=== PATIENT | male | born 1965 | race African-American/Black ===

== ENCOUNTER 2017-01-29 11:51 | Emergency (ER) | payer OTHER ==
[2017-01-29] MEDS ORDERED: Ketorolac Tromethamine 60 MG/2 ML VIAL ONE (13:45)
--- NOTE | 2017-01-29 13:59 | ULT ---
ULTRASOUND WITH DOPPLER DUPLEX VENOUS LEFT LOWER EXTREMITY CPT: 00065 ICD-10-PCS: B54D INDICATIONS: Left leg pain. TECHNIQUE: Color-flow Doppler, spectral wave-form analysis of pulsed Doppler, and tran-scale imaging with compr ession and augmentation were used to evaluate the bilateral common femoral, femoral, popliteal, post erior tibial, and superficial femoral veins and the proximal portions of the profunda femoral and gr eater saphenous veins. FINDINGS: There is limited evaluation due to the patient's body habitus, which does decrease acoustic penetrat ion. Within the imaged aspects, there is no sonographic evidence of DVT within the left lower extre mity venous system. IMPRESSION: Limited exam without discernible deep venous thrombosis. POS: [facility]
[2017-01-29 14:25] LABS: #Basophils 0.1 thou/uL (0.0-0.2); #Eosinphils 0.2 thou/uL (0.0-0.7); #Lymphocytes 1.5 thou/uL (1.20-3.40); #Monocytes 0.5 thou/uL (0.11-0.59); #Neutrophils 3.4 thou/uL (1.40-6.50); %Eosinophils 3.9 % (0.0-10.0); %Lymphocytes 26.8 % (21.0-51.0); %Monocytes 8.1 % (0.0-10.0); Hematocrit 40.3 % (42.0-52.0); Mean Platelet Volume 9.2 fL (7.4-10.4); White Blood Cell (WBC) Count 5.7 thou/uL (4.8-10.8)
[2017-01-29 14:44] LABS: ALT (SGPT) 13 U/L (8-55); AST (SGOT) 18 U/L (5-34); Alkaline Phosphatase 99 U/L (40-150); Anion Gap 10 mmol/L (10-20); BUN (Urea Nitrogen) 18 mg/dL (8.9-20.6); Bilirubin, Total 0.4 mg/dL (0.2-1.2); Calc. Creatinine Clearance 0 mL/min (70-130); Calcium 9.5 mg/dL (7.8-10.44); Carbon Dioxide 31 mmol/L (22-29); Chloride 102 mmol/L (98-107); Estimated GFR-MDRD Greater than 90; Protein, Total 9.1 g/dL (6.0-8.3)
== END 2017-01-29 16:36 | disposition home or self-care (01) ==
LOC: ERS 11:51
DX: M79.662 Pain in left lower leg (principal); G47.30 Sleep apnea, unspecified; I11.0 Hypertensive heart disease with heart failure; I50.9 Heart failure, unspecified; E66.9 Obesity, unspecified; I25.2 Old myocardial infarction; Z86.73 Personal history of transient ischemic attack (TIA), and cerebral infarction without residual deficits; Z79.899 Other long term (current) drug therapy
CPT/HCPCS: 36415; 80053; 85025; 96372; J1885

== ENCOUNTER 2017-02-03 16:51 | Observation (INO) | payer OTHER ==
[2017-02-03 17:29] LABS: #Eosinphils 0.3 thou/uL (0.0-0.7); #Lymphocytes 1.5 thou/uL (1.20-3.40); #Monocytes 0.4 thou/uL (0.11-0.59); #Neutrophils 2.9 thou/uL (1.40-6.50); %Basophils 0.1 % (0.0-1.0); %Eosinophils 6.4 % (0.0-10.0); %Lymphocytes 29.6 % (21.0-51.0); %Monocytes 7.4 % (0.0-10.0); Hematocrit 40.3 % (42.0-52.0); Mean Platelet Volume 9.1 fL (7.4-10.4); Red Blood Cell (RBC) Count 3.97 mill/uL (4.70-6.10); White Blood Cell (WBC) Count 5.2 thou/uL (4.8-10.8)
[2017-02-03 17:33] LABS: Prothrombin Time 14.5 SEC (12.0-14.7)
[2017-02-03 17:55] LABS: ALT (SGPT) 14 U/L (8-55); AST (SGOT) 17 U/L (5-34); Alkaline Phosphatase 105 U/L (40-150); Anion Gap 10 mmol/L (10-20); BUN (Urea Nitrogen) 12 mg/dL (8.9-20.6); Bilirubin, Total 0.5 mg/dL (0.2-1.2); CK (CPK) 88 U/L (30-200); Calc. Creatinine Clearance 0 mL/min (70-130); Carbon Dioxide 33 mmol/L (22-29); Chloride 102 mmol/L (98-107); Estimated GFR-MDRD Greater than 90; Globulin 4.8 g/dL (2.4-3.5); Protein, Total 8.8 g/dL (6.0-8.3)
[2017-02-03 17:59] LABS: Troponin I Less than 0.010 ng/mL (< 0.028)
[2017-02-03 18:07] LABS: Oxyhemoglobin 96.1 % (94.0-97.0); Sodium 141 mmol/L (135-148)
[2017-02-03 18:08] LABS: Mode VENTIMASK; Modified Allen's Test NOT DONE; Vent NO
--- NOTE | 2017-02-03 18:57 | RAD ---
PORTABLE CHEST: Comparison: 12-02-16 History: Shortness of breath. FINDINGS: Tracheostomy tube is in place. Heart size is enlarged. Pulmonary vessels appear engorged with appear ance very similar to that previous exam. IMPRESSION: Cardiomegaly with pulmonary vascular engorgement. POS: [facility]
[2017-02-03] MEDS ORDERED: Furosemide 40 MG/4 ML VIAL SLOW IVP SCH (21:00)
[2017-02-03] MEDS ORDERED: Benzonatate 100 MG CAP PO PRN (21:59)
[2017-02-03] MEDS ORDERED: Ondansetron ODT 4 MG TAB PO PRN (21:59)
[2017-02-03] MEDS ORDERED: Ondansetron HCl/PF 4 MG/2 ML Vial IVP PRN ×2 (21:59→22:00)
[2017-02-03] MEDS ORDERED: Acetaminophen 325 MG TAB PO PRN ×2 (21:59→22:00)
[2017-02-03] MEDS ORDERED: Enoxaparin Sodium 40 MG/0.4 ML SYRINGE SC SCH (21:59)
[2017-02-03] MEDS ORDERED: Acetaminophen 650 MG Suppository PR PRN (21:59)
[2017-02-03] MEDS ORDERED: Ondansetron ODT 4 MG TAB SL PRN (22:00)
[2017-02-03] MEDS ORDERED: Simvastatin 40 MG TAB PO SCH (22:15)
[2017-02-03] MEDS ORDERED: Topiramate 25 MG TAB PO SCH (22:15)
[2017-02-03] MEDS ORDERED: Gabapentin 100 MG CAP PO SCH (22:15)
[2017-02-03 22:46] VITALS: BMI 69.5
[2017-02-03] MEDS ORDERED: Albuterol Sulfate 1.25 MG/3 ML NEB NEB SCH (23:00)
--- NOTE | 2017-02-03 23:27 | HP ---
DATE OF ADMISSION: 02/03/2017 ATTENDING: Sandie Hubbard D.O. RESIDENT: MD Dr. Diane Mercedes's H and P reviewed and case discussed. A portion of the history and physical reviewed by myself. I agree with the assessment and plan with the following addendum. HISTORY OF PRESENT ILLNESS: Mr. Samson is a 51-year-old -[place]ian male with the past medical history of severe morbid obesity with hypoventilation syndrome, CHF, severe lymphedema, who presents after dislodging his trach at home. He was performing trach care because of worsening cough and sputum production as well as worsening nasal congestion over the past few days when his trach was dislodged. He was brought to the ER by EMS and his trach was replaced. ABG that was done shows a pH 7.34 and CO2 of 61. While abnormal, this is actually an improvement from his baseline. He does not appear to be hypoxic or in respiratory distress at this time. We will discuss his case with Dr. Singh in the morning to determine if the patient needs larger trach cuff or if he would like to proceed with current trach size, respiratory therapy to give trach care overnight. His chest x-ray did not show pneumonia and he has no other concerning features for pneumonia including a white count or fever. His cough is likely caused by viral upper respiratory infection. We will treat symptomatically with Tessalon and repeat his chest x-ray in the morning. In addition, he appears to have some weight gain on his daily measurement on his home scale of 30 pounds over the past week and his chest x-ray does show a large heart and pulmonary vasculature enlargement consistent with his known CHF. We will increase his Lasix for improved diuresis to resolve the CHF exacerbation. FELIX
[2017-02-03] MEDS ORDERED: Dextrose 5% in Water 1,000 ML IV PRN (23:41)
[2017-02-03] MEDS ORDERED: HumaLOG 300 UNITS/3 ML VIAL SC PRN (23:41)
[2017-02-03] MEDS ORDERED: Dextrose 50% Abboject 50 ML SYRINGE SLOW IVP PRN (23:41)
[2017-02-04] MEDS: Furosemide 40 MG/4 ML VIAL SLOW IVP SCH ×2 (06:05→13:28)
[2017-02-04 06:11] LABS: #Eosinphils 0.3 thou/uL (0.0-0.7); #Lymphocytes 1.9 thou/uL (1.20-3.40); #Monocytes 0.4 thou/uL (0.11-0.59); #Neutrophils 2.5 thou/uL (1.40-6.50); %Basophils 0.2 % (0.0-1.0); %Eosinophils 6.7 % (0.0-10.0); %Lymphocytes 36.6 % (21.0-51.0); %Monocytes 8.6 % (0.0-10.0); Hematocrit 36.1 % (42.0-52.0); Mean Platelet Volume 8.7 fL (7.4-10.4); White Blood Cell (WBC) Count 5.1 thou/uL (4.8-10.8)
--- NOTE | 2017-02-04 06:16 | HP-2 ---
CODE STATUS: FULL. PRIMARY CARE PHYSICIAN: Elsi A\T\M ATTENDING: Dr. Sandie Hubbard RESIDENT: Matthew Contreras M.D., PGY-1 LOCATION: [facility]. CHIEF COMPLAINT: Trach dislodged/trouble breathing. HISTORY OF PRESENT ILLNESS: This is a 51-year-old male that presents with a trach dislodgement and respiratory distress. Reports having a cough for the last week and reports having increased sweating and chills. He denies any fevers, denies any congestion, but he does take medici nba for allergies and believes that has helped keep those symptoms at bay. He says he has been incr easing the use of his nebulizers at home. He said he had a little bit of chest pain on Saturday, w as having a coughing spell during then, likely due to increased coughing. At the time of admission said he was coughing, went to go grab his suction for his trach and said during his coughing spell w hen he was moving that his trach got dislodged and then started having trouble breathing. He at armani t time called EMS and came to the ER in which he presented with just some respiratory distress and t tara not being in the correct position. REVIEW OF SYSTEMS: The patient reports a 30-pound weight gain over the last week, reports having ar thritis and arthralgias. All other review of systems are otherwise noted in HPI and the review of s ystems are negative at this time. PAST MEDICAL HISTORY: Diabetes mellitus type 2, sleep apnea, diastolic heart failure, EF of 60%, hy pertension, Pickwickian syndrome, depression, chronic anemia, morbid obesity, depression, GERD, BPH, and osteoarthritis. PAST SURGICAL HISTORY: A liver lac repair, trach placement in 2014, right corneal transplant in 200 5, lymphedema removal in 2004 and cholecystectomy. ALLERGIES: No known drug allergies. MEDICATIONS: Tramadol 15 mg q.i.d. per day, Meloxicam 1 daily, Flomax 0.4 mg p.o., Amlodipine 1 ta b p.o. Celexa 20 mg daily, Zyrtec 10 mg daily, Lasix 60 mg daily, Nexium 40 mg, Plavix 75 mg, gabape ntin 100 mg t.i.d., KCl 10 mEq, Topamax 25 mg b.i.d. and simvastatin 40 mg p.o. SOCIAL HISTORY: He is a 20 year smoker, quit in 2004. No alcohol use, no illicit drug use. PHYSICAL EXAMINATION: VITAL SIGNS: Blood pressure is 136/72, pulse is 61, respirations 20, temperature max 97.8, pulse ox 100% on his trach. GENERAL: He is alert and oriented x3, well-developed, morbidly obese, appropriately interactive. EYES: Conjunctivae within normal limit. FIDENCIO. ENT: Nasal mucosa within normal limits. Oropharynx within normal limits. NECK: Supple, no lymphadenopathy, no thyromegaly, no bruits. CARDIOVASCULAR: Regular rate and rhythm, no murmurs, no gallops. Radial pulses, pedal pulses palpa nallely bilaterally. RESPIRATORY: Normal breathing effort. Lungs are clear to auscultation bilaterally. Hard to auscul crane due to his body habitus. SKIN: Warm and dry. There is breakdown on his back, some stage I pressure ulcers. ABDOMEN: Soft, nontender to palpation. Bowel sounds are normal in all quadrants. No masses or dis tention. MUSCULOSKELETAL: He does have lymphedema in his lower extremities, does not have full range of umesh on of the extremities. NEUROLOGIC: No focal neuro deficit. Cranial nerves grossly intact. PSYCHIATRIC: He is appropriate. LABORATORY DATA: White blood cell count 5.2, hemoglobin 12.0, hematocrit 40.3, MCV 102, platelets 1 53, % neutrophils 56.4. Sodium 141, potassium 4.0, chloride 102, bicarbonate 33, BUN 12, creatinine 0.91, glucose 101, CK-MB 0.7, troponin 0.01, calcium 9.0, total protein 8.8, globulin 4.0, alkaline phosphatase 105, AST 17, ALT 14, total bilirubin 0.5. PT 14.5, INR 1.1, PTT 34.0. BNP 73.4. ABG: pH 7.34, CO2 61.8, O2 112.3. ABG bicarb 32.5. Chest x-ray showed cardiomegaly with pulmonary vas cular engorgement. ASSESSMENT AND PLAN: 1. Respiratory distress due to mucus plug/trach dislodgement. We will consult Respiratory Therapy for trach care and possible trach placement in order to keep trach clear. We will repeat chest x-ra y in a.m. We will repeat CBC and ABG in the a.m. We will consult either Pulmonology or General Surge ry to look at trach as patient reports that the trachea he does not believe is in the right place. 2. Viral upper respiratory infection. We will continue home Zyrtec and will give Tessalon Perles f or cough. 3. Diabetes mellitus type 2. We will do a.c. Accu-Cheks and mild sliding scale insulin. 4. Sleep apnea. He is on the trach. 5. Diastolic heart failure. We will give IV Lasix and his home medications. 6. Hypertension. Continue home meds. 7. Depression. Continue home medications. 8. Gastroesophageal reflux disease. Continue home medications. 9. Benign prostatic hypertrophy. Continue home medications. 10. Osteoarthritis. Continue home medications.
--- NOTE | 2017-02-04 06:40 | PDOC.FM ---
- Subjective Subjective: Pt states that he still feels like his trach has been dislodged. He denies SOB or chest pain. He admits to cough that onset within the past few days. Pt denies all other symptoms in ROS. There were no new problems over night. - Objective Vital Signs & Weight: Vital Signs (12 hours) Temp Pulse Resp BP Pulse Ox 02/04/17 06:00 97.5 F L 66 20 127/60 100 02/03/17 23:20 98 F 63 20 02/03/17 23:05 59 L 16 99 02/03/17 22:37 98 02/03/17 21:59 98 F 63 20 128/59 L 100 Weight Weight 201.35 kg Result Diagrams: 02/04/17 05:45 02/03/17 17:18 <John Thomas - Last Filed: 02/04/17 06:38> - Objective Vital Signs & Weight: Vital Signs (12 hours) Temp Pulse Resp BP BP Pulse Ox 02/04/17 08:34 66 126/59 L 02/04/17 07:35 97.8 F 66 18 126/59 L 100 02/04/17 06:00 97.5 F L 66 20 127/60 100 02/03/17 23:20 98 F 63 20 02/03/17 23:05 59 L 16 99 Weight Weight 201.35 kg I&O: 02/03/17 02/04/17 02/05/17 06:59 06:59 06:59 Output Total 700 Balance -700 Result Diagrams: 02/04/17 05:45 02/03/17 17:18 <Fay Quick - Last Filed: 02/04/17 10:51> Phys Exam - Physical Examination Constitutional: NAD HEENT: moist MMs Trach appears to be in place Respiratory: clear to auscultation bilateral Cardiovascular: RRR, no significant murmur muffled heart sounds Gastrointestinal: soft, non-tender, no distention, positive bowel sounds Musculoskeletal: no edema Neurological: non-focal <John Thomas - Last Filed: 02/04/17 06:38> Dx/Plan (1) Tracheostomy malfunction Code(s): J95.03 - MALFUNCTION OF TRACHEOSTOMY STOMA Status: Acute (2) Chronic respiratory failure with hypoxia and hypercapnia Code(s): J96.11 - CHRONIC RESPIRATORY FAILURE WITH HYPOXIA; J96.12 - CHRONIC RESPIRATORY FAILURE WITH HYPERCAPNIA Status: Chronic (3) HTN (hypertension) Code(s): I10 - ESSENTIAL (PRIMARY) HYPERTENSION Status: Chronic (4) Morbid obesity Code(s): E66.01 - MORBID (SEVERE) OBESITY DUE TO EXCESS CALORIES Status: Chronic (5) Swallowing impairment Code(s): R13.10 - DYSPHAGIA, UNSPECIFIED Status: Chronic - Plan Plan: 1. Tracheostomy out of place -per pt, his trach feels like it is out of place. This is not currently impacting his respiration -RT unable to pass suction catheter -consult Dr Singh who typically cares for his trach 2. Cough -no elevation of WBC or temp and lungs are clear -CXR does not show PNA -monitor for signs of PNA -likely 2/2 displaced trach 3. Chronic hypercapneic respiratory failure 2/2 obesity hypoventilation -monitor o2 status -provide support PRN -currently at baseline 4. HTN -continue home meds 5. Obesity -[place] on weight loss and diet 6. Dysphagia -pt has known difficulty swallowing and has been previously determined unsafe for anything PO. Pt previously denied a PEG -will order ST eval and follow diet recs <John Thomas - Last Filed: 02/04/17 06:38> Attending Addendum - Attending Addendum I personally evaluated the patient and discussed the management with Dr. Thomas. I agree with the History, Examination, Assessment and Plan documented above with any addition or exceptions noted below. The patient is sitting up in bed in no distress. His trach has been replaced by Dr. Singh and the patient states he is ready to go home. Will discharge. <Fay Quick - Last Filed: 02/04/17 10:51>
[2017-02-04] MEDS ORDERED: Potassium Chloride 10 MEQ TAB PO SCH (08:00)
--- NOTE | 2017-02-04 08:11 | RAD ---
PORTABLE CHEST ONE VIEW: 02/04/2017 6:26 a.m. HISTORY: Dyspnea. FINDINGS: No significant interval change is seen. POS: [facility]
[2017-02-04] MEDS: traMADol HCl 50 MG TAB PO PRN ×2 (08:33→15:49)
[2017-02-04] MEDS: Gabapentin 100 MG CAP PO SCH ×2 (08:35→14:37)
[2017-02-04] MEDS ORDERED: Meloxicam 15 MG TAB PO SCH (09:00)
[2017-02-04] MEDS ORDERED: Tamsulosin HCl 0.4 MG CAP PO SCH (09:00)
[2017-02-04] MEDS ORDERED: Cetirizine HCl 10 MG TAB PO SCH (09:00)
[2017-02-04] MEDS ORDERED: Amlodipine 5 MG TAB PO SCH (09:00)
[2017-02-04] MEDS ORDERED: Topiramate 25 MG TAB PO SCH (09:00)
[2017-02-04] MEDS ORDERED: Citalopram 20 MG TAB PO SCH (09:00)
[2017-02-04] MEDS ORDERED: Clopidogrel Bisulfate 75 MG TAB PO SCH (09:00)
--- NOTE | 2017-02-04 09:25 | CON ---
DATE OF CONSULTATION: 02/04/2017 CONSULTING PHYSICIAN: [facility]. REASON FOR CONSULTATION: Possible tracheostomy dislodgement. HISTORY OF PRESENT ILLNESS: Mr. Samson is a 51-year-old male with obesity hypoventilation syndrome/ SHIRA who requires a permanent tracheostomy. He is complaining that his tracheostomy does not feel li ke it is in the right spot. He presented to the emergency room last night and absolutely nothing wa s done to reposition his trach. I was called by the house staff this morning to see the patient. PAST MEDICAL HISTORY: 1. Diabetes. 2. Sleep apnea. 3. Heart failure. 4. Pickwickian syndrome. PAST SURGICAL HISTORY: Tracheostomy placement, liver laceration repair, right corneal transplant, c holecystectomy. ALLERGIES: None. MEDICATIONS: Prior to admission reviewed. See chart. SOCIAL HISTORY: Quit smoking in 2004. Does not use illicit drugs, does not drink alcohol. REVIEW OF SYSTEMS: Otherwise, negative. PHYSICAL EXAMINATION: VITAL SIGNS: Temperature 97.8, pulse 60, respirations 20, blood pressure 140/70, O2 sat 100%. GENERAL: He is awake, alert, and does not appear to be in any distress. He can actually talk and h e appears to be moving air through his trach. HEENT: Unremarkable. NECK: Trach appears to be in good position. CARDIOVASCULAR: S1, S2 regular. ABDOMEN: Soft. LUNGS: Clear. EXTREMITIES: Edematous. LABORATORY DATA: Notable for a pH 7.34, pCO2 61, pO2 112. White blood cell count 5.1, hematocrit 3 6, platelet count 140. Sodium 141, potassium 4, chloride 102, CO2 33, BUN 12, creatinine 0.9, gluco se 101. I replaced his tracheostomy with a Shiley 6.0 cuffless tube without any difficulty. He had a few se cretions which I was able to suction easily. Suction catheter passed through his tracheostomy easil y. He was moving air through his tracheostomy as would be expected. ASSESSMENT: Obstructive sleep apnea/obesity hypoventilation syndrome with permanent tracheostomy. PLAN: Tracheostomy has been replaced. The patient is cleared to go home.
--- NOTE | 2017-02-04 12:31 | DIS-2 ---
DATE OF ADMISSION: 02/03/2017 DATE OF DISCHARGE: 02/04/2017 RESIDENT: John Thomas D.O. ADMITTING ATTENDING: Fay Quick M.D. DISCHARGE ATTENDING: Dr. Fay Quick CONSULTATIONS: Pulmonary, Dr. Singh. PROCEDURES: Tracheostomy tube replacement. PRIMARY DIAGNOSIS: Tracheostomy tube displacement. SECONDARY DIAGNOSES: Chronic hypercapnic respiratory failure secondary to obesity hypoventilation syndrome, congestive heart failure, hypertension, diabetes type 2, morbid obesity. DISCONTINUED MEDICATIONS: None. DISCHARGE MEDICATIONS: Tramadol 50 mg p.o. every day p.r.n., amlodipine 5 mg p.o. daily, topiramate 25 mg p.o. b.i.d., Meloxicam 15 mg p.o. daily, potassium chloride 10 mEq p.o. daily, gabapentin 100 mg p.o. t.i.d., furosemide 40 mg p.o. daily, Plavix 75 mg p.o. daily, cetirizine 10 mg p.o. daily, Azopt ophthalmic solution 1 drop each eye t.i.d., simvastatin 40 mg p.o. at bedtime, Flonase 2 sprays each naris daily, Nexium 40 mg p.o. daily, Celexa 20 mg p.o. daily, and Flomax 0.4 mg p.o. b.i.d. HOSPITAL COURSE: The patient was admitted with concerns of dislocating his tracheostomy tube after attempting to suction the tube at home. The patient felt that the tube had been displaced and was having difficulty breathing. While in the hospital there was an attempt by RT to place suction catheter and this resulted in the patient saying that he felt the catheter in the back of his mouth. At that point it was determined to consult Dr. Singh who typically does his trach care. He notified and the patient was seen in the hospital by Dr. Singh who replaced his tracheostomy tube. At no point did the patient desat, at no point was the patient short of breath or complaining of any chest pain. The patient was discharged home following replacement of his tracheostomy tube. DISPOSITION: Stable. DISCHARGE INSTRUCTIONS: 1. Location: Home with home health. 2. Diet. It has been recommended by speech therapy in the past that the patient have a PEG tube. The patient refuses and he continues to have a full diet at home. 3. Activity: P.r.n. 4. Follow up with Dr. Singh as ordered by Dr. Singh. [facility]ENTERChepe
[2017-02-04] MEDS ORDERED: FLU VACC QS2017-18 36 mo. & older 0.5 ML SYRINGE IM ONE (14:00)
[2017-02-04 16:16] VITALS: BP 116/66; TEMP 98.8
[2017-02-04] MEDS ORDERED: Simvastatin 40 MG TAB PO SCH (21:00)
[2017-02-05] MEDS ORDERED: FLU VACC QS2017-18 36 mo. & older 0.5 ML SYRINGE IM ONE (09:00)
== END 2017-02-04 19:49 | disposition home health service (06) ==
LOC: ERS 16:51 → 2NO 21:25
PROVIDERS: ADMIT Family Medicine; ATTEND Family Medicine
DX: Z43.0 Encounter for attention to tracheostomy (principal); J96.12 Chronic respiratory failure with hypercapnia; I11.0 Hypertensive heart disease with heart failure; I50.9 Heart failure, unspecified; E11.9 Type 2 diabetes mellitus without complications; K21.9 Gastro-esophageal reflux disease without esophagitis; E66.2 Morbid (severe) obesity with alveolar hypoventilation; Z68.44 Body mass index [BMI] 60.0-69.9, adult; Z79.899 Other long term (current) drug therapy; Z87.891 Personal history of nicotine dependence; Z90.49 Acquired absence of other specified parts of digestive tract
CPT/HCPCS: 36415; 36416; 71010; 80053; 82550; 82553; 82805; 83880; 84484; 85025; 85610; 85730; 87040; 87149; 90471; 90682; 93005; 94640; 94760; 96372; 96374; 96376; A4216; G0008; G0378; G8978-GP-CK; G8979-GP-CK; G8980-GP-CK; G8996-GN-CK; G8997-GN-CJ; J1650; J1940; Q2036

== ENCOUNTER 2017-03-20 01:09 | Inpatient (IN) | payer OTHER ==
[2017-03-20] MEDS ORDERED: Ondansetron ODT 4 MG TAB PO PRN (03:54)
[2017-03-20] MEDS ORDERED: Pepto Bismol Chew TAB PO PRN (03:54)
[2017-03-20] MEDS ORDERED: Acetaminophen 325 MG TAB PO PRN (03:54)
[2017-03-20] MEDS ORDERED: Benzonatate 100 MG CAP PO PRN (03:57)
[2017-03-20 06:44] LABS: #Eosinphils 0.2 thou/uL (0.0-0.7); Mean Platelet Volume 9.4 fL (7.4-10.4); White Blood Cell (WBC) Count 5.9 thou/uL (4.8-10.8)
[2017-03-20 06:50] LABS: #Basophils 0.1 thou/uL (0.0-0.2); #Lymphocytes 1.7 thou/uL (1.20-3.40); #Monocytes 0.5 thou/uL (0.11-0.59); #Neutrophils 3.4 thou/uL (1.40-6.50); %Eosinophils 3.6 % (0.0-10.0); %Lymphocytes 28.3 % (21.0-51.0); %Monocytes 9.1 % (0.0-10.0); Hematocrit 36.5 % (42.0-52.0)
[2017-03-20 06:54] LABS: Anion Gap 9 mmol/L (10-20); BUN (Urea Nitrogen) 17 mg/dL (8.9-20.6); Calc. Creatinine Clearance 432 mL/min (70-130); Calcium 8.9 mg/dL (7.8-10.44); Carbon Dioxide 32 mmol/L (22-29); Chloride 102 mmol/L (98-107); Estimated GFR-MDRD Greater than 90
--- NOTE | 2017-03-20 07:11 | ER ---
DATE OF SERVICE: 03/20/2017 Please refer to the patient's electronic medical record for further details of his visit. In summary, the patient presents with reported dislodgement of his tracheostomy tube. He is breathin g comfortably on arrival, and is in no distress. He states that he took the tracheostomy out to emily n it as he was having some difficulty with secretions and coughing. After having taken it out, he wa s unable to replace it. On initial assessment, the patient was in no distress, had clear breath sounds bilaterally, and repor ts being otherwise in his usual state of health. No fever or significantly productive cough out of t he ordinary. He states that he usually wears a #6 Shiley tracheostomy tube, though he did not bring it with him. A new 6-0 Shiley was obtained, but I was unable to pass it through his tracheostomy sit e. I was able to pass a #4 Shiley, though this resulted in what I believed to be in proper placemen t as the patient began gagging and choking and was unable to breathe immediately after placement. Hi s family reports that the exact same thing happened when he attempted to replace his Shiley at home. This concerns me for the development of a false lumen. The Shiley was removed and the patient again began breathing comfortably without it. He did not become hypoxic at any point. I discussed the case with Dr. Yip as I do not want to attempt further blind placement through his tr acheostomy site. He recommended an ENT consultation. I discussed with Dr. Parsons of ENT who recomme nded that I discuss the case with Dr. Thomas who urgently placed the tracheostomy. I discussed with Dr. Thomas who agrees with replacement intraoperatively in the morning. I discussed with Dr. Benson of the Family Medicine Residency Service for admission overnight for supplemental oxygenation as requ ired, as the patient has a tracheostomy tube because of severe Pickwickian obstructive sleep apnea. The patient remained hemodynamically stable throughout his ER stay. He did not become hypoxic at any point. I also attempted to contact Dr. Singh, the patient's personal belting cutter, but was unabl e to reach him. The patient is stable at the time of admission. We will admit him to the [facility] in ca se of airway decompensation, though I do not anticipate that occurring at this time.
--- NOTE | 2017-03-20 08:07 | RAD ---
PORTABLE CHEST: History: Respiratory distress. Comparison: 02-04-17 FINDINGS: The heart size is enlarged. No signs of overt pulmonary edema or focal infiltrates. IMPRESSION: Cardiomegaly with mild vascular prominence but no overt edema. POS: [facility]
[2017-03-20] MEDS: Enoxaparin Sodium 40 MG/0.4 ML SYRINGE SC SCH (08:17)
[2017-03-20] MEDS: Famotidine 20 MG TAB PO SCH ×2 (08:18→20:42)
--- NOTE | 2017-03-20 08:45 | CON ---
DATE OF CONSULTATION: 03/20/2017 REASON FOR CONSULTATION: Tracheostomy has become dislodged. HISTORY OF PRESENT ILLNESS: George is a 51-year-old male who is morbidly obese. He came in last night stating that his tracheostomy had become dislodged about 10:00 p.m. Multiple attempts were made in the emergency room to replace it and were unsuccessful. PAST MEDICAL HISTORY: 1. Diabetes. 2. Obstructive sleep apnea. 3. Morbid obesity. PAST SURGICAL HISTORY: 1. Tracheostomy placement by Dr. Thomas 2014. 2. Liver laceration repair. 3. Right corneal transplant. 4. Cholecystectomy. ALLERGIES: None. SOCIAL HISTORY: Quit smoking in 2004. Does not drink, does not use illicit drugs. He lives at home with his . MEDICATIONS: Prior to admission; Azopt eyedrops, Zocor 40 mg nightly, potassium chloride 10 mEq julia y, Meloxicam 1 tablet daily, Nexium 40 mg daily, Zyrtec 10 mg daily, amlodipine 10 mg daily, tamsulos in 0.4 mg daily, fluticasone nasal spray 2 squirts each nostril daily, Celexa, unknown dose daily, ga bapentin 100 mg t.i.d., furosemide 40 mg daily, topiramate 25 mg b.i.d., Plavix 75 mg daily, tramadol 50 mg daily q.i.d. as needed for pain. PHYSICAL EXAMINATION: VITAL SIGNS: Heart rate 74, blood pressure 182/143, O2 sat 97%, respiratory 20. GENERAL: George was speaking without any difficulty. HEENT: Pupils react. Sclerae are anicteric. Oropharynx class 4 Mallampati airway. NECK: He is a small ostomy site. He can move some air through that. CARDIAC: S1, S2 regular. LUNGS: Clear. ABDOMEN: Morbidly obese and soft. EXTREMITIES: Brawny edema throughout. LABORATORY DATA: White blood cell count 5.9, hematocrit 36.5, platelet count 155. Sodium 139, potas sium 3.8, chloride 102, CO2 32, BUN 17, creatinine 0.8, glucose 98. ASSESSMENT: Tracheostomy dislodgement. PLAN: I attempted to dilate the tracheostomy with a percutaneous tracheostomy kit, but was unable to pass a size #6 Shiley XLT trach over the wire after dilatation. I have consulted Dr. Thomas as this will probably need to be redone in the OR. I see no alternative since he is noncompliant with CPAP.
--- NOTE | 2017-03-20 09:36 | HP-2 ---
CODE STATUS: FULL. PRIMARY CARE PHYSICIAN: Dr. Davida Levi/Dr. Jas Espinosa. ATTENDING: Dr. Dylan Claros. RESIDENT: Sulma Benson D.O. HISTORIAN: Patient. CHIEF COMPLAINT: Displaced tracheostomy tube. HISTORY OF PRESENT ILLNESS: Patient is a 51-year-old male with past medical history of morbid obesity, SHIRA and obesity hypoventilation syndrome, status post tracheostomy in 2014, presented to the ED because of displaced trach. Reports that he had a coughing fit earlier this evening where the trach tube became dislodged quite a bit. He tried to reposition it and was unsuccessful ended up pulling the tube completely out and could not insert it again comfortably. He did insert it to some degree, but found that it was not inserted correctly, because it was so uncomfortable and causing him to cough even more. The patient does report while trying to clean the trach, he noticed odor and discharge from the tube, has been noticing this for about 2 weeks. Patient reports no sick symptoms or feelings, but does report recent viral URI 2 weeks ago and had chronic cough since then. Reports shortness of breath when he has a coughing spell, but otherwise doing fine. In the ER, Dr. Busch tried to replace the tube, but was unsuccessful reporting a false lumen. He also notified Dr. Yip as well as Dr. Thomas that the patient was here and began the attempt for possible surgical revision in the morning with Dr. Thomas. PAST MEDICAL HISTORY: 1. Congestive heart failure. 2. Hyperlipidemia. 3. Hypertension. 4. SHIRA. 5. Lipidemia. 6. Morbid obesity, status post trach. 7. Vitamin D deficiency. PAST SURGICAL HISTORY: 1. Cholecystectomy. 2. Right corneal transplant. 3. Left cataract repair. 4. Tracheostomy. ALLERGIES: No known drug allergies. MEDICATIONS: 1. Plavix 75 mg p.o. daily. 2. Amlodipine 5 mg p.o. daily. 3. Nexium 40 mg daily. 4. Furosemide 40 mg p.o. b.i.d. 5. Citalopram hydrobromide 40 mg p.o. once daily. 6. Tramadol 50 mg p.o. q.6 hours p.r.n. for pain. 7. Zocor 40 mg p.o. at bedtime. 8. Cetirizine HCL 10 mg p.o. daily. 9. Topamax 25 mg p.o. b.i.d. 10. Gabapentin 100 mg p.o. t.i.d. 11. Albuterol sulfate inhalation nebulization solution 1 dose inhaled every 4 hours as needed. 12. Potassium tab 10 mEq 1 tablet p.o. daily. 13. Acetylcysteine 20% inhalation solution 2 mL solution via tracheostomy every 1-4 hours p.r.n. 14. Antiseptic skin cleanser 4% external solution used for cleaning. 15. Meloxicam 15 mg p.o. daily. 16. Soothe and Cool Free Medseptic external ointment applied to skin area as needed for barrier protection. 17. Flomax 0.4 mg p.o. daily. 18. Fluticasone propionate 50 mcg 2 sprays each naris daily. FAMILY HISTORY: Noncontributory. SOCIAL HISTORY: Denies current tobacco use, but does have a 8-1/2 pack year history of smoking for 17 years, one half pack per day. Denies alcohol and drug use. He is . Denies ill contacts. REVIEW OF SYSTEMS: General: Negative for fever, chills, weight, appetite change. Eyes: Negative for vision changes or eye pain. ENT: Negative for nasal congestion. Respiratory: He does admit cough, congestion, shortness of breath with coughing. Cardiovascular: Does admit to chest pain, palpitations and edema. Chest pain is associated with cough. Gastrointestinal: Reports nausea, no vomiting, diarrhea, constipation or abdominal pain. Skin: No rashes or lesions. Neurologic: No weakness or numbness. Psychiatric: Negative for anxiety and depression. PHYSICAL EXAMINATION: VITAL SIGNS: Blood pressure 132/76, pulse 72, respiratory rate 24, T-max 98.9, pulse ox 99% on facemask over the trach, satting 97% on room air with head leaned forward, only using nose for breathing. Current weight 315.7 kilograms. GENERAL: The patient is alert and oriented x4, in no acute distress. He is morbidly obese, and appropriately interactive. EYES: PERRLA, EOMI. ENT: Oropharynx within normal limits. CARDIOVASCULAR: Regular rate and rhythm. No murmurs, gallops or rubs. RESPIRATORY: Normal effort, no retractions, clear to auscultation bilaterally. When he does have coughing fits, it increases the effort for breathing. ABDOMEN: Soft, nontender. EXTREMITIES: No clubbing, cyanosis or edema. MUSCULOSKELETAL: Structure within normal limits. Tone within normal limits. NEUROLOGIC: No focal deficits. SKIN: Warm and dry without lesions that are visible. PSYCHIATRIC: Appropriate. LABORATORY DATA: No labs were done or imaging. ASSESSMENT AND PLAN: 1. Tracheostomy dysfunction. Dr. Thomas to surgically replace in the morning. Until then, we will admit to IMCU with blow by O2. We will add DuoNeb q.4 hours as needed for wheezing. 2. Chronic cough, likely secondary to post-viral illness. No signs and symptoms of infection at this time. We will provide Tessalon Perles for cough and symptomatic treatment. If worsens, consider chest x-ray. 3. Hyperlipidemia. We will give home statin. 4. Hypertension. Home amlodipine. 5. Congestive heart failure. Home Lasix. 6. Obstructive sleep apnea, blow by O2. We will transition to BiPAP if necessary. 7. Prophylaxis. Lovenox and Pepcid. DISPOSITION AND ANTICIPATED LENGTH OF HOSPITAL STAY: 1-2 days. Symptomatic medications will be provided. History and physical exam as well as management discussed with Dr. Dylan Claros. [facility]ITALChepe
[2017-03-20] MEDS: Amlodipine 5 MG TAB PO SCH (10:00)
[2017-03-20] MEDS: Citalopram 20 MG TAB PO SCH (10:00)
[2017-03-20] MEDS: Furosemide 40 MG TAB PO SCH (10:01)
[2017-03-20] MEDS: Fluticasone Propionate Nasal Spray 16 gm Bottle NASAL SCH (10:01)
[2017-03-20] MEDS: Potassium Chloride 10 MEQ TAB PO SCH (10:01)
[2017-03-20] MEDS: Gabapentin 100 MG CAP PO SCH ×3 (10:01→20:42)
[2017-03-20] MEDS: Loratadine 10 MG TAB PO SCH (10:01)
[2017-03-20] MEDS: Tamsulosin HCl 0.4 MG CAP PO SCH (10:01)
[2017-03-20] MEDS: Topiramate 25 MG TAB PO SCH ×2 (10:01→20:42)
[2017-03-20] MEDS: Clopidogrel Bisulfate 75 MG TAB PO SCH (10:01)
--- NOTE | 2017-03-20 12:27 | HP ---
HISTORY OF PRESENT ILLNESS: Taiwo Samson is a 51-year-old black male who in 2014, I placed a tracheostomy #8 Bivona for respiratory failure, morbid obesity, hypoventilation syndrome. The patie nt has been noncompliant and has had his trachea replaced on several occasions. On this occasion, he presents to the emergency room stating he was coughing, it came out, and he could not get it back ag ain. The emergency room physician, Dr. Busch, was unable to replace his tracheostomy. Dr. Gold Singh saw him this morning and was unable to place it using dilators. Plan is to take him to the o perating room today, replace his tracheostomy, he still has an open tract. We will do this under loc al minimal sedation anesthesia. Risks of infection, bleeding, reoperation and intubation explained a nd he consents. He probably can be discharged home later today after the tracheostomy was replaced. ALLERGIES: None. PAST MEDICAL HISTORY: Congestive heart failure, hyperlipidemia, hypertension, SHIRA, morbid obesity, v itamin D deficiency, hyperlipidemia. PAST SURGICAL HISTORY: Cholecystectomy, corneal transplant, left cataract repair, tracheostomy. MEDICATIONS: Plavix, amlodipine, Nexium, furosemide, citalopram, tramadol, Zocor, cetirizine, [place] x, gabapentin, albuterol, potassium daily, acetylcysteine inhalational solution per tracheostomy, ant iseptic solution, Meloxicam, Flomax, and fluticasone. SOCIAL HISTORY: Tobacco, none. History of abuse in the past. Alcohol, none. PHYSICAL EXAMINATION: VITAL SIGNS: 5 feet 7, 633 pounds, BMI 99. LUNGS: Clear to auscultation. CARDIAC: Regular rate and rhythm without murmur or gallop. ABDOMEN: Soft, obese, nontender. Tracheostomy site granulating defect pleasant. ASSESSMENT AND PLAN: Dislodged tracheostomy. We will plan placement in the OR under minimal sedatio n local anesthesia. He may need a Bivona along for tracheostomy.
[2017-03-20] MEDS ORDERED: Bupivacaine/Epinephrine 0.25% 30 ML VIAL ONE (13:14)
[2017-03-20] MEDS ORDERED: Lidocaine 2% PF 5 ML VIAL ONE (13:14)
[2017-03-20] MEDS ORDERED: Midazolam HCl 2 mg/2 ml Vial ONE (13:46)
[2017-03-20] MEDS ORDERED: Fentanyl 100 MCG/2 ML VIAL ONE (13:46)
[2017-03-20] MEDS ORDERED: Sodium Chloride 0.9% 20 ML ONE (14:40)
[2017-03-20] MEDS ORDERED: Sterile Water 0 ML ONE (14:41)
[2017-03-20] MEDS ORDERED: traMADol HCl 50 MG TAB PO PRN (15:37)
[2017-03-20] MEDS: Brinzolamide 1% Ophth Soln 10 ml Bottle EA EYE SCH ×2 (16:27→20:42)
[2017-03-20] MEDS ORDERED: Atorvastatin Calcium 20 MG TAB PO SCH (21:00)
--- NOTE | 2017-03-20 21:44 | OP ---
DATE OF PROCEDURE: 03/20/2017 PREOPERATIVE DIAGNOSES: Morbid obesity; hypoventilation syndrome, more than 600 pounds; dislodged tr acheostomy tube, unknown duration; stenotic opening. POSTOPERATIVE DIAGNOSES: Morbid obesity; hypoventilation syndrome, more than 600 pounds; dislodged t racheostomy tube, unknown duration; stenotic opening. PROCEDURE: In the operating room conditions without sedation, dilatation of the tracheostomy tract, failure to be able to place an Extended 6 Shiley and placement of #6 Bivona via tracheostomy tube aft er dilatation. Completion bronchoscopy revealed the tube to be well above the rosey. SURGEON: Dr. Toi Thomas ANESTHESIA: Local 0.25% Marcaine with epinephrine 30 mL, mixed with 1% Xylocaine with epinephrine 30 mL DESCRIPTION OF PROCEDURE: The patient was taken to the operating room where in the supine position w ith the neck hyperextended, the peritracheal area was prepared with ChloraPrep. Local anesthetic mix ture infiltrated into skin and subcutaneous tissue about the area, the tracheostomy tract is epitheli zed. With neck hyperextended, I could visualize defect. I tried to place extended #6 tracheostomy t ube down, but it would not go. I then obtained the dilators from the percutaneous tracheostomy kit s erially and dilated the tract over J-wire. I then tried to place the extended #6 tracheostomy tube a nd it would not go. I then placed over a J-wire, a Bivona tracheostomy tube #6. We suctioned this. Bronchoscope was then placed and the tip was well above the rosey. The patient tolerated the proce dure fairly well without sedation although there was coughing, he was cooperative. Tracheostomy secu red with the straps. The patient suctioned. He complained that unable to breathe at times or discom fort, but bronchoscope revealed the tube to be in good position, it possibly could be advanced a few centimeters and not get rid of some irritation of his neck. The inflation tubing was cut as the ball oon was not inflated. The patient probably should be observed overnight. His tracheostomy tube shou ld not be changed and should left in place for a week and a half to 2 weeks. Consideration for evalu ation in an outpatient setting, operating room or endoscopy with Pulmonary Medicine and/or surgery av ailable for the first to change. Hopefully, revision of the tracheostomy will not be necessary.
[2017-03-21 06:17] VITALS: BMI 98.5
[2017-03-21] MEDS: Brinzolamide 1% Ophth Soln 10 ml Bottle EA EYE SCH (08:22)
[2017-03-21] MEDS: Fluticasone Propionate Nasal Spray 16 gm Bottle NASAL SCH (08:23)
[2017-03-21] MEDS: Enoxaparin Sodium 40 MG/0.4 ML SYRINGE SC SCH (08:24)
[2017-03-21] MEDS: Tamsulosin HCl 0.4 MG CAP PO SCH (08:25)
[2017-03-21] MEDS: Amlodipine 5 MG TAB PO SCH (08:25)
[2017-03-21] MEDS: Clopidogrel Bisulfate 75 MG TAB PO SCH (08:25)
[2017-03-21] MEDS: Citalopram 20 MG TAB PO SCH (08:25)
[2017-03-21] MEDS: Loratadine 10 MG TAB PO SCH (08:25)
[2017-03-21] MEDS: Potassium Chloride 10 MEQ TAB PO SCH (08:25)
[2017-03-21] MEDS: Gabapentin 100 MG CAP PO SCH (08:25)
[2017-03-21] MEDS: Furosemide 40 MG TAB PO SCH (08:25)
[2017-03-21] MEDS: Famotidine 20 MG TAB PO SCH (08:26)
[2017-03-21] MEDS: Topiramate 25 MG TAB PO SCH (08:30)
[2017-03-21] MEDS ORDERED: Loperamide HCl 2 MG CAP PO PRN (09:00)
[2017-03-21] MEDS ORDERED: Meloxicam 15 MG TAB PO SCH (09:00)
--- NOTE | 2017-03-21 09:02 | PDOC.FM ---
- Subjective Subjective: CC: sore throat HPI: states his neck and throat are sore after yesterday's procedure. Reports loose stools and requests medication. No other concerns. - Objective MAR Reviewed: Yes Vital Signs & Weight: Vital Signs (12 hours) Temp Pulse Resp Pulse Ox 03/21/17 08:25 74 03/21/17 07:40 98.6 F 74 12 03/21/17 07:00 98.6 F 03/21/17 04:00 98.8 F 95 03/21/17 00:00 98.2 F Weight Weight 285.3 kg Most Recent Monitor Data Heart Rate from ECG 70 NIBP 145/70 NIBP BP-Mean 100 Respiration from ECG 18 SpO2 90 I&O: 03/20/17 03/21/17 03/22/17 06:59 06:59 06:59 Intake Total 800 300 Output Total 500 2950 Balance -500 -2150 300 Result Diagrams: 03/20/17 02:50 03/20/17 03:56 <Fareed Millan - Last Filed: 03/21/17 10:11> - Objective Vital Signs & Weight: Vital Signs (12 hours) Temp Pulse Resp Pulse Ox 03/21/17 11:00 98.5 F 03/21/17 08:25 74 03/21/17 07:40 98.6 F 74 12 03/21/17 07:00 98.6 F 03/21/17 04:00 98.8 F 95 Weight Weight 285.3 kg Most Recent Monitor Data Heart Rate from ECG 68 NIBP 151/69 NIBP BP-Mean 108 Respiration from ECG 19 SpO2 87 I&O: 03/20/17 03/21/17 03/22/17 06:59 06:59 06:59 Intake Total 800 600 Output Total 500 2950 0 Balance -500 -2150 600 Result Diagrams: 03/20/17 02:50 03/20/17 03:56 <Kendrick Daigle - Last Filed: 03/21/17 13:02> Phys Exam - Physical Examination Constitutional: NAD morbidly obese HEENT: moist MMs, sclera anicteric Respiratory: no wheezing, clear to auscultation bilateral Cardiovascular: RRR, no significant murmur Gastrointestinal: soft, non-tender, no distention Neurological: moves all 4 limbs Psychiatric: normal affect, A&O x 3 <Fareed Millan - Last Filed: 03/21/17 10:11> Dx/Plan (1) Tracheostomy malfunction Code(s): J95.03 - MALFUNCTION OF TRACHEOSTOMY STOMA Status: Acute Plan: Replaced by Dr. Thomas yesterday. - plumonology states he is safe for d/c and needs to return to ER on 04/03 for trach replacement. (2) HTN (hypertension) Code(s): I10 - ESSENTIAL (PRIMARY) HYPERTENSION Status: Chronic QualifierTitle: Hypertension type: essential hypertension Qualified Code( s): I10 - Essential (primary) hypertension Plan: Stable. (3) Morbid obesity Code(s): E66.01 - MORBID (SEVERE) OBESITY DUE TO EXCESS CALORIES Status: Chronic Plan: stable (4) Obesity hypoventilation syndrome Code(s): E66.2 - MORBID (SEVERE) OBESITY WITH ALVEOLAR HYPOVENTILATION Status : Chronic Plan: trach replaced. <Fareed Millan - Last Filed: 03/21/17 10:11> Attending Addendum - Attending Addendum I personally evaluated the patient and discussed the management with Dr. Millan/ Bela. I agree with the History, Examination, Assessment and Plan documented above with any addition or exceptions noted below. Stable for discharge. <Kendrick Daigle - Last Filed: 03/21/17 13:02>
--- NOTE | 2017-03-21 09:25 | PRG ---
DATE OF SERVICE: 03/21/2017 SUBJECTIVE: He had a tracheostomy replaced yesterday in the OR by Dr. Thomas, it is a Bivona sliding tracheostomy. He is back to baseline today. OBJECTIVE: VITAL SIGNS: Temperature 98.6, pulse 70, and blood pressure 145/70. HEENT: Unremarkable. His tracheostomy site is clean. LUNGS: His lungs are clear. CARDIAC: S1 and S2, regular. ABDOMEN: Soft and obese. ASSESSMENT: Obstructive sleep apnea, requiring tracheostomy. PLAN: He can be discharged today. I have asked him to come to the ER on 04/03/2017, so that we can change his tracheostomy out with a Shiley XLT 6.0 cuffed post-trach, hopefully after 2 weeks dilatati on with current tracheostomy replacement will be possible. Keeping a Bivona trach for prolonged lorelei od of time is not feasible because it will eventually become displaced.
[2017-03-21 11:20] VITALS: TEMP 98.5
--- NOTE | 2017-03-21 14:09 | DIS-2 ---
DATE OF ADMISSION: 03/20/2017 DATE OF DISCHARGE: 03/21/2017 ADMITTING ATTENDING: Dylan Claros M.D. DISCHARGE ATTENDING: Kendrick Daigle M.D. RESIDENT: Fareed Millan M.D. CONSULTATIONS: 1. Dr. Gold Singh, Pulmonology. 2. Dr. Toi Thomas, General Surgery. PROCEDURES: Dilatation tracheostomy track with placement of #6 [place] tracheostomy tube and confirm ation with bronchoscopy. PERTINENT LABORATORY FINDINGS: None. PERTINENT IMAGING: None. PRIMARY DIAGNOSES: Tracheostomy failure. SECONDARY DIAGNOSES: 1. Severe morbid obesity. 2. Obesity hypoventilation syndrome. 3. Hypertension. DISCHARGE MEDICATIONS: 1. Citalopram 40 mg daily. 2. Plavix 75 mg daily. 3. Simvastatin 20 mg at bedtime. 4. Zyrtec 10 mg daily. 5. Gabapentin 100 mg t.i.d. 6. Potassium chloride 10 mEq daily. 7. Topamax 25 mg daily. 8. Nexium 40 mg daily. 9. Flomax 0.4 mg daily. 10. Amlodipine 5 mg daily. 11. Meloxicam 1 tab daily. 12. Tramadol 50 mg q.i.d. p.r.n. 13. Flonase 2 sprays intranasally daily. 14. Lasix 40 mg p.o. daily. HISTORY OF PRESENT ILLNESS AND HOSPITAL COURSE: Mr. Samson is a pleasant 51-year-old [place] male who presented to the ER with a displaced tracheostomy tube that occurred after a coughing spel l earlier on the day of admission. He attempted to reposition the tube at home without success and i n the process removed his tracheostomy tube. The tube was attempted to be replaced while in the ER, but the attempt was unsuccessful. Dr. Thomas and Dr. Singh were consulted. Dr. Singh attempted to replace the tracheostomy tube at bedside, but was unsuccessful. This required Dr. Thomas's take t he patient to the OR for tracheostomy tract dilatation and replacement of the tracheostomy tube. The patient tolerated the procedure well and was observed overnight. The tracheostomy tube was readjust ed throughout the evening due to patient discomfort. He is maintaining his oxygen saturations well. He was cleared for discharge by Pulmonology and General Surgery. Vital signs at the time of discharge were stable. DISPOSITION: Stable. DISCHARGE INSTRUCTIONS: 1. Location: Home. 2. Diet: Heart healthy, consistent carbohydrates. 3. Activity: As tolerated. 4. Followup: The patient was instructed by Dr. Singh to return to the emergency room on 7 for exchange of his tracheostomy tube. The patient to follow up with his primary care provider jeff kate 1 week of discharge. Less than 30 minutes spent on discharge.
== END 2017-03-21 14:30 | disposition home or self-care (01) | DRG 167 ==
LOC: ERS 01:09 → CCU 04:19
PROVIDERS: ADMIT Family Medicine; ATTEND Family Medicine
PROC: 0BW17FZ Revision of Tracheostomy Device in Trachea, Via Natural or Artificial Opening (ICD-10-PCS; principal; 2017-03-20)
PROC: 0BJ17ZZ Inspection of Trachea, Via Natural or Artificial Opening (ICD-10-PCS; 2017-03-20)
DX: J95.03 Malfunction of tracheostomy stoma (principal); E66.2 Morbid (severe) obesity with alveolar hypoventilation; I11.0 Hypertensive heart disease with heart failure; Z68.45 Body mass index [BMI] 70 or greater, adult; E55.9 Vitamin D deficiency, unspecified; E78.5 Hyperlipidemia, unspecified; Z87.891 Personal history of nicotine dependence; R05 Cough
CPT/HCPCS: 31502; 71010; 80048; 85025; A4216; J1650; J2001; J2250; J3010

== ENCOUNTER → 2017-04-02 | Day surgery (SDC) | payer OTHER | LOC: ER/OP 10:25 | PROVIDERS: ATTEND Internal Medicine Critical Care Medicine | PROC: 0W9930Z Drainage of Right Pleural Cavity with Drainage Device, Percutaneous Approach (ICD-10-PCS; principal; 2017-04-02) | DX: J90 Pleural effusion, not elsewhere classified (principal); J18.9 Pneumonia, unspecified organism; J96.10 Chronic respiratory failure, unspecified whether with hypoxia or hypercapnia; E66.2 Morbid (severe) obesity with alveolar hypoventilation; I11.0 Hypertensive heart disease with heart failure; I50.9 Heart failure, unspecified; E78.5 Hyperlipidemia, unspecified; E55.9 Vitamin D deficiency, unspecified; Z79.1 Long term (current) use of non-steroidal anti-inflammatories (NSAID); Z79.02 Long term (current) use of antithrombotics/antiplatelets; Z79.51 Long term (current) use of inhaled steroids; Z79.899 Other long term (current) drug therapy; Z94.7 Corneal transplant status; Z93.0 Tracheostomy status; Z90.49 Acquired absence of other specified parts of digestive tract; Z87.891 Personal history of nicotine dependence ==

== ENCOUNTER 2017-04-07 14:21 | Inpatient (IN) | payer OTHER ==
[2017-04-07] MEDS ORDERED: Morphine 4 MG/ML VIAL ONE ×2 (15:32→18:02)
[2017-04-07 15:40] LABS: #Eosinphils 0.2 thou/uL (0.0-0.7); #Monocytes 0.5 thou/uL (0.11-0.59); #Neutrophils 2.5 thou/uL (1.40-6.50); %Basophils 0.5 % (0.0-1.0); %Eosinophils 4.7 % (0.0-10.0); %Lymphocytes 23.6 % (21.0-51.0); %Monocytes 12.6 % (0.0-10.0); %Neutrophils 58.6 % (42.0-75.0); Hemoglobin 11.6 g/dL (14.0-18.0); Mean Corpuscular HGB CONC 30.8 g/dL (32.0-36.0); Platelet Count 129 thou/uL (130-400); RBC Distribution Width 12.4 % (11.5-14.5); Red Blood Cell (RBC) Count 3.75 mill/uL (4.70-6.10); White Blood Cell (WBC) Count 4.3 thou/uL (4.8-10.8)
[2017-04-07 15:56] LABS: ALT (SGPT) 12 U/L (8-55); AST (SGOT) 14 U/L (5-34); Albumin 3.8 g/dL (3.5-5.0); Alkaline Phosphatase 94 U/L (40-150); Anion Gap 8 mmol/L (10-20); BUN (Urea Nitrogen) 13 mg/dL (8.9-20.6); Bilirubin, Total 0.4 mg/dL (0.2-1.2); Calc. Creatinine Clearance 0 mL/min (70-130); Calcium 8.8 mg/dL (7.8-10.44); Carbon Dioxide 34 mmol/L (22-29); Chloride 101 mmol/L (98-107); Estimated GFR-MDRD Greater than 90; Globulin 4.4 g/dL (2.4-3.5); Glucose 103 mg/dL (70-105); Potassium 4.2 mmol/L (3.5-5.1); Protein, Total 8.2 g/dL (6.0-8.3); Sodium 139 mmol/L (136-145)
--- NOTE | 2017-04-07 15:57 | ULT ---
SOFT TISSUE NECK ULTRASOUND: Date: 04/07/17 HISTORY: Neck pain. FINDINGS: Soft tissue neck ultrasound is performed. Real-time color flow images demonstrate a hypoechoic area m easuring approximately 1.3 x 0.7 x 0.8 cm beneath the left ear. This may represent an enlarged lymph node or possible abscess. If there is concern for significant pathology, correlation with ENT consult ation is recommended. IMPRESSION: Possible left periauricular lymph node versus fluid collection. Difficult to assess on sonography. POS: [facility]
[2017-04-07] MEDS ORDERED: Piperacillin/Tazobactam 4.5 GM in Sodium Chloride 0.9% 100 ML IVPB SCH (17:30)
[2017-04-07] MEDS ORDERED: Ondansetron ODT 4 MG TAB PO PRN (21:26)
[2017-04-07] MEDS ORDERED: Acetaminophen 325 MG TAB PO PRN (21:26)
[2017-04-07 22:27] VITALS: BMI 96.0
[2017-04-07] MEDS ORDERED: traMADol HCl 50 MG TAB PO PRN (22:47)
--- NOTE | 2017-04-08 00:10 | PDOC.EVN ---
Event Note - Event Note Event Note: Patient seen and examined on 04/07/17 @2300. History, exam, assessmnet and plan reviewed and discussed with Dr. Contreras. Agree with resident's documentation. Briefly this is a 51 year old BM with obesity-hypoventilation syndrome s/p trach , HTN, HLD, morbid obesity presented c/o left ear/neck pain since Saturday. Patient states that he has a bedbug infestation and he was scratching the bites and believes that it became infected. Denies any fever/chills. No drainage. (+) swelling of ear. PE: Afebrile, VSS Left ear appendage swollen and tender to palpation; tenderness extends down lateral neck and upwards across scalp. No fluctuance; no warmth Lungs- CTA b/l CV-RRR no murmur Labs: WBC 4.3 A/P: 1) Cellulitis- admit to medical. Continue IV abx. ENT nad general surgery have evaluated patient and do not find discreet abscess that needs drainage. 2) Obesity/hypoventilation syndrome- continue with trach and supplemental O2 3) HTN- resume home meds.
--- NOTE | 2017-04-08 00:21 | HP-2 ---
CODE STATUS: FULL. PRIMARY CARE PHYSICIAN: [facility]. ATTENDING: Dr. Thea Kennedy. RESIDENT: Kuldeep Chaidez M.D. CHIEF COMPLAINT: Neck swelling. HISTORY OF PRESENT ILLNESS: This is a 51-year-old morbidly obese man with Pickwickian syndrome, pres ents with a 1-day history of left-sided neck swelling and pain. He states the pain began last night before he went to sleep. He does have a past history of bed bug infestation and he said that he felt like he had some bed bug bites that he itched and had progressively basically got infected. The kelly n had gotten so severe and that he has basically any contact to the left side of his face, neck, and trapezius area is very uncomfortable for him. He also had some left ear swelling. He denies any fev ers at this time. He denies any nausea, vomiting or diarrhea. He also denies any sickness. Other t joseph that, he has no other complaints at this time. In the ER, he was given vancomycin and Zosyn. PAST MEDICAL HISTORY: Significant for CHF, hyperlipidemia, hypertension, obstructive sleep apnea, an d Pickwickian syndrome. PAST SURGICAL HISTORY: Significant for tracheostomy placement, right corneal transplant, left catara ct surgery and a cholecystectomy. ALLERGIES: No known drug allergies. MEDICATIONS: 1. Citalopram 40 mg. 2. Plavix 75 mg. 3. Simvastatin 20 mg. 4. Zyrtec 10 mg. 5. Gabapentin 100 mg t.i.d. 6. Potassium chloride 10 mEq. 7. Topamax 25 mg. 8. Nexium 40 mg. 9. Flomax 0.4 mg. 10. Amlodipine 5 mg. 11. Meloxicam. 12. Tramadol 50 mg. 13. Flonase 2 sprays intranasally. 14. Lasix 40 mg. FAMILY HISTORY: Noncontributory. SOCIAL HISTORY: The patient does not currently use tobacco, but he does have about a year and a half year packs smoking history, but he quit previously. He denies any alcohol or drug use. REVIEW OF SYSTEMS: General: No fevers, no chills, no weight changes, no night sweats, no fatigue. Eyes: No vision changes or eye pain. ENT: No nasal congestion, rhinorrhea, or sore throat. Respir atory: He has a chronic cough, no congestion, shortness of breath. Cardiovascular: No chest pain o r palpitations. Gastrointestinal: No nausea, vomiting, diarrhea, or constipation. Genitourinary: No incontinence, dysuria, polyuria, or discharge. Skin: He does admit to a rash and lesion on his l eft side of his neck and head. Musculoskeletal: No pain, tenderness, stiffness, swelling, arthritis to any joints. Neurologic: No weakness, numbness, syncope or seizures. Psychiatric: Denies any a nxiety. He does admit to depression. PHYSICAL EXAMINATION: VITAL SIGNS: Blood pressure 143/75, pulse was 66, respirations are 20, temperature max 99.4, pulse o x 98% on 8 liters blow by, current weight is 287 kilos. GENERAL: He is alert and oriented. He is morbidly obese, and appropriately interactive. EYES: PERRLA. Conjunctivae within normal limits. ENT: Tympanic membranes pearly tran without bulging or erythema. Nasal mucosa and oropharynx within normal limits. He does have a swollen left pinna and erythema. He has got about a 30 x 3 cm area o f erythema and tenderness to the left side of his head and neck. NECK: Supple, with no lymphadenopathy, no thyromegaly. CARDIOVASCULAR: Regular rate and rhythm. No murmurs. It was very distant sounds. Radial pulses we re more palpated. Pedal pulses were very faint probably because of its size. RESPIRATORY: Normal effort, no retractions. Clear lungs to auscultation bilaterally, but very hard to hear his lungs from his body habitus. SKIN: Warm and dry. He has lesions as described above upon his neck and head. ABDOMEN: Soft, nontenderness to palpation. Bowel sounds present x4. No mass or distention, but he is very obese. EXTREMITIES: No clubbing, cyanosis or edema. MUSCULOSKELETAL: Structure, tone, muscle strength and range of motion within normal limits. NEUROLOGIC: No focal neurologic deficit sensation. Cranial nerves II-XII are grossly intact. GCS 1 5. PSYCHIATRIC: Appropriate. LABORATORY DATA: White blood cell count 4.3, platelet count 129, hemoglobin 11.6, hematocrit 37.7, p ercent neutrophils 58.6. Sodium 139, potassium 4.2, chloride 101, bicarb 34, BUN 13, creatinine 0.88 , glucose 103, calcium 8.8, total protein 8.2, albumin 3.8, total bilirubin 0.4, AST 14, ALT 12, mike line phosphatase 94. Lactate was 0.9. He had a soft tissue ultrasound that showed a possible left p eriauricular lymph node versus fluid collection. There is a difficult assessment to determine. ASSESSMENT AND PLAN: A 51-year-old male with Pickwickian syndrome, presents with: 1. Left neck cellulitis. We are going to give him vancomycin and Zosyn. General Surgery and ENT borrero ve both stated that they will not perform surgery for this condition on this patient and so we will s ee how he responds to the antibiotics. 2. Pickwickian syndrome. We will give him O2 supplementation and trach care. 3. Hyperlipidemia. Continue his home medications. 4. Hypertension. Continue his home medications. 5. Congestive heart failure. Continue his home medications. 6. Obstructive sleep apnea. We will give him BiPAP at night. 7. Depression. Continue his home medications. 8. Gastroesophageal reflux disease. Continue his home medications. Disposition length of hospital stay will be medical and 2 midnights. Symptomatic medications will be provided. History and physical exam as well as management has been discussed with Dr. Kennedy.
[2017-04-08] MEDS: HYDROcodone/Acetaminophen 5/325 mg Tablet PO PRN ×4 (00:31→15:29)
[2017-04-08] MEDS: Piperacillin/Tazobactam 4.5 GM in Sodium Chloride 0.9% 100 ML IVPB SCH ×3 (01:30→17:52)
[2017-04-08 05:46] LABS: Anion Gap 10 mmol/L (10-20); BUN (Urea Nitrogen) 10 mg/dL (8.9-20.6); Calc. Creatinine Clearance 442 mL/min (70-130); Calcium 8.7 mg/dL (7.8-10.44); Carbon Dioxide 31 mmol/L (22-29); Chloride 101 mmol/L (98-107); Estimated GFR-MDRD Greater than 90; Glucose 94 mg/dL (70-105); Potassium 3.7 mmol/L (3.5-5.1); Sodium 138 mmol/L (136-145)
[2017-04-08 06:11] LABS: #Eosinphils 0.2 thou/uL (0.0-0.7); #Monocytes 0.4 thou/uL (0.11-0.59); #Neutrophils 2.1 thou/uL (1.40-6.50); %Basophils 1.1 % (0.0-1.0); %Eosinophils 5.8 % (0.0-10.0); %Lymphocytes 25.6 % (21.0-51.0); %Monocytes 11.7 % (0.0-10.0); %Neutrophils 55.8 % (42.0-75.0); Hemoglobin 11.1 g/dL (14.0-18.0); Mean Corpuscular HGB CONC 30.5 g/dL (32.0-36.0); Mean Corpuscular Hemoglobin 30.7 pg (27.0-31.0); Mean Platelet Volume 8.8 fL (7.4-10.4); Platelet Count 118 thou/uL (130-400); RBC Distribution Width 12.3 % (11.5-14.5); Red Blood Cell (RBC) Count 3.61 mill/uL (4.70-6.10); White Blood Cell (WBC) Count 3.8 thou/uL (4.8-10.8)
--- NOTE | 2017-04-08 06:49 | PDOC.FM ---
- Subjective Subjective: Pt reports not feeling great this morning. Still reports having a lot of pain in his left neck and cheek. Denies any fever or chills. Says he has not been able to get comfortable and get any sleep overnight. Pt wants something to help him sleep. Denies any other acute events overnigght. Denies any SOB or chest pain. - Objective MAR Reviewed: Yes Vital Signs & Weight: Vital Signs (12 hours) Temp Pulse Resp BP Pulse Ox 04/08/17 01:17 98.4 F 65 22 H 121/71 100 04/07/17 23:49 98.2 F 92 22 H 98 04/07/17 21:40 98.2 F 92 22 H 130/67 98 Weight Weight 286.67 kg I&O: 04/06/17 04/07/17 04/08/17 06:59 06:59 06:59 Intake Total 850 Output Total 500 Balance 350 Result Diagrams: 04/08/17 04:26 04/08/17 04:26 Radiology: Soft tissue U/S: Possible left periauricular lymph node vs fluid collection. Difficult to assess on sonography <Matthew Contreras - Last Filed: 04/08/17 06:47> - Objective Vital Signs & Weight: Vital Signs (12 hours) Temp Pulse Resp BP Pulse Ox 04/08/17 08:14 98.4 F 73 16 129/87 95 04/08/17 08:00 98.4 F 65 22 H 04/08/17 01:17 98.4 F 65 22 H 121/71 100 04/07/17 23:49 98.2 F 92 22 H 98 Weight Weight 286.67 kg I&O: 04/07/17 04/08/17 04/09/17 06:59 06:59 06:59 Intake Total 850 Output Total 500 Balance 350 Result Diagrams: 04/08/17 04:26 04/08/17 04:26 <Abhishek Francis - Last Filed: 04/08/17 10:00> Phys Exam - Physical Examination Constitutional: NAD HEENT: moist MMs, oral pharynx no lesions Very tender to light touch on left side. hard to assess swelling due to body habitus Respiratory: clear to auscultation bilateral Hard to fully auscultate due to body habitus Cardiovascular: RRR, no significant murmur, no rub Gastrointestinal: soft, non-tender, no distention, positive bowel sounds Musculoskeletal: pulses present Neurological: non-focal, normal sensation Hard for him to move lower extremities Neck swollen. Possbily swollen lymph nodes Psychiatric: normal affect Skin: no rash, normal turgor Deviation from normal: Redness from wound photos improved from yesterday <Matthew Contreras - Last Filed: 04/08/17 06:47> Dx/Plan (1) Cellulitis Code(s): L03.90 - CELLULITIS, UNSPECIFIED Status: Acute QualifierTitle: Site of cellulitis: neck Qualified Code(s): L03.221 - Cellulitis of neck (2) Pickwickian syndrome Code(s): E66.2 - MORBID (SEVERE) OBESITY WITH ALVEOLAR HYPOVENTILATION Status : Acute (3) CHF (congestive heart failure) Code(s): I50.9 - HEART FAILURE, UNSPECIFIED Status: Chronic (4) GERD (gastroesophageal reflux disease) Code(s): K21.9 - GASTRO-ESOPHAGEAL REFLUX DISEASE WITHOUT ESOPHAGITIS Status: Chronic (5) HTN (hypertension) Code(s): I10 - ESSENTIAL (PRIMARY) HYPERTENSION Status: Chronic QualifierTitle: Hypertension type: essential hypertension Qualified Code( s): I10 - Essential (primary) hypertension (6) Morbid obesity Code(s): E66.01 - MORBID (SEVERE) OBESITY DUE TO EXCESS CALORIES Status: Chronic - Plan Plan: Left neck cellulitis w/ possible lymphadenitis -Continue IV vanc and zosyn. ENT and General surgery will not perform surgery. -Stil very tender to touch. Erythema has improved. -Will continue to monitor. -May need to adjust pain medication. Pickwickian Syndrome -O2 supplementation. Has trach in place. -Denies any increased SOB HLD -continue home meds HTN -continue home meds CHF -continue home meds Depressiion -continue home meds GERD -continue home meds <Matthew Contreras - Last Filed: 04/08/17 06:47> Attending Addendum - Attending Addendum I personally evaluated the patient and discussed the management with Dr. Contreras. I agree with the History, Examination, Assessment and Plan documented above with any addition or exceptions noted below. Patient stable. No indication for surgical intervention. Will attempt pain control of his neck cellulitis and continue antibiotics. No airway compromise and patient has trach in place if needed. <Abhishek Francis - Last Filed: 04/08/17 10:00>
[2017-04-08] MEDS ORDERED: Acetaminophen 325 MG TAB PO SCH (07:15)
[2017-04-08] MEDS ORDERED: Furosemide 40 MG TAB PO SCH (09:00)
[2017-04-08] MEDS ORDERED: Meloxicam 15 MG TAB PO SCH (09:00)
[2017-04-08] MEDS: Topiramate 25 MG TAB PO SCH ×2 (09:11→21:23)
[2017-04-08] MEDS: Tamsulosin HCl 0.4 MG CAP PO SCH (09:11)
[2017-04-08] MEDS: Gabapentin 100 MG CAP PO SCH ×3 (09:11→21:23)
[2017-04-08] MEDS: Furosemide 40 MG TAB PO SCH ×2 (09:11→15:21)
[2017-04-08] MEDS: Loratadine 10 MG TAB PO SCH (09:11)
[2017-04-08] MEDS: Clopidogrel Bisulfate 75 MG TAB PO SCH (09:11)
[2017-04-08] MEDS: Potassium Chloride 10 MEQ TAB PO SCH (09:12)
[2017-04-08] MEDS: Citalopram 20 MG TAB PO SCH (09:12)
--- NOTE | 2017-04-08 09:36 | CON ---
DATE OF CONSULT: 04/07/2017 HISTORY OF PRESENT ILLNESS: A 51-year-old black male, morbidly obese, who I just had an encounter on 03/20/2017 when he had dislodged tracheostomy tube. He had been out for several days and he was nessa en to the operating room for dilatation of his tracheal stoma and replacement of Bivona tracheostomy. In the interim on 04/02/2017, he presented and Dr. Singh changed this out to a standard tracheost oh. The patient has been doing well since that time. On 07/16/2014, I placed a tracheostomy tube. The patient required central line placement prior to that. Patient presents to the emergency room t marleny with the soft tissue infection, left infra-auricular extending postauricular to his scalp. He h as exquisite amount of pain from this. Ultrasound of the soft tissue reveals no active fluid collect ion, possible left periauricular node, difficult to assess due to patient's tenderness. Patient has been admitted by the [facility]. He weighs over 600 pounds. ALLERGIES: None. MEDICATIONS: Plavix, amlodipine, Nexium, furosemide, citalopram, tramadol, Zocor, Topamax, gabapenti n, albuterol, potassium, acetylcysteine inhalational solution, antiseptic solution, meloxicam, and Fl omax. PAST SURGICAL HISTORY: Cholecystectomy, corneal transplant, left cataract surgery, tracheostomy. PAST MEDICAL HISTORY: Morbid obesity, congestive heart failure, hyperlipidemia, hypertension, sleep apnea, vitamin D deficiency. SOCIAL HISTORY: Tobacco none. Alcohol abuse in the past, none currently. PHYSICAL EXAMINATION: GENERAL: The patient is morbidly obese. He has tracheostomy in place. LUNGS: Clear to auscultation. CARDIAC: Regular rate and rhythm without murmur or gallop. ABDOMEN: Obese, soft, nontender. HEAD AN NECK: Left infra-auricular area extending over to his left facial area, there is some redne ss and induration, but no detectable fluctuance. Patient is exquisitely tender and difficult to eval uate. Tenderness extends over to his scalp postauricular. Postauricular, there is no redness. ASSESSMENT AND PLAN: Soft tissue infection. Continue intravenous antibiotics. No indication of def initive drainage at this time. Please call us if this does not improve in 24-48 hours.
[2017-04-08] MEDS: Enoxaparin Sodium 40 MG/0.4 ML SYRINGE SC SCH (09:56)
[2017-04-08] MEDS: Fluticasone Propionate Nasal Spray 16 gm Bottle NASAL SCH (11:04)
[2017-04-08] MEDS: Amlodipine 5 MG TAB PO SCH (11:04)
[2017-04-08] MEDS: Ketorolac Tromethamine 30 MG/ML VIAL IVP SCH ×2 (14:16→17:53)
[2017-04-08] MEDS: Melatonin 3 MG TAB PO SCH (21:23)
[2017-04-08] MEDS: Atorvastatin Calcium 20 MG TAB PO SCH (21:23)
[2017-04-09] MEDS: Ketorolac Tromethamine 30 MG/ML VIAL IVP SCH ×3 (00:57→11:51)
[2017-04-09] MEDS: Piperacillin/Tazobactam 4.5 GM in Sodium Chloride 0.9% 100 ML IVPB SCH ×3 (00:57→16:57)
[2017-04-09 06:33] LABS: Anion Gap 11 mmol/L (10-20); Calcium 8.2 mg/dL (7.8-10.44); Carbon Dioxide 26 mmol/L (22-29); Chloride 104 mmol/L (98-107); Potassium 4.1 mmol/L (3.5-5.1); Sodium 137 mmol/L (136-145)
[2017-04-09 06:35] LABS: Glucose 104 mg/dL (70-105)
[2017-04-09 06:39] LABS: BUN (Urea Nitrogen) 11 mg/dL (8.9-20.6); Calc. Creatinine Clearance 355 mL/min (70-130); Estimated GFR-MDRD Greater than 90
[2017-04-09 08:08] LABS: Band 10 % (5-11); Eosinophils 6 % (0-10); Hemoglobin 10.9 g/dL (14.0-18.0); Hypochromia SLIGHT = 6-15 cells (100X) (0-5/hpf); Lymphocytes 21 % (21-51); MDiff Complete? YES; Mean Corpuscular HGB CONC 29.9 g/dL (32.0-36.0); Mean Corpuscular Hemoglobin 29.6 pg (27.0-31.0); Mean Corpuscular Volume 98.8 fl (80.0-94.0); Mean Platelet Volume 9.4 fL (7.4-10.4); Monocytes 3 % (0-10); Neutrophil 47 % (42-75); PLT Morphology Comment Appears Decreased; Platelet Count 92 thou/uL (130-400); Polychromasia SLIGHT = 2-3 cells (100X) (0-2/hpf); RBC Distribution Width 12.5 % (11.5-14.5); Reactive Lymphocytes 13 % (0-10); Red Blood Cell (RBC) Count 3.67 mill/uL (4.70-6.10); White Blood Cell (WBC) Count 3.8 thou/uL (4.8-10.8)
[2017-04-09] MEDS: Enoxaparin Sodium 40 MG/0.4 ML SYRINGE SC SCH (08:09)
[2017-04-09] MEDS: Loratadine 10 MG TAB PO SCH (08:10)
[2017-04-09] MEDS: Furosemide 40 MG TAB PO SCH ×2 (08:10→14:26)
[2017-04-09] MEDS: Tamsulosin HCl 0.4 MG CAP PO SCH (08:10)
[2017-04-09] MEDS: Gabapentin 100 MG CAP PO SCH ×3 (08:10→19:22)
[2017-04-09] MEDS: Citalopram 20 MG TAB PO SCH (08:10)
[2017-04-09] MEDS: Potassium Chloride 10 MEQ TAB PO SCH (08:10)
[2017-04-09] MEDS: Amlodipine 5 MG TAB PO SCH (08:10)
[2017-04-09] MEDS: Fluticasone Propionate Nasal Spray 16 gm Bottle NASAL SCH (08:11)
[2017-04-09] MEDS: Topiramate 25 MG TAB PO SCH ×2 (08:11→19:22)
[2017-04-09] MEDS: Clopidogrel Bisulfate 75 MG TAB PO SCH (08:11)
--- NOTE | 2017-04-09 08:17 | PDOC.FM ---
- Subjective Subjective: Pt reports doing okay this morning. Denies improvement in his sx's of infection. Denies fever or chills. Still reports pain. Says he slept overnight. Denies any chest pain SOB. Denies any other sx's at this time. Pt somewhat sleepy when talking with him. - Objective Vital Signs & Weight: Vital Signs (12 hours) Temp Pulse Resp BP BP Pulse Ox 04/09/17 08:10 69 04/09/17 08:00 98.3 F 69 14 129/78 99 04/09/17 00:44 98.4 F 80 20 115/75 99 Weight Weight 286.67 kg I&O: 04/08/17 04/09/17 04/10/17 06:59 06:59 06:59 Intake Total 850 1750 Output Total 500 Balance 350 1750 Result Diagrams: 04/09/17 05:13 04/09/17 05:13 Radiology Reviewed by me: Yes (No new images to review) <Matthew Contreras - Last Filed: 04/09/17 08:16> - Objective Vital Signs & Weight: Vital Signs (12 hours) Temp Pulse Resp BP BP Pulse Ox 04/09/17 08:10 69 04/09/17 08:00 98.1 F 69 18 129/78 98 04/09/17 00:44 98.4 F 80 20 115/75 99 Weight Weight 286.67 kg I&O: 04/08/17 04/09/17 04/10/17 06:59 06:59 06:59 Intake Total 850 1750 240 Output Total 500 Balance 350 1750 240 Result Diagrams: 04/09/17 05:13 04/09/17 05:13 <Abhishek Francis - Last Filed: 04/09/17 10:46> Phys Exam - Physical Examination HEENT: PERRLA, moist MMs, oral pharynx no lesions Neck: no nodes Swollen. No erythema noted. Still very tender to light touch on L. side Respiratory: no wheezing, no rales, no rhonchi, clear to auscultation bilateral Hard to fully auscultate due to body habitus Cardiovascular: RRR, no significant murmur Gastrointestinal: soft, non-tender, no distention Hard to auscultate due to body habitus Neurological: non-focal, moves all 4 limbs Possible swollend lymph node in L side of neck. Hard to assess due to pain Psychiatric: normal affect Deviation from normal: L. Ear still very swollen. no erythema or drainage noted. -: L. neck swollen. No sign of erythema. Very painful to touch. <Matthew Contreras - Last Filed: 04/09/17 08:16> Dx/Plan (1) Cellulitis Code(s): L03.90 - CELLULITIS, UNSPECIFIED Status: Acute QualifierTitle: Site of cellulitis: neck Qualified Code(s): L03.221 - Cellulitis of neck (2) Pickwickian syndrome Code(s): E66.2 - MORBID (SEVERE) OBESITY WITH ALVEOLAR HYPOVENTILATION Status : Acute (3) CHF (congestive heart failure) Code(s): I50.9 - HEART FAILURE, UNSPECIFIED Status: Chronic (4) GERD (gastroesophageal reflux disease) Code(s): K21.9 - GASTRO-ESOPHAGEAL REFLUX DISEASE WITHOUT ESOPHAGITIS Status: Chronic (5) HTN (hypertension) Code(s): I10 - ESSENTIAL (PRIMARY) HYPERTENSION Status: Chronic QualifierTitle: Hypertension type: essential hypertension Qualified Code( s): I10 - Essential (primary) hypertension (6) Morbid obesity Code(s): E66.01 - MORBID (SEVERE) OBESITY DUE TO EXCESS CALORIES Status: Chronic - Plan Plan: Left neck cellulitis w/ possible lymphadenitis -Continue IV vanc and zosyn. ENT and General surgery will not perform surgery. -Stil very tender to touch. Swelling about the same from yesterday. Says pain is about the same. May need to adjust abx. -Will continue to monitor. -May need to adjust pain medication. -Blood Cx 1/2- Gram Neg Rufus, awaiting sensitivities. will continue w/ zosyn for now Pickwickian Syndrome -O2 supplementation. Has trach in place. -Denies any increased SOB -O2 sats stable HLD -continue home meds HTN -continue home meds -BP stable at this time. CHF -continue home meds Depression -continue home meds GERD -continue home meds <Matthew Contreras - Last Filed: 04/09/17 08:16> Attending Addendum - Attending Addendum I personally evaluated the patient and discussed the management with Dr. Contreras. I agree with the History, Examination, Assessment and Plan documented above with any addition or exceptions noted below. Patient continues on Vanc and Zosyn therapy, awaiting trough to ensure levels not toxic. Patient has worsening of pain and reports some extension of pain and swelling into the side and back of his head that was not present yesterday. Will discuss case with Dr. Thomas again as patient does not seem to be improving after near 36 hours of antimicrobial therapy. <Abhishek Francis - Last Filed: 04/09/17 10:46>
[2017-04-09] MEDS: HYDROcodone/Acetaminophen 10/325 mg Tablet PO PRN ×2 (08:18→19:22)
[2017-04-09 09:49] LABS: Vancomycin, Trough 19.3 ug/mL
--- NOTE | 2017-04-09 13:51 | PRG ---
DATE OF SERVICE: 04/09/2017 SUBJECTIVE: Taiwo Samson has severe infection of the left scalp extending up to his left ear. He is eating as I walked in the room, I am asked to see him again because of worsening infection. He is on intravenous antibiotics and vancomycin. He is on Zosyn. PHYSICAL EXAMINATION: On exam, he has exquisite tenderness in left mandibular area. Left upper neck below the knee near ear and scalp behind the ear and ear there is edema and redness. No real fluctu ance, although difficult to evaluate as even barely touch him and causes exquisite pain. ASSESSMENT AND PLAN: Worsening infection of left scalp and periauricular area. We will plan incisio n and drainage in the operating room tomorrow. N.p.o. after midnight tonight.
[2017-04-09] MEDS ORDERED: traMADol HCl 50 MG TAB PO PRN (14:44)
[2017-04-09] MEDS: Ketorolac Tromethamine 30 MG/ML VIAL IVP PRN (19:19)
[2017-04-09] MEDS: Melatonin 3 MG TAB PO SCH (19:22)
[2017-04-09] MEDS: Atorvastatin Calcium 20 MG TAB PO SCH (19:23)
[2017-04-09] MEDS: Vancomycin HCl 1.5 GM in Sodium Chloride 0.9% 250 ML 300 ML IVPB SCH (22:54)
[2017-04-10] MEDS: Ketorolac Tromethamine 30 MG/ML VIAL IVP PRN (01:00)
[2017-04-10] MEDS: Piperacillin/Tazobactam 4.5 GM in Sodium Chloride 0.9% 100 ML IVPB SCH ×3 (01:01→17:18)
[2017-04-10 05:48] LABS: Anion Gap 8 mmol/L (10-20); BUN (Urea Nitrogen) 11 mg/dL (8.9-20.6); Calc. Creatinine Clearance 338 mL/min (70-130); Calcium 8.5 mg/dL (7.8-10.44); Carbon Dioxide 33 mmol/L (22-29); Chloride 102 mmol/L (98-107); Estimated GFR-MDRD 89; Glucose 103 mg/dL (70-105); Potassium 4.2 mmol/L (3.5-5.1); Sodium 139 mmol/L (136-145)
[2017-04-10 06:31] LABS: Hemoglobin 10.9 g/dL (14.0-18.0); Mean Corpuscular HGB CONC 30.5 g/dL (32.0-36.0); Mean Corpuscular Hemoglobin 30.4 pg (27.0-31.0); Mean Corpuscular Volume 99.7 fl (80.0-94.0); Platelet Count 124 thou/uL (130-400); RBC Distribution Width 12.4 % (11.5-14.5); Red Blood Cell (RBC) Count 3.59 mill/uL (4.70-6.10); White Blood Cell (WBC) Count 3.8 thou/uL (4.8-10.8)
[2017-04-10 07:42] LABS: Band 3 % (5-11); Eosinophils 11 % (0-10); Lymphocytes 41 % (21-51); MDiff Complete? YES; Monocytes 9 % (0-10); Neutrophil 33 % (42-75); RBC Morphology Normal; Reactive Lymphocytes 2 % (0-10)
--- NOTE | 2017-04-10 08:01 | PDOC.FM ---
- Subjective Subjective: Pt still reports having a lot of pain. Thinks the pain has progressed to the top of his head. Denies fever or chills. Says the tramadol breakthrough did not help much with the pain. Denies any nausea, vomiting. Says he needs a new trach piece before surgery. - Objective MAR Reviewed: Yes Vital Signs & Weight: Vital Signs (12 hours) Temp Pulse Resp BP Pulse Ox 04/09/17 20:00 98.4 F 74 22 H 109/67 98 Weight Weight 286.67 kg I&O: 04/09/17 04/10/17 04/11/17 06:59 06:59 06:59 Intake Total 1750 720 Balance 1750 720 Result Diagrams: 04/10/17 04:06 04/10/17 04:06 Radiology Reviewed by me: Yes (no new imaging to review at this time) <Matthew Contreras - Last Filed: 04/10/17 08:08> - Objective Vital Signs & Weight: Vital Signs (12 hours) Temp Pulse Resp BP Pulse Ox 04/10/17 09:43 82 04/10/17 08:00 98.9 F 82 24 H 112/67 98 Weight Weight 286.67 kg I&O: 04/09/17 04/10/17 04/11/17 06:59 06:59 06:59 Intake Total 1750 720 Balance 1750 720 Result Diagrams: 04/10/17 04:06 04/10/17 04:06 <Abhishek Francis - Last Filed: 04/10/17 10:06> Phys Exam - Physical Examination HEENT: moist MMs L. ear swollen, no erythema noted. Swelling has progressed to forehead fluid filled swelling noted on forehead. Progressed from previous Neck swollen. Hot to the touch. Respiratory: clear to auscultation bilateral hard to auscultate due to body habitus Cardiovascular: RRR, no significant murmur, no rub Gastrointestinal: soft, non-tender, no distention, positive bowel sounds Musculoskeletal: pulses present Morbidly obese, unable to assess for true edema Neurological: non-focal, normal sensation, moves all 4 limbs Psychiatric: normal affect, A&O x 3 Skin: no rash, normal turgor, cap refill <2 seconds Deviation from normal: Some excoriations noted on neck. Swelling stable. No erythema -: Able to palpate mass today, less tender than previous <Matthew Contreras - Last Filed: 04/10/17 08:08> Dx/Plan (1) Cellulitis Code(s): L03.90 - CELLULITIS, UNSPECIFIED Status: Acute QualifierTitle: Site of cellulitis: neck Qualified Code(s): L03.221 - Cellulitis of neck (2) Pickwickian syndrome Code(s): E66.2 - MORBID (SEVERE) OBESITY WITH ALVEOLAR HYPOVENTILATION Status : Acute (3) CHF (congestive heart failure) Code(s): I50.9 - HEART FAILURE, UNSPECIFIED Status: Chronic (4) GERD (gastroesophageal reflux disease) Code(s): K21.9 - GASTRO-ESOPHAGEAL REFLUX DISEASE WITHOUT ESOPHAGITIS Status: Chronic (5) HTN (hypertension) Code(s): I10 - ESSENTIAL (PRIMARY) HYPERTENSION Status: Chronic QualifierTitle: Hypertension type: essential hypertension Qualified Code( s): I10 - Essential (primary) hypertension (6) Morbid obesity Code(s): E66.01 - MORBID (SEVERE) OBESITY DUE TO EXCESS CALORIES Status: Chronic - Plan Plan: Left neck cellulitis w/ possible lymphadenitis -Continue IV vanc and zosyn. Vanc trough yesterday 19.6. Adquate dosing. ENT said they will not do surgery -Less tender to touch. Swelling has progressed. Pain still not well controlled. Added tramadol for breakthrough pain -General Surgery-William. Plan is for I&D today. Will await further recs post op. -Will continue to monitor. -Blood Cx 1/2- Gram + Cocci in clusters- identified as MRSE, Gram Neg Rufus, awaiting sensitivities. will continue w/ zosyn for now. Abx appropriate for coverage. Pickwickian Syndrome -O2 supplementation. Has trach in place. Needs new trach piece. Respiratory will aid in this. -Denies any increased SOB -O2 sats stable -Has increased Bicarb, chronic. Likely due to retained CO2 from body habitus HLD -continue home meds HTN -continue home meds -BP stable at this time. CHF -continue home meds Depression -continue home meds GERD -continue home meds <Matthew Contreras - Last Filed: 04/10/17 08:08> Attending Addendum - Attending Addendum I personally evaluated the patient and discussed the management with Dr. Contreras. I agree with the History, Examination, Assessment and Plan documented above with any addition or exceptions noted below. Patient to go to OR today due to spread of pain and induration despite appropriate antibiotic therapy. Vanc trough appropriate. Await further recs from surgery after I&D this afternoon. Other issues stable. <Abhishek Francis R - Last Filed: 04/10/17 10:06>
[2017-04-10] MEDS: Clopidogrel Bisulfate 75 MG TAB PO SCH (09:43)
[2017-04-10] MEDS: Enoxaparin Sodium 40 MG/0.4 ML SYRINGE SC SCH (09:43)
[2017-04-10] MEDS: Amlodipine 5 MG TAB PO SCH (09:43)
[2017-04-10] MEDS: Potassium Chloride 10 MEQ TAB PO SCH (09:43)
[2017-04-10] MEDS: Citalopram 20 MG TAB PO SCH (09:43)
[2017-04-10] MEDS: Tamsulosin HCl 0.4 MG CAP PO SCH (09:44)
[2017-04-10] MEDS: Fluticasone Propionate Nasal Spray 16 gm Bottle NASAL SCH (09:44)
[2017-04-10] MEDS: Gabapentin 100 MG CAP PO SCH ×3 (09:44→21:48)
[2017-04-10] MEDS: Loratadine 10 MG TAB PO SCH (09:44)
[2017-04-10] MEDS: Furosemide 40 MG TAB PO SCH ×2 (09:44→13:59)
[2017-04-10] MEDS: Topiramate 25 MG TAB PO SCH ×2 (09:44→21:48)
[2017-04-10] MEDS: Lactated Ringer's 1,000 ML IV SCH ×2 (09:48→21:46)
[2017-04-10] MEDS: Vancomycin HCl 1.5 GM in Sodium Chloride 0.9% 250 ML 300 ML IVPB SCH ×2 (09:51→21:49)
--- NOTE | 2017-04-10 13:04 | PQF ---
CLINICAL DOCUMENTATION IMPROVEMENT CLARIFICATION FORM: ICD-10 Updated PLEASE DO AN ADDENDUM TO THE PROGRESS NOTE WITH ANY DOCUMENTATION UPDATES OR ADDITIONS AND CARRY THROUGH TO DC SUMMARY. THANK YOU. DATE: 04/10/17 ATTN: Dr. Contreras/ Attending Dr. Clements 04/11/17 Dr. Thomas Please exercise your independent, professional judgment in responding to the clarification form. Clinical indicators are provided on the bottom of this form for your review Please check appropriate box(s): HEART FAILURE: A.TYPE: [ ] Systolic / HFrEF [x ] Diastolic / HFpEF [ ] Combined Systolic / Diastolic C.WITH (if appropriate) [x ] Hypertensive Heart Disease [ ] Hypertensive Heart and Kidney Disease [ ] Other diagnosis [ ] Unable to determine In addition, please specify: Present on Admission (POA): [ x ] Yes [ ] No [ ] Unable to determine For continuity of documentation, please document condition throughout progress notes and discharge summary. Thank You. CLINICAL INDICATORS - SIGNS / SYMPTOMS / LABS ECHO 12/04/16: EF CALCULATED 60.2% PN 04/08-04/10: CHRONIC CHF. RISKS: H&P: HX SIGNIFICANT FOR CHF, HYPERTENSION, SHIRA & PICKWICKIAN SYNDROME. TREATMENT: CPOE 04/08: LASIX 40 MG PO 0900 & 1400 Thank you, Dulce (This form is maintained as a part of the permanent medical record) 2015 [employer], [employer]. All Rights Reserved Dulce Crespo RN, [email or web address] Office: [phone] [facility]
[2017-04-10] MEDS: HYDROcodone/Acetaminophen 10/325 mg Tablet PO PRN ×2 (13:59→22:04)
--- NOTE | 2017-04-10 18:08 | PRG ---
DATE OF SERVICE: 04/10/2017 Mr. Samson was scheduled for surgery today, but he feels much better. His pain is resolved. He is a febrile. The left ear facial area and periauricular scalp redness has resolved. It is no longer ten griselda. There is a scab developing in one area of the scalp, but otherwise, there is no fluctuant area and no abscess to drain. At this point, I do not think he needs surgery and I will see him as needed . I think he is ready for discharge on oral antibiotics. I will see him as needed. Please call if necessary.
[2017-04-10] MEDS: Melatonin 3 MG TAB PO SCH (21:48)
[2017-04-10] MEDS: Atorvastatin Calcium 20 MG TAB PO SCH (21:48)
[2017-04-11] MEDS: Piperacillin/Tazobactam 4.5 GM in Sodium Chloride 0.9% 100 ML IVPB SCH ×2 (00:59→08:30)
[2017-04-11] MEDS: HYDROcodone/Acetaminophen 10/325 mg Tablet PO PRN ×3 (03:38→22:29)
[2017-04-11 04:50] LABS: Anion Gap 11 mmol/L (10-20); BUN (Urea Nitrogen) 11 mg/dL (8.9-20.6); Calc. Creatinine Clearance 341 mL/min (70-130); Calcium 8.5 mg/dL (7.8-10.44); Carbon Dioxide 28 mmol/L (22-29); Chloride 101 mmol/L (98-107); Estimated GFR-MDRD 90; Glucose 98 mg/dL (70-105); Potassium 4.1 mmol/L (3.5-5.1); Sodium 136 mmol/L (136-145)
[2017-04-11 05:39] LABS: Eosinophils 8 % (0-10); Hemoglobin 10.6 g/dL (14.0-18.0); Lymphocytes 39 % (21-51); MDiff Complete? YES; Mean Corpuscular HGB CONC 34.8 g/dL (32.0-36.0); Mean Corpuscular Hemoglobin 34.2 pg (27.0-31.0); Mean Corpuscular Volume 98.4 fl (80.0-94.0); Mean Platelet Volume 8.9 fL (7.4-10.4); Monocytes 7 % (0-10); Neutrophil 44 % (42-75); PLT Morphology Comment Appears Adequate; Platelet Count 141 thou/uL (130-400); RBC Distribution Width 12.2 % (11.5-14.5); RBC Morphology Normal; Reactive Lymphocytes 2 % (0-10); White Blood Cell (WBC) Count 4.8 thou/uL (4.8-10.8)
[2017-04-11] MEDS: Topiramate 25 MG TAB PO SCH ×2 (08:28→22:29)
[2017-04-11] MEDS: Gabapentin 100 MG CAP PO SCH ×3 (08:28→22:29)
[2017-04-11] MEDS: Fluticasone Propionate Nasal Spray 16 gm Bottle NASAL SCH (08:28)
[2017-04-11] MEDS: Enoxaparin Sodium 40 MG/0.4 ML SYRINGE SC SCH (08:28)
[2017-04-11] MEDS: Citalopram 20 MG TAB PO SCH (08:29)
[2017-04-11] MEDS: Loratadine 10 MG TAB PO SCH (08:29)
[2017-04-11] MEDS: Amlodipine 5 MG TAB PO SCH (08:29)
[2017-04-11] MEDS: Clopidogrel Bisulfate 75 MG TAB PO SCH (08:29)
[2017-04-11] MEDS: Potassium Chloride 10 MEQ TAB PO SCH (08:29)
[2017-04-11] MEDS: Furosemide 40 MG TAB PO SCH ×2 (08:29→13:52)
[2017-04-11] MEDS: Tamsulosin HCl 0.4 MG CAP PO SCH (08:30)
--- NOTE | 2017-04-11 09:05 | PDOC.FM ---
- Subjective Subjective: Pt is concerned today that he now has left jaw/tooth pain and continued shoulder /head pain. He denies fever, chills, n/v. There were no acute events over night. - Objective MAR Reviewed: Yes Vital Signs & Weight: Vital Signs (12 hours) Temp Pulse Resp BP BP Pulse Ox 04/11/17 08:29 64 123/71 04/11/17 07:48 98.1 F 64 18 123/71 98 Weight Weight 286.67 kg I&O: 04/10/17 04/11/17 04/12/17 06:59 06:59 06:59 Intake Total 720 360 Balance 720 360 Result Diagrams: 04/11/17 03:25 04/11/17 03:25 Phys Exam - Physical Examination Constitutional: NAD HEENT: PERRLA, moist MMs Neck: full ROM Unable to palpate dt tenderness of skin Respiratory: clear to auscultation bilateral Difficult to auscultate dt habitus Cardiovascular: RRR Gastrointestinal: soft, non-tender Musculoskeletal: no edema Neurological: non-focal, normal sensation Psychiatric: normal affect, A&O x 3 Deviation from normal: Red/tender over left neck, ear, jaw, posterior head, shoulder. Healing -: wounds possible from insect bites over effected area. No fluctuance Dx/Plan (1) Cellulitis Code(s): L03.90 - CELLULITIS, UNSPECIFIED Status: Acute Qualifiers: Site of cellulitis: neck Qualified Code(s): L03.221 - Cellulitis of neck (2) Pickwickian syndrome Code(s): E66.2 - MORBID (SEVERE) OBESITY WITH ALVEOLAR HYPOVENTILATION Status : Acute (3) CHF (congestive heart failure) Code(s): I50.9 - HEART FAILURE, UNSPECIFIED Status: Chronic (4) GERD (gastroesophageal reflux disease) Code(s): K21.9 - GASTRO-ESOPHAGEAL REFLUX DISEASE WITHOUT ESOPHAGITIS Status: Chronic (5) HTN (hypertension) Code(s): I10 - ESSENTIAL (PRIMARY) HYPERTENSION Status: Chronic Qualifiers: Hypertension type: essential hypertension Qualified Code(s): I10 - Essential (primary) hypertension (6) Morbid obesity Code(s): E66.01 - MORBID (SEVERE) OBESITY DUE TO EXCESS CALORIES Status: Chronic - Plan Plan: Left neck cellulitis w/ possible lymphadenitis -Continue IV vanc and zosyn. Vanc trough yesterday 19.6. Adquate dosing. ENT/ Gen surg said they will not do surgery -Less tender to touch. Swelling continues to progressed. Pain still not well controlled. Added tramadol for breakthrough pain -Will continue to monitor. -Blood Cx 1/2- Gram + Cocci in clusters- identified as MRSE, Gram Neg Rufus, awaiting sensitivities. will continue w/ zosyn for now. Abx appropriate for coverage. -Gen surg recommended oral abx, consider starting that today. Current vitals are WNL, new jaw pain may be referred from ear swelling. Pickwickian Syndrome -O2 supplementation. Has trach in place. Needs new trach piece. Respiratory will aid in this. -Denies any increased SOB -O2 sats stable -Has increased Bicarb, chronic. Likely due to retained CO2 from body habitus HLD -continue home meds HTN -continue home meds -BP stable at this time. CHF -continue home meds Depression -continue home meds GERD -continue home meds
[2017-04-11 09:47] LABS: Vancomycin, Trough 23.8 ug/mL
[2017-04-11] MEDS: Lactated Ringer's 1,000 ML IV SCH (10:43)
[2017-04-11] MEDS: Vancomycin HCl 1.5 GM in Sodium Chloride 0.9% 250 ML 300 ML IVPB SCH (11:02)
[2017-04-11] MEDS ORDERED: Clindamycin 150 MG CAP PO SCH (12:30)
--- NOTE | 2017-04-11 15:02 | ADD-PRG ---
DATE OF SERVICE: 04/11/2017 ADDENDUM: This is an addendum to the note of Dr. John Thomas. Mr. Samson is a 52-year-old obese black man with Pickwickian syndrome. He was admitted with a cellul itis of his left side of his neck. There is no sign of any abscess formation and clinically he seems to be improving. He has already been seen by the surgeon who feels there is no indication at this p oint for surgery. He recommends switching to oral antibiotics in anticipation of discharge in 1-2 da ys.
[2017-04-11] MEDS: Clindamycin 150 MG CAP PO SCH (17:40)
[2017-04-11] MEDS: Atorvastatin Calcium 20 MG TAB PO SCH (22:28)
[2017-04-11] MEDS: Melatonin 3 MG TAB PO SCH (22:28)
[2017-04-11] MEDS: Sulfameth/Trimethoprim DS 800-160mg TAB PO SCH (22:30)
[2017-04-11] MEDS ORDERED: Vancomycin HCl 1 GM in Premix Bag 1 BAG IVPB SCH (23:00)
[2017-04-12] MEDS: Clindamycin 150 MG CAP PO SCH ×3 (00:20→11:52)
[2017-04-12] MEDS ORDERED: traZODone HCl 50 MG TAB PO PRN (00:29)
[2017-04-12] MEDS: Lactated Ringer's 1,000 ML IV SCH ×2 (01:30→13:51)
[2017-04-12 04:37] LABS: #Eosinphils 0.3 thou/uL (0.0-0.7); #Lymphocytes 1.5 thou/uL (1.20-3.40); #Monocytes 0.5 thou/uL (0.11-0.59); #Neutrophils 1.3 thou/uL (1.40-6.50); %Basophils 1.2 % (0.0-1.0); %Eosinophils 9.3 % (0.0-10.0); %Lymphocytes 40.8 % (21.0-51.0); %Monocytes 13.7 % (0.0-10.0); Hemoglobin 10.4 g/dL (14.0-18.0); Mean Corpuscular Hemoglobin 30.7 pg (27.0-31.0); Mean Platelet Volume 8.7 fL (7.4-10.4); Platelet Count 129 thou/uL (130-400); RBC Distribution Width 12.3 % (11.5-14.5); Red Blood Cell (RBC) Count 3.38 mill/uL (4.70-6.10); White Blood Cell (WBC) Count 3.7 thou/uL (4.8-10.8)
[2017-04-12 05:03] LABS: Anion Gap 11 mmol/L (10-20); BUN (Urea Nitrogen) 10 mg/dL (8.9-20.6); Calc. Creatinine Clearance 366 mL/min (70-130); Calcium 8.5 mg/dL (7.8-10.44); Carbon Dioxide 31 mmol/L (22-29); Chloride 101 mmol/L (98-107); Estimated GFR-MDRD Greater than 90; Glucose 106 mg/dL (70-105); Sodium 139 mmol/L (136-145)
--- NOTE | 2017-04-12 06:44 | PDOC.FM ---
- Subjective Subjective: Pt complains of continued headache and and shoulder pain. He denies fever, chills, n/v and all other symptoms in ROS. There were no acute events over night. - Objective MAR Reviewed: Yes Vital Signs & Weight: Vital Signs (12 hours) Temp Pulse Resp BP Pulse Ox 04/11/17 20:00 98.3 F 68 20 121/73 96 Weight Weight 286.67 kg I&O: 04/10/17 04/11/17 04/12/17 06:59 06:59 06:59 Intake Total 720 360 660 Balance 720 360 660 Result Diagrams: 04/12/17 03:49 04/12/17 03:49 Phys Exam - Physical Examination Constitutional: NAD HEENT: PERRLA, moist MMs Neck: no nodes, no JVD, supple, full ROM Respiratory: clear to auscultation bilateral Difficult exam dt habitus Cardiovascular: RRR, no significant murmur Gastrointestinal: soft, non-tender, no distention Musculoskeletal: no edema Neurological: non-focal, normal sensation Lymphatic: no nodes Psychiatric: normal affect, A&O x 3 Deviation from normal: Area of induration on L posterior scalp/periauricular area is stable. -: Continued tenderness. Slight improvement from yesterday Dx/Plan (1) Cellulitis Code(s): L03.90 - CELLULITIS, UNSPECIFIED Status: Acute Qualifiers: Site of cellulitis: neck Qualified Code(s): L03.221 - Cellulitis of neck (2) Pickwickian syndrome Code(s): E66.2 - MORBID (SEVERE) OBESITY WITH ALVEOLAR HYPOVENTILATION Status : Acute (3) CHF (congestive heart failure) Code(s): I50.9 - HEART FAILURE, UNSPECIFIED Status: Chronic (4) GERD (gastroesophageal reflux disease) Code(s): K21.9 - GASTRO-ESOPHAGEAL REFLUX DISEASE WITHOUT ESOPHAGITIS Status: Chronic (5) HTN (hypertension) Code(s): I10 - ESSENTIAL (PRIMARY) HYPERTENSION Status: Chronic Qualifiers: Hypertension type: essential hypertension Qualified Code(s): I10 - Essential (primary) hypertension (6) Morbid obesity Code(s): E66.01 - MORBID (SEVERE) OBESITY DUE TO EXCESS CALORIES Status: Chronic (7) Neutropenia Code(s): D70.9 - NEUTROPENIA, UNSPECIFIED Status: Acute - Plan Plan: Left neck cellulitis w/ possible lymphadenitis -Moved to PO meds yesterday per gen surg rec -ENT/Gen surg said they will not do surgery -Less tender to touch. Swelling continues is stable. -Pain is controlled -Blood Cx 1/2- Gram + Cocci in clusters- identified as MRSE, Gram Neg Rufus, awaiting sensitivities. will continue w/ zosyn for now. Abx appropriate for coverage. Neutropenia -ANC is 1295, moderate neutropenia -Vitals are normal -abx are appropriate -monitor CBC and vitals Pickwickian Syndrome -O2 supplementation. Has trach in place. Needs new trach piece. Respiratory will aid in this. -Denies any increased SOB -O2 sats stable -Has increased Bicarb, chronic. Likely due to retained CO2 from body habitus HLD -continue home meds HTN -continue home meds -BP stable at this time. CHF -continue home meds Depression -continue home meds GERD -continue home meds
[2017-04-12 08:22] VITALS: BP 119/74; TEMP 98.1
[2017-04-12] MEDS: Gabapentin 100 MG CAP PO SCH (09:42)
[2017-04-12] MEDS: Furosemide 40 MG TAB PO SCH ×2 (09:42→15:14)
[2017-04-12] MEDS: Clopidogrel Bisulfate 75 MG TAB PO SCH (09:42)
[2017-04-12] MEDS: Enoxaparin Sodium 40 MG/0.4 ML SYRINGE SC SCH (09:42)
[2017-04-12] MEDS: Potassium Chloride 10 MEQ TAB PO SCH (09:42)
[2017-04-12] MEDS: Citalopram 20 MG TAB PO SCH (09:42)
[2017-04-12] MEDS: Topiramate 25 MG TAB PO SCH (09:43)
[2017-04-12] MEDS: Amlodipine 5 MG TAB PO SCH (09:43)
[2017-04-12] MEDS: Loratadine 10 MG TAB PO SCH (09:43)
[2017-04-12] MEDS: Tamsulosin HCl 0.4 MG CAP PO SCH (09:43)
[2017-04-12] MEDS: Sulfameth/Trimethoprim DS 800-160mg TAB PO SCH (09:44)
[2017-04-12] MEDS: Fluticasone Propionate Nasal Spray 16 gm Bottle NASAL SCH (09:44)
[2017-04-12] MEDS ORDERED: Citalopram 20 MG TAB PO SCH (10:00)
--- NOTE | 2017-04-12 13:28 | ADD-PRG ---
DATE OF SERVICE: 04/12/2017 ADDENDUM This is an addendum to the note of Dr. John Thomas. The swelling in the head and neck area of Mr. Samson seems to have greatly abated. He is still not f eeling well, but he is afebrile and tolerating p.o. antibiotics. He will be discharged on oral antib iotics for close followup. We also repeat a CBC as an outpatient as he has developed a mild neutrope aldo.
--- NOTE | 2017-04-13 01:12 | DIS-2 ---
DATE OF ADMISSION: 04/07/2017 DATE OF DISCHARGE: 04/12/2017 RESIDENT: John Thomas DO ADMITTING ATTENDING: Abhishek Francis MD DISCHARGE ATTENDING: Nato ePña MD CONSULTATIONS: Toi Thomas M.D., General Surgery. PROCEDURES: None. PRIMARY DIAGNOSIS: Cellulitis. SECONDARY DIAGNOSES: Pickwickian syndrome, hypertension, hyperlipidemia, diastolic congestive heart failure, morbid obesity. DISCHARGE MEDICATIONS: Plavix 75 mg p.o. daily, Zocor 40 mg p.o. at bedtime, Zyrtec 10 mg p.o. daily, gabapentin 100 mg p.o. t.i.d., potassium chloride 10 mEq p.o. daily, topiramate 25 mg p.o. b.i.d., Nexium 40 mg p.o. q.a.m., Flomax 0.4 mg p.o. daily, amlodipine 5 mg p.o. daily, Meloxicam 15 mg p.o. daily, tramadol 50 mg p.o. q.i.d. p.r.n. pain, Flonase 2 sprays each naris daily, Celexa 40 mg p.o. daily, Lasix 40 mg p.o. b.i.d., clindamycin 300 mg p.o. q.6 h. for 9 days, Bactrim DS 1 tab p.o. b.i.d. for 9 days. DISCONTINUED MEDICATIONS: None. HOSPITAL COURSE: The patient was admitted with a cellulitis that affected the left posterior scalp, ear, left jaw, left neck, and left shoulder. The patient was treated with IV vancomycin and Zosyn. Additionally, Surgery was consulted for evaluation of possible incision and drainage. It was determined that I&D was not necessary as there was no obvious abscess and the patient was improving on IV antibiotics. The patient was successfully moved from IV to p.o. antibiotics and remained afebrile, nontachycardic, generally asymptomatic with the exception of tenderness in the general affected area. While on IV and p.o. antibiotics, the affected area gradually regressed. At the time of discharge, affected area included the scalp, ear, jaw, and neck. The area of erythema and tenderness that was initially present had greatly improved. It was noted while admitted that the patient was neutropenic; however, it he was appropriately covered with oral antibiotics. Additionally, he was showing no signs of systematic infection. The patient was discharged with orders for home health and to have a CBC redrawn one week from discharge to verify resolution of the neutropenia. Other cell lines within the CBC were all normal. DISPOSITION: Stable. DISCHARGE INSTRUCTIONS: 1. Location: Home. 2. Diet: Heart healthy. 3. Activity: Ad myrtle. 4. Followup: 1 week with PCP. FELIX
== END 2017-04-12 15:14 | disposition home or self-care (01) | DRG 603 ==
LOC: ERS 14:21 → T4-A 16:01
PROVIDERS: ADMIT Student in an Organized Health Care Education/Training Program; ATTEND Student in an Organized Health Care Education/Training Program
DX: L03.221 Cellulitis of neck (principal); D70.9 Neutropenia, unspecified; Z93.0 Tracheostomy status; I11.0 Hypertensive heart disease with heart failure; Z99.81 Dependence on supplemental oxygen; I50.32 Chronic diastolic (congestive) heart failure; E66.2 Morbid (severe) obesity with alveolar hypoventilation; Z68.45 Body mass index [BMI] 70 or greater, adult; L03.811 Cellulitis of head [any part, except face]; L03.114 Cellulitis of left upper limb; E78.5 Hyperlipidemia, unspecified; G47.33 Obstructive sleep apnea (adult) (pediatric); D64.9 Anemia, unspecified; K21.9 Gastro-esophageal reflux disease without esophagitis; F32.9 Major depressive disorder, single episode, unspecified
CPT/HCPCS: 36415; 76536; 80048; 80053; 80202; 83605; 85025; 87040; 87077; 87149; 96361; 96365; 96367; 96375; 96376; J1650; J1885; J2270; J2543; J3370; J7050

== ENCOUNTER 2017-04-28 23:18 | Emergency (ER) | payer OTHER | END 2017-04-29 00:10 | disposition home or self-care (01) | LOC: ERS 23:18 | DX: B35.3 Tinea pedis (principal); B35.1 Tinea unguium; E66.01 Morbid (severe) obesity due to excess calories; I25.2 Old myocardial infarction; G47.30 Sleep apnea, unspecified; I11.0 Hypertensive heart disease with heart failure; I50.9 Heart failure, unspecified; F32.9 Major depressive disorder, single episode, unspecified; Z87.891 Personal history of nicotine dependence; Z86.73 Personal history of transient ischemic attack (TIA), and cerebral infarction without residual deficits | CPT/HCPCS: 99283 ==

== ENCOUNTER 2017-06-19 16:58 | Emergency (ER) | payer OTHER ==
--- NOTE | 2017-06-19 19:39 | RAD ---
CHEST ONE VIEW 06/19/17 HISTORY: Cough. COMPARISON: Chest one view 03/20/17. FINDINGS: Heart size is enlarged. There is mild pulmonary edema. Likely small effusions. IMPRESSION: There appears to be an endotracheal tube or tracheostomy tube with tip at the level of the clavicles. IMPRESSION: Cardiomegaly with moderate pulmonary edema. POS: [facility]
== END 2017-06-19 20:38 | disposition home or self-care (01) ==
LOC: ERS 16:58
DX: J40 Bronchitis, not specified as acute or chronic (principal); G47.30 Sleep apnea, unspecified; I11.0 Hypertensive heart disease with heart failure; I50.9 Heart failure, unspecified; I25.2 Old myocardial infarction; F32.9 Major depressive disorder, single episode, unspecified; Z87.891 Personal history of nicotine dependence; Z86.73 Personal history of transient ischemic attack (TIA), and cerebral infarction without residual deficits
CPT/HCPCS: 71045

== ENCOUNTER 2017-08-19 16:16 | Emergency (ER) | payer OTHER | END 2017-08-19 19:57 | disposition home or self-care (01) | LOC: ERS 16:16 | DX: L73.9 Follicular disorder, unspecified (principal); G47.30 Sleep apnea, unspecified; Z86.73 Personal history of transient ischemic attack (TIA), and cerebral infarction without residual deficits; I11.0 Hypertensive heart disease with heart failure; I50.9 Heart failure, unspecified; I25.2 Old myocardial infarction; F32.9 Major depressive disorder, single episode, unspecified; Z87.891 Personal history of nicotine dependence | CPT/HCPCS: 99283 ==

== ENCOUNTER 2017-10-07 14:28 | Emergency (ER) | payer OTHER | END 2017-10-07 14:50 | disposition home or self-care (01) | LOC: ERS 14:28 | DX: L29.9 Pruritus, unspecified (principal); I25.2 Old myocardial infarction; I11.0 Hypertensive heart disease with heart failure; I50.9 Heart failure, unspecified; E66.9 Obesity, unspecified; F32.9 Major depressive disorder, single episode, unspecified; Z87.891 Personal history of nicotine dependence; Z86.73 Personal history of transient ischemic attack (TIA), and cerebral infarction without residual deficits | CPT/HCPCS: 99283 ==

== ENCOUNTER 2018-04-05 18:22 | Observation (INO) | payer OTHER ==
[2018-04-05 19:14] LABS: #Eosinphils 0.4 thou/uL (0.0-0.7); #Lymphocytes 1.2 thou/uL (1.20-3.40); #Monocytes 0.4 thou/uL (0.11-0.59); #Neutrophils 2.9 thou/uL (1.40-6.50); %Basophils 0.7 % (0.0-1.0); %Eosinophils 7.2 % (0.0-10.0); %Lymphocytes 24.2 % (21.0-51.0); %Monocytes 8.8 % (0.0-10.0); %Neutrophils 59.1 % (42.0-75.0); Hemoglobin 10.4 g/dL (14.0-18.0); Mean Corpuscular HGB CONC 29.9 g/dL (32.0-36.0); Mean Corpuscular Hemoglobin 29.9 pg (27.0-31.0); Mean Corpuscular Volume 99.9 fL (78.0-98.0); Mean Platelet Volume 8.6 fL (7.4-10.4); Platelet Count 138 thou/uL (130-400); RBC Distribution Width 11.8 % (11.5-14.5); Red Blood Cell (RBC) Count 3.47 mill/uL (4.70-6.10); White Blood Cell (WBC) Count 4.9 thou/uL (4.8-10.8)
--- NOTE | 2018-04-05 19:23 | RAD ---
PORTABLE CHEST: 04/05/18 HISTORY: Shortness of breath. COMPARISON: 06/19/17 exam. Heart size is enlarged. Pulmonary vessels are mildly prominent. Tracheostomy tube is in place. Slight ly asymmetric parenchymal change in the right upper lobe is seen. I think this is probably just techn ique related. A PA and lateral chest film would be recommended for assessment. IMPRESSION: Cardiomegaly with mild vascular engorgement. No definitive infiltrative process. Slightly asymmetric right sided upper lobe parenchymal changes felt to just technique related. POS: [facility]
[2018-04-05] MEDS ORDERED: Furosemide 40 MG TAB ONE (19:30)
[2018-04-05] MEDS ORDERED: Amlodipine 5 MG TAB ONE (19:30)
[2018-04-05] MEDS ORDERED: hydrOXYzine 25 MG TAB ONE (19:30)
[2018-04-05 19:35] LABS: Actual Bicarbonate (HCO3a) 37.8 mEq/L (22-28); Analyzer IN Cardio ER; Base Excess (BEa) 10.3 mEq/L (-2.0 to +3.0); Calcium, Ionized 1.15 mmol/L (1.12-1.30); Carboxyhemoglobin (COHb) 0.9 gm% (0.0-3.0); Hemoglobin (Hb) 11.6 g/dL (14.0-18.0); Potassium - ABG Lab 4.36 mmol/L (3.70-5.30); pH, Arterial 7.37 (7.35-7.45)
[2018-04-05 19:37] LABS: ALT (SGPT) 10 U/L (8-55); AST (SGOT) 12 U/L (5-34); Albumin 3.9 g/dL (3.5-5.0); Alkaline Phosphatase 79 U/L (40-150); Anion Gap 10 mmol/L (10-20); BUN (Urea Nitrogen) 12 mg/dL (8.9-20.6); Bilirubin, Total 0.6 mg/dL (0.2-1.2); Calc. Creatinine Clearance 0 mL/min (70-130); Calcium 9.1 mg/dL (7.8-10.44); Carbon Dioxide 36 mmol/L (22-29); Chloride 97 mmol/L (98-107); Estimated GFR-MDRD Greater than 90; Globulin 4.1 g/dL (2.4-3.5); Glucose 94 mg/dL (70-105); Potassium 4.3 mmol/L (3.5-5.1); Sodium 139 mmol/L (136-145)
[2018-04-05 19:37] LABS: CO2 Tension 66.7 mmHg (35.0-45.0)
[2018-04-05 19:38] LABS: ALV-art Gradient 78.925 (0-20); O2 Tension (PaO2) 51.6 mmHg (80.0-100.0); Puncture Site RBA
--- NOTE | 2018-04-05 22:55 | PDOC.FPRHP ---
- History of Present Illness Chief Complaint: SOB History of Present Illness: This is a 52 yo male with a pmh of morbid obesity, HTN, CHF, GERD, Pickwickian syndrome who presents to the ED with a cc of worsening SOB. He states that his symptoms started approximately 1 week ago. He states that his house is infected with dust mites that get in his throat and make it difficult to breath. He reports that he normally uses 2 L of home O2 but lately has used as much as 8L. He reports a productive cough that is stable. His daughter states that she believes this dyspnea stems from anxiety and that there is not a huge concern for dust mites. ED Course: lasix 40mg amlodipine 5 mg duoneb atarax - Allergies/Adverse Reactions Allergies Allergy/AdvReac Type Severity Reaction Status Date / Time No Known Drug Allergies Allergy Verified 04/06/18 01:34 - Home Medications Medication Instructions Recorded Confirmed Type Cetirizine HCl [Zyrtec] 10 mg PO DAILY 10/11/14 04/05/18 History Clopidogrel Bisulfate [Plavix] 75 mg PO DAILY 10/11/14 04/05/18 History Esomeprazole Magnesium [NexIUM] 40 mg PO QAM-WM #0 cap 10/11/14 04/05/18 Rx Gabapentin 100 mg PO TID #0 capsule 10/11/14 04/05/18 Rx Potassium Chloride [Klor-Con 10] 10 meq PO DAILY #0 tab 10/11/14 04/05/18 Rx Simvastatin [Zocor] 40 mg PO HS 10/11/14 04/05/18 History Topiramate [Topamax] 25 mg PO BID #0 tab 10/11/14 04/05/18 Rx Meloxicam 1 tab PO DAILY 12/02/16 04/05/18 History Tamsulosin HCl [Flomax] 0.4 mg PO DAILY 12/02/16 04/05/18 History amLODIPine Besylate [Amlodipine 1 tab PO DAILY 12/02/16 04/05/18 History Besylate] Citalopram [CeleXA] 40 mg PO DAILY tab 03/20/17 04/05/18 Rx Furosemide [Lasix] 40 mg PO BID 03/20/17 04/05/18 History Acetylcysteine 20% (200mg/mL) 2 ml PER TUBE Q1HR PRN 04/05/18 04/05/18 History [Acetadote 20% (200mg/mL)] Albuterol Sulfate [Albuterol 2.5 mg NEB Q6H PRN 04/05/18 04/05/18 History Sulfate Neb] risperiDONE 4 mg PO HS 04/05/18 04/05/18 History - History PMHx: HTN, GERD, delusion of parasites, CHF, lymphadenopathy PSHx: Cholecystectomy FHx: noncontributory Social: Denies ROBERT - Review of Systems General: reports: fatigue. denies: fever/chills, weight/appetite/sleep changes , night sweats ENT: denies: nasal congestion, rhinorrhea Respiratory: reports: cough, shortness of breath. denies: congestion Cardiovascular: reports: chest pain (muscular). denies: palpitation Gastrointestinal: denies: nausea, vomiting, diarrhea, constipation Skin: reports: rashes (rash under his pannus, itching and burning) Musculoskeletal: reports: tenderness (on his lower legs) Neurological: denies: numbness, syncope Psychological: reports: anxiety. denies: depression - Vital signs BP: 158/106 HR: 80 RR: 20 Tmax: 99.1 Pox: 100% on 8L Wt: 314 kg - Physical Exam Constitutional: NAD, awake, alert and oriented, other (morbidly obese) HEENT: normocephalic and atraumatic, PERRLA, EOMI, MMM Neck: FROM Chest: other (chest tender to palpation) Heart: other (Unable to auscultate due to body habitus) Lungs: other (Unable to auscultate due to body habitus) Abdomen: other (large pannus with significant skin folds with signs of maceration) Musculoskeletal: other (swolen lower extremities, excessive adipose tissue on all extremities) Neurological: no focal deficit Skin: good turgor Heme/Lymphatic: no unusual bruising or bleeding Psychiatric: normal mood and affect, good judgment and insight FMR H&P: Results - Labs Result Diagrams: 04/05/18 19:05 04/05/18 19:05 Lab results: WBC 4.9 thou/uL (4.8-10.8) 04/05/18 19:05 Hgb 10.4 g/dL (14.0-18.0) L 04/05/18 19:05 Hct 34.7 % (42.0-52.0) L 04/05/18 19:05 MCV 99.9 fL (78.0-98.0) H 04/05/18 19:05 Plt Count 138 thou/uL (130-400) 04/05/18 19:05 Neutrophils % 59.1 % (42.0-75.0) 04/05/18 19:05 ABG pH 7.37 (7.35-7.45) 04/05/18 19:30 ABG pCO2 66.7 mmHg (35.0-45.0) H* 04/05/18 19:30 ABG pO2 51.6 mmHg (80.0-100.0) L* 04/05/18 19:30 Sodium 139 mmol/L (136-145) 04/05/18 19:05 Potassium 4.3 mmol/L (3.5-5.1) 04/05/18 19:05 Chloride 97 mmol/L (98-107) L 04/05/18 19:05 Carbon Dioxide 36 mmol/L (22-29) H 04/05/18 19:05 BUN 12 mg/dL (8.9-20.6) 04/05/18 19:05 Creatinine 0.83 mg/dL (0.7-1.3) 04/05/18 19:05 Glucose 94 mg/dL (70-105) 04/05/18 19:05 Calcium 9.1 mg/dL (7.8-10.44) 04/05/18 19:05 Total Bilirubin 0.6 mg/dL (0.2-1.2) 04/05/18 19:05 AST 12 U/L (5-34) 04/05/18 19:05 ALT 10 U/L (8-55) 04/05/18 19:05 Alkaline Phosphatase 79 U/L (40-150) 04/05/18 19:05 Serum Total Protein 8.0 g/dL (6.0-8.3) 04/05/18 19:05 Albumin 3.9 g/dL (3.5-5.0) 04/05/18 19:05 - Radiology Interpretation Chest x-ray Status: image reviewed by me, report reviewed by me (cardiomegaly with mild vascular engorgement. no infiltrative process) FMR H&P: A/P - Problem List (1) Reactive airway disease with acute exacerbation Current Visit: Yes Status: Acute Code(s): J45.901 - UNSPECIFIED ASTHMA WITH (ACUTE) EXACERBATION (2) Pickwickian syndrome Current Visit: No Status: Acute Code(s): E66.2 - MORBID (SEVERE) OBESITY WITH ALVEOLAR HYPOVENTILATION (3) CHF (congestive heart failure) Current Visit: No Status: Chronic Code(s): I50.9 - HEART FAILURE, UNSPECIFIED (4) GERD (gastroesophageal reflux disease) Current Visit: No Status: Chronic Code(s): K21.9 - GASTRO-ESOPHAGEAL REFLUX DISEASE WITHOUT ESOPHAGITIS (5) HTN (hypertension) Current Visit: No Status: Chronic Code(s): I10 - ESSENTIAL (PRIMARY) HYPERTENSION Qualifiers: Hypertension type: essential hypertension Qualified Code(s): I10 - Essential (primary) hypertension (6) Morbid obesity Current Visit: No Status: Chronic Code(s): E66.01 - MORBID (SEVERE) OBESITY DUE TO EXCESS CALORIES - Plan This is a 52 yo male with a pmh of HTN, CHF, GERD, pickwickian syndrome Acute hypoxic respiratory failure likely 2/2 to pickickian syndrome vs. reactive airway disease vs. CHF exacerbation -Admit to medical obs -Provide oxygen support with plans to wean down to baseline. Repeat ABG in the AM -Duonebs -TTE in the morning to assess current CHF status, BNP was 221 -Continue home lasix -Pt used bipap at night in the past but has not used it since his trach. 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 In regard to mites, he feels that they are clogging his trach and that he can feel them crawling around it. His daughter privately stated that she doesn't think that is true and that he has been obsessing on this feeling of being covered in mites. She says that the household has already been tested for that. Review of clinic record shows that his PCP feels this is a delusion. As for his SOB, he describes it as subjective, constant, worsening over 1 month , due to mites infestation. He endorses increased LE swelling bilaterally. He is bedbound and unable to correlate his SOB with exertion. He is currently on home of 8 L by trach. In ER, he was 100% on 4 L. His ABG incidentally found him to be hypoxic in comparison to previous ABGs. - Pertinent findings Gen: Alert, grossly oriented, morbidly obese HEENT: Normocephalic, moist mucosal membrane, white sclera, trach CV: Difficult auscultation due to body habitus. Appear to be rrr with no obvious m/g/r Resp: Difficult auscultation. Appear to have distance breath sound bilaterally. GI: Soft, non tender. No palpable mass appreciated Ext: Inguinal pannus present down to knees. No obvious pitting edema, but patient may have some woody edema. Psych: Preoccupation with mites parasites on body. Otherwise logical. - Plan Date/Time: 04/05/18 [id number] I, [Silver Oliva], have evaluated this patient and agree with findings/plan as outlined by safety intern resident. Pertinent changes/additions are listed here. 1. Acute, hypercapnic, hypoxic resp failure, possibly due to pickwickian - Long onset without systemic symptom, and good O2 on less then baseline supplement does not favor an acute illness, ACS, PE, pneumonia - Doubt DVT/PE specifically due to normal vital, no unilateral swelling, and long duration - Will do a cardiac work up with echo, trop, BNP due to complain of LE swelling bilaterally. - Will place on supplemental O2 titrated to 92% 2. HTN Urgency - Noted to have elevated systolic, but otherwise asymptomatic - Plan, PRN hydralazine, continue home med. Advise follow up with PCP for titration. 3. Delusion of parasite - No noted abnormalities of trach. Previous history would suggest delusion. Continue home med 4. BPH - Continue home flomax 5. HLD - Continue home simvastatin 6. Osteoarthritis - Continue home meloxicam 7. Hx CVA - Continue plavix Addendum - Attending - Attending Attestation Date/Time: 04/06/18 [id number] I personally evaluated the patient and discussed the management with Dr. Gomez I agree with the History, Examination, Assessment and Plan documented above with any addition or exceptions noted below- 52 yo male with h/o .morbid obesity , HTN, CHF, GERD, Pickwickian syndrome who presented with increasing SOB. States that he has been needed more oxygen primarily at night. States that he has been having more sputum production also. Denies any chest pain, abd pain, fever/chills. PMH/PSH/All/Meds reviewed and agree with resident's documentation. Afebrile VSS Exam repeated by me and agree with resident's findings. Labs reviewed. A/P: 1) Dyspnea- ABG values at his baseline except pO2. No evidence of infection; possibly mild volume overload from CHF. Will give dose of IV lasix and monitor response. 2) HTN- resume home meds.
[2018-04-06] MEDS ORDERED: Ondansetron ODT 4 MG TAB PO PRN (00:38)
[2018-04-06] MEDS ORDERED: Albuterol Sulfate 2.5 mg/3 ml Neb NEB PRN (00:38)
[2018-04-06] MEDS ORDERED: Acetaminophen 325 MG TAB PO PRN (00:38)
--- NOTE | 2018-04-06 06:39 | PDOC.FM ---
- Subjective Subjective: Pt reports no changes overnight in respiratory status. Pt feels anxious in general. Pt also reports no BM for 2-3 days and some associated abdominal pain. No fever/chills, no nausea/vomiting - Objective MAR Reviewed: Yes Vital Signs & Weight: Vital Signs (12 hours) Temp Pulse Resp BP BP Pulse Ox 04/06/18 04:38 98.1 F 86 22 H 150/84 H 97 04/06/18 03:34 80 20 100 04/06/18 00:15 97.8 F 73 24 H 159/101 H 100 04/06/18 00:10 97.8 F 73 24 H 159/101 H 100 Weight Weight 314.793 kg Result Diagrams: 04/05/18 19:05 04/05/18 19:05 Phys Exam - Physical Examination Constitutional: NAD HEENT: moist MMs, sclera anicteric Neck: supple trach collar in place Respiratory: no wheezing, clear to auscultation bilateral Cardiovascular: RRR, no significant murmur Gastrointestinal: soft, positive bowel sounds mild ttp in RLQ Musculoskeletal: pulses present Neurological: normal sensation, moves all 4 limbs Psychiatric: A&O x 3 Deviation from normal: anxious affect Skin: no rash, normal turgor Dx/Plan (1) Reactive airway disease with acute exacerbation Code(s): J45.901 - UNSPECIFIED ASTHMA WITH (ACUTE) EXACERBATION Status: Acute (2) Lymphedema Code(s): I89.0 - LYMPHEDEMA, NOT ELSEWHERE CLASSIFIED Status: Acute (3) Pickwickian syndrome Code(s): E66.2 - MORBID (SEVERE) OBESITY WITH ALVEOLAR HYPOVENTILATION Status : Acute (4) Chronic respiratory failure with hypoxia and hypercapnia Code(s): J96.11 - CHRONIC RESPIRATORY FAILURE WITH HYPOXIA; J96.12 - CHRONIC RESPIRATORY FAILURE WITH HYPERCAPNIA Status: Chronic (5) HTN (hypertension) Code(s): I10 - ESSENTIAL (PRIMARY) HYPERTENSION Status: Chronic Qualifiers: Hypertension type: essential hypertension Qualified Code(s): I10 - Essential (primary) hypertension (6) Morbid obesity Code(s): E66.01 - MORBID (SEVERE) OBESITY DUE TO EXCESS CALORIES Status: Chronic (7) Obesity hypoventilation syndrome Code(s): E66.2 - MORBID (SEVERE) OBESITY WITH ALVEOLAR HYPOVENTILATION Status : Chronic - Plan Plan: Acute, hypercapnic, hypoxic resp failure 2/2 to obesity hypoventilation syndrome and reactive airway disease A- Long onset without systemic symptom, and good O2 on less then baseline supplement does not favor an acute illness. BNP slightly elevated P- f/u on TTE - duonebs - Will place on supplemental O2 titrated to 92% HTN Urgency A- BPs in more normal ranges today. P- PRN hydralazine, continue home med -continue to monitor -Advise follow up with PCP for titration. Delusion of parasite A- No noted abnormalities of trach. Previous history would suggest delusion. P- Continue home med Constipation A- Pt has had no bm in 2-3 days. He has some abdominal pain in RLQ. Pt is not tachy,febrile, and has normal WBC so unlikely appendicitis. P- will add miralax and senna and monitor symptoms BPH - Continue home flomax HLD - Continue home simvastatin Osteoarthritis - Continue home meloxicam Hx CVA - Continue plavix Addendum - Attending - Attending Attestation Date/Time: 04/06/18 1115 I personally evaluated the patient and discussed the management with Dr. Velasco I agree with the History, Examination, Assessment and Plan documented above with any addition or exceptions noted below- Patient still feeling SOB but also anxious. Reports constipation. Afebrile VSS. A/P: 1) Dyspnea- O2 sats WNL; possible anxiety component but BNP also above baseline. Will give additional dose of lasix today and monitor status. 2) Constipation- start bowel regimen 3) HTN- stable; continue home meds.
[2018-04-06] MEDS ORDERED: Nystatin Powder 15 GM BOT TOP PRN (08:14)
[2018-04-06] MEDS: Tamsulosin HCl 0.4 MG CAP PO SCH (09:34)
[2018-04-06] MEDS: Citalopram 20 MG TAB PO SCH (09:34)
[2018-04-06] MEDS: Gabapentin 100 MG CAP PO SCH ×3 (09:34→21:21)
[2018-04-06] MEDS: Loratadine 10 MG TAB PO SCH (09:35)
[2018-04-06] MEDS: Topiramate 25 MG TAB PO SCH ×2 (09:35→21:21)
[2018-04-06] MEDS: Furosemide 40 MG TAB PO SCH ×2 (09:35→21:20)
[2018-04-06] MEDS: Enoxaparin Sodium 40 MG/0.4 ML SYRINGE SC SCH (09:35)
[2018-04-06] MEDS: Clopidogrel Bisulfate 75 MG TAB PO SCH (09:36)
[2018-04-06] MEDS: Amlodipine 5 MG TAB PO SCH (09:36)
[2018-04-06] MEDS: Potassium Chloride 10 MEQ TAB PO SCH (09:36)
[2018-04-06] MEDS ORDERED: Furosemide 20 MG/2 ML VIAL SLOW IVP SCH (10:15)
[2018-04-06] MEDS: Meloxicam 15 MG TAB PO SCH (10:15)
[2018-04-06] MEDS ORDERED: risperiDONE 1 MG TAB PO SCH (21:00)
[2018-04-06] MEDS ORDERED: Simvastatin 40 MG TAB PO SCH (21:00)
[2018-04-06] MEDS: Senokot 8.6 MG TAB PO SCH (21:21)
--- NOTE | 2018-04-07 07:53 | PDOC.FM ---
- Subjective Subjective: Pt feels well this AM. Reports he has still not had a BM but otherwise has no complaints. This morning pt states that normally at home he is on 8L O2. Denies CP denies fever/chills, denies sob - Objective MAR Reviewed: Yes Vital Signs & Weight: Vital Signs (12 hours) Temp Pulse Resp BP Pulse Ox 04/07/18 07:25 98.1 F 83 22 H 155/81 H 100 04/07/18 06:21 78 18 97 04/07/18 01:59 86 20 95 04/07/18 00:00 98.1 F 88 20 134/78 99 04/06/18 21:59 91 20 96 04/06/18 20:00 100 04/06/18 19:56 98.3 F 85 20 139/80 100 Weight Weight 314.793 kg I&O: 04/06/18 04/07/18 04/08/18 06:59 06:59 06:59 Intake Total 760 Balance 760 Result Diagrams: 04/05/18 19:05 04/05/18 19:05 Phys Exam - Physical Examination Constitutional: NAD morbidly obese HEENT: moist MMs, sclera anicteric Neck: supple, full ROM Respiratory: no wheezing diminished sounds due to body habitus Cardiovascular: RRR, no significant murmur diminished sounds due to body habitus Gastrointestinal: soft diffuse mild ttp, no guarding Musculoskeletal: pulses present Neurological: non-focal, normal sensation Psychiatric: normal affect, A&O x 3 Skin: no rash, normal turgor Dx/Plan (1) Reactive airway disease with acute exacerbation Code(s): J45.901 - UNSPECIFIED ASTHMA WITH (ACUTE) EXACERBATION Status: Acute (2) Lymphedema Code(s): I89.0 - LYMPHEDEMA, NOT ELSEWHERE CLASSIFIED Status: Acute (3) Pickwickian syndrome Code(s): E66.2 - MORBID (SEVERE) OBESITY WITH ALVEOLAR HYPOVENTILATION Status : Acute (4) Chronic respiratory failure with hypoxia and hypercapnia Code(s): J96.11 - CHRONIC RESPIRATORY FAILURE WITH HYPOXIA; J96.12 - CHRONIC RESPIRATORY FAILURE WITH HYPERCAPNIA Status: Chronic (5) HTN (hypertension) Code(s): I10 - ESSENTIAL (PRIMARY) HYPERTENSION Status: Chronic Qualifiers: Hypertension type: essential hypertension Qualified Code(s): I10 - Essential (primary) hypertension (6) Morbid obesity Code(s): E66.01 - MORBID (SEVERE) OBESITY DUE TO EXCESS CALORIES Status: Chronic (7) Obesity hypoventilation syndrome Code(s): E66.2 - MORBID (SEVERE) OBESITY WITH ALVEOLAR HYPOVENTILATION Status : Chronic - Plan Plan: Acute, hypercapnic, hypoxic resp failure 2/2 to obesity hypoventilation syndrome and reactive airway disease A- Long onset without systemic symptom, and good O2 on less then baseline supplement does not favor an acute illness. BNP slightly elevated but echo shows EF 50-55%. Pt is at home baseline of 8L O2 P- possible DC home today - duonebs prn - Will place on supplemental O2 titrated to 92% HTN Urgency A- BPs in more normal ranges today. P- PRN hydralazine, continue home med -continue to monitor Delusion of parasite A- No noted abnormalities of trach. Previous history would suggest delusion. P- Continue home med Constipation A- Pt has had no bm in 2-3 days. He has some abdominal pain in RLQ. Pt is not tachy,febrile, and has normal WBC so unlikely appendicitis. P- continue miralax and senna -add movantic BPH - Continue home flomax HLD - Continue home simvastatin Osteoarthritis - Continue home meloxicam Hx CVA - Continue plavix Addendum - Attending - Attending Attestation Date/Time: 04/07/18 105 I personally evaluated the patient and discussed the management with Dr. Velasco I agree with the History, Examination, Assessment and Plan documented above with any addition or exceptions noted below- Patient resting comfortable. Denies any complaints except constipation. States that his SOB has improved. Afebrile VSS. A/P: 1) CHFpEF- echo with EF=50-55%; SOB improved with additional dose of lasix. Plan to d/c home today.
[2018-04-07] MEDS: Enoxaparin Sodium 40 MG/0.4 ML SYRINGE SC SCH (08:15)
[2018-04-07] MEDS: Citalopram 20 MG TAB PO SCH (08:15)
[2018-04-07] MEDS: Tamsulosin HCl 0.4 MG CAP PO SCH (08:16)
[2018-04-07] MEDS: Clopidogrel Bisulfate 75 MG TAB PO SCH (08:16)
[2018-04-07] MEDS: Topiramate 25 MG TAB PO SCH (08:16)
[2018-04-07] MEDS: Amlodipine 5 MG TAB PO SCH (08:16)
[2018-04-07] MEDS: Gabapentin 100 MG CAP PO SCH (08:17)
[2018-04-07] MEDS: Senokot 8.6 MG TAB PO SCH (08:17)
[2018-04-07] MEDS: Potassium Chloride 10 MEQ TAB PO SCH (08:17)
[2018-04-07] MEDS: Meloxicam 15 MG TAB PO SCH (08:18)
[2018-04-07] MEDS: Furosemide 40 MG TAB PO SCH (08:18)
[2018-04-07] MEDS: Loratadine 10 MG TAB PO SCH (08:18)
[2018-04-07] MEDS ORDERED: Polyethylene Glycol 3350 17 GM Packet PO SCH (09:00)
[2018-04-07 11:52] VITALS: TEMP 98.6
[2018-04-07 12:48] VITALS: BP 123/75
--- NOTE | 2018-04-08 18:03 | DIS ---
DATE OF ADMISSION: 04/05/2018 DATE OF DISCHARGE: 04/07/2018 RESIDENT: Harsha Velasco MD ADMITTING ATTENDING: Thea Kennedy MD DISCHARGE ATTENDING: Thea Kennedy MD CONSULTS: None. PROCEDURES: On 04/05/2018, chest x-ray, impression; cardiomegaly with mild vascular engorgement, no definitive infiltrative process, slightly asymmetric right-sided upper lobe parenchymal changes felt to technique related. PRIMARY DIAGNOSIS: Hypoxic and hypercapnic respiratory distress secondary to obesity hypoventilation syndrome. SECONDARY DIAGNOSES: Morbid obesity, hypertension, gastroesophageal reflux disease, lymphedema, penitis, congestive heart failure, and constipation. DISCHARGE MEDICATIONS: 1. Clopidogrel 75 mg p.o. daily. 2. Simvastatin 40 mg p.o. at bedtime. 3. Zyrtec 10 mg p.o. daily. 4. Gabapentin 100 mg p.o. t.i.d. 5. Potassium chloride 10 mEq p.o. daily. 6. Topamax 25 mg p.o. b.i.d. 7. Esomeprazole 40 mg p.o. q.a.m. 8. Tamsulosin 0.4 mg p.o. daily. 9. Amlodipine 5 mg p.o. daily. 10. Meloxicam 15 mg p.o. daily. 11. Celexa 40 mg p.o. daily. 12. Lasix 40 mg p.o. b.i.d. 13. Risperidone 4 mg p.o. at bedtime. 14. Acetylcysteine 20% 2 mg per tube q.1 hour p.r.n. 15. Albuterol sulfate 2.5 mg nebulized q.6 hours p.r.n. 16. Movantik 25 mg p.o. daily p.r.n. 17. Nystatin 1 g topical b.i.d. p.r.n. 18. Polyethylene glycol 17 g packet p.o. daily. 19. Senokot 1 tablet p.o. b.i.d. p.r.n. DISCONTINUED MEDICATIONS: None. HISTORY OF PRESENT ILLNESS/HOSPITAL COURSE: This is a 52-year-old male with past medical history of morbid obesity, weighing nearly 700 pounds with trach collar in place for history of obesity hypoventilation syndrome, who presented to the ER with complaint of shortness of breath and increased anxiety due to parasitic bugs at home. On admission, the patient was found with ABG to have pH of 3.7, pCO2 of 66.7, pO2 of 51 and had reported to have needed increased oxygen at home. The patient initially reported to be on 2 L oxygen on trach collar at home, but however had been requiring 8 L recently and complained of bugs attacking him at home. This is a patient with a known dilution of parasites at his house, by which his continually assures him that is not true. On exam, the patient showed no signs of parasitic infiltration. Regarding the patient's hypoxic hypercapnic respiratory failure secondary to obesity hypoventilation syndrome, the patient was admitted and given a dose of Lasix to which the patient responded and reported to be feeling better and less short of breath. Pulmonary examination was in general, difficult secondary to body habitus. However, the patient clinically reported to be feeling better after one dose of Lasix. Later on during hospitalization of note, the patient reported that he actually was on 8 L at his baseline at home. This was confirmed by his . The patient was deemed stable for discharge and discharged. DISPOSITION: Stable. DISCHARGE INSTRUCTIONS: 1. Location: Home. 2. Diet: Healthy heart diet. 3. Activity: As tolerated. 4. Followup: Follow up with primary care physician Jas Espinosa MD in 10 days. Job ID: [id number]
--- NOTE | 2018-04-11 15:35 | EKG ---
Test Reason : Blood Pressure : / mmHG Vent. Rate : 075 BPM Atrial Rate : 075 BPM P-R Int : 166 ms QRS Dur : 086 ms QT Int : 374 ms P-R-T Axes : 042 037 069 degrees QTc Int : 417 ms Normal sinus rhythm Low voltage QRS Nonspecific T wave abnormality Abnormal ECG Confirmed by JESUS LAGUNAS ([id number]), copy editor CHLOE JEFFERSON ([id number]) on 04/11/2018 3:34:49 PM Referred By: Confirmed By:JESUS LAGUNAS
== END 2018-04-07 12:12 | disposition home or self-care (01) ==
LOC: ERS 18:22 → T4-A 21:39
PROVIDERS: ADMIT Family Medicine; ATTEND Family Medicine
DX: E66.2 Morbid (severe) obesity with alveolar hypoventilation (principal); J96.01 Acute respiratory failure with hypoxia; J96.02 Acute respiratory failure with hypercapnia; I11.0 Hypertensive heart disease with heart failure; I50.9 Heart failure, unspecified; K21.9 Gastro-esophageal reflux disease without esophagitis; J45.901 Unspecified asthma with (acute) exacerbation; I16.0 Hypertensive urgency; F22 Delusional disorders; M19.90 Unspecified osteoarthritis, unspecified site; K59.00 Constipation, unspecified; N48.29 Other inflammatory disorders of penis; Z87.891 Personal history of nicotine dependence; Z86.73 Personal history of transient ischemic attack (TIA), and cerebral infarction without residual deficits; Z79.899 Other long term (current) drug therapy; Z79.02 Long term (current) use of antithrombotics/antiplatelets; Z79.1 Long term (current) use of non-steroidal anti-inflammatories (NSAID); Z93.0 Tracheostomy status
CPT/HCPCS: 36415; 71045; 80053; 82805; 83880; 84484; 85025; 87804; 90471; 90686; 93005; 93306; 94640; 96372; G0008; G0378; J1650; J7620

== ENCOUNTER 2018-04-20 10:00 | Observation (INO) | payer OTHER ==
[2018-04-20 10:33] LABS: #Basophils 0.1 thou/uL (0.0-0.2); #Eosinphils 0.6 thou/uL (0.0-0.7); #Lymphocytes 1.6 thou/uL (1.20-3.40); #Monocytes 0.6 thou/uL (0.11-0.59); #Neutrophils 3.1 thou/uL (1.40-6.50); %Basophils 1.1 % (0.0-1.0); %Eosinophils 10.7 % (0.0-10.0); %Lymphocytes 25.7 % (21.0-51.0); %Monocytes 10.3 % (0.0-10.0); %Neutrophils 52.1 % (42.0-75.0); Hemoglobin 10.9 g/dL (14.0-18.0); Mean Corpuscular HGB CONC 30.9 g/dL (32.0-36.0); Mean Corpuscular Hemoglobin 30.5 pg (27.0-31.0); Mean Corpuscular Volume 98.7 fL (78.0-98.0); Mean Platelet Volume 8.6 fL (7.4-10.4); Platelet Count 142 thou/uL (130-400); RBC Distribution Width 11.8 % (11.5-14.5); Red Blood Cell (RBC) Count 3.59 mill/uL (4.70-6.10)
--- NOTE | 2018-04-20 10:40 | RAD ---
CHEST 1 VIEW: Date: 04/20/18 HISTORY: Dyspnea. COMPARISON: Radiograph dated 04/05/18. FINDINGS: A tracheostomy tube is in place, in good position. Heart size enlarged. Mild pulmonary edema. IMPRESSION: Cardiomegaly and mild pulmonary edema. POS: [facility]
[2018-04-20 10:53] LABS: ALT (SGPT) 10 U/L (8-55); AST (SGOT) 13 U/L (5-34); Albumin 3.8 g/dL (3.5-5.0); Alkaline Phosphatase 82 U/L (40-150); Anion Gap 11 mmol/L (10-20); BUN (Urea Nitrogen) 14 mg/dL (8.4-25.7); Bilirubin, Total 0.6 mg/dL (0.2-1.2); Calc. Creatinine Clearance 0 mL/min (70-130); Calcium 9.2 mg/dL (7.8-10.44); Carbon Dioxide 30 mmol/L (22-29); Chloride 99 mmol/L (98-107); Estimated GFR-MDRD Greater than 90; Globulin 4.4 g/dL (2.4-3.5); Glucose 96 mg/dL (70-105); Potassium 4.2 mmol/L (3.5-5.1); Protein, Total 8.2 g/dL (6.0-8.3); Sodium 136 mmol/L (136-145)
[2018-04-20 15:41] LABS: Troponin I 0.013 ng/mL (< 0.028)
[2018-04-20 20:23] LABS: Troponin I Less than 0.010 ng/mL (< 0.028)
--- NOTE | 2018-04-20 21:02 | PDOC.FPRHP ---
- History of Present Illness Chief Complaint: SOB, trach issues History of Present Illness: This is a 53 yo AA male who presented to the ED w/ SOB and trach issues. Patient has a PMH SHIRA, morbid obesity, CHF, and HTN. Patient states that he has had a burning sensation in his trach since this morning. Patient also reports vomiting for the past 2 days, about 3 X per day. Trach wasa placed in 2014 and it was last changed out 6-7mo ago. Patient typically uses extra O2 through the trach. Patient endorses constipation. Endorses chest pain, located on the left. Patient was recently discharged on 04/07 for acute hypoxic resp failure 2/2 obesity hypoventilation syndrome and reactive airway disease. ED Course: 40mg IV lasix, senna tab Patient trach suctioned in the ED - Allergies/Adverse Reactions Allergies Allergy/AdvReac Type Severity Reaction Status Date / Time No Known Drug Allergies Allergy Verified 04/06/18 01:34 - Home Medications Medication Instructions Recorded Confirmed Type Cetirizine HCl [Zyrtec] 10 mg PO DAILY 10/11/14 04/05/18 History Clopidogrel Bisulfate [Plavix] 75 mg PO DAILY 10/11/14 04/05/18 History Esomeprazole Magnesium [NexIUM] 40 mg PO QAM-WM #0 cap 10/11/14 04/05/18 Rx Gabapentin 100 mg PO TID #0 capsule 10/11/14 04/05/18 Rx Potassium Chloride [Klor-Con 10] 10 meq PO DAILY #0 tab 10/11/14 04/05/18 Rx Simvastatin [Zocor] 40 mg PO HS 10/11/14 04/05/18 History Topiramate [Topamax] 25 mg PO BID #0 tab 10/11/14 04/05/18 Rx Meloxicam 1 tab PO DAILY 12/02/16 04/05/18 History Tamsulosin HCl [Flomax] 0.4 mg PO DAILY 12/02/16 04/05/18 History amLODIPine Besylate [Amlodipine 1 tab PO DAILY 12/02/16 04/05/18 History Besylate] Citalopram [CeleXA] 40 mg PO DAILY tab 03/20/17 04/05/18 Rx Furosemide [Lasix] 40 mg PO BID 03/20/17 04/05/18 History Acetylcysteine 20% (200mg/mL) 2 ml PER TUBE Q1HR PRN 04/05/18 04/05/18 History [Acetadote 20% (200mg/mL)] Albuterol Sulfate [Albuterol 2.5 mg NEB Q6H PRN 04/05/18 04/05/18 History Sulfate Neb] risperiDONE 4 mg PO HS 04/05/18 04/05/18 History Naloxegol Oxalate [Movantik] 25 mg PO DAILY-AC #14 tab 04/07/18 Rx Nystatin [Mycostatin Powder] 1 gm TOP BID PRN bot 04/07/18 Rx Polyethylene Glycol 3350 [Miralax] 17 gm PO DAILY #7 pk 04/07/18 Rx Sennosides [Senokot] 1 tab PO BID #14 tab 04/07/18 Rx - History PMHx: HTN, GERD, delusion of parasites, CHF, lymphadenopathy PSHx: Cholecystectomy FHx: noncontributory Social: Denies ROBERT - Review of Systems General: denies: fever/chills, weight/appetite/sleep changes, night sweats, fatigue ENT: denies: nasal congestion, rhinorrhea Respiratory: reports: shortness of breath. denies: cough, congestion, exercise intolerance Cardiovascular: reports: chest pain. denies: palpitation, edema Gastrointestinal: reports: nausea, vomiting, constipation. denies: diarrhea, abdominal pain Skin: denies: itching Musculoskeletal: denies: pain, swelling Neurological: denies: weakness - Vital signs BP: 176/89 HR: 83 RR: 17 Tmax: 98.8 Pox: 98% on 2L Wt: 308kg - Physical Exam Constitutional: NAD, awake, alert and oriented -Constitutional: morbidly obese male, very limited exam due to body habitus HEENT: normocephalic and atraumatic, PERRLA, MMM -Neck: trach in place -Heart: TTP, more on the left anterior chest Lungs: CTAB -Lungs: limited exam due to body habitus -Abdomen: difficult to assess due to body habitus -Musculoskeletal: LE swelling Skin: no rash/lesions Psychiatric: normal mood and affect FMR H&P: Results - Labs Result Diagrams: 04/20/18 10:23 04/20/18 10:23 Lab results: WBC 6.0 thou/uL (4.8-10.8) 04/20/18 10:23 Hgb 10.9 g/dL (14.0-18.0) L 04/20/18 10:23 Hct 35.4 % (42.0-52.0) L 04/20/18 10:23 MCV 98.7 fL (78.0-98.0) H 04/20/18 10:23 Plt Count 142 thou/uL (130-400) 04/20/18 10:23 Neutrophils % 52.1 % (42.0-75.0) 04/20/18 10:23 Sodium 136 mmol/L (136-145) 04/20/18 10:23 Potassium 4.2 mmol/L (3.5-5.1) 04/20/18 10:23 Chloride 99 mmol/L (98-107) 04/20/18 10:23 Carbon Dioxide 30 mmol/L (22-29) H 04/20/18 10:23 BUN 14 mg/dL (8.4-25.7) 04/20/18 10:23 Creatinine 0.85 mg/dL (0.7-1.3) 04/20/18 10:23 Glucose 96 mg/dL (70-105) 04/20/18 10:23 Calcium 9.2 mg/dL (7.8-10.44) 04/20/18 10:23 Total Bilirubin 0.6 mg/dL (0.2-1.2) 04/20/18 10:23 AST 13 U/L (5-34) 04/20/18 10:23 ALT 10 U/L (8-55) 04/20/18 10:23 Alkaline Phosphatase 82 U/L (40-150) 04/20/18 10:23 B-Natriuretic Peptide 150.1 pg/mL (0-100) H 04/20/18 10:23 Serum Total Protein 8.2 g/dL (6.0-8.3) 04/20/18 10:23 Albumin 3.8 g/dL (3.5-5.0) 04/20/18 10:23 FMR H&P: A/P - Problem List (1) Lymphedema Current Visit: No Status: Acute Code(s): I89.0 - LYMPHEDEMA, NOT ELSEWHERE CLASSIFIED (2) Pickwickian syndrome Current Visit: No Status: Acute Code(s): E66.2 - MORBID (SEVERE) OBESITY WITH ALVEOLAR HYPOVENTILATION (3) Tracheostomy malfunction Current Visit: No Status: Acute Code(s): J95.03 - MALFUNCTION OF TRACHEOSTOMY STOMA (4) CHF (congestive heart failure) Current Visit: No Status: Chronic Code(s): I50.9 - HEART FAILURE, UNSPECIFIED (5) GERD (gastroesophageal reflux disease) Current Visit: No Status: Chronic Code(s): K21.9 - GASTRO-ESOPHAGEAL REFLUX DISEASE WITHOUT ESOPHAGITIS (6) HTN (hypertension) Current Visit: No Status: Chronic Code(s): I10 - ESSENTIAL (PRIMARY) HYPERTENSION Qualifiers: Hypertension type: essential hypertension Qualified Code(s): I10 - Essential (primary) hypertension (7) Morbid obesity Current Visit: No Status: Chronic Code(s): E66.01 - MORBID (SEVERE) OBESITY DUE TO EXCESS CALORIES (8) Obesity hypoventilation syndrome Current Visit: No Status: Chronic Code(s): E66.2 - MORBID (SEVERE) OBESITY WITH ALVEOLAR HYPOVENTILATION - Plan CHF exacerbation - [id number], at baseline - Will monitor on tele - Lasix 40 mg IVP x 1 dose, monitor urine output and symptoms, fluid restrict Chest pain, atypical - pain is reproducible, no EKG changes, Trop neg X 3 - Will continue to monitor on tele - due to patient's body habitus cannot perform stress testing Trach malfunction - patient states he last had the trach replaced 6-7 mo ago, will consult Dr. Singh to have replaced tomorrow - continue suctioning trach as needed - continue O2 as needed HFpEF, present on admission - see plan above - Echo on 04/06: EF 50-55%, mod dilated left atrium, no MR, mild TR and [place] Morbid obesity - aware Delusions - continue home risperdal GERD - continue home nexium Pickwickian,hx of chronic resp failure - provide O2 as needed - Duonebs as needed DISPO: admit to tele obs Code: FULL Case discussed with Dr. Kennedy FMR H&P: Upper Level - Pertinent history 53 yo AAM PMH severe morbid obesity, HFpEF (50-55% in 04/01), GERD, HTN, and Pickwickian syndrome s/p tracheostomy placement. Presents with a CC of tracheostomy tube burning that started today. States it has been several months since he had is trach exchanged. Trach was suctioned in ER and patient was in the process of being discharged when he developed chest pain. States it was similar to the pain he had during his last hospitalization. ER: Labs including trop x3, EKG, CXR - Pertinent findings Vitals: BP 176/89, otherwise WNL. GEN: severely morbidly obese, A&Ox4 CV: RRR, no murmur, difficult exam 2/2 obesity, left sided chest wall tenderness. Pulm: CTA-B, normal effort Ext: brawny edema bilaterally Labs: BNP 150, Trop negative x3 EKG: unremarkable CXR: mild pulmonary edema, exam limited by body habitus. - Plan Date/Time: 04/20/182100 I, Fareed Millan MD, have evaluated this patient and agree with findings/plan as outlined by hospitality internship resident. Pertinent changes/additions are listed here. 1. Mild HFpEF exacerbation: Lasix 40 mg IVP x 1 dose, monitor urine output and symptoms, fluid restrict. 2. Tracheostomy malfunction: will consult Dr. Singh to exchange tomorrow. 3. Pickwickian Syndrome: T-collar 4. HTN: home meds, PRNs available 5. GERD: home meds. Diet: HH, Fluid restrict PPx: Lovenox CODE: FULL Dispo: Obs, tele, <[address] Kennedy Addendum - Attending - Attending Attestation Date/Time: 04/20/18 [id number] I personally evaluated the patient and discussed the management with Dr. Lizarraga I agree with the History, Examination, Assessment and Plan documented above with any addition or exceptions noted below- 53 yo male with PMH SHIRA, morbid obesity, GERD, CHFpEF (EF= 50-55% Mar 2018), and HTN who presented to the ED w/ SOB and trach issues. Patient c/o itching/irritation around his trach. Was suctioned by ER and was about to be sent home when he complained of chest pain, left sided. Non-radiating. No associated N/V or diaphoresis. Patient recently hospitalized for similar symptoms. PMH/PSH/Meds/All reviewed and agree with resident's documentation. Afebrile VSS Exam repeated by me and agree with resident's documentation. Labs: WBC= 6.0, H/H= 10.9/35.4, Plt= 142, HPZ=622, Na = 136, K=4.2, Ck= 99, CO2=30, BUN/Cr=14/0.85, Trop I = <0.010/0.013/<0.010. A/P : 1) Atypical chest pain- troponins negative; pain reproducible on exam. 2) Elevated BNP- will give small dose of lasix and continue to monitor. 3)
[2018-04-20] MEDS ORDERED: Senokot 8.6 MG TAB PO SCH (21:15)
[2018-04-20] MEDS ORDERED: Ondansetron PF 4 MG/2 ML Vial IVP PRN (21:16)
[2018-04-20] MEDS ORDERED: Acetaminophen 325 MG TAB PO PRN (21:16)
[2018-04-20] MEDS ORDERED: Acetaminophen 650 MG Suppository PR PRN (21:16)
[2018-04-20] MEDS ORDERED: Senokot S 8.6-50 MG TAB PO PRN (21:16)
[2018-04-20] MEDS ORDERED: Furosemide 40 MG/4 ML VIAL ONE (21:19)
[2018-04-20] MEDS ORDERED: Albuterol Sulfate 2.5 mg/3 ml Neb NEB PRN (22:19)
[2018-04-20] MEDS ORDERED: Nystatin Powder 15 GM BOT TOP PRN (22:19)
[2018-04-21] MEDS: Ondansetron ODT 4 MG TAB PO PRN ×2 (05:31→14:55)
[2018-04-21 05:42] LABS: #Eosinphils 0.4 thou/uL (0.0-0.7); #Lymphocytes 1.3 thou/uL (1.20-3.40); #Monocytes 0.5 thou/uL (0.11-0.59); #Neutrophils 2.7 thou/uL (1.40-6.50); %Basophils 0.7 % (0.0-1.0); %Eosinophils 8.5 % (0.0-10.0); %Lymphocytes 25.5 % (21.0-51.0); %Monocytes 10.2 % (0.0-10.0); Hemoglobin 10.3 g/dL (14.0-18.0); Mean Corpuscular HGB CONC 30.6 g/dL (32.0-36.0); Mean Corpuscular Hemoglobin 30.4 pg (27.0-31.0); Mean Corpuscular Volume 99.3 fL (78.0-98.0); Mean Platelet Volume 8.5 fL (7.4-10.4); Platelet Count 138 thou/uL (130-400); RBC Distribution Width 11.9 % (11.5-14.5); White Blood Cell (WBC) Count 4.9 thou/uL (4.8-10.8)
[2018-04-21 05:55] LABS: Anion Gap 10 mmol/L (10-20); BUN (Urea Nitrogen) 11 mg/dL (8.4-25.7); Calc. Creatinine Clearance 0 mL/min (70-130); Carbon Dioxide 34 mmol/L (22-29); Chloride 97 mmol/L (98-107); Estimated GFR-MDRD Greater than 90; Glucose 102 mg/dL (70-105); Sodium 137 mmol/L (136-145)
[2018-04-21] MEDS ORDERED: Potassium Chloride 10 MEQ TAB PO SCH (08:00)
[2018-04-21 08:12] VITALS: BMI 118.2
--- NOTE | 2018-04-21 08:26 | PDOC.FM ---
- Subjective Subjective: This morning Mr. Samson denies pain or SOB. He is still having irritation around his trach collar. He states he had one episode of vomiting last night, non-bloody. Denies chest pain this morning. Denies fevers, chills, or sweats overnight.Patient states he is feeling overall somewhat better. - Objective Vital Signs & Weight: Vital Signs (12 hours) Temp Pulse Resp BP Pulse Ox 04/21/18 07:37 92 L 04/21/18 04:00 98.5 F 88 20 135/63 98 04/21/18 01:50 98.4 F 79 22 H 146/66 H 98 Weight Weight 342.3 kg I&O: 04/20/18 04/21/18 04/22/18 06:59 06:59 06:59 Intake Total 200 Output Total 400 Balance -200 Result Diagrams: 04/21/18 04:54 04/21/18 04:54 Phys Exam - Physical Examination Constitutional: NAD morbidly obese HEENT: PERRLA, moist MMs Respiratory: clear to auscultation bilateral difficult to ausculate 2/2 body habitus, no apparent wheezes/rhonci speaking in brief phrases Cardiovascular: RRR, no significant murmur Gastrointestinal: soft, non-tender, no distention, positive bowel sounds morbidly obese, no pitting edema Neurological: non-focal, moves all 4 limbs Psychiatric: normal affect, A&O x 3 Skin: cap refill <2 seconds Dx/Plan (1) Tracheostomy malfunction Code(s): J95.03 - MALFUNCTION OF TRACHEOSTOMY STOMA Status: Acute (2) Lymphedema Code(s): I89.0 - LYMPHEDEMA, NOT ELSEWHERE CLASSIFIED Status: Acute (3) CHF (congestive heart failure) Code(s): I50.9 - HEART FAILURE, UNSPECIFIED Status: Chronic (4) Pickwickian syndrome Code(s): E66.2 - MORBID (SEVERE) OBESITY WITH ALVEOLAR HYPOVENTILATION Status : Acute (5) HTN (hypertension) Code(s): I10 - ESSENTIAL (PRIMARY) HYPERTENSION Status: Chronic Qualifiers: Hypertension type: essential hypertension Qualified Code(s): I10 - Essential (primary) hypertension (6) Swallowing impairment Code(s): R13.10 - DYSPHAGIA, UNSPECIFIED Status: Chronic - Plan Plan: # Trach malfunction - last replaced 6-7 mo ago, still having irritation - pulm consulted, appreciate recs - follows w/ Dr. Singh outpt. - continue suctioning trach as needed - continue O2 as needed # HFpEF, present on admission - Echo on 04/06: EF 50-55%, mod dilated left atrium, no MR, mild TR and [place] - [id number], at baseline - Will monitor on tele - s/p Lasix 40 mg IVP x 1 dose # Chest pain, atypical - pain is reproducible, no EKG changes, Trop neg X 3 - asymptomatic this AM - due to patient's body habitus cannot perform stress testing # Morbid obesity # Delusions - risperdal # GERD - continue home nexium # Pickwickian,hx of chronic resp failure - provide O2 as needed - Duonebs as needed DISPO: 1 day, pending pulm recs Code: FULL Addendum - Attending - Attending Attestation Date/Time: 04/21/18 [id number] I personally evaluated the patient and discussed the management with Dr. Wilson. I agree with the History, Examination, Assessment and Plan documented above with any addition or exceptions noted below. Patient doing well and at baseline. Improved with suctioning in ED but was admitted due to complaint of chest pain. His enzymes were negative and no recurrent pain. He is to apparently have trach exchanged later this morning with Pulm and will likely be stable for discharge after that time.
[2018-04-21] MEDS ORDERED: Bisacodyl 5 MG TAB PO SCH (09:00)
[2018-04-21] MEDS ORDERED: Amlodipine 5 MG TAB PO SCH (09:00)
[2018-04-21] MEDS ORDERED: Topiramate 25 MG TAB PO SCH (09:00)
[2018-04-21] MEDS ORDERED: Polyethylene Glycol 3350 17 GM Packet PO SCH (09:00)
[2018-04-21] MEDS ORDERED: Tamsulosin HCl 0.4 MG CAP PO SCH (09:00)
[2018-04-21] MEDS ORDERED: Clopidogrel Bisulfate 75 MG TAB PO SCH (09:00)
[2018-04-21] MEDS ORDERED: Gabapentin 100 MG CAP PO SCH (09:00)
[2018-04-21] MEDS ORDERED: Enoxaparin Sodium 40 MG/0.4 ML SYRINGE SC SCH (09:00)
[2018-04-21] MEDS ORDERED: Furosemide 40 MG TAB PO SCH (09:00)
[2018-04-21] MEDS ORDERED: Senokot 8.6 MG TAB PO SCH (09:00)
[2018-04-21] MEDS ORDERED: Meloxicam 15 MG TAB PO SCH (09:00)
[2018-04-21] MEDS ORDERED: Cetirizine HCl 10 MG TAB PO SCH (09:00)
[2018-04-21] MEDS ORDERED: Citalopram 20 MG TAB PO SCH (09:00)
--- NOTE | 2018-04-21 12:30 | CON ---
DATE OF CONSULTATION: HISTORY OF PRESENT ILLNESS: Taiwo Samson is a 53-year-old morbidly obese gentleman, who was brought to the ER with apparently a clogged trach. He is now on the telemetry Unit, appears to be in no distress. His sats are 95% on room air, blood pressure 169/76, respiratory rate 18, temperature 98. He will additionally also be complaining of coughing with chest pain. He is unclear what transpired, but clearly he is in no distress right now. PAST MEDICAL HISTORY: Extensively outlined, remarkable for morbid obesity, status post trach that was revised about a year ago in the OR, #[address], hypertension, coronary artery disease, morbid obesity, severe deconditioning, cellulitis, lymphedema. PAST SURGICAL HISTORY: Liver laceration repair, corneal transplant, cholecystectomy. SOCIAL HISTORY: Alcohol; none. Tobacco; former smoker. MEDICATIONS: List of medicines from home includes; 1. Lasix 40 twice a day. 2. Gabapentin 100 three times a day. 3. Topamax 25 twice a day. 4. Risperidone 2 mg at bedtime. 5. Amlodipine. 6. Albuterol. ALLERGIES: NONE. REVIEW OF SYSTEMS: Otherwise 10 point negative. PHYSICAL EXAMINATION: GENERAL: Once again, he is in no acute distress. VITAL SIGNS: His sats are 97% on a trach collar, respiratory rate 18, temperature 98, blood pressure 127/57. CHEST: Decreased breath sounds without any wheezing. CARDIAC: Normal S1, S2. No gallops. ABDOMEN: Massive. LABORATORY DATA: Unremarkable including white count that is normal. His chest x-ray; I see the trach in an adequate position except for his fat, I do not see any obvious infiltrate except for the cardiomegaly. IMPRESSION: Morbid obesity, trach Bivona #[address], I do not see any issues, has been cleaned yesterday. PLAN: I would replace trach at this stage pulmonary galicia. DISPOSITION: He could go home any time. FOLLOWUP: Follow up with Dr. Singh. Consultation note, 70 minutes, 50% direct patient care. Job ID: [id number]
[2018-04-21] MEDS ORDERED: Amoxicillin/Potassium Clav 875 MG TAB PO SCH ×3 (13:15→21:00)
[2018-04-21 16:08] VITALS: BP 127/64; TEMP 98.7
[2018-04-21] MEDS ORDERED: Atorvastatin Calcium 20 MG TAB PO SCH (21:00)
[2018-04-21] MEDS ORDERED: risperiDONE 1 MG TAB PO SCH (21:00)
--- NOTE | 2018-04-22 11:55 | DIS ---
DATE OF ADMISSION: 04/20/2018 DATE OF DISCHARGE: 04/21/2018 RESIDENT: Lam Wilson MD ADMITTING ATTENDING: Thea Kennedy MD DISCHARGE ATTENDING: Abhishek Francis MD CONSULTS: Pulmonology, Porter Yip MD PROCEDURES: None. PRIMARY DIAGNOSIS: Tracheostomy malfunction. SECONDARY DIAGNOSES: Heart failure with preserved ejection fraction present on admission; chest pain, atypical; morbid obesity; delusions; gastroesophageal reflux disease; Pickwickian syndrome; history of chronic respiratory failure. DISCHARGE MEDICATIONS: 1. Augmentin 875 mg b.i.d. for 10 days. 2. Plavix 75 mg daily. 3. Simvastatin 40 mg. 4. Gabapentin 100 mg t.i.d. 5. Potassium 10 mEq daily. 6. Topamax 25 mg b.i.d. 7. Nexium 40 mg daily. 8. Flomax 0.4 mg daily. 9. Amlodipine 5 mg daily. 10. Meloxicam 15 mg daily. 11. Citalopram 40 mg daily. 12. Lasix 40 mg twice daily. 13. Risperidone 2 mg at bedtime. 14. Albuterol p.r.n. 15. Nystatin cream p.r.n. 16. MiraLAX p.r.n. DISCONTINUED MEDICATIONS: None. HISTORY OF PRESENT ILLNESS/HOSPITAL COURSE: This is a 53-year-old gentleman, who presented to the ER originally complaining of burning in his tracheostomy tube. He was complaining of shortness of breath at that time and then complained of chest pain. He had troponins x3, which were negative. The chest pain did not resolve. He did complain of persistent burning sensation with breathing that had been going on for the past 2 days. He said he had vomited x2 in the previous 3 days. Trach care was placed in 2014 and was last changed about 6 or 7 months ago per the patient. He states he had been using some extra O2 for the last week or so. He also stated he had had some constipation. The patient was recently discharged on 04/07 for acute hypoxic respiratory failure secondary to obesity hypoventilation syndrome and reactive airway disease. Pulmonology was consulted and stated that trach Bivona #[address] and they did not see any issues. Pulmonology stated that the trach had been clean, and so therefore, no change was necessary at that time. In speaking with Dr. Yip, they recommended no further changes and the patient was stable for discharge. The patient was sent home with Augmentin b.i.d. for treatment of presumptive tracheitis. Advised the patient to follow up with Dr. Singh as an outpatient as soon as possible. Primary care provider will follow up in the next 7 to 10 days. DISPOSITION: Stable. DISCHARGE INSTRUCTIONS: 1. Location: Home. 2. Diet: Bariatric. 3. Activity: As tolerated. 4. Followup: With Dr. Singh, Pulmonology as soon as possible, Dr. Jas Espinosa, PCP in 7 to 10 days. Please follow up on burning sensation and trachea tube. Consider lidocaine jelly if there is irritation around the trach site. Job ID: [id number]
--- NOTE | 2018-04-26 21:59 | EKG ---
Test Reason : SOB Blood Pressure : / mmHG Vent. Rate : 087 BPM Atrial Rate : 087 BPM P-R Int : 168 ms QRS Dur : 088 ms QT Int : 354 ms P-R-T Axes : 057 109 058 degrees QTc Int : 425 ms Normal sinus rhythm Rightward axis Low voltage QRS Nonspecific T wave abnormality Abnormal ECG Confirmed by JAMIE WOOD DO ([id number]), online editor CHLOE JEFFERSON ([id number]) on 04/26/2018 9:58:41 PM Referred By: YULIANA Confirmed By:JAMIE WOOD DO
--- NOTE | 2018-04-26 21:59 | EKG ---
Test Reason : ER INDICATION Blood Pressure : / mmHG Vent. Rate : 078 BPM Atrial Rate : 078 BPM P-R Int : 164 ms QRS Dur : 086 ms QT Int : 374 ms P-R-T Axes : 063 015 070 degrees QTc Int : 426 ms Normal sinus rhythm Low voltage QRS Nonspecific T wave abnormality Abnormal ECG Confirmed by JAMIE WOOD DO ([id number]), editor managing newspaper CHLOE JEFFERSON ([id number]) on 04/26/2018 9:58:48 PM Referred By: YULIANA Confirmed By:JAMIE WOOD DO
== END 2018-04-21 18:43 | disposition home or self-care (01) ==
LOC: ERS 10:00 → ERHOLD 19:54 → 2NO 04-21 01:33
PROVIDERS: ADMIT Family Medicine; ATTEND Family Medicine
DX: J95.03 Malfunction of tracheostomy stoma (principal); R07.89 Other chest pain; E66.2 Morbid (severe) obesity with alveolar hypoventilation; Z68.45 Body mass index [BMI] 70 or greater, adult; I11.0 Hypertensive heart disease with heart failure; I50.30 Unspecified diastolic (congestive) heart failure; K21.9 Gastro-esophageal reflux disease without esophagitis; I89.0 Lymphedema, not elsewhere classified; Z90.49 Acquired absence of other specified parts of digestive tract; Z94.7 Corneal transplant status; Z87.891 Personal history of nicotine dependence; Z79.2 Long term (current) use of antibiotics; Z79.02 Long term (current) use of antithrombotics/antiplatelets; Z79.1 Long term (current) use of non-steroidal anti-inflammatories (NSAID); Z79.899 Other long term (current) drug therapy; Z98.890 Other specified postprocedural states
CPT/HCPCS: 36415; 36416; 71045; 80048; 80053; 83880; 84484; 85025; 93005; 94640; 96372; 96374; G0378; J1650; J1940; Q0162

== ENCOUNTER 2018-05-28 00:43 | Emergency (ER) | payer OTHER ==
[2018-05-28] MEDS ORDERED: Lorazepam 2 MG/ML VIAL ONE (01:34)
[2018-05-28 01:41] LABS: #Basophils 0.1 thou/uL (0.0-0.2); #Eosinphils 0.4 thou/uL (0.0-0.7); #Lymphocytes 1.3 thou/uL (1.20-3.40); #Monocytes 0.5 thou/uL (0.11-0.59); #Neutrophils 2.6 thou/uL (1.40-6.50); %Basophils 1.4 % (0.0-1.0); %Lymphocytes 26.6 % (21.0-51.0); %Monocytes 10.8 % (0.0-10.0); %Neutrophils 53.2 % (42.0-75.0); Hemoglobin 10.6 g/dL (14.0-18.0); Mean Corpuscular HGB CONC 29.4 g/dL (32.0-36.0); Mean Corpuscular Hemoglobin 30.2 pg (27.0-31.0); Mean Platelet Volume 8.4 fL (7.4-10.4); Platelet Count 143 thou/uL (130-400); Red Blood Cell (RBC) Count 3.52 mill/uL (4.70-6.10); White Blood Cell (WBC) Count 4.9 thou/uL (4.8-10.8)
[2018-05-28 01:59] LABS: Acetaminophen Less than 6.0 mcg/mL (10.0-30.0); Alcohol Less than 10 mg/dL (Less than 10); Salicylate Less than 8.0 mg/dL (15.0-30.0)
[2018-05-28 02:00] LABS: ALT (SGPT) 8 U/L (8-55); AST (SGOT) 15 U/L (5-34); Albumin 4.1 g/dL (3.5-5.0); Alkaline Phosphatase 70 U/L (40-150); BUN (Urea Nitrogen) 11 mg/dL (8.4-25.7); Bilirubin, Total 0.8 mg/dL (0.2-1.2); Calc. Creatinine Clearance 0 mL/min (70-130); Calcium 9.9 mg/dL (7.8-10.44); Estimated GFR-MDRD Greater than 90; Globulin 4.3 g/dL (2.4-3.5); Glucose 91 mg/dL (70-105); Protein, Total 8.4 g/dL (6.0-8.3)
[2018-05-28 02:11] LABS: Anion Gap 17 mmol/L (10-20); Carbon Dioxide 32 mmol/L (22-29); Chloride 93 mmol/L (98-107); Potassium 4.3 mmol/L (3.5-5.1); Sodium 138 mmol/L (136-145)
--- NOTE | 2018-05-28 07:56 | RAD ---
SINGLE VIEW OF THE CHEST: COMPARISON: 04/20/2018. HISTORY: Dyspnea. FINDINGS: A single view of the chest shows an enlarged but stable cardiomediastinal silhouette. The tracheosto my is unchanged in position. This exam is limited secondary to patient's large body habitus. There is no evidence of consolidation, mass, or pleural effusion. IMPRESSION: Cardiomegaly. POS: [facility]
== END 2018-05-28 03:10 | disposition home or self-care (01) ==
LOC: ERS 00:43
DX: R20.2 Paresthesia of skin (principal); I25.2 Old myocardial infarction; Z86.73 Personal history of transient ischemic attack (TIA), and cerebral infarction without residual deficits; G47.30 Sleep apnea, unspecified; I11.0 Hypertensive heart disease with heart failure; I50.9 Heart failure, unspecified; E66.9 Obesity, unspecified; F32.9 Major depressive disorder, single episode, unspecified; F41.9 Anxiety disorder, unspecified; Z87.891 Personal history of nicotine dependence; Z79.899 Other long term (current) drug therapy
CPT/HCPCS: 36415; 71045; 80053; 80307; 84484; 85025; 93005; 96374; J2060

== ENCOUNTER 2018-06-03 12:35 | Emergency (ER) | payer OTHER ==
[2018-06-03] MEDS ORDERED: Ketorolac Tromethamine 60 MG/2 ML VIAL ONE (13:59)
--- NOTE | 2018-06-03 14:48 | RAD ---
RIGHT HIP TWO VIEWS: History: Pain. Comparison: None. FINDINGS: There is severe degenerative disease of the right hip. The AP view and the frogleg views are similar. There is no displaced fracture or malalignment appreciated. Large acetabular osteophytes. The exam i s limited due to decreased penetration. Obturator ring is intact. IMPRESSION: Limited exam with severe degenerative disease. POS: [facility]
--- NOTE | 2018-06-03 14:58 | RAD ---
RIGHT KNEE FOUR VIEWS: History: Trauma. Comparison: None. FINDINGS: Exam is limited due to lack of penetration. Severe medial compartment degenerative disease with joint space narrowing, large tricompartmental osteophytes. Lateral radiograph evaluation is nondiagnostic. Evaluation for fracture is severely limited. IMPRESSION: Severe degenerative change. Evaluation for fracture is severely limited due to lack of penetration. POS: [facility]
[2018-06-03] MEDS ORDERED: HYDROcodone/Acetaminophen 10/325 mg Tablet ONE (15:54)
== END 2018-06-03 18:45 | disposition home or self-care (01) ==
LOC: ERS 12:35
DX: M25.551 Pain in right hip (principal); F41.9 Anxiety disorder, unspecified; G47.30 Sleep apnea, unspecified; I25.2 Old myocardial infarction; E66.01 Morbid (severe) obesity due to excess calories; I11.0 Hypertensive heart disease with heart failure; I50.9 Heart failure, unspecified; F32.9 Major depressive disorder, single episode, unspecified; Z87.891 Personal history of nicotine dependence; Z86.73 Personal history of transient ischemic attack (TIA), and cerebral infarction without residual deficits; Z79.899 Other long term (current) drug therapy
CPT/HCPCS: J1885

== ENCOUNTER 2018-06-09 12:39 | Emergency (ER) | payer OTHER ==
--- NOTE | 2018-06-09 14:20 | RAD ---
CHEST 1 VIEW: Date: 06/09/18 HISTORY: shortness of breath COMPARISON: Radiograph dated 05/28/17. FINDINGS: Tracheostomy is in place, tip in good position. Lungs are hypoinflated. Mild edema. Mild cardiomegaly. IMPRESSION: Cardiomegaly and mild pulmonary edema. Exam is limited due to decreased penetration. POS: [facility]
== END 2018-06-09 15:37 | disposition home or self-care (01) ==
LOC: ERS 12:39
DX: T17.990A Other foreign object in respiratory tract, part unspecified in causing asphyxiation, initial encounter (principal); I11.0 Hypertensive heart disease with heart failure; I50.9 Heart failure, unspecified; E66.9 Obesity, unspecified; F41.9 Anxiety disorder, unspecified; F32.9 Major depressive disorder, single episode, unspecified; Z79.899 Other long term (current) drug therapy; Z79.1 Long term (current) use of non-steroidal anti-inflammatories (NSAID); Z86.73 Personal history of transient ischemic attack (TIA), and cerebral infarction without residual deficits; Z79.891 Long term (current) use of opiate analgesic
CPT/HCPCS: 71045

== ENCOUNTER 2018-06-30 20:47 | Inpatient (IN) | payer OTHER ==
[2018-06-30 21:43] LABS: ALT (SGPT) 13 U/L (8-55); AST (SGOT) 16 U/L (5-34); Albumin 3.9 g/dL (3.5-5.0); Alkaline Phosphatase 76 U/L (40-150); BUN (Urea Nitrogen) 16 mg/dL (8.4-25.7); Bilirubin, Total 0.8 mg/dL (0.2-1.2); Calc. Creatinine Clearance 0 mL/min (70-130); Calcium 9.4 mg/dL (7.8-10.44); Estimated GFR-MDRD Greater than 90; Globulin 4.2 g/dL (2.4-3.5); Glucose 106 mg/dL (70-105); Lipase 9 U/L (8-78); Protein, Total 8.1 g/dL (6.0-8.3)
[2018-06-30 21:52] LABS: Chloride 95 mmol/L (98-107); Potassium 4.2 mmol/L (3.5-5.1); Sodium 140 mmol/L (136-145)
[2018-06-30 21:55] LABS: Anion Gap 11 mmol/L (10-20); Carbon Dioxide 38 mmol/L (22-29)
[2018-06-30] MEDS ORDERED: Morphine 4 MG/ML VIAL ONE (22:01)
[2018-06-30] MEDS ORDERED: Ondansetron PF 4 MG/2 ML Vial ONE (22:01)
[2018-06-30 22:18] LABS: #Eosinphils 0.4 thou/uL (0.0-0.7); #Lymphocytes 1.2 thou/uL (1.20-3.40); #Monocytes 0.6 thou/uL (0.11-0.59); #Neutrophils 3.3 thou/uL (1.40-6.50); %Basophils 0.6 % (0.0-1.0); %Eosinophils 7.9 % (0.0-10.0); %Lymphocytes 22.2 % (21.0-51.0); %Monocytes 10.2 % (0.0-10.0); Hemoglobin 10.2 g/dL (14.0-18.0); Mean Corpuscular HGB CONC 29.2 g/dL (32.0-36.0); Mean Platelet Volume 8.7 fL (7.4-10.4); Platelet Count 121 thou/uL (130-400); RBC Distribution Width 12.2 % (11.5-14.5); Red Blood Cell (RBC) Count 3.41 mill/uL (4.70-6.10); White Blood Cell (WBC) Count 5.6 thou/uL (4.8-10.8)
[2018-06-30 22:48] LABS: Bilirubin Small (Negative); Blood, Urine Negative (Negative); Clarity CLEAR (Clear); Glucose, Urine (Dipstick) Negative (Negative); Leukocyte Negative (Negative); Nitrite Negative (Negative); Protein, Urine (Dipstick) 30 mg/dL (Neg-Trace); Specific Gravity, Urine 1.024 (1.002-1.036); Urobilinogen > or = 8.0 mg/dL (0.2-1.0)
[2018-06-30 23:04] LABS: Bacteria/HPF None Seen HPF (None Seen); Hyaline Casts/LPF 0-3 HYALINE CAST LPF (0-3 Hyaline); Pathc Cast-AUWi Flag 0.54 (0-2.49); RBC/HPF 0-3 HPF (0-3); Squamous Epithelial 0-3 HPF (0-3); WBC/HPF 0-3 HPF (0-3)
--- NOTE | 2018-06-30 23:15 | RAD ---
CHEST ONE VIEW: History: Difficulty breathing. Comparison: 06-09-18 FINDINGS: Tracheostomy tube is similar in good position. Heart size is enlarged. Right middle lobe airspace [place] is present. Diffuse haziness is seen throughout the lungs suggesting pulmonary edema. Likely small effusions. IMPRESSION: Findings suggestive for right middle lobe pneumonia superimposed on edema and cardiomegaly. POS: [facility]
[2018-07-01] MEDS ORDERED: cefTRIAXone\\ROCEPHIN 2 GM VIAL ONE (00:02)
--- NOTE | 2018-07-01 00:22 | PDOC.FPRHP ---
- History of Present Illness Chief Complaint: SOB History of Present Illness: Mr Samson is a 53yo male with pmh of Anupam, hx of chronic resp failure and HFrEF presenting with SOB and leg edema that started 2 weeks ago. Today SOB acutely worsened to the point he presented to ED. Denies fevers, chills, cough, congestion, sore throat, rhinorrhea. Endorses dysphagia. It appears he has had dysphagia during another admission as it is listed on his problem list. Nausea started today. He has not taken his lasix over the past 2 weeks, reports he has slept in and forgotten to take it. ED Course: Ceftriaxone 2g, Morphine 4mg, Zofran 4mg. CXR- Right middle lobe pneumonia - Allergies/Adverse Reactions Allergies Allergy/AdvReac Type Severity Reaction Status Date / Time No Known Drug Allergies Allergy Verified 07/01/18 02:27 - Home Medications Medication Instructions Recorded Confirmed Type Cetirizine HCl [Zyrtec] 10 mg PO DAILY 10/11/14 07/01/18 History Clopidogrel Bisulfate [Plavix] 75 mg PO DAILY 10/11/14 07/01/18 History Esomeprazole Magnesium [NexIUM] 40 mg PO QAM-WM #0 cap 10/11/14 07/01/18 Rx Gabapentin 100 mg PO TID #0 capsule 10/11/14 07/01/18 Rx Potassium Chloride [Klor-Con 10] 10 meq PO DAILY #0 tab 10/11/14 07/01/18 Rx Simvastatin [Zocor] 20 mg PO HS 10/11/14 07/01/18 History Topiramate [Topamax] 25 mg PO BID #0 tab 10/11/14 07/01/18 Rx Meloxicam 15 mg PO DAILY 12/02/16 07/01/18 History Tamsulosin HCl [Flomax] 0.4 mg PO DAILY 12/02/16 07/01/18 History amLODIPine Besylate [Amlodipine 5 mg PO DAILY 12/02/16 07/01/18 History Besylate] Citalopram [CeleXA] 40 mg PO DAILY tab 03/20/17 07/01/18 Rx Furosemide [Lasix] 40 mg PO BID 03/20/17 07/01/18 History Albuterol Sulfate [Albuterol 2.5 mg NEB Q6H PRN 04/05/18 07/01/18 History Sulfate Neb] Nystatin [Mycostatin Powder] 1 gm TOP BID PRN bot 04/07/18 07/01/18 Rx Polyethylene Glycol 3350 [Miralax] 17 gm PO DAILY #7 pk 04/07/18 07/01/18 Rx ARIPiprazole [Abilify] 2 mg PO HS 07/01/18 07/01/18 History Sennosides [Senokot] 1 tab PO BID PRN 07/01/18 07/01/18 History - History PMHx: HTN, GERD, HFpEF, lymphadenopathy, morbid obesity, Pickwickian, hx of chronic resp failure PSHx: Cholecystectomy, liver laceration repair, corneal replacement FHx: noncontributory Social: Denies tobacco, alcohol, drug use. - Review of Systems General: reports: fatigue. denies: fever/chills, weight/appetite/sleep changes Eyes: reports: vision changes (increased blurred vision). denies: eye pain ENT: denies: nasal congestion, rhinorrhea Respiratory: reports: shortness of breath. denies: cough, congestion Cardiovascular: denies: chest pain, palpitation Gastrointestinal: reports: nausea. denies: vomiting, diarrhea, constipation, abdominal pain Genitourinary: denies: dysuria, other (hematuria. Positive for hesitancy) Skin: reports: lesions (reports sore on back). denies: rashes Musculoskeletal: reports: swelling. denies: pain Neurological: denies: numbness, weakness - Vital signs BP: 162/82 HR: 87 RR: 20 Tmax: 98.6 Pox: 97% on RA Wt: 343.37kg - Physical Exam Constitutional: NAD, awake, alert and oriented -Constitutional: Morbidly obese HEENT: normocephalic and atraumatic, conjunctiva clear, grossly normal hearing, MMM, oropharynx clear Neck: supple, trachea midline Heart: RRR, no murmurs/rubs/gallops, other (b/l LE edema most notable in feet. Exam limited due to obesity) Lungs: CTAB, no wheezing -Abdomen: Obese. Mildly tender diffusely. No rebound or rigidity. Musculoskeletal: normal structure Neurological: no focal deficit Skin: good turgor Psychiatric: normal mood and affect (slowed speech), good judgment and insight, intact recent and remote memory FMR H&P: Results - Labs Result Diagrams: 07/01/18 02:50 07/01/18 02:50 Lab results: WBC 5.6 thou/uL (4.8-10.8) 06/30/18 21:13 Hgb 10.2 g/dL (14.0-18.0) L 06/30/18 21:13 Hct 35.0 % (42.0-52.0) L 06/30/18 21:13 MCV 103.0 fL (78.0-98.0) H 06/30/18 21:13 Plt Count 121 thou/uL (130-400) L 06/30/18 21:13 Neutrophils % 59.0 % (42.0-75.0) 06/30/18 21:13 Sodium 140 mmol/L (136-145) 06/30/18 21:13 Potassium 4.2 mmol/L (3.5-5.1) 06/30/18 21:13 Chloride 95 mmol/L (98-107) L 06/30/18 21:13 Carbon Dioxide 38 mmol/L (22-29) H 06/30/18 21:13 BUN 16 mg/dL (8.4-25.7) 06/30/18 21:13 Creatinine 0.92 mg/dL (0.7-1.3) 06/30/18 21:13 Glucose 106 mg/dL (70-105) H 06/30/18 21:13 Calcium 9.4 mg/dL (7.8-10.44) 06/30/18 21:13 Total Bilirubin 0.8 mg/dL (0.2-1.2) 06/30/18 21:13 AST 16 U/L (5-34) 06/30/18 21:13 ALT 13 U/L (8-55) 06/30/18 21:13 Alkaline Phosphatase 76 U/L (40-150) 06/30/18 21:13 B-Natriuretic Peptide 190.8 pg/mL (0-100) H 06/30/18 21:13 Serum Total Protein 8.1 g/dL (6.0-8.3) 06/30/18 21:13 Albumin 3.9 g/dL (3.5-5.0) 06/30/18 21:13 Lipase 9 U/L (8-78) 06/30/18 21:13 Urine Ketones Negative mg/dL (Negative) 06/30/18 22:32 Urine Blood Negative (Negative) 06/30/18 22:32 Urine Nitrite Negative (Negative) 06/30/18 22:32 Ur Leukocyte Esterase Negative (Negative) 06/30/18 22:32 Urine RBC 0-3 HPF (0-3) 06/30/18 22:32 Urine WBC 0-3 HPF (0-3) 06/30/18 22:32 Ur Squamous Epith Cells 0-3 HPF (0-3) 06/30/18 22:32 Urine Bacteria None Seen HPF (None Seen) 06/30/18 22:32 - EKG Interpretation EKG: normal sinus rhythm, Rate (beats per minute): 90, with fusion complexes, Interpretation:, Possible anterolateral infarct, age undetermined, Conduction normal, [place], indeterminate, Other findings include:, Low voltage QRS. - Radiology Interpretation Chest x-ray Status: report reviewed by me Additional comment: Findings suggestive for right middle lobe pneumonia superimposed on edema and cardiomegaly FMR H&P: A/P - Problem List (1) Pneumonia Current Visit: No Status: Acute Code(s): J18.9 - PNEUMONIA, UNSPECIFIED ORGANISM Qualifiers: Pneumonia type: aspiration pneumonia Lung location: unspecified part of lung (2) Normocytic anemia Current Visit: No Status: Acute Code(s): D64.9 - ANEMIA, UNSPECIFIED (3) Pickwickian syndrome Current Visit: No Status: Acute Code(s): E66.2 - MORBID (SEVERE) OBESITY WITH ALVEOLAR HYPOVENTILATION (4) Chronic respiratory failure with hypoxia and hypercapnia Current Visit: No Status: Chronic Code(s): J96.11 - CHRONIC RESPIRATORY FAILURE WITH HYPOXIA; J96.12 - CHRONIC RESPIRATORY FAILURE WITH HYPERCAPNIA (5) GERD (gastroesophageal reflux disease) Current Visit: No Status: Chronic Code(s): K21.9 - GASTRO-ESOPHAGEAL REFLUX DISEASE WITHOUT ESOPHAGITIS (6) HTN (hypertension) Current Visit: No Status: Chronic Code(s): I10 - ESSENTIAL (PRIMARY) HYPERTENSION Qualifiers: Hypertension type: essential hypertension Qualified Code(s): I10 - Essential (primary) hypertension (7) Obesity hypoventilation syndrome Current Visit: No Status: Chronic Code(s): E66.2 - MORBID (SEVERE) OBESITY WITH ALVEOLAR HYPOVENTILATION (8) Swallowing impairment Current Visit: No Status: Chronic Code(s): R13.10 - DYSPHAGIA, UNSPECIFIED - Plan Acute on chronic hypoxic Respiratory failure 2/2 Right Middle Lobe Pneumonia - O2 as need, continuos pulse ox - Ordered Procal - Due to trach will cover for pseudomonas with Cefepime and Levaquin - Blood cxs pending Nausea/Vomiting - Zofran PRN Trach - Follows with Dr Singh outpt - Continue suctioning trach as needed - Continue O2 as needed, Keep sats >90% HFpEF - Echo on 04/06/18: EF 50-55%, mod dilated left atrium, no MR, mild TR and [place] - HH diet, fluid restriction, daily wts Morbid obesity Delusions - Continue home meds GERD - Continue home meds Pickwickian, hx of chronic resp failure - O2 as needed - Home Albuterol PRN Code Status: FULL DVT ppx: Lovenox Case discussed with Dr. Francis FMR H&P: Upper Level - Pertinent history 53 yo male here for SOB and leg swelling. Leg swelling started about 2-3 weeks ago, SOB 2-3 days ago. Patient also reports worsening difficulty swallowing over the past 2-3 weeks. He does have difficulty swallowing in November 2016 hospitalization. Assoc chills. Denies N/V/D/fevers. Reports that he has not been consistent taking his lasix because he sometimes oversleeps in the morning and forgets to take. - Pertinent findings ECHO 04/06/19: 50-55%; left atrium moderately dilated Hx of HTN, CHF, GERD, Pickwickian. WBC: 5.6 H/H: 10.2/35.0 173/106 HR: 94 97% on 5L RR: 24 Procal: 0.03 BNP: 191 - Plan Date/Time: 07/01/18 0021 ILam DO, have evaluated this patient and agree with findings/plan as outlined by international tax manager resident. Pertinent changes/additions are listed here. #Right Middle Lobe Pneumonia with trach -Procal negative -Cefepime and Levaquin for pseudomonal coverage -Blood cxs pending #Tracheostomy -keep O2 sats above 92% #HFpEF #Morbid obesity #GERD
[2018-07-01] MEDS ORDERED: Nitroglycerin 2% Ointment 1 INCH/1 GM Packet ONE (00:32)
[2018-07-01] MEDS ORDERED: Acetaminophen 500 MG TAB ONE (00:51)
[2018-07-01] MEDS ORDERED: Lidocaine Viscous Sol 2% 15 ml UD Cup ONE (00:52)
[2018-07-01] MEDS ORDERED: Mag-Al 1200 mg/1200 mg/30 ML UDCUP ONE (00:52)
[2018-07-01] MEDS ORDERED: Albuterol Sulfate 2.5 mg/3 ml Neb NEB PRN (01:54)
[2018-07-01] MEDS ORDERED: Ondansetron ODT 4 MG TAB PO PRN (02:16)
[2018-07-01] MEDS ORDERED: Senokot 8.6 MG TAB PO PRN (02:19)
[2018-07-01] MEDS ORDERED: Nystatin Powder 15 GM BOT TOP PRN (02:19)
[2018-07-01 03:05] LABS: #Basophils 0.1 thou/uL (0.0-0.2); #Eosinphils 0.4 thou/uL (0.0-0.7); #Lymphocytes 1.4 thou/uL (1.20-3.40); #Monocytes 0.6 thou/uL (0.11-0.59); %Eosinophils 7.2 % (0.0-10.0); %Lymphocytes 25.1 % (21.0-51.0); %Monocytes 11.1 % (0.0-10.0); %Neutrophils 55.6 % (42.0-75.0); Hemoglobin 10.8 g/dL (14.0-18.0); Mean Corpuscular HGB CONC 28.7 g/dL (32.0-36.0); Mean Corpuscular Hemoglobin 29.7 pg (27.0-31.0); Mean Platelet Volume 8.5 fL (7.4-10.4); Platelet Count 129 thou/uL (130-400); RBC Distribution Width 12.4 % (11.5-14.5); Red Blood Cell (RBC) Count 3.65 mill/uL (4.70-6.10); White Blood Cell (WBC) Count 5.4 thou/uL (4.8-10.8)
[2018-07-01 03:16] LABS: Anion Gap 12 mmol/L (10-20); BUN (Urea Nitrogen) 16 mg/dL (8.4-25.7); Calc. Creatinine Clearance 374 mL/min (70-130); Calcium 9.7 mg/dL (7.8-10.44); Carbon Dioxide 36 mmol/L (22-29); Chloride 96 mmol/L (98-107); Estimated GFR-MDRD Greater than 90; Glucose 97 mg/dL (70-105); Potassium 4.7 mmol/L (3.5-5.1); Sodium 139 mmol/L (136-145)
[2018-07-01] MEDS: Cefepime 2 GM in Sodium Chloride 0.9% 100 ML IVPB SCH ×3 (04:31→20:53)
[2018-07-01] MEDS: Enoxaparin Sodium 40 MG/0.4 ML SYRINGE SC SCH (08:54)
[2018-07-01] MEDS: Meloxicam 15 MG TAB PO SCH (08:55)
[2018-07-01] MEDS: Topiramate 25 MG TAB PO SCH ×2 (08:55→20:53)
[2018-07-01] MEDS: Furosemide 40 MG TAB PO SCH ×2 (08:56→13:37)
[2018-07-01] MEDS: Amlodipine 5 MG TAB PO SCH (08:56)
[2018-07-01] MEDS: Tamsulosin HCl 0.4 MG CAP PO SCH (08:56)
[2018-07-01] MEDS: Citalopram 20 MG TAB PO SCH (08:56)
[2018-07-01] MEDS: Gabapentin 100 MG CAP PO SCH ×3 (08:56→20:53)
[2018-07-01] MEDS: Loratadine 10 MG TAB PO SCH (08:56)
[2018-07-01] MEDS: Polyethylene Glycol 3350 17 GM Packet PO SCH (08:57)
[2018-07-01] MEDS: Potassium Chloride 10 MEQ TAB PO SCH (08:57)
[2018-07-01] MEDS: Clopidogrel Bisulfate 75 MG TAB PO SCH (08:57)
--- NOTE | 2018-07-01 11:01 | ULT ---
RIGHT LOWER EXTREMITY VENOUS DOPPLER: DATE: 07/01/2018. PROVIDED CLINICAL HISTORY: Evidence for DVT. FINDINGS: Evaluation is markedly limited due to patient body habitus. Hemphill scale and color Doppler sonography with spectral analysis was performed of the right common femoral, proximal femoral, popliteal, wiping cloth cutter ior tibial, greater saphenous, and profunda femoral veins. The mid to distal femoral vein is not vis ualized. There is suboptimal visualization of interrogated vessels. Given these limitations, there is no definite sonographic evidence for right lower extremity deep venous thrombosis. IMPRESSION: Limited examination without definite evidence for deep vein thrombosis involving the right lower extr emity. POS: OFF
--- NOTE | 2018-07-01 11:53 | PDOC.EVN ---
Event Note - Event Note Event Note: Patient seen and examined ~1000 am in B1. Case discussed with Dr. Sutherland and her H&P reviewed and repeated by me. Agree with A/P as documented. Mr. Samson is a 53 y/o morbidly obese male with OHS/SHIRA and chronic respiratory failure with tracheostomy placement who presents with worsening shortness of breath. He hasn't been taking his lasix for the past few weeks because he "slept in". Also associated lower extremity swelling bilaterally and mild increase in frothy sputum and subjective fever. He denies chest pain. Also with some mild R leg redness and pain this am. Obese male with trach in no acute distress; heart- normal s1/s2 no m, g,r; lungs - distant heart sounds due to body habitus, no wheezing; ext: bilateral lower extremity edema (2+), right lower ext with mild erthyema. Labs and imaging reviewed. CXR with RLL infiltrate. No DVT on u/s RLL pneumonia- covering pseudomonas with cefempine and levaquin. Neg procal and normal wbc. Probable wean to levaquin tomorrow. Dyspnea- multifactoral- BNP slightly elevated but <200 so doubt CHF exac. Restart home lasix dose. RLE swelling/erythema- no sign of DVT. Will follow clinically. OHS/SHIRA- on trach.
[2018-07-01] MEDS: Aripiprazole 2 MG TAB PO SCH (20:53)
[2018-07-01] MEDS: Atorvastatin Calcium 10 MG TAB PO SCH (20:53)
[2018-07-02] MEDS: Cefepime 2 GM in Sodium Chloride 0.9% 100 ML IVPB SCH (04:10)
--- NOTE | 2018-07-02 05:55 | PDOC.FM ---
- Subjective Subjective: 53 yo male seen at bedside this AM. Patient reports he felt SOB all night, but did not tell anyone. However, he is below his baseline O2 requirement and his O2 saturations have remained above 90%. Patient is counseled that we are attempting to find him services in [facility] and he is very excited about that. Pain in his legs is improved overnight. He states that he needs the help and his needs the help as well. Patient is agreeable to plan. No other complaints. - Objective Vital Signs & Weight: Vital Signs (12 hours) Temp Pulse Ox 07/02/18 04:00 98.8 F 07/02/18 01:03 93 L 07/02/18 00:00 98 F 07/01/18 19:22 98.9 F Weight Weight 260.362 kg Most Recent Monitor Data Heart Rate from ECG 86 NIBP 162/90 NIBP BP-Mean 114 Respiration from ECG 23 SpO2 90 I&O: 06/30/18 07/01/18 07/02/18 06:59 06:59 06:59 Intake Total 250 450 Output Total 1300 Balance 250 -850 Result Diagrams: 07/01/18 02:50 07/01/18 02:50 Phys Exam - Physical Examination Constitutional: NAD Morbidly obese HEENT: moist MMs Tracheostomy in place Respiratory: no wheezing, clear to auscultation bilateral limited by body habitus Cardiovascular: RRR, no significant murmur Limited by body habitus Gastrointestinal: soft, non-tender, no distention, positive bowel sounds Musculoskeletal: edema present Neurological: moves all 4 limbs Psychiatric: A&O x 3 Skin: no rash Dx/Plan (1) Chronic respiratory failure with hypoxia and hypercapnia Code(s): J96.11 - CHRONIC RESPIRATORY FAILURE WITH HYPOXIA; J96.12 - CHRONIC RESPIRATORY FAILURE WITH HYPERCAPNIA Status: Chronic (2) Pneumonia Code(s): J18.9 - PNEUMONIA, UNSPECIFIED ORGANISM Status: Acute Qualifiers: Pneumonia type: aspiration pneumonia Lung location: unspecified part of lung (3) Pickwickian syndrome Code(s): E66.2 - MORBID (SEVERE) OBESITY WITH ALVEOLAR HYPOVENTILATION Status : Acute (4) CHF (congestive heart failure) Code(s): I50.9 - HEART FAILURE, UNSPECIFIED Status: Chronic (5) GERD (gastroesophageal reflux disease) Code(s): K21.9 - GASTRO-ESOPHAGEAL REFLUX DISEASE WITHOUT ESOPHAGITIS Status: Chronic (6) HTN (hypertension) Code(s): I10 - ESSENTIAL (PRIMARY) HYPERTENSION Status: Chronic Qualifiers: Hypertension type: essential hypertension Qualified Code(s): I10 - Essential (primary) hypertension (7) Morbid obesity Code(s): E66.01 - MORBID (SEVERE) OBESITY DUE TO EXCESS CALORIES Status: Chronic - Plan Plan: Acute on chronic hypoxic Respiratory failure 2/2 Right Middle Lobe Pneumonia vs. Chronic Pickwickian - O2 as need, continuos pulse ox - Due to trach initially covered for pseudomonas with Cefepime and Levaquin - Procal negative - Will de-escalate to Levaquin as single agent. - Blood culturess pending Nausea/Vomiting - Zofran PRN Trach - Follows with Dr Singh outpt - Continue suctioning trach as needed - Continue O2 as needed, Keep sats >90% - As above HFpEF - Echo on 04/06/18: EF 50-55%, mod dilated left atrium, no MR, mild TR and [place] - HH diet, fluid restriction, daily wts - Resume home Lasix dosing Morbid obesity Delusions - Continue home meds GERD - Continue home meds Disposition: Stable, will continue current plan of care. With help of CM, hopefully placement into [facility]. Addendum - Attending - Attending Attestation Date/Time: 07/02/18 7338 I personally evaluated the patient and discussed the management with Dr. Chaidez. I agree with the History, Examination, Assessment and Plan documented above with any addition or exceptions noted below. RLL pneumonia Chronic resp failure secondary to SHIRA/OHS- trach dependent Patient is near baseline respiratory status. Awaiting placement in [place]
[2018-07-02] MEDS: Potassium Chloride 10 MEQ TAB PO SCH (09:11)
[2018-07-02] MEDS: Enoxaparin Sodium 40 MG/0.4 ML SYRINGE SC SCH (09:12)
[2018-07-02] MEDS: Amlodipine 5 MG TAB PO SCH (09:12)
[2018-07-02] MEDS: Clopidogrel Bisulfate 75 MG TAB PO SCH (09:12)
[2018-07-02] MEDS: Citalopram 20 MG TAB PO SCH (09:12)
[2018-07-02] MEDS: Gabapentin 100 MG CAP PO SCH ×3 (09:13→20:59)
[2018-07-02] MEDS: Furosemide 40 MG TAB PO SCH ×2 (09:13→15:25)
[2018-07-02] MEDS: Loratadine 10 MG TAB PO SCH (09:13)
[2018-07-02] MEDS: Tamsulosin HCl 0.4 MG CAP PO SCH (09:14)
[2018-07-02] MEDS: Polyethylene Glycol 3350 17 GM Packet PO SCH (09:14)
[2018-07-02] MEDS: Meloxicam 15 MG TAB PO SCH (09:14)
[2018-07-02] MEDS: Topiramate 25 MG TAB PO SCH ×2 (09:14→23:19)
[2018-07-02] MEDS: Bismuth Subs 17.5mg/mL Susp 120 ML BOT PO PRN (16:26)
[2018-07-02] MEDS: Aripiprazole 2 MG TAB PO SCH (20:59)
[2018-07-02] MEDS: Atorvastatin Calcium 10 MG TAB PO SCH (20:59)
--- NOTE | 2018-07-03 05:52 | PDOC.FM ---
- Subjective Subjective: Pleasant 53 yo male seen at bedside this AM. Patient is hoping he can be placed in [facility]. Patient reports he feels well with no complaints this morning. - Objective Vital Signs & Weight: Vital Signs (12 hours) Temp Pulse Ox 07/03/18 03:41 98.2 F 07/02/18 23:34 98.2 F 07/02/18 20:00 96 07/02/18 19:20 98.6 F Weight Weight 260.362 kg Most Recent Monitor Data Heart Rate from ECG 85 NIBP 147/72 NIBP BP-Mean 97 Respiration from ECG 15 SpO2 92 I&O: 07/01/18 07/02/18 07/03/18 06:59 06:59 06:59 Intake Total 790 661 1034 Output Total 2200 2175 Balance 250 -9680 977 Result Diagrams: 07/01/18 02:50 07/01/18 02:50 Phys Exam - Physical Examination Constitutional: NAD Morbidly obese HEENT: moist MMs Tracheostomy in place Respiratory: no wheezing, clear to auscultation bilateral limited by body habitus Cardiovascular: RRR, no significant murmur limited by body habitus Gastrointestinal: soft, non-tender, no distention, positive bowel sounds Musculoskeletal: pulses present RLE edema and redness improved. Nontender Neurological: non-focal, moves all 4 limbs Psychiatric: A&O x 3 Skin: no rash Dx/Plan (1) Chronic respiratory failure with hypoxia and hypercapnia Code(s): J96.11 - CHRONIC RESPIRATORY FAILURE WITH HYPOXIA; J96.12 - CHRONIC RESPIRATORY FAILURE WITH HYPERCAPNIA Status: Chronic (2) Pneumonia Code(s): J18.9 - PNEUMONIA, UNSPECIFIED ORGANISM Status: Acute Qualifiers: Pneumonia type: aspiration pneumonia Lung location: unspecified part of lung (3) Pickwickian syndrome Code(s): E66.2 - MORBID (SEVERE) OBESITY WITH ALVEOLAR HYPOVENTILATION Status : Acute (4) CHF (congestive heart failure) Code(s): I50.9 - HEART FAILURE, UNSPECIFIED Status: Chronic (5) GERD (gastroesophageal reflux disease) Code(s): K21.9 - GASTRO-ESOPHAGEAL REFLUX DISEASE WITHOUT ESOPHAGITIS Status: Chronic (6) HTN (hypertension) Code(s): I10 - ESSENTIAL (PRIMARY) HYPERTENSION Status: Chronic Qualifiers: Hypertension type: essential hypertension Qualified Code(s): I10 - Essential (primary) hypertension (7) Morbid obesity Code(s): E66.01 - MORBID (SEVERE) OBESITY DUE TO EXCESS CALORIES Status: Chronic - Plan Plan: Acute on chronic hypoxic Respiratory failure 2/2 Right Middle Lobe Pneumonia vs. Chronic Pickwickian - O2 as need, continuos pulse ox - Due to trach initially covered for pseudomonas with Cefepime and Levaquin - Procal negative - Will de-escalate to Levaquin as single agent. - Blood culturess no growth to date Nausea/Vomiting - Zofran PRN Trach - Follows with Dr Singh outpt - Continue suctioning trach as needed - Continue O2 as needed, Keep sats >90% - As above HFpEF - Echo on 04/06/18: EF 50-55%, mod dilated left atrium, no MR, mild TR and AR - HH diet, fluid restriction, daily wts - Resume home Lasix dosing Morbid obesity - Would benefit from intermodal dispatcher placement into complex care facility Delusions - Continue home meds GERD - Continue home meds Disposition: Stable, will continue current plan of care. With help of CM, hopefully placement into [facility] facility. Patient initially denied 07/02 due to insurance, but possibly can qualify with SS benefits Addendum - Attending - Attending Attestation Date/Time: 07/03/18 1774 I personally evaluated the patient and discussed the management with Dr. Chaidez I agree with the History, Examination, Assessment and Plan documented above with any addition or exceptions noted below. blood cx 1/2 positive for staph epi- skin contaminant. Back at baseline and ready for d/c. Attempt placement in SNF in [place] vs d/c home.
[2018-07-03] MEDS: Topiramate 25 MG TAB PO SCH ×2 (08:34→20:32)
[2018-07-03] MEDS: Meloxicam 15 MG TAB PO SCH (08:34)
[2018-07-03] MEDS: Polyethylene Glycol 3350 17 GM Packet PO SCH (08:35)
[2018-07-03] MEDS: Citalopram 20 MG TAB PO SCH (08:35)
[2018-07-03] MEDS: Clopidogrel Bisulfate 75 MG TAB PO SCH (08:35)
[2018-07-03] MEDS: Potassium Chloride 10 MEQ TAB PO SCH (08:36)
[2018-07-03] MEDS: Amlodipine 5 MG TAB PO SCH (08:36)
[2018-07-03] MEDS: Loratadine 10 MG TAB PO SCH (08:37)
[2018-07-03] MEDS: Tamsulosin HCl 0.4 MG CAP PO SCH (08:37)
[2018-07-03] MEDS: Gabapentin 100 MG CAP PO SCH ×3 (08:37→20:32)
[2018-07-03] MEDS: Furosemide 40 MG TAB PO SCH ×2 (08:37→15:24)
[2018-07-03] MEDS: Enoxaparin Sodium 40 MG/0.4 ML SYRINGE SC SCH (08:50)
--- NOTE | 2018-07-03 15:30 | PDOC.EVN ---
Event Note - Event Note Event Note: 53 yo morbidly obese male who the primary team has attempted rn long term care care placement was denied for services today. Patient has medicaid insurance without retirement or LTAC coverage. Patient is primarily cared for by his at home. However, today a [facility] was called for his due to a seizure. She states the seizures occur more frequently during times of stress. She was taken to the ED and had an evaluation that cleared her for discharge. She was taken to her daughter's home for some relaxation and stress relief. She will not be available to care for the patient tonight at home. Therefore, the patient will have no support at home and no caregiver to assist him with his ADLs. It has been deemed unsafe to discharge the patient home without any support and he will then have to stay in the hospital until some home assistance is established. It was counseled to his family that this needs to be accomplished in the next 24 hours. The patient has been stable for discharge for the past 2 days and has no other reason to be admitted at this time. His family expressed understanding and appreciation for the temporary accommodation.
[2018-07-03] MEDS: Calcium Carbonate 500 MG ChewTAB PO PRN (20:32)
[2018-07-03] MEDS: Aripiprazole 2 MG TAB PO SCH (20:32)
[2018-07-03] MEDS: Atorvastatin Calcium 10 MG TAB PO SCH (20:32)
--- NOTE | 2018-07-04 05:55 | PDOC.FM ---
- Subjective Subjective: Pleasant 53 yo morbidly obese male seen at bedside this AM. Patient is agreeable to discharge home. He just wants to make sure that he has help since he is incapable of caring for himself. Patient had no other complaints this AM. - Objective Vital Signs & Weight: Vital Signs (12 hours) Temp Pulse Ox 07/04/18 04:00 98.4 F 07/04/18 00:00 98.7 F 07/03/18 20:00 94 L 07/03/18 19:27 98.6 F Weight Weight 260.362 kg Most Recent Monitor Data Heart Rate from ECG 84 NIBP 164/90 NIBP BP-Mean 114 Respiration from ECG 31 SpO2 92 I&O: 07/02/18 07/03/18 07/04/18 06:59 06:59 06:59 Intake Total 850 1680 840 Output Total 2200 3800 450 Balance -1350 -2120 390 Result Diagrams: 07/01/18 02:50 07/01/18 02:50 Phys Exam - Physical Examination morbidly obese HEENT: moist MMs Tracheostomy in place Respiratory: no wheezing, clear to auscultation bilateral limited by body habitus Cardiovascular: RRR, no significant murmur limited by body habitus Gastrointestinal: soft, non-tender, no distention, positive bowel sounds Musculoskeletal: edema present Neurological: moves all 4 limbs Psychiatric: A&O x 3 Skin: no rash Dx/Plan (1) Chronic respiratory failure with hypoxia and hypercapnia Code(s): J96.11 - CHRONIC RESPIRATORY FAILURE WITH HYPOXIA; J96.12 - CHRONIC RESPIRATORY FAILURE WITH HYPERCAPNIA Status: Chronic (2) Pneumonia Code(s): J18.9 - PNEUMONIA, UNSPECIFIED ORGANISM Status: Acute Qualifiers: Pneumonia type: aspiration pneumonia Lung location: unspecified part of lung (3) Pickwickian syndrome Code(s): E66.2 - MORBID (SEVERE) OBESITY WITH ALVEOLAR HYPOVENTILATION Status : Chronic (4) CHF (congestive heart failure) Code(s): I50.9 - HEART FAILURE, UNSPECIFIED Status: Chronic (5) GERD (gastroesophageal reflux disease) Code(s): K21.9 - GASTRO-ESOPHAGEAL REFLUX DISEASE WITHOUT ESOPHAGITIS Status: Chronic (6) HTN (hypertension) Code(s): I10 - ESSENTIAL (PRIMARY) HYPERTENSION Status: Chronic Qualifiers: Hypertension type: essential hypertension Qualified Code(s): I10 - Essential (primary) hypertension (7) Morbid obesity Code(s): E66.01 - MORBID (SEVERE) OBESITY DUE TO EXCESS CALORIES Status: Chronic - Plan Plan: Acute on chronic hypoxic Respiratory failure 2/2 Right Middle Lobe Pneumonia vs. Chronic Pickwickian - O2 as need, continuos pulse ox - Due to trach initially covered for pseudomonas with Cefepime and Levaquin - Procal negative - Will de-escalate to Levaquin as single agent. - Blood cultures Coag negative staph 1/2 - Likely contaminant Nausea/Vomiting - Zofran PRN Trach - Follows with Dr Singh outpt - Continue suctioning trach as needed - Continue O2 as needed, Keep sats >90% - As above HFpEF - Echo on 04/06/18: EF 50-55%, mod dilated left atrium, no MR, mild TR and [place] - HH diet, fluid restriction, daily wts - Resume home Lasix dosing Morbid obesity - Would benefit from terminal system operator placement into complex care facility Delusions - Continue home meds GERD - Continue home meds Disposition: Stable, patient was denied at all available facilities. Patient was to discharge home yesterday, but due to social circumstances could not. Patient will be discharged home today. Addendum - Attending - Attending Attestation Date/Time: 07/04/18 2302 I personally evaluated the patient and discussed the management with Dr. Chaidez I agree with the History, Examination, Assessment and Plan documented above with any addition or exceptions noted below. RML pneumonia- on levaquin Chronic hypoxic resp failure secondary to OHS/SHIRA with trach placement- o2 requirement at baseline Morbid obesity-BMI 89.9 Patient stable for discharge but has no one to care for him at home as his is in [place]. APS consulted.
[2018-07-04] MEDS: Loratadine 10 MG TAB PO SCH (09:01)
[2018-07-04] MEDS: Topiramate 25 MG TAB PO SCH ×2 (09:01→20:38)
[2018-07-04] MEDS: Meloxicam 15 MG TAB PO SCH (09:01)
[2018-07-04] MEDS: Enoxaparin Sodium 40 MG/0.4 ML SYRINGE SC SCH (09:01)
[2018-07-04] MEDS: Citalopram 20 MG TAB PO SCH (09:02)
[2018-07-04] MEDS: Furosemide 40 MG TAB PO SCH ×2 (09:02→14:29)
[2018-07-04] MEDS: Amlodipine 5 MG TAB PO SCH (09:02)
[2018-07-04] MEDS: Potassium Chloride 10 MEQ TAB PO SCH (09:02)
[2018-07-04] MEDS: Polyethylene Glycol 3350 17 GM Packet PO SCH (09:03)
[2018-07-04] MEDS: Gabapentin 100 MG CAP PO SCH ×3 (09:03→20:38)
[2018-07-04] MEDS: Tamsulosin HCl 0.4 MG CAP PO SCH (09:03)
[2018-07-04] MEDS: Clopidogrel Bisulfate 75 MG TAB PO SCH (09:03)
--- NOTE | 2018-07-04 11:47 | PDOC.EVN ---
Event Note - Event Note Event Note: TRANSITION OF CARE NOTE 07/04/18 Date of Admission 07/01/18 Patient is a pleasant 53 yo male. Patient is morbidly obese and suffers from obesity hypoventilation syndrome with tracheostomy in place. Patient is well known to the [facility] inpatient service and his PCP, Dr. Espinosa. Patient was seen in ED due to SOB and cough. Patient was diagnosed with RML pneumonia by CXR in ED. Patient has always been at his baseline tracheostomy oxygen requirement, afebrile, and otherwise doing very well. He has been stable for discharge since 07/02/18. However, on 07/03/18 his who is his sole caregiver had multiple "seizures." His was sent to the ED for evaluation and states that her seizures come more frequently when she gets stressed. Due to no other caregivers or family support available the patient has been unable to be discharged. There have been multiple attempts to place this individual into a complex care facility, but he does not have the correct insurance coverage to accomplish that. Patient is currently being evaluated for NH placement again and Case Management has been contacted for Adult Protective Services (APS) involvement due to him not having a safe discharge home without support. Please contact with any questions or concerns.
[2018-07-04] MEDS: Atorvastatin Calcium 10 MG TAB PO SCH (20:38)
[2018-07-04] MEDS: Aripiprazole 2 MG TAB PO SCH (20:38)
--- NOTE | 2018-07-05 06:14 | PDOC.FM ---
- Subjective Subjective: Pt thinks his trach smells like poop. VSS. Afebrile. No acute events overnight. - Objective MAR Reviewed: Yes Vital Signs & Weight: Vital Signs (12 hours) Temp Pulse Ox 07/05/18 03:53 98.0 F 07/05/18 00:00 98.0 F 07/04/18 20:00 98.2 F 94 L Weight Weight 260.362 kg Most Recent Monitor Data Heart Rate from ECG 79 NIBP 156/98 NIBP BP-Mean 117 Respiration from ECG 30 SpO2 98 I&O: 07/03/18 07/04/18 07/05/18 06:59 06:59 06:59 Intake Total 1680 1320 600 Output Total 3800 2275 1850 Balance -0147 -480 -1243 Result Diagrams: 07/01/18 02:50 07/01/18 02:50 Phys Exam - Physical Examination Constitutional: NAD distant breath sounds bilaterally Cardiovascular: RRR distant heart sounds; trace edema bilateral lower extremities Psychiatric: normal affect, A&O x 3 Skin: no rash Dx/Plan (1) Acute on chronic respiratory failure with hypercapnia Code(s): J96.22 - ACUTE AND CHRONIC RESPIRATORY FAILURE WITH HYPERCAPNIA Status: Acute (2) Pneumonia Code(s): J18.9 - PNEUMONIA, UNSPECIFIED ORGANISM Status: Acute Qualifiers: Pneumonia type: due to unspecified organism Laterality: right Lung location: middle lobe of lung Qualified Code(s): J18.1 - Lobar pneumonia, unspecified organism (3) Chronic respiratory failure with hypoxia and hypercapnia Code(s): J96.11 - CHRONIC RESPIRATORY FAILURE WITH HYPOXIA; J96.12 - CHRONIC RESPIRATORY FAILURE WITH HYPERCAPNIA Status: Chronic (4) Obesity hypoventilation syndrome Code(s): E66.2 - MORBID (SEVERE) OBESITY WITH ALVEOLAR HYPOVENTILATION Status : Chronic (5) CHF (congestive heart failure) Code(s): I50.9 - HEART FAILURE, UNSPECIFIED Status: Chronic (6) GERD (gastroesophageal reflux disease) Code(s): K21.9 - GASTRO-ESOPHAGEAL REFLUX DISEASE WITHOUT ESOPHAGITIS Status: Chronic (7) HTN (hypertension) Code(s): I10 - ESSENTIAL (PRIMARY) HYPERTENSION Status: Chronic Qualifiers: Hypertension type: essential hypertension Qualified Code(s): I10 - Essential (primary) hypertension (8) Morbid obesity Code(s): E66.01 - MORBID (SEVERE) OBESITY DUE TO EXCESS CALORIES Status: Chronic (9) Tracheostomy care Code(s): Z43.0 - ENCOUNTER FOR ATTENTION TO TRACHEOSTOMY Status: Chronic - Plan Plan: Acute on chronic hypoxic Respiratory failure 2/2 Right Middle Lobe Pneumonia vs. Chronic Pickwickian - O2 as need, continuos pulse ox - Due to trach initially covered for pseudomonas with Cefepime and Levaquin, now just on Levaquin. - Procal negative - Blood cultures Coag negative staph 1/2 - Likely contaminant Nausea/Vomiting - Zofran PRN Trach - Follows with Dr Singh outpt - Continue suctioning trach as needed - Continue O2 as needed, Keep sats >90% - As above HFpEF - Echo on 04/06/18: EF 50-55%, mod dilated left atrium, no MR, mild TR and [place] - HH diet, fluid restriction, daily wts -home Lasix dosing Morbid obesity - Would benefit from superintendent container terminal placement into complex care facility Delusions - Continue home meds GERD - Continue home meds Disposition: Stable, patient was denied at all available facilities. Addendum - Attending - Attending Attestation Date/Time: 07/05/18 5344 I personally evaluated the patient and discussed the management with Dr. Chris I agree with the History, Examination, Assessment and Plan documented above with any addition or exceptions noted below. Stable for d/c but not safe for discharge without any family support. COntinue trach care
[2018-07-05] MEDS: Loratadine 10 MG TAB PO SCH (09:09)
[2018-07-05] MEDS: Meloxicam 15 MG TAB PO SCH (09:09)
[2018-07-05] MEDS: Amlodipine 5 MG TAB PO SCH (09:09)
[2018-07-05] MEDS: Topiramate 25 MG TAB PO SCH ×2 (09:09→21:26)
[2018-07-05] MEDS: Citalopram 20 MG TAB PO SCH (09:09)
[2018-07-05] MEDS: Potassium Chloride 10 MEQ TAB PO SCH (09:11)
[2018-07-05] MEDS: Tamsulosin HCl 0.4 MG CAP PO SCH (09:12)
[2018-07-05] MEDS: Gabapentin 100 MG CAP PO SCH ×3 (09:12→21:26)
[2018-07-05] MEDS: Furosemide 40 MG TAB PO SCH ×2 (09:12→14:20)
[2018-07-05] MEDS: Polyethylene Glycol 3350 17 GM Packet PO SCH (09:12)
[2018-07-05] MEDS: Enoxaparin Sodium 40 MG/0.4 ML SYRINGE SC SCH (09:12)
[2018-07-05] MEDS: Clopidogrel Bisulfate 75 MG TAB PO SCH (09:12)
--- NOTE | 2018-07-05 14:39 | CON ---
DATE OF CONSULTATION: 07/05/2018 CONSULTING PHYSICIAN: Dr. Adame from the Family [facility]. REASON FOR CONSULTATION: Possible tracheitis. HISTORY OF PRESENT ILLNESS: Mr. Samson is well known to me. He is a morbidly obese 53-year-old male with sleep apnea. He has had an indwelling trach for many years, which requires being changed periodically. He is currently in the hospital with fluid retention and increasing shortness of breath. From what I am told it sounds like the patient's significant other is no longer able to take care of him at home and as perhaps the primary reason he is currently here. He says that he has been having some exudate around his tracheostomy site. I did change it within the last 4 to 5 weeks from the best of my recollection. PAST MEDICAL HISTORY: 1. SHIRA. 2. Obesity hypoventilation syndrome. 3. Morbid obesity. 4. Hypertension. 5. Lymphadenopathy. PAST SURGICAL HISTORY: 1. Cholecystectomy. 2. Liver laceration repair. 3. Corneal replacement. FAMILY MEDICAL HISTORY: Unremarkable. SOCIAL HISTORY: Nonsmoker. Does not consume alcohol. REVIEW OF SYSTEMS: Remarkable for inability to ambulate, bedridden state, and chronic shortness of breath. PHYSICAL EXAMINATION: VITAL SIGNS: Temperature 97.6, pulse 92, blood pressure 144/101, and O2 saturation 99% on trach collar. GENERAL: He is a morbidly obese male, in no acute distress. HEENT: Unremarkable. NECK: Trach in good position. No exudate. No swelling. CARDIAC: S1 and S2, regular. ABDOMEN: Soft and obese. EXTREMITIES: Edematous throughout. ASSESSMENT: 1. Perhaps mild tracheitis, should be covered by the Levaquin he is currently on. 2. Obesity hypoventilation syndrome that is managed with tracheostomy. No further recommendations at this time. Job ID: [id number]
--- NOTE | 2018-07-05 16:06 | EKG ---
Test Reason : Blood Pressure : / mmHG Vent. Rate : 090 BPM Atrial Rate : 090 BPM P-R Int : 184 ms QRS Dur : 074 ms QT Int : 326 ms P-R-T Axes : 102 -60 027 degrees QTc Int : 398 ms Sinus rhythm with Fusion complexes Indeterminate axis Low voltage QRS Possible Anterolateral infarct , age undetermined Abnormal ECG Confirmed by JAMIE WOOD DO ([id number]), news editor CHLOE JEFFERSON ([id number]) on 07/05/2018 4:06:31 PM Referred By: Confirmed By:JAMIE WOOD DO
[2018-07-05] MEDS: Aripiprazole 2 MG TAB PO SCH (21:26)
[2018-07-05] MEDS: Atorvastatin Calcium 10 MG TAB PO SCH (21:26)
--- NOTE | 2018-07-06 08:36 | PDOC.FM ---
- Subjective Subjective: Denies complaints this morning. Spoke with yesterday who told him she is staying with her niece. - Objective MAR Reviewed: Yes Vital Signs & Weight: Vital Signs (12 hours) Temp Pulse Ox 07/06/18 07:55 95 07/06/18 07:20 95 07/06/18 07:03 97.4 F L 07/06/18 04:00 97.2 F L 07/06/18 00:00 97.2 F L Weight Weight 260.362 kg Most Recent Monitor Data Heart Rate from ECG 74 NIBP 150/84 NIBP BP-Mean 106 Respiration from ECG 37 SpO2 91 I&O: 07/05/18 07/06/18 07/07/18 06:59 06:59 06:59 Intake Total 1010 960 Output Total 5462 9640 Balance -8318 -1606 Result Diagrams: 07/01/18 02:50 07/01/18 02:50 Phys Exam - Physical Examination Constitutional: NAD Respiratory: no wheezing distant breath sounds Cardiovascular: RRR distant heart sounds Gastrointestinal: soft, non-tender obese Musculoskeletal: no edema Psychiatric: A&O x 3 Dx/Plan (1) Acute on chronic respiratory failure with hypercapnia Code(s): J96.22 - ACUTE AND CHRONIC RESPIRATORY FAILURE WITH HYPERCAPNIA Status: Acute (2) Pneumonia Code(s): J18.9 - PNEUMONIA, UNSPECIFIED ORGANISM Status: Acute Qualifiers: Pneumonia type: due to unspecified organism Laterality: right Lung location: middle lobe of lung Qualified Code(s): J18.1 - Lobar pneumonia, unspecified organism (3) Chronic respiratory failure with hypoxia and hypercapnia Code(s): J96.11 - CHRONIC RESPIRATORY FAILURE WITH HYPOXIA; J96.12 - CHRONIC RESPIRATORY FAILURE WITH HYPERCAPNIA Status: Chronic (4) Obesity hypoventilation syndrome Code(s): E66.2 - MORBID (SEVERE) OBESITY WITH ALVEOLAR HYPOVENTILATION Status : Chronic (5) CHF (congestive heart failure) Code(s): I50.9 - HEART FAILURE, UNSPECIFIED Status: Chronic (6) GERD (gastroesophageal reflux disease) Code(s): K21.9 - GASTRO-ESOPHAGEAL REFLUX DISEASE WITHOUT ESOPHAGITIS Status: Chronic (7) HTN (hypertension) Code(s): I10 - ESSENTIAL (PRIMARY) HYPERTENSION Status: Chronic Qualifiers: Hypertension type: essential hypertension Qualified Code(s): I10 - Essential (primary) hypertension (8) Morbid obesity Code(s): E66.01 - MORBID (SEVERE) OBESITY DUE TO EXCESS CALORIES Status: Chronic (9) Tracheostomy care Code(s): Z43.0 - ENCOUNTER FOR ATTENTION TO TRACHEOSTOMY Status: Chronic - Plan Plan: Acute on chronic hypoxic Respiratory failure 2/2 Right Middle Lobe Pneumonia and Chronic Pickwickian - O2 as need, continuos pulse ox - Due to trach initially covered for pseudomonas with Cefepime and Levaquin, now just on Levaquin. - Procal negative - Blood cultures Coag negative staph 1/2 - Likely contaminant Tracheitis- -continue levaquin -follows with Dr. Singh outpatient Nausea/Vomiting - Zofran PRN HFpEF - Echo on 04/06/18: EF 50-55%, mod dilated left atrium, no MR, mild TR and [place] - HH diet, fluid restriction, daily wts - Continue lasix Morbid obesity - Would benefit from watermelon inspector placement into complex care facility however every facility has denied him - CM spoke with APS, pending eval Delusions - Continue home meds GERD - Continue home meds Disposition: Stable, patient was denied at all available facilities. Addendum - Attending - Attending Attestation Date/Time: 07/06/18 1121 I personally evaluated the patient and discussed the management with Dr. Chris I agree with the History, Examination, Assessment and Plan documented above with any addition or exceptions noted below. Stable for discharge but patient can not care for himself and unable to care for him at this time due to her own medical issues. Appreciate CM input.
[2018-07-06] MEDS: Potassium Chloride 10 MEQ TAB PO SCH (08:59)
[2018-07-06] MEDS: Topiramate 25 MG TAB PO SCH ×2 (09:00→20:24)
[2018-07-06] MEDS: Citalopram 20 MG TAB PO SCH (09:00)
[2018-07-06] MEDS: Tamsulosin HCl 0.4 MG CAP PO SCH (09:00)
[2018-07-06] MEDS: Meloxicam 15 MG TAB PO SCH (09:00)
[2018-07-06] MEDS: Amlodipine 5 MG TAB PO SCH (09:00)
[2018-07-06] MEDS: Clopidogrel Bisulfate 75 MG TAB PO SCH (09:00)
[2018-07-06] MEDS: Loratadine 10 MG TAB PO SCH (09:00)
[2018-07-06] MEDS: Furosemide 40 MG TAB PO SCH ×2 (09:01→14:11)
[2018-07-06] MEDS: Gabapentin 100 MG CAP PO SCH ×3 (09:01→20:24)
[2018-07-06] MEDS: Polyethylene Glycol 3350 17 GM Packet PO SCH (09:01)
[2018-07-06] MEDS: Enoxaparin Sodium 40 MG/0.4 ML SYRINGE SC SCH (09:01)
--- NOTE | 2018-07-06 11:53 | PRG ---
DATE OF SERVICE: 07/06/2018 SUBJECTIVE: He is complaining of a smell from around his trach. OBJECTIVE: VITAL SIGNS: Temperature 97.3, pulse 73, and blood pressure 157/100. HEENT: Unremarkable. NECK: No JVD. CHEST: Fairly clear from the little I can hear from his chest. CARDIAC: S1 and S2, regular. ABDOMEN: Soft. EXTREMITIES: No edema. ASSESSMENT: 1. Mild tracheitis. 2. Obesity hypoventilation syndrome. 3. Status post tracheostomy placement. PLAN: 1. Continue the Levaquin. 2. Transfer to medical floor. Job ID: [id number]
[2018-07-06] MEDS: Atorvastatin Calcium 10 MG TAB PO SCH (20:24)
[2018-07-06] MEDS: Aripiprazole 2 MG TAB PO SCH (20:24)
--- NOTE | 2018-07-07 05:57 | PDOC.FM ---
- Subjective Subjective: This morning patient states he is feeling well overall. He denies shortness of breath. Says cough is about the same or somewhat better than when he came in. Is eating breakfast without difficulty while provider is at bedside. Denies N/ V. - Objective Vital Signs & Weight: Vital Signs (12 hours) Temp Pulse Ox 07/07/18 04:00 97.3 F L 07/07/18 02:17 95 07/07/18 00:00 97.4 F L 07/06/18 19:41 97.1 F L Weight Weight 260.362 kg Most Recent Monitor Data Heart Rate from ECG 75 NIBP 151/74 NIBP BP-Mean 99 Respiration from ECG 14 SpO2 94 I&O: 07/05/18 07/06/18 07/07/18 06:59 06:59 06:59 Intake Total 1010 960 720 Output Total 3175 4600 2550 Balance -2165 -3640 -1830 Result Diagrams: 07/01/18 02:50 07/01/18 02:50 Phys Exam - Physical Examination Constitutional: NAD morbidly obese HEENT: moist MMs, sclera anicteric Neck: supple Respiratory: no wheezing, no rales distant breath sounds, trach collar in place Cardiovascular: RRR, no significant murmur, no rub Gastrointestinal: soft, non-tender, positive bowel sounds morbidly obese difficult to palpate pulses, cap refill intact Neurological: non-focal Psychiatric: normal affect, A&O x 3 Skin: no rash, cap refill <2 seconds Dx/Plan (1) Acute on chronic respiratory failure with hypercapnia Code(s): J96.22 - ACUTE AND CHRONIC RESPIRATORY FAILURE WITH HYPERCAPNIA Status: Acute (2) Tracheostomy care Code(s): Z43.0 - ENCOUNTER FOR ATTENTION TO TRACHEOSTOMY Status: Chronic (3) Pneumonia Code(s): J18.9 - PNEUMONIA, UNSPECIFIED ORGANISM Status: Acute Qualifiers: Pneumonia type: due to unspecified organism Laterality: right Lung location: middle lobe of lung Qualified Code(s): J18.1 - Lobar pneumonia, unspecified organism (4) CHF (congestive heart failure) Code(s): I50.9 - HEART FAILURE, UNSPECIFIED Status: Chronic (5) Pickwickian syndrome Code(s): E66.2 - MORBID (SEVERE) OBESITY WITH ALVEOLAR HYPOVENTILATION Status : Chronic - Plan Plan: 53 yo morbidly obsese male admitted for treatment of RLL, now stable for d/c pending placement # Acute on chronic hypoxic Respiratory failure 2/2 Right Middle Lobe Pneumonia and Chronic Pickwickian- resolved - O2 as needed, continuos pulse ox - Due to trach initially covered for pseudomonas with Cefepime and Levaquin, now just Levaquin, today is day 7 - Procal negative - Blood cultures Coag negative staph 1/2 - Likely contaminant #Social Discord - stable for d/c since 07/02 - unable to obtain proper placement, appreciate SW recs # HTN - increased amlodipine to 10mg # Tracheitis- -continue levaquin one more day -follows with Dr. Singh outpatient #Nausea/Vomiting - Zofran PRN # HFpEF - Echo on 04/06/18: EF 50-55%, mod dilated left atrium, no MR, mild TR and [place] - HH diet, fluid restriction, daily wts - Continue lasix # Morbid obesity - Would benefit from shelter placement into complex care facility however every facility has denied him - CM spoke with APS, pending eval # Delusions - Continue home meds # GERD - Continue home meds Disposition: Stable, patient was denied at all available facilities. -transfer orders for tele in place Addendum - Attending - Attending Attestation Date/Time: 07/07/18 0192 I personally evaluated the patient and discussed the management with Dr. Wilson. I agree with the History, Examination, Assessment and Plan documented above with any addition or exceptions noted below. Patient overall stable. Continue on treatment for tracheitis with Levaquin per Pulm. He is stable for transfer to medical floor if bed available. Continue to work on placement decision, APS contacted. Vitals overall well appearing. Will plan to check labs tomorrow.
--- NOTE | 2018-07-07 09:20 | PRG ---
DATE OF SERVICE: 07/07/2018 SUBJECTIVE: The patient is doing okay. Says his tracheostomy secretions have improved. OBJECTIVE: VITAL SIGNS: On exam, his temperature is 97.5, pulse 74, blood pressure 156/88, and O2 saturation 97%. HEENT: Unremarkable. NECK: No adenopathy or JVD. CHEST: Clear. Trach clear. ABDOMEN: Obese. EXTREMITIES: No edema. ASSESSMENT: 1. Tracheitis. 2. Obesity hypoventilation syndrome. 3. Obstructive sleep apnea. PLAN: 1. Awaiting placement. 2. Continue antibiotics. Job ID: [id number]
[2018-07-07] MEDS: Polyethylene Glycol 3350 17 GM Packet PO SCH (09:21)
[2018-07-07] MEDS: Amlodipine 10 MG TAB PO SCH (09:21)
[2018-07-07] MEDS: Meloxicam 15 MG TAB PO SCH (09:21)
[2018-07-07] MEDS: Topiramate 25 MG TAB PO SCH ×2 (09:21→20:11)
[2018-07-07] MEDS: Furosemide 40 MG TAB PO SCH ×2 (09:22→17:30)
[2018-07-07] MEDS: Loratadine 10 MG TAB PO SCH (09:22)
[2018-07-07] MEDS: Gabapentin 100 MG CAP PO SCH ×3 (09:22→20:11)
[2018-07-07] MEDS: Tamsulosin HCl 0.4 MG CAP PO SCH (09:22)
[2018-07-07] MEDS: Enoxaparin Sodium 40 MG/0.4 ML SYRINGE SC SCH (09:22)
[2018-07-07] MEDS: Citalopram 20 MG TAB PO SCH (09:22)
[2018-07-07] MEDS: Clopidogrel Bisulfate 75 MG TAB PO SCH (09:22)
[2018-07-07] MEDS: Potassium Chloride 10 MEQ TAB PO SCH (09:22)
[2018-07-07] MEDS: Atorvastatin Calcium 10 MG TAB PO SCH (20:11)
[2018-07-07] MEDS: Aripiprazole 2 MG TAB PO SCH (20:11)
--- NOTE | 2018-07-08 06:18 | PDOC.FM ---
- Subjective Subjective: This morning the patient states that he is feeling well overall. He states he was able to eat yesterday without any N/V/discomfort. The patient states he does not feel short of breath. - Objective Vital Signs & Weight: Vital Signs (12 hours) Temp Pulse Ox 07/08/18 03:21 98.0 F 07/07/18 23:26 97.9 F 07/07/18 20:00 96 07/07/18 19:36 97.8 F 07/07/18 19:33 97 Weight Weight 260.362 kg Most Recent Monitor Data Heart Rate from ECG 80 NIBP 138/76 NIBP BP-Mean 96 Respiration from ECG 15 SpO2 92 I&O: 07/06/18 07/07/18 07/08/18 06:59 06:59 06:59 Intake Total 481 215 1469 Output Total 4600 4800 5950 Balance -3640 -3830 -4145 Result Diagrams: 07/01/18 02:50 07/01/18 02:50 Phys Exam - Physical Examination Constitutional: NAD HEENT: PERRLA, moist MMs Neck: no nodes, full ROM Respiratory: no wheezing, clear to auscultation bilateral Cardiovascular: RRR, no significant murmur Gastrointestinal: soft, non-tender no pitting edema Neurological: non-focal Psychiatric: normal affect, A&O x 3 Skin: no rash, cap refill <2 seconds Dx/Plan (1) Acute on chronic respiratory failure with hypercapnia Code(s): J96.22 - ACUTE AND CHRONIC RESPIRATORY FAILURE WITH HYPERCAPNIA Status: Acute (2) Tracheostomy care Code(s): Z43.0 - ENCOUNTER FOR ATTENTION TO TRACHEOSTOMY Status: Chronic (3) Pneumonia Code(s): J18.9 - PNEUMONIA, UNSPECIFIED ORGANISM Status: Acute Qualifiers: Pneumonia type: due to unspecified organism Laterality: right Lung location: middle lobe of lung Qualified Code(s): J18.1 - Lobar pneumonia, unspecified organism (4) CHF (congestive heart failure) Code(s): I50.9 - HEART FAILURE, UNSPECIFIED Status: Chronic (5) Pickwickian syndrome Code(s): E66.2 - MORBID (SEVERE) OBESITY WITH ALVEOLAR HYPOVENTILATION Status : Chronic - Plan Plan: 53 yo morbidly obsese male admitted for treatment of RLL, now stable for d/c pending placement #Social Discord - stable for d/c since 07/02 - unable to obtain proper placement, appreciate ZUHAIR sebastian - called insurance provider and initiated prior auth reference number: [id number] - was informed this can take 5-15 days to process - was caring for patient at home but now dealing with epilepsy and unable to care for patient at home thus needs placement # Acute on chronic hypoxic Respiratory failure 2/2 Right Middle Lobe Pneumonia and Chronic Pickwickian- resolved - O2 as needed, continuos pulse ox - Due to trach initially covered for pseudomonas with Cefepime and Levaquin, s/ p 7 days of levaquin 07/01-07/07 - Procal negative - Blood cultures Coag negative staph 04/16 - Likely contaminant # HTN - increased amlodipine to 10mg 07/08 - now well controlled # Tracheitis- resolved -follows with Dr. Singh outpatient #Nausea/Vomiting - Zofran PRN # HFpEF - Echo on 04/06/18: EF 50-55%, mod dilated left atrium, no MR, mild TR and [place] - HH diet, fluid restriction, daily wts - Continue lasix # Morbid obesity - Would benefit from senior living placement into complex care facility however every facility has denied him - CM spoke with APS # Delusions - Continue home meds # GERD - Continue home meds Disposition: Stable, patient was denied at all available facilities. - ok for transfer to medical Addendum - Attending - Attending Attestation Date/Time: 07/08/18 2036 I personally evaluated the patient and discussed the management with Dr. Wilson. I agree with the History, Examination, Assessment and Plan documented above with any addition or exceptions noted below. Patient overall stable and vitals stable. Labs pending today. Continue chronic meds and trach O2 as needed. Awaiting placement and APS.
[2018-07-08] MEDS: Citalopram 20 MG TAB PO SCH (09:07)
[2018-07-08] MEDS: Meloxicam 15 MG TAB PO SCH (09:07)
[2018-07-08] MEDS: Furosemide 40 MG TAB PO SCH ×2 (09:07→16:42)
[2018-07-08] MEDS: Polyethylene Glycol 3350 17 GM Packet PO SCH (09:07)
[2018-07-08] MEDS: Enoxaparin Sodium 40 MG/0.4 ML SYRINGE SC SCH (09:07)
[2018-07-08] MEDS: Loratadine 10 MG TAB PO SCH (09:08)
[2018-07-08] MEDS: Topiramate 25 MG TAB PO SCH ×2 (09:08→20:37)
[2018-07-08] MEDS: Tamsulosin HCl 0.4 MG CAP PO SCH (09:08)
[2018-07-08] MEDS: Gabapentin 100 MG CAP PO SCH ×3 (09:08→20:37)
[2018-07-08] MEDS: Amlodipine 10 MG TAB PO SCH (09:08)
[2018-07-08] MEDS: Clopidogrel Bisulfate 75 MG TAB PO SCH (09:08)
[2018-07-08] MEDS: Potassium Chloride 10 MEQ TAB PO SCH (09:08)
--- NOTE | 2018-07-08 09:25 | PDOC.EVN ---
Event Note - Event Note Event Note: Called patient's insurance provider and provided necessary information for prior -auth for long-term care placement Reference number: [id number] was informed this can take 5-15 days to review
--- NOTE | 2018-07-08 09:33 | PRG ---
DATE OF SERVICE: 07/08/2018 SUBJECTIVE: He is about the same. No acute complaints. OBJECTIVE: VITAL SIGNS: Temperature 97.8, pulse 91, blood pressure 118/62, and O2 saturation 94%. HEENT: Unremarkable. NECK: Trach. Clean. LUNGS: Clear. CARDIAC: S1 and S2, regular. ABDOMEN: Obese. LABORATORY DATA: No new labs were obtained today. ASSESSMENT: 1. Tracheitis, which is improved. 2. Obstructive sleep apnea, requiring tracheostomy. PLAN: Awaiting placement. Continue trach care. Job ID: [id number]
[2018-07-08 09:54] LABS: #Eosinphils 0.5 thou/uL (0.0-0.7); #Lymphocytes 1.2 thou/uL (1.20-3.40); #Monocytes 0.5 thou/uL (0.11-0.59); #Neutrophils 2.4 thou/uL (1.40-6.50); %Basophils 0.9 % (0.0-1.0); %Eosinophils 10.8 % (0.0-10.0); %Lymphocytes 24.9 % (21.0-51.0); %Monocytes 11.3 % (0.0-10.0); %Neutrophils 52.1 % (42.0-75.0); Hemoglobin 10.6 g/dL (14.0-18.0); Mean Corpuscular HGB CONC 29.7 g/dL (32.0-36.0); Mean Platelet Volume 8.5 fL (7.4-10.4); Platelet Count 132 thou/uL (130-400); RBC Distribution Width 12.4 % (11.5-14.5); Red Blood Cell (RBC) Count 3.52 mill/uL (4.70-6.10); White Blood Cell (WBC) Count 4.6 thou/uL (4.8-10.8)
[2018-07-08 10:14] LABS: ALT (SGPT) 9 U/L (8-55); AST (SGOT) 15 U/L (5-34); Albumin 3.5 g/dL (3.5-5.0); Alkaline Phosphatase 66 U/L (40-150); BUN (Urea Nitrogen) 11 mg/dL (8.4-25.7); Bilirubin, Total 0.7 mg/dL (0.2-1.2); Calc. Creatinine Clearance 379 mL/min (70-130); Calcium 9.1 mg/dL (7.8-10.44); Estimated GFR-MDRD Greater than 90; Globulin 3.8 g/dL (2.4-3.5); Glucose 95 mg/dL (70-105); Protein, Total 7.3 g/dL (6.0-8.3)
[2018-07-08 10:23] LABS: Anion Gap 10 mmol/L (10-20); Carbon Dioxide 37 mmol/L (22-29); Chloride 94 mmol/L (98-107); Potassium 4.4 mmol/L (3.5-5.1); Sodium 137 mmol/L (136-145)
[2018-07-08 12:24] LABS: MDiff Complete? YES; Platelet Morphology Comment Appears Adequate; Polychromasia SLIGHT = 2-3 cells (100X) (0-2/hpf)
[2018-07-08] MEDS: Atorvastatin Calcium 10 MG TAB PO SCH (20:37)
[2018-07-08] MEDS: Aripiprazole 2 MG TAB PO SCH (20:37)
--- NOTE | 2018-07-09 07:02 | PDOC.FM ---
- Subjective Subjective: This morning patient was moveed to 4th floor and is excited about the window. He is feeling well today, in good spirits. Denies cough or SOB. Patient states he is having slight abd pain but he did just have a BM. - Objective Vital Signs & Weight: Vital Signs (12 hours) Temp Pulse Ox 07/09/18 04:00 97.7 F 07/09/18 00:00 98.1 F 07/08/18 20:00 96 07/08/18 19:09 99.1 F Weight Weight 260.362 kg Most Recent Monitor Data Heart Rate from ECG 83 NIBP 168/84 NIBP BP-Mean 112 Respiration from ECG 17 SpO2 94 I&O: 07/08/18 07/09/18 07/10/18 06:59 06:59 06:59 Intake Total 1805 365 Output Total 5950 4875 Balance -4752 -3665 Result Diagrams: 07/08/18 09:37 07/08/18 09:37 Phys Exam - Physical Examination Constitutional: NAD HEENT: PERRLA, moist MMs Respiratory: no wheezing, clear to auscultation bilateral Cardiovascular: RRR, no significant murmur, no rub Gastrointestinal: soft, non-tender, no distention, positive bowel sounds morbid obesity difficult to palpate Neurological: non-focal, moves all 4 limbs Psychiatric: normal affect, A&O x 3 Skin: cap refill <2 seconds Dx/Plan (1) Acute on chronic respiratory failure with hypercapnia Code(s): J96.22 - ACUTE AND CHRONIC RESPIRATORY FAILURE WITH HYPERCAPNIA Status: Acute (2) Tracheostomy care Code(s): Z43.0 - ENCOUNTER FOR ATTENTION TO TRACHEOSTOMY Status: Chronic (3) Pneumonia Code(s): J18.9 - PNEUMONIA, UNSPECIFIED ORGANISM Status: Acute Qualifiers: Pneumonia type: due to unspecified organism Laterality: right Lung location: middle lobe of lung Qualified Code(s): J18.1 - Lobar pneumonia, unspecified organism (4) CHF (congestive heart failure) Code(s): I50.9 - HEART FAILURE, UNSPECIFIED Status: Chronic (5) Pickwickian syndrome Code(s): E66.2 - MORBID (SEVERE) OBESITY WITH ALVEOLAR HYPOVENTILATION Status : Chronic - Plan Plan: 53 yo morbidly obese male admitted for treatment of RLL, now stable for d/c pending placement #Social Discord - stable for d/c since 07/02 - unable to obtain proper placement, appreciate ZUHAIR marquezs - called insurance provider and initiated prior auth reference number: [id number] - was informed this can take 5-15 days to process - was caring for patient at home but now dealing with epilepsy and unable to care for patient at home thus needs placement # Acute on chronic hypoxic Respiratory failure 2/2 Right Middle Lobe Pneumonia and Chronic Pickwickian- resolved - O2 as needed, continuos pulse ox - Due to trach initially covered for pseudomonas with Cefepime and Levaquin, s/ p 7 days of levaquin 07/01-07/07 - Procal negative - Blood cultures Coag negative staph 04/16 - Likely contaminant # HTN - increased amlodipine to 10mg 07/08 # Tracheitis- resolved -follows with Dr. Singh outpatient #Nausea/Vomiting - Zofran PRN # HFpEF - Echo on 04/06/18: EF 50-55%, mod dilated left atrium, no MR, mild TR and [place] - HH diet, fluid restriction, daily wts - Continue lasix # Morbid obesity - Would benefit from [facility] placement into complex care facility however every facility has denied him - CM spoke with APS - consulted colleter for assistance with weight loss # Delusions - Continue home meds # GERD - Continue home meds Disposition: Stable, patient was denied at all available facilities. Addendum - Attending - Attending Attestation Date/Time: 07/09/18 8985 I personally evaluated the patient and discussed the management with Dr. Wilson. I agree with the History, Examination, Assessment and Plan documented above with any addition or exceptions noted below. Patient overall stable. In process of being moved to T4. Denies complaints. Continue trach care and await placement decision. APS on board.
[2018-07-09] MEDS: Polyethylene Glycol 3350 17 GM Packet PO SCH (09:41)
[2018-07-09] MEDS: Loratadine 10 MG TAB PO SCH (09:41)
[2018-07-09] MEDS: Citalopram 20 MG TAB PO SCH (09:41)
[2018-07-09] MEDS: Gabapentin 100 MG CAP PO SCH ×3 (09:42→20:15)
[2018-07-09] MEDS: Clopidogrel Bisulfate 75 MG TAB PO SCH (09:42)
[2018-07-09] MEDS: Tamsulosin HCl 0.4 MG CAP PO SCH (09:42)
[2018-07-09] MEDS: Topiramate 25 MG TAB PO SCH ×2 (09:42→20:15)
[2018-07-09] MEDS: Potassium Chloride 10 MEQ TAB PO SCH (09:42)
[2018-07-09] MEDS: Amlodipine 10 MG TAB PO SCH (09:42)
[2018-07-09] MEDS: Furosemide 40 MG TAB PO SCH ×2 (09:42→14:47)
[2018-07-09] MEDS: Enoxaparin Sodium 40 MG/0.4 ML SYRINGE SC SCH (09:43)
[2018-07-09] MEDS: Meloxicam 15 MG TAB PO SCH (12:45)
[2018-07-09] MEDS: Atorvastatin Calcium 10 MG TAB PO SCH (20:15)
[2018-07-09] MEDS: Aripiprazole 2 MG TAB PO SCH (20:18)
--- NOTE | 2018-07-10 06:38 | PDOC.FM ---
- Subjective Subjective: This morning patient states he is feeling well overall. He enjoyed spending time with his lay ups assembler yesterday. He denies N/V but states he had 4 episodes of diarrhea last night. Denies fevers chills or sweats. Denies blood in stool but is not sure. Will follow. - Objective Vital Signs & Weight: Vital Signs (12 hours) Temp Pulse Resp BP Pulse Ox 07/10/18 06:00 96 07/09/18 20:00 98.5 F 84 20 117/69 92 L Weight Weight 139.207 kg Most Recent Monitor Data Heart Rate from ECG 83 NIBP 168/84 NIBP BP-Mean 112 Respiration from ECG 17 SpO2 94 I&O: 07/08/18 07/09/18 07/10/18 06:59 06:59 06:59 Intake Total 1805 365 960 Output Total 5952 2162 7121 [facility]4145 -4510 -2390 Result Diagrams: 07/08/18 09:37 07/08/18 09:37 Phys Exam - Physical Examination Constitutional: NAD HEENT: moist MMs, sclera anicteric Respiratory: no wheezing, clear to auscultation bilateral Cardiovascular: RRR, no significant murmur, no rub Gastrointestinal: soft, non-tender, no distention, positive bowel sounds moves all extremities, morbidly obese Neurological: non-focal, moves all 4 limbs Psychiatric: normal affect, A&O x 3 Skin: no rash, cap refill <2 seconds Dx/Plan (1) Acute on chronic respiratory failure with hypercapnia Code(s): J96.22 - ACUTE AND CHRONIC RESPIRATORY FAILURE WITH HYPERCAPNIA Status: Acute (2) Tracheostomy care Code(s): Z43.0 - ENCOUNTER FOR ATTENTION TO TRACHEOSTOMY Status: Chronic (3) Pneumonia Code(s): J18.9 - PNEUMONIA, UNSPECIFIED ORGANISM Status: Acute Qualifiers: Pneumonia type: due to unspecified organism Laterality: right Lung location: middle lobe of lung Qualified Code(s): J18.1 - Lobar pneumonia, unspecified organism (4) CHF (congestive heart failure) Code(s): I50.9 - HEART FAILURE, UNSPECIFIED Status: Chronic (5) Pickwickian syndrome Code(s): E66.2 - MORBID (SEVERE) OBESITY WITH ALVEOLAR HYPOVENTILATION Status : Chronic - Plan Plan: 53 yo morbidly obese male admitted for treatment of RLL, now stable for d/c pending placement #Social Discord - stable for d/c since 07/02 - unable to obtain proper placement, appreciate ZUHAIR sebastian - called insurance provider and initiated prior auth reference number: [id number] - was informed this can take 5-15 days to process - was caring for patient at home but now dealing with epilepsy and unable to care for patient at home thus needs placement # Acute on chronic hypoxic Respiratory failure 2/2 Right Middle Lobe Pneumonia and Chronic Pickwickian- resolved - O2 as needed, continuos pulse ox - Due to trach initially covered for pseudomonas with Cefepime and Levaquin, s/ p 7 days of levaquin 07/01-07/07 - Procal negative - Blood cultures Coag negative staph / - Likely contaminant # HTN - increased amlodipine to 10mg 07/08 # Tracheitis- resolved -follows with Dr. Singh outpatient #Nausea/Vomiting - Zofran PRN # HFpEF - Echo on 04/06/18: EF 50-55%, mod dilated left atrium, no MR, mild TR and AK - HH diet, fluid restriction, daily wts - Continue lasix # Morbid obesity - Would benefit from terminal clerk placement into complex care facility however every facility has denied him - CM spoke with APS - consulted food technology teacher for assistance with weight loss # Delusions - Continue home meds # GERD - Continue home meds Disposition: Stable, patient was denied at all available facilities. Addendum - Attending - Attending Attestation Date/Time: 07/10/18 0811 I personally evaluated the patient and discussed the management with Dr. Wilson. I agree with the History, Examination, Assessment and Plan documented above with any addition or exceptions noted below. Patient overall stable. Continue trach care and respiratory support as needed. Dietary consult. Continue to work on placement.
[2018-07-10] MEDS: Meloxicam 15 MG TAB PO SCH (09:14)
[2018-07-10] MEDS: Potassium Chloride 10 MEQ TAB PO SCH (09:14)
[2018-07-10] MEDS: Amlodipine 10 MG TAB PO SCH (09:15)
[2018-07-10] MEDS: Loratadine 10 MG TAB PO SCH (09:15)
[2018-07-10] MEDS: Clopidogrel Bisulfate 75 MG TAB PO SCH (09:15)
[2018-07-10] MEDS: Citalopram 20 MG TAB PO SCH (09:15)
[2018-07-10] MEDS: Gabapentin 100 MG CAP PO SCH ×3 (09:15→20:41)
[2018-07-10] MEDS: Topiramate 25 MG TAB PO SCH ×2 (09:15→20:41)
[2018-07-10] MEDS: Tamsulosin HCl 0.4 MG CAP PO SCH (09:15)
[2018-07-10] MEDS: Furosemide 40 MG TAB PO SCH ×2 (09:15→14:50)
[2018-07-10] MEDS: Polyethylene Glycol 3350 17 GM Packet PO SCH (09:16)
[2018-07-10] MEDS: Enoxaparin Sodium 40 MG/0.4 ML SYRINGE SC SCH (09:16)
[2018-07-10] MEDS: Atorvastatin Calcium 10 MG TAB PO SCH (20:41)
[2018-07-10] MEDS: Aripiprazole 2 MG TAB PO SCH (20:43)
--- NOTE | 2018-07-11 06:54 | PDOC.FM ---
- Subjective Subjective: THis morning patient states he is feeling well. Denies cough, sob, fevers, chills, or sweats. Denies N/V, denies pain. Patient states he had 3-4 episodes of diarrhea yesterday, denies blood in stool. will monitor - Objective Vital Signs & Weight: Vital Signs (12 hours) Temp Pulse Resp BP Pulse Ox 07/11/18 06:00 97 07/10/18 20:00 98.5 F 78 20 137/75 97 Weight Weight 310.3 kg Most Recent Monitor Data Heart Rate from ECG 83 NIBP 168/84 NIBP BP-Mean 112 Respiration from ECG 17 SpO2 94 I&O: 07/09/18 07/10/18 07/11/18 06:59 06:59 06:59 Intake Total 764 965 0684 Output Total 4869 3350 2350 Balance -4510 -2390 -590 Result Diagrams: 07/08/18 09:37 07/08/18 09:37 Phys Exam - Physical Examination Constitutional: NAD HEENT: moist MMs, sclera anicteric Respiratory: clear to auscultation bilateral Cardiovascular: RRR, no significant murmur Gastrointestinal: soft, non-tender, no distention, positive bowel sounds morbidly obese morbidly obese difficult to palpate pules Neurological: non-focal, moves all 4 limbs Psychiatric: normal affect, A&O x 3 Skin: no rash, cap refill <2 seconds Dx/Plan (1) Acute on chronic respiratory failure with hypercapnia Code(s): J96.22 - ACUTE AND CHRONIC RESPIRATORY FAILURE WITH HYPERCAPNIA Status: Acute (2) Tracheostomy care Code(s): Z43.0 - ENCOUNTER FOR ATTENTION TO TRACHEOSTOMY Status: Chronic (3) Pneumonia Code(s): J18.9 - PNEUMONIA, UNSPECIFIED ORGANISM Status: Acute Qualifiers: Pneumonia type: due to unspecified organism Laterality: right Lung location: middle lobe of lung Qualified Code(s): J18.1 - Lobar pneumonia, unspecified organism (4) CHF (congestive heart failure) Code(s): I50.9 - HEART FAILURE, UNSPECIFIED Status: Chronic (5) Pickwickian syndrome Code(s): E66.2 - MORBID (SEVERE) OBESITY WITH ALVEOLAR HYPOVENTILATION Status : Chronic - Plan Plan: 53 yo morbidly obese male admitted for treatment of RLL, now stable for d/c pending placement #Social Discord - stable for d/c since 07/02 - unable to obtain proper placement, appreciate ZUHAIR sebastian - called insurance provider and initiated prior auth reference number: [id number] - was informed this can take 5-15 days to process, 07/08 - was caring for patient at home but now dealing with epilepsy and unable to care for patient at home thus needs placement # Acute on chronic hypoxic Respiratory failure 2/2 Right Middle Lobe Pneumonia and Chronic Pickwickian- resolved - O2 as needed, continuos pulse ox - Due to trach initially covered for pseudomonas with Cefepime and Levaquin, s/ p 7 days of levaquin 07/01-07/07 - Procal negative - Blood cultures Coag negative staph / - Likely contaminant # HTN - increased amlodipine to 10mg 07/08 # Tracheitis- resolved -follows with Dr. Singh outpatient #Nausea/Vomiting - Zofran PRN # HFpEF - Echo on 04/06/18: EF 50-55%, mod dilated left atrium, no MR, mild TR and AR - HH diet, fluid restriction, daily wts - Continue lasix # Morbid obesity - Would benefit from residential placement into complex care facility however every facility has denied him - CM spoke with APS - consulted measuring clerk for assistance with weight loss # Delusions - Continue home meds # GERD - Continue home meds Disposition: Stable, patient was denied at all available facilities. Addendum - Attending - Attending Attestation Date/Time: 07/11/18 0306 I personally evaluated the patient and discussed the management with Dr. Wilson. I agree with the History, Examination, Assessment and Plan documented above with any addition or exceptions noted below. Patient doing well. He is overall stable. Continue to work with CM regarding placement. He is having some diarrhea, was on FQ abx earlier, will check Cdiff due to persistent diarrhea though currently do not have high suspicion for that. Vitals stable.
[2018-07-11] MEDS: Loratadine 10 MG TAB PO SCH (09:06)
[2018-07-11] MEDS: Citalopram 20 MG TAB PO SCH (09:06)
[2018-07-11] MEDS: Tamsulosin HCl 0.4 MG CAP PO SCH (09:07)
[2018-07-11] MEDS: Amlodipine 10 MG TAB PO SCH (09:07)
[2018-07-11] MEDS: Potassium Chloride 10 MEQ TAB PO SCH (09:07)
[2018-07-11] MEDS: Topiramate 25 MG TAB PO SCH ×2 (09:07→21:05)
[2018-07-11] MEDS: Clopidogrel Bisulfate 75 MG TAB PO SCH (09:07)
[2018-07-11] MEDS: Gabapentin 100 MG CAP PO SCH ×3 (09:07→21:05)
[2018-07-11] MEDS: Furosemide 40 MG TAB PO SCH ×2 (09:08→15:28)
[2018-07-11] MEDS: Meloxicam 15 MG TAB PO SCH (09:08)
[2018-07-11] MEDS: Polyethylene Glycol 3350 17 GM Packet PO SCH (09:09)
[2018-07-11] MEDS: Enoxaparin Sodium 40 MG/0.4 ML SYRINGE SC SCH (10:56)
[2018-07-11] MEDS: Aripiprazole 2 MG TAB PO SCH (21:04)
[2018-07-11] MEDS: Atorvastatin Calcium 10 MG TAB PO SCH (21:05)
--- NOTE | 2018-07-12 05:43 | PDOC.FM ---
- Subjective Subjective: Patient feeling well this AM. No pain, sob or cough. Patient states diarrhea 3 times yesterday which is decrease. No decreased appetite, slept well. - Objective Vital Signs & Weight: Vital Signs (12 hours) Temp Pulse Resp BP Pulse Ox 07/12/18 00:00 98.1 F 75 20 131/79 98 07/11/18 20:00 98.1 F 76 20 130/74 100 Weight Weight 310.3 kg Most Recent Monitor Data Heart Rate from ECG 83 NIBP 168/84 NIBP BP-Mean 112 Respiration from ECG 17 SpO2 94 I&O: 07/10/18 07/11/18 07/12/18 06:59 06:59 06:59 Intake Total 960 1760 1460 Output Total 3350 2350 Balance -2390 -590 1460 Result Diagrams: 07/08/18 09:37 07/08/18 09:37 Phys Exam - Physical Examination Constitutional: NAD HEENT: moist MMs, sclera anicteric Respiratory: no wheezing, clear to auscultation bilateral obesity hypoventilation, trach in place Cardiovascular: RRR, no significant murmur Gastrointestinal: soft, non-tender, no distention, positive bowel sounds morbidly obese Musculoskeletal: no edema Neurological: non-focal, moves all 4 limbs Psychiatric: normal affect, A&O x 3 Skin: no rash, cap refill <2 seconds Dx/Plan (1) Acute on chronic respiratory failure with hypercapnia Code(s): J96.22 - ACUTE AND CHRONIC RESPIRATORY FAILURE WITH HYPERCAPNIA Status: Acute (2) Tracheostomy care Code(s): Z43.0 - ENCOUNTER FOR ATTENTION TO TRACHEOSTOMY Status: Chronic (3) Pneumonia Code(s): J18.9 - PNEUMONIA, UNSPECIFIED ORGANISM Status: Acute Qualifiers: Pneumonia type: due to unspecified organism Laterality: right Lung location: middle lobe of lung Qualified Code(s): J18.1 - Lobar pneumonia, unspecified organism (4) CHF (congestive heart failure) Code(s): I50.9 - HEART FAILURE, UNSPECIFIED Status: Chronic (5) Pickwickian syndrome Code(s): E66.2 - MORBID (SEVERE) OBESITY WITH ALVEOLAR HYPOVENTILATION Status : Chronic - Plan Plan: 53 yo morbidly obese male admitted for treatment of RLL, now stable for d/c pending placement #Social Discord - stable for d/c since 07/02 - unable to obtain proper placement, appreciate ZUHAIR recs - called insurance provider and initiated prior auth reference number: [id number] - was informed this can take 5-15 days to process, 07/08 - was caring for patient at home but now dealing with epilepsy and unable to care for patient at home thus needs placement # Diarrhea 07/10 - 3-4 stools per day - c diff neg 07/11 # Acute on chronic hypoxic Respiratory failure 2/2 Right Middle Lobe Pneumonia and Chronic Pickwickian- resolved - O2 as needed, continuos pulse ox - Due to trach initially covered for pseudomonas with Cefepime and Levaquin, s/ p 7 days of levaquin 07/01-07/07 - Procal negative - Blood cultures Coag negative staph 04/16 - Likely contaminant # HTN - increased amlodipine to 10mg 07/08 # Tracheitis- resolved -follows with Dr. Singh outpatient #Nausea/Vomiting - Zofran PRN # HFpEF - Echo on 04/06/18: EF 50-55%, mod dilated left atrium, no MR, mild TR and AR - HH diet, fluid restriction, daily wts - Continue lasix # Morbid obesity - Would benefit from intermediate frame tender placement into complex care facility however every facility has denied him - CM spoke with APS - consulted strap setter for assistance with weight loss # Delusions - Continue home meds # GERD - Continue home meds Disposition: Stable, patient was denied at all available facilities. Addendum - Attending - Attending Attestation Date/Time: 07/12/18 7580 I personally evaluated the patient and discussed the management with Dr. Sandrine Wilson I agree with the History, Examination, Assessment and Plan documented above with any addition or exceptions noted below. Note c. Dificile negative patient appears stable continue with manager materials management for placement options albeit limited .
[2018-07-12] MEDS: Meloxicam 15 MG TAB PO SCH (09:08)
[2018-07-12] MEDS: Furosemide 40 MG TAB PO SCH ×2 (09:09→15:00)
[2018-07-12] MEDS: Gabapentin 100 MG CAP PO SCH ×3 (09:09→21:13)
[2018-07-12] MEDS: Citalopram 20 MG TAB PO SCH (09:09)
[2018-07-12] MEDS: Clopidogrel Bisulfate 75 MG TAB PO SCH (09:09)
[2018-07-12] MEDS: Topiramate 25 MG TAB PO SCH ×2 (09:09→21:13)
[2018-07-12] MEDS: Loratadine 10 MG TAB PO SCH (09:09)
[2018-07-12] MEDS: Tamsulosin HCl 0.4 MG CAP PO SCH (09:09)
[2018-07-12] MEDS: Potassium Chloride 10 MEQ TAB PO SCH (09:09)
[2018-07-12] MEDS: Amlodipine 10 MG TAB PO SCH (09:10)
[2018-07-12] MEDS: Enoxaparin Sodium 40 MG/0.4 ML SYRINGE SC SCH (09:11)
[2018-07-12] MEDS: Polyethylene Glycol 3350 17 GM Packet PO SCH (09:12)
[2018-07-12] MEDS: Bismuth Subs 17.5mg/mL Susp 120 ML BOT PO PRN (17:42)
[2018-07-12] MEDS: Acetaminophen 325 MG TAB PO PRN (18:51)
[2018-07-12] MEDS: Aripiprazole 2 MG TAB PO SCH (21:13)
[2018-07-12] MEDS: Atorvastatin Calcium 10 MG TAB PO SCH (21:13)
--- NOTE | 2018-07-13 07:27 | PDOC.FM ---
- Subjective Subjective: This morning patient is feeling well. He has no complaints this morning. STates he still had diarrhea x3 yesterday, no blood, no chagne in appetite. - Objective Vital Signs & Weight: Vital Signs (12 hours) Temp Pulse Resp BP Pulse Ox 07/12/18 19:50 98.7 F 82 19 126/69 98 07/12/18 19:36 98 Weight Admit Weight 320.69 kg Weight 310.6 kg Most Recent Monitor Data Heart Rate from ECG 83 NIBP 168/84 NIBP BP-Mean 112 Respiration from ECG 17 SpO2 94 I&O: 07/12/18 07/13/18 07/14/18 06:59 06:59 06:59 Intake Total 2060 1400 Output Total 1280 2651 Balance 780 -1251 Result Diagrams: 07/08/18 09:37 07/08/18 09:37 Phys Exam - Physical Examination Constitutional: NAD HEENT: moist MMs, sclera anicteric Respiratory: no wheezing, clear to auscultation bilateral Cardiovascular: no significant murmur Gastrointestinal: soft, non-tender, no distention, positive bowel sounds morbidly obese Neurological: non-focal, moves all 4 limbs Psychiatric: normal affect, A&O x 3 Skin: no rash, cap refill <2 seconds Dx/Plan (1) Acute on chronic respiratory failure with hypercapnia Code(s): J96.22 - ACUTE AND CHRONIC RESPIRATORY FAILURE WITH HYPERCAPNIA Status: Resolved (2) Tracheostomy care Code(s): Z43.0 - ENCOUNTER FOR ATTENTION TO TRACHEOSTOMY Status: Chronic (3) Pneumonia Code(s): J18.9 - PNEUMONIA, UNSPECIFIED ORGANISM Status: Acute Qualifiers: Pneumonia type: due to unspecified organism Laterality: right Lung location: middle lobe of lung Qualified Code(s): J18.1 - Lobar pneumonia, unspecified organism (4) CHF (congestive heart failure) Code(s): I50.9 - HEART FAILURE, UNSPECIFIED Status: Chronic (5) Pickwickian syndrome Code(s): E66.2 - MORBID (SEVERE) OBESITY WITH ALVEOLAR HYPOVENTILATION Status : Chronic - Plan Plan: 53 yo morbidly obese male admitted for treatment of RLL, now stable for d/c pending placement 07/13 - no changes to course - diarrhea decreasing, c diff neg #Social Discord - stable for d/c since 07/02 - unable to obtain proper placement, appreciate ZUHAIR marquezs - called insurance provider and initiated prior auth reference number: [id number] - was informed this can take 5-15 days to process, 07/08 - was caring for patient at home but now dealing with epilepsy and unable to care for patient at home thus needs placement # Diarrhea 07/10 - 3-4 stools per day - c diff neg 07/11 # Acute on chronic hypoxic Respiratory failure 2/2 Right Middle Lobe Pneumonia and Chronic Pickwickian- resolved - O2 as needed, continuos pulse ox - Due to trach initially covered for pseudomonas with Cefepime and Levaquin, s/ p 7 days of levaquin 07/01-07/07 - Procal negative - Blood cultures Coag negative staph / - Likely contaminant # HTN - increased amlodipine to 10mg 07/08 # Tracheitis- resolved -follows with Dr. Singh outpatient #Nausea/Vomiting - Zofran PRN # HFpEF - Echo on 04/06/18: EF 50-55%, mod dilated left atrium, no MR, mild TR and SC - HH diet, fluid restriction, daily wts - Continue lasix # Morbid obesity - Would benefit from half-way placement into complex care facility however every facility has denied him - CM spoke with APS - consulted funeral service licensee for assistance with weight loss # Delusions - Continue home meds # GERD - Continue home meds Disposition: Stable, patient was denied at all available facilities. Addendum - Attending - Attending Attestation Date/Time: 07/13/18 5214 I personally evaluated the patient and discussed the management with Dr. Wilson I agree with the History, Examination, Assessment and Plan documented above with any addition or exceptions noted below.
[2018-07-13] MEDS: Potassium Chloride 10 MEQ TAB PO SCH (08:01)
[2018-07-13] MEDS: Clopidogrel Bisulfate 75 MG TAB PO SCH (08:01)
[2018-07-13] MEDS: Topiramate 25 MG TAB PO SCH ×2 (08:01→20:56)
[2018-07-13] MEDS: Tamsulosin HCl 0.4 MG CAP PO SCH (08:01)
[2018-07-13] MEDS: Citalopram 20 MG TAB PO SCH (08:01)
[2018-07-13] MEDS: Amlodipine 10 MG TAB PO SCH (08:02)
[2018-07-13] MEDS: Furosemide 40 MG TAB PO SCH ×2 (08:02→14:45)
[2018-07-13] MEDS: Gabapentin 100 MG CAP PO SCH ×3 (08:02→20:56)
[2018-07-13] MEDS: Enoxaparin Sodium 40 MG/0.4 ML SYRINGE SC SCH (08:02)
[2018-07-13] MEDS: Polyethylene Glycol 3350 17 GM Packet PO SCH (08:02)
[2018-07-13] MEDS: Loratadine 10 MG TAB PO SCH (08:02)
[2018-07-13] MEDS: Meloxicam 15 MG TAB PO SCH (08:04)
[2018-07-13] MEDS: Aripiprazole 2 MG TAB PO SCH (20:56)
[2018-07-13] MEDS: Acetaminophen 325 MG TAB PO PRN (20:56)
[2018-07-13] MEDS: Atorvastatin Calcium 10 MG TAB PO SCH (20:56)
--- NOTE | 2018-07-14 08:34 | PDOC.FM ---
- Subjective Subjective: This morning patient states he is feeling well. He is in good spirts today, says it was a good weekend. - Objective Vital Signs & Weight: Vital Signs (12 hours) Temp Pulse Resp BP Pulse Ox 07/14/18 07:39 98.8 F 75 18 105/64 87 L Weight Admit Weight 320.69 kg Weight 311.7 kg Most Recent Monitor Data Heart Rate from ECG 83 NIBP 168/84 NIBP BP-Mean 112 Respiration from ECG 17 SpO2 94 I&O: 07/13/18 07/14/18 07/15/18 06:59 06:59 06:59 Intake Total 1400 1160 Output Total 2651 2075 Balance -2201 -857 Result Diagrams: 07/08/18 09:37 07/08/18 09:37 Phys Exam - Physical Examination Constitutional: NAD HEENT: moist MMs, sclera anicteric Respiratory: no wheezing, clear to auscultation bilateral Cardiovascular: RRR, no rub Gastrointestinal: soft, positive bowel sounds Musculoskeletal: no edema, pulses present Neurological: non-focal, moves all 4 limbs Psychiatric: normal affect, A&O x 3 Skin: no rash, cap refill <2 seconds Dx/Plan (1) Acute on chronic respiratory failure with hypercapnia Code(s): J96.22 - ACUTE AND CHRONIC RESPIRATORY FAILURE WITH HYPERCAPNIA Status: Resolved (2) Tracheostomy care Code(s): Z43.0 - ENCOUNTER FOR ATTENTION TO TRACHEOSTOMY Status: Chronic (3) Pneumonia Code(s): J18.9 - PNEUMONIA, UNSPECIFIED ORGANISM Status: Acute Qualifiers: Pneumonia type: due to unspecified organism Laterality: right Lung location: middle lobe of lung Qualified Code(s): J18.1 - Lobar pneumonia, unspecified organism (4) CHF (congestive heart failure) Code(s): I50.9 - HEART FAILURE, UNSPECIFIED Status: Chronic (5) Pickwickian syndrome Code(s): E66.2 - MORBID (SEVERE) OBESITY WITH ALVEOLAR HYPOVENTILATION Status : Chronic - Plan Plan: 53 yo morbidly obese male admitted for treatment of RLL, now stable for d/c pending placement 07/14 - no changes to course - diarrhea decreasing, c diff neg #Social Discord - stable for d/c since 07/02 - unable to obtain proper placement, appreciate ZUHAIR recs - called insurance provider and initiated prior auth reference number: [id number] - was informed this can take 5-15 days to process, 07/08 - was caring for patient at home but now dealing with epilepsy and unable to care for patient at home thus needs placement # Diarrhea 07/10 - 3-4 stools per day - c diff neg 07/11 # Acute on chronic hypoxic Respiratory failure 2/2 Right Middle Lobe Pneumonia and Chronic Pickwickian- resolved - O2 as needed, continuos pulse ox - Due to trach initially covered for pseudomonas with Cefepime and Levaquin, s/ p 7 days of levaquin 07/01-07/07 - Procal negative - Blood cultures Coag negative staph 04/16 - Likely contaminant # HTN - increased amlodipine to 10mg 07/08 # Tracheitis- resolved -follows with Dr. Singh outpatient #Nausea/Vomiting - Zofran PRN # HFpEF - Echo on 04/06/18: EF 50-55%, mod dilated left atrium, no MR, mild TR and TN - HH diet, fluid restriction, daily wts - Continue lasix # Morbid obesity - Would benefit from terminal make up operator placement into complex care facility however every facility has denied him - CM spoke with APS - consulted lawn maintenance worker for assistance with weight loss # Delusions - Continue home meds # GERD - Continue home meds Disposition: Stable, patient was denied at all available facilities. Addendum - Attending - Attending Attestation Date/Time: 07/14/18 4396 I personally evaluated the patient and discussed the management with Dr. Wilson. I agree with the History, Examination, Assessment and Plan documented above with any addition or exceptions noted below. The patient is in good spirits. He is continuing to wait on a safe discharge plan.
[2018-07-14] MEDS: Potassium Chloride 10 MEQ TAB PO SCH (09:27)
[2018-07-14] MEDS: Gabapentin 100 MG CAP PO SCH ×3 (09:28→22:19)
[2018-07-14] MEDS: Citalopram 20 MG TAB PO SCH (09:28)
[2018-07-14] MEDS: Tamsulosin HCl 0.4 MG CAP PO SCH (09:28)
[2018-07-14] MEDS: Topiramate 25 MG TAB PO SCH ×2 (09:29→22:18)
[2018-07-14] MEDS: Enoxaparin Sodium 40 MG/0.4 ML SYRINGE SC SCH (09:29)
[2018-07-14] MEDS: Loratadine 10 MG TAB PO SCH (09:29)
[2018-07-14] MEDS: Clopidogrel Bisulfate 75 MG TAB PO SCH (09:29)
[2018-07-14] MEDS: Furosemide 40 MG TAB PO SCH ×2 (09:29→14:27)
[2018-07-14] MEDS: Amlodipine 10 MG TAB PO SCH (09:29)
[2018-07-14] MEDS: Meloxicam 15 MG TAB PO SCH (09:33)
[2018-07-14] MEDS: Polyethylene Glycol 3350 17 GM Packet PO SCH (09:41)
[2018-07-14] MEDS: Bismuth Subs 17.5mg/mL Susp 120 ML BOT PO PRN (15:40)
[2018-07-14] MEDS: Aripiprazole 2 MG TAB PO SCH (22:18)
[2018-07-14] MEDS: Atorvastatin Calcium 10 MG TAB PO SCH (22:18)
[2018-07-15] MEDS: Calcium Carbonate 500 MG ChewTAB PO PRN (00:35)
[2018-07-15] MEDS: Acetaminophen 325 MG TAB PO PRN (00:35)
[2018-07-15 06:51] LABS: Hemoglobin 9.9 g/dL (14.0-18.0); Mean Corpuscular HGB CONC 29.7 g/dL (32.0-36.0); Mean Corpuscular Hemoglobin 29.8 pg (27.0-31.0); Mean Platelet Volume 9.2 fL (7.4-10.4); Platelet Count 118 thou/uL (130-400); RBC Distribution Width 12.3 % (11.5-14.5); Red Blood Cell (RBC) Count 3.32 mill/uL (4.70-6.10); White Blood Cell (WBC) Count 3.8 thou/uL (4.8-10.8)
--- NOTE | 2018-07-15 07:08 | PDOC.FM ---
- Subjective Subjective: This morning patient states he has had some abdominal pain which is resolving. The pain improved after passing gas. The patient did have a BM yesterday without blood or diarrhea. The patient otherwise denies cough, sob, cp, or other pain this AM. - Objective Vital Signs & Weight: Vital Signs (12 hours) Temp Pulse Resp BP Pulse Ox 07/14/18 20:00 99.0 F 101 H 20 121/67 96 07/14/18 19:41 96 Weight Admit Weight 320.69 kg Weight 310.1 kg Most Recent Monitor Data Heart Rate from ECG 83 NIBP 168/84 NIBP BP-Mean 112 Respiration from ECG 17 SpO2 94 I&O: 07/14/18 07/15/18 07/16/18 06:59 06:59 06:59 Intake Total 1160 1140 Output Total 2075 3000 Balance -915 -1860 Result Diagrams: 07/15/18 06:30 07/15/18 06:30 Phys Exam - Physical Examination Constitutional: NAD HEENT: moist MMs, sclera anicteric Respiratory: no wheezing, clear to auscultation bilateral Cardiovascular: RRR, no significant murmur, no rub Gastrointestinal: soft, non-tender, no distention, positive bowel sounds morbid obesity morbidly obese Neurological: non-focal, moves all 4 limbs Psychiatric: normal affect, A&O x 3 Skin: no rash, cap refill <2 seconds Dx/Plan (1) Acute on chronic respiratory failure with hypercapnia Code(s): J96.22 - ACUTE AND CHRONIC RESPIRATORY FAILURE WITH HYPERCAPNIA Status: Resolved (2) Tracheostomy care Code(s): Z43.0 - ENCOUNTER FOR ATTENTION TO TRACHEOSTOMY Status: Chronic (3) Pneumonia Code(s): J18.9 - PNEUMONIA, UNSPECIFIED ORGANISM Status: Acute Qualifiers: Pneumonia type: due to unspecified organism Laterality: right Lung location: middle lobe of lung Qualified Code(s): J18.1 - Lobar pneumonia, unspecified organism (4) CHF (congestive heart failure) Code(s): I50.9 - HEART FAILURE, UNSPECIFIED Status: Chronic (5) Pickwickian syndrome Code(s): E66.2 - MORBID (SEVERE) OBESITY WITH ALVEOLAR HYPOVENTILATION Status : Chronic - Plan Plan: 53 yo morbidly obese male admitted for treatment of RLL, now stable for d/c pending placement 4/2 - no changes to course - diarrhea decreasing, c diff negative #Social Discord - stable for d/c since 07/02 - unable to obtain proper placement, appreciate ZUHAIR sebastian - called insurance provider and initiated prior auth reference number: [id number] - was informed this can take 5-15 days to process, 07/08 - was caring for patient at home but now dealing with epilepsy and unable to care for patient at home thus needs placement # Diarrhea 07/10 - 3-4 stools per day - c diff neg 07/11 # Acute on chronic hypoxic Respiratory failure 2/2 Right Middle Lobe Pneumonia and Chronic Pickwickian- resolved - O2 as needed, continuos pulse ox - Due to trach initially covered for pseudomonas with Cefepime and Levaquin, s/ p 7 days of levaquin 07/01-07/07 - Procal negative - Blood cultures Coag negative staph 04/16 - Likely contaminant # HTN - increased amlodipine to 10mg 07/08 # Tracheitis- resolved -follows with Dr. Singh outpatient #Nausea/Vomiting - Zofran PRN # HFpEF - Echo on 04/06/18: EF 50-55%, mod dilated left atrium, no MR, mild TR and AR - HH diet, fluid restriction, daily wts - Continue lasix # Morbid obesity - Would benefit from telephone cleaner placement into complex care facility however every facility has denied him - CM spoke with APS - consulted diamond die driller for assistance with weight loss # Delusions - Continue home meds # GERD - Continue home meds Disposition: Stable, patient was denied at all available facilities. Addendum - Attending - Attending Attestation Date/Time: 07/15/18 1257 I personally evaluated the patient and discussed the management with Dr. Wilson. I agree with the History, Examination, Assessment and Plan documented above with any addition or exceptions noted below. The patient has had some increased gas. Adding simethicon. Still waiting on placement.
[2018-07-15 07:37] LABS: BUN (Urea Nitrogen) 13 mg/dL (8.4-25.7); Calc. Creatinine Clearance 462 mL/min (70-130); Calcium 8.8 mg/dL (7.8-10.44); Estimated GFR-MDRD Greater than 90; Glucose 82 mg/dL (70-105)
[2018-07-15 07:47] LABS: Anion Gap 10 mmol/L (10-20); Carbon Dioxide 36 mmol/L (22-29); Chloride 95 mmol/L (98-107); Potassium 4.2 mmol/L (3.5-5.1); Sodium 137 mmol/L (136-145)
[2018-07-15] MEDS: Amlodipine 10 MG TAB PO SCH (08:44)
[2018-07-15] MEDS: Loratadine 10 MG TAB PO SCH (08:44)
[2018-07-15] MEDS: Gabapentin 100 MG CAP PO SCH ×3 (08:44→20:57)
[2018-07-15] MEDS: Potassium Chloride 10 MEQ TAB PO SCH (08:44)
[2018-07-15] MEDS: Furosemide 40 MG TAB PO SCH ×2 (08:44→14:22)
[2018-07-15] MEDS: Citalopram 20 MG TAB PO SCH (08:44)
[2018-07-15] MEDS: Tamsulosin HCl 0.4 MG CAP PO SCH (08:44)
[2018-07-15] MEDS: Topiramate 25 MG TAB PO SCH ×2 (08:44→20:56)
[2018-07-15] MEDS: Clopidogrel Bisulfate 75 MG TAB PO SCH (08:45)
[2018-07-15] MEDS: Enoxaparin Sodium 40 MG/0.4 ML SYRINGE SC SCH (08:45)
[2018-07-15] MEDS: Polyethylene Glycol 3350 17 GM Packet PO SCH (08:46)
[2018-07-15] MEDS: Meloxicam 15 MG TAB PO SCH (08:51)
[2018-07-15] MEDS: Atorvastatin Calcium 10 MG TAB PO SCH (20:56)
[2018-07-15] MEDS: Aripiprazole 2 MG TAB PO SCH (20:57)
[2018-07-16] MEDS: Gabapentin 100 MG CAP PO SCH ×3 (08:21→20:27)
[2018-07-16] MEDS: Citalopram 20 MG TAB PO SCH (08:21)
[2018-07-16] MEDS: Loratadine 10 MG TAB PO SCH (08:21)
[2018-07-16] MEDS: Tamsulosin HCl 0.4 MG CAP PO SCH (08:21)
[2018-07-16] MEDS: Amlodipine 10 MG TAB PO SCH (08:21)
[2018-07-16] MEDS: Clopidogrel Bisulfate 75 MG TAB PO SCH (08:21)
[2018-07-16] MEDS: Meloxicam 15 MG TAB PO SCH (08:21)
[2018-07-16] MEDS: Furosemide 40 MG TAB PO SCH ×2 (08:21→14:46)
[2018-07-16] MEDS: Potassium Chloride 10 MEQ TAB PO SCH (08:21)
[2018-07-16] MEDS: Topiramate 25 MG TAB PO SCH ×2 (08:21→20:27)
[2018-07-16] MEDS: Polyethylene Glycol 3350 17 GM Packet PO SCH (08:22)
[2018-07-16] MEDS: Enoxaparin Sodium 40 MG/0.4 ML SYRINGE SC SCH (08:32)
--- NOTE | 2018-07-16 09:00 | PDOC.FM ---
- Subjective Subjective: This morning abdomnial pain is much improved, resolved per patinet. Had 2 BM yesterday. No N/V/D. No SOB, cp, or palpitations. - Objective Vital Signs & Weight: Vital Signs (12 hours) Temp Pulse Resp BP Pulse Ox 07/16/18 08:21 77 07/16/18 07:47 99.0 F 77 20 126/69 96 07/16/18 04:00 98.1 F 78 18 128/71 95 07/16/18 01:39 98.6 F 82 18 132/73 99 Weight Admit Weight 320.69 kg Weight 307.8 kg Most Recent Monitor Data Heart Rate from ECG 83 NIBP 168/84 NIBP BP-Mean 112 Respiration from ECG 17 SpO2 94 I&O: 07/15/18 07/16/18 07/17/18 06:59 06:59 06:59 Intake Total 1140 840 Output Total 3000 3000 Balance -1860 -2160 Result Diagrams: 07/15/18 06:30 07/15/18 06:30 Phys Exam - Physical Examination Constitutional: NAD HEENT: moist MMs, sclera anicteric Respiratory: no wheezing, clear to auscultation bilateral Cardiovascular: RRR, no significant murmur Gastrointestinal: soft, non-tender, no distention, positive bowel sounds Musculoskeletal: pulses present morbidly obese Neurological: non-focal, moves all 4 limbs Psychiatric: normal affect, A&O x 3 Dx/Plan (1) Acute on chronic respiratory failure with hypercapnia Code(s): J96.22 - ACUTE AND CHRONIC RESPIRATORY FAILURE WITH HYPERCAPNIA Status: Resolved (2) Tracheostomy care Code(s): Z43.0 - ENCOUNTER FOR ATTENTION TO TRACHEOSTOMY Status: Chronic (3) Pneumonia Code(s): J18.9 - PNEUMONIA, UNSPECIFIED ORGANISM Status: Acute Qualifiers: Pneumonia type: due to unspecified organism Laterality: right Lung location: middle lobe of lung Qualified Code(s): J18.1 - Lobar pneumonia, unspecified organism (4) CHF (congestive heart failure) Code(s): I50.9 - HEART FAILURE, UNSPECIFIED Status: Chronic (5) Pickwickian syndrome Code(s): E66.2 - MORBID (SEVERE) OBESITY WITH ALVEOLAR HYPOVENTILATION Status : Chronic - Plan Plan: / - no changes to course - diarrhea decreased - failed referrals to [facility], now trying [place] #Social Discord - stable for d/c since 07/02 - unable to obtain proper placement, appreciate ZUHAIR sebastian - called insurance provider and initiated prior auth reference number: [id number] - was informed this can take 5-15 days to process, 07/08 - was caring for patient at home but now dealing with epilepsy and unable to care for patient at home thus needs placement # Diarrhea 07/10 - 3-4 stools per day - c diff neg 07/11 # Acute on chronic hypoxic Respiratory failure 2/2 Right Middle Lobe Pneumonia and Chronic Pickwickian- resolved - O2 as needed, continuos pulse ox - Due to trach initially covered for pseudomonas with Cefepime and Levaquin, s/ p 7 days of levaquin 07/01-07/07 - Procal negative - Blood cultures Coag negative staph 04/16 - Likely contaminant # HTN - increased amlodipine to 10mg 07/08 # Tracheitis- resolved -follows with Dr. Singh outpatient #Nausea/Vomiting - Zofran PRN # HFpEF - Echo on 04/06/18: EF 50-55%, mod dilated left atrium, no MR, mild TR and [place] - HH diet, fluid restriction, daily wts - Continue lasix # Morbid obesity - Would benefit from nursing home placement into complex care facility however every facility has denied him - CM spoke with APS - consulted insurance biller for assistance with weight loss # Delusions - Continue home meds # GERD - Continue home meds Disposition: Stable, patient was denied at all available facilities. Addendum - Attending - Attending Attestation Date/Time: 07/16/18 5606 I personally evaluated the patient and discussed the management with Dr. Wilson. I agree with the History, Examination, Assessment and Plan documented above with any addition or exceptions noted below. Patient is doing well. Simethicone has helped with abdominal pain. Still waiting on placement.
[2018-07-16] MEDS: Enoxaparin Sodium 60 MG/0.6 ML SYRINGE SC SCH (09:42)
[2018-07-16] MEDS: Atorvastatin Calcium 10 MG TAB PO SCH (20:27)
[2018-07-16] MEDS: Aripiprazole 2 MG TAB PO SCH (20:27)
--- NOTE | 2018-07-17 07:07 | PDOC.FM ---
- Subjective Subjective: This morning patient states he is having persistent abdominal pain, feels like he is still "gassy." Simethicone drops helped some. 3 episodes of diarrhea yesterday. Will check KUB today. - Objective Vital Signs & Weight: Vital Signs (12 hours) Temp Pulse Resp BP Pulse Ox 07/16/18 20:00 95 07/16/18 19:31 98.5 F 80 16 142/66 H 95 Weight Admit Weight 320.69 kg Weight 307.8 kg Most Recent Monitor Data Heart Rate from ECG 83 NIBP 168/84 NIBP BP-Mean 112 Respiration from ECG 17 SpO2 94 I&O: 07/16/18 07/17/18 07/18/18 06:59 06:59 06:59 Intake Total 840 1917 Output Total 3000 3755 Balance -2160 -1838 Result Diagrams: 07/15/18 06:30 07/15/18 06:30 Phys Exam - Physical Examination Constitutional: NAD HEENT: moist MMs, sclera anicteric Respiratory: no wheezing, clear to auscultation bilateral Cardiovascular: RRR, no significant murmur Gastrointestinal: soft, non-tender, no distention, positive bowel sounds Musculoskeletal: pulses present morbidly obese Neurological: non-focal, moves all 4 limbs Psychiatric: normal affect, A&O x 3 Skin: no rash, cap refill <2 seconds Dx/Plan (1) Acute on chronic respiratory failure with hypercapnia Code(s): J96.22 - ACUTE AND CHRONIC RESPIRATORY FAILURE WITH HYPERCAPNIA Status: Resolved (2) Tracheostomy care Code(s): Z43.0 - ENCOUNTER FOR ATTENTION TO TRACHEOSTOMY Status: Chronic (3) Pneumonia Code(s): J18.9 - PNEUMONIA, UNSPECIFIED ORGANISM Status: Acute Qualifiers: Pneumonia type: due to unspecified organism Laterality: right Lung location: middle lobe of lung Qualified Code(s): J18.1 - Lobar pneumonia, unspecified organism (4) CHF (congestive heart failure) Code(s): I50.9 - HEART FAILURE, UNSPECIFIED Status: Chronic (5) Pickwickian syndrome Code(s): E66.2 - MORBID (SEVERE) OBESITY WITH ALVEOLAR HYPOVENTILATION Status : Chronic - Plan Plan: 07/17 - no changes to course - diarrhea 3 times yesterday, checking KUB, s/p simethicone - failed referrals to [facility], now trying [place] #Social Discord - stable for d/c since 07/02 - unable to obtain proper placement, appreciate ZUHAIR sebastian - called insurance provider and initiated prior auth reference number: [id number] - was informed this can take 5-15 days to process, 07/08 - was caring for patient at home but now dealing with epilepsy and unable to care for patient at home thus needs placement # Diarrhea 07/10 - 3-4 stools per day - c diff neg 07/11 # Acute on chronic hypoxic Respiratory failure 2/2 Right Middle Lobe Pneumonia and Chronic Pickwickian- resolved - O2 as needed, continuos pulse ox - Due to trach initially covered for pseudomonas with Cefepime and Levaquin, s/ p 7 days of levaquin 07/01-07/07 - Procal negative - Blood cultures Coag negative staph 04/16 - Likely contaminant # HTN - increased amlodipine to 10mg 07/08 # Tracheitis- resolved -follows with Dr. Singh outpatient #Nausea/Vomiting - Zofran PRN # HFpEF - Echo on 04/06/18: EF 50-55%, mod dilated left atrium, no MR, mild TR and GA - HH diet, fluid restriction, daily wts - Continue lasix # Morbid obesity - Would benefit from terminal supervisor placement into complex care facility however every facility has denied him - CM spoke with APS - consulted applied exercise physiologist for assistance with weight loss # Delusions - Continue home meds # GERD - Continue home meds Disposition: Stable, patient was denied at all available facilities. Addendum - Attending - Attending Attestation Date/Time: 07/17/18 0043 I personally evaluated the patient and discussed the management with Dr. Wilson. I agree with the History, Examination, Assessment and Plan documented above with any addition or exceptions noted below. Will get a KUB to better evaluate the pt's abdominal pain. Otherwise he is feeling well. Trying to help pt lose weight with a strict diet.
[2018-07-17] MEDS: Tamsulosin HCl 0.4 MG CAP PO SCH (07:52)
[2018-07-17] MEDS: Loratadine 10 MG TAB PO SCH (07:52)
[2018-07-17] MEDS: Potassium Chloride 10 MEQ TAB PO SCH (07:52)
[2018-07-17] MEDS: Citalopram 20 MG TAB PO SCH (07:52)
[2018-07-17] MEDS: Meloxicam 15 MG TAB PO SCH (07:52)
[2018-07-17] MEDS: Amlodipine 10 MG TAB PO SCH (07:52)
[2018-07-17] MEDS: Clopidogrel Bisulfate 75 MG TAB PO SCH (07:53)
[2018-07-17] MEDS: Topiramate 25 MG TAB PO SCH ×2 (07:53→20:38)
[2018-07-17] MEDS: Furosemide 40 MG TAB PO SCH ×2 (07:53→14:32)
[2018-07-17] MEDS: Enoxaparin Sodium 60 MG/0.6 ML SYRINGE SC SCH (07:53)
[2018-07-17] MEDS: Gabapentin 100 MG CAP PO SCH ×3 (07:53→20:38)
[2018-07-17] MEDS: Polyethylene Glycol 3350 17 GM Packet PO SCH (07:54)
[2018-07-17] MEDS: Atorvastatin Calcium 10 MG TAB PO SCH (20:38)
[2018-07-17] MEDS: Aripiprazole 2 MG TAB PO SCH (20:38)
--- NOTE | 2018-07-18 07:18 | PDOC.FM ---
- Subjective Subjective: Patient says he is feeling well today. Denies N/V/D. He says his stomach pain is much improved. No shortness of breath or wheezing. - Objective Vital Signs & Weight: Vital Signs (12 hours) Temp Pulse Resp BP Pulse Ox 07/17/18 20:00 98.8 F 74 18 117/71 99 Weight Admit Weight 320.69 kg Weight 294.155 kg Most Recent Monitor Data Heart Rate from ECG 83 NIBP 168/84 NIBP BP-Mean 112 Respiration from ECG 17 SpO2 94 I&O: 07/17/18 07/18/18 07/19/18 06:59 06:59 06:59 Intake Total 191 1700 Output Total 1239 1980 Balance -1838 -1949 Result Diagrams: 07/15/18 06:30 07/15/18 06:30 Phys Exam - Physical Examination Constitutional: NAD HEENT: moist MMs, sclera anicteric Respiratory: no wheezing, clear to auscultation bilateral Cardiovascular: RRR, no significant murmur, no rub Gastrointestinal: soft, non-tender, no distention, positive bowel sounds morbidly obese Neurological: non-focal, moves all 4 limbs Psychiatric: normal affect, A&O x 3 Skin: no rash, cap refill <2 seconds Dx/Plan (1) Acute on chronic respiratory failure with hypercapnia Code(s): J96.22 - ACUTE AND CHRONIC RESPIRATORY FAILURE WITH HYPERCAPNIA Status: Resolved (2) Tracheostomy care Code(s): Z43.0 - ENCOUNTER FOR ATTENTION TO TRACHEOSTOMY Status: Chronic (3) Pneumonia Code(s): J18.9 - PNEUMONIA, UNSPECIFIED ORGANISM Status: Acute Qualifiers: Pneumonia type: due to unspecified organism Laterality: right Lung location: middle lobe of lung Qualified Code(s): J18.1 - Lobar pneumonia, unspecified organism (4) CHF (congestive heart failure) Code(s): I50.9 - HEART FAILURE, UNSPECIFIED Status: Chronic (5) Pickwickian syndrome Code(s): E66.2 - MORBID (SEVERE) OBESITY WITH ALVEOLAR HYPOVENTILATION Status : Chronic - Plan Plan: 07/18 - no changes to course - checked weight 07/17 665lbs - failed referrals to [facility], now trying [place], so far highest weight limit was 571lbs - 1500 marsha diet, patient is on board with trying to lose weight while here #Social Discord - stable for d/c since 07/02 - unable to obtain proper placement, appreciate ZUHAIR sebastian - called insurance provider and initiated prior auth reference number: [id number] - was informed this can take 5-15 days to process, 07/08 - was caring for patient at home but now dealing with epilepsy and unable to care for patient at home thus needs placement # Diarrhea 07/10 - 3-4 stools per day - c diff neg 07/11 # Acute on chronic hypoxic Respiratory failure 2/2 Right Middle Lobe Pneumonia and Chronic Pickwickian- resolved - O2 as needed, continuos pulse ox - Due to trach initially covered for pseudomonas with Cefepime and Levaquin, s/ p 7 days of levaquin 07/01-07/07 - Procal negative - Blood cultures Coag negative staph 04/16 - Likely contaminant # HTN - increased amlodipine to 10mg 07/08 # Tracheitis- resolved -follows with Dr. Singh outpatient #Nausea/Vomiting - Zofran PRN # HFpEF - Echo on 04/06/18: EF 50-55%, mod dilated left atrium, no MR, mild TR and [place] - HH diet, fluid restriction, daily wts - Continue lasix # Morbid obesity - Would benefit from radiation / chemistry technician placement into complex care facility however every facility has denied him - CM spoke with APS - consulted asphalt spreader for assistance with weight loss # Delusions - Continue home meds # GERD - Continue home meds Disposition: Stable, patient was denied at all available facilities. Addendum - Attending - Attending Attestation Date/Time: 07/18/18 1037 I personally evaluated the patient and discussed the management with Dr. Wilson. I agree with the History, Examination, Assessment and Plan documented above with any addition or exceptions noted below. The patient is sitting up in bed using the resistance bands that PT gave him. He denies complaints.
[2018-07-18] MEDS: Enoxaparin Sodium 60 MG/0.6 ML SYRINGE SC SCH (08:48)
[2018-07-18] MEDS: Gabapentin 100 MG CAP PO SCH ×3 (08:48→20:47)
[2018-07-18] MEDS: Loratadine 10 MG TAB PO SCH (08:49)
[2018-07-18] MEDS: Citalopram 20 MG TAB PO SCH (08:49)
[2018-07-18] MEDS: Clopidogrel Bisulfate 75 MG TAB PO SCH (08:49)
[2018-07-18] MEDS: Polyethylene Glycol 3350 17 GM Packet PO SCH (08:49)
[2018-07-18] MEDS: Potassium Chloride 10 MEQ TAB PO SCH (08:49)
[2018-07-18] MEDS: Meloxicam 15 MG TAB PO SCH (08:49)
[2018-07-18] MEDS: Amlodipine 10 MG TAB PO SCH (08:49)
[2018-07-18] MEDS: Furosemide 40 MG TAB PO SCH ×2 (08:49→14:26)
[2018-07-18] MEDS: Topiramate 25 MG TAB PO SCH ×2 (08:49→20:47)
[2018-07-18] MEDS: Tamsulosin HCl 0.4 MG CAP PO SCH (08:49)
[2018-07-18] MEDS: Atorvastatin Calcium 10 MG TAB PO SCH (20:47)
[2018-07-18] MEDS: Aripiprazole 2 MG TAB PO SCH (20:47)
--- NOTE | 2018-07-19 06:37 | PDOC.FM ---
- Subjective Subjective: NAEO per nurse. Pt reports doing well, no complaints. - Objective Vital Signs & Weight: Vital Signs (12 hours) Temp Pulse Resp BP Pulse Ox 07/18/18 20:00 98.6 F 79 20 130/78 100 Weight Admit Weight 320.69 kg Weight 295.924 kg Most Recent Monitor Data Heart Rate from ECG 83 NIBP 168/84 NIBP BP-Mean 112 Respiration from ECG 17 SpO2 94 I&O: 07/17/18 07/18/18 07/19/18 06:59 06:59 06:59 Intake Total 191 1700 1640 Output Total 4485 0700 0210 Balance -1837 Result Diagrams: 07/15/18 06:30 07/15/18 06:30 Phys Exam - Physical Examination Constitutional: NAD obese with tracheostomy in place HEENT: PERRLA, moist MMs Respiratory: no wheezing no respiratory distress, even rise & fall of chest Cardiovascular: RRR, no significant murmur Gastrointestinal: soft, non-tender Neurological: moves all 4 limbs Dx/Plan (1) Tracheostomy care Code(s): Z43.0 - ENCOUNTER FOR ATTENTION TO TRACHEOSTOMY Status: Chronic (2) Pneumonia Code(s): J18.9 - PNEUMONIA, UNSPECIFIED ORGANISM Status: Acute Qualifiers: Pneumonia type: due to unspecified organism Laterality: right Lung location: middle lobe of lung Qualified Code(s): J18.1 - Lobar pneumonia, unspecified organism (3) Chronic respiratory failure with hypoxia and hypercapnia Code(s): J96.11 - CHRONIC RESPIRATORY FAILURE WITH HYPOXIA; J96.12 - CHRONIC RESPIRATORY FAILURE WITH HYPERCAPNIA Status: Chronic (4) GERD (gastroesophageal reflux disease) Code(s): K21.9 - GASTRO-ESOPHAGEAL REFLUX DISEASE WITHOUT ESOPHAGITIS Status: Chronic (5) HTN (hypertension) Code(s): I10 - ESSENTIAL (PRIMARY) HYPERTENSION Status: Chronic Qualifiers: Hypertension type: essential hypertension Qualified Code(s): I10 - Essential (primary) hypertension (6) Morbid obesity Code(s): E66.01 - MORBID (SEVERE) OBESITY DUE TO EXCESS CALORIES Status: Chronic (7) Obesity hypoventilation syndrome Code(s): E66.2 - MORBID (SEVERE) OBESITY WITH ALVEOLAR HYPOVENTILATION Status : Chronic (8) Pickwickian syndrome Code(s): E66.2 - MORBID (SEVERE) OBESITY WITH ALVEOLAR HYPOVENTILATION Status : Chronic - Plan Plan: 07/19 - no changes to course - checked weight 07/17 665lbs - failed referrals to [place] [facility], now trying [facility] [facility], so far highest weight limit was 571lbs - 1500 marsha diet, patient is on board with trying to lose weight while here #Social Discord - stable for d/c since 07/02 - unable to obtain proper placement, appreciate ZUHAIR sebastian - called insurance provider and initiated prior auth reference number: [id number] - was informed this can take 5-15 days to process, 07/08 - was caring for patient at home but now dealing with epilepsy and unable to care for patient at home thus needs placement # Diarrhea 07/10 - 3-4 stools per day - c diff neg 07/11 # Acute on chronic hypoxic Respiratory failure 2/2 Right Middle Lobe Pneumonia and Chronic Pickwickian- resolved - O2 as needed, continuos pulse ox - Due to trach initially covered for pseudomonas with Cefepime and Levaquin, s/ p 7 days of levaquin 07/01-07/07 - Procal negative - Blood cultures Coag negative staph 1/2 - Likely contaminant # HTN - increased amlodipine to 10mg 07/08 # Tracheitis- resolved -follows with Dr. Singh outpatient #Nausea/Vomiting - Zofran PRN # HFpEF - Echo on 04/06/18: EF 50-55%, mod dilated left atrium, no MR, mild TR and [place] - HH diet, fluid restriction, daily wts - Continue lasix # Morbid obesity - Would benefit from termite exterminator helper placement into complex care facility however every facility has denied him - CM spoke with APS - consulted hat cleaner for assistance with weight loss # Delusions - Continue home meds # GERD - Continue home meds Disposition: Stable, patient was denied at all available facilities. Addendum - Attending - Attending Attestation Date/Time: 07/19/18 4140 I personally evaluated the patient and discussed the management with Dr. Callahan. I agree with the History, Examination, Assessment and Plan documented above with any addition or exceptions noted below. The patient has no complaints this morning. He is feeling well.
[2018-07-19] MEDS: Potassium Chloride 10 MEQ TAB PO SCH (08:38)
[2018-07-19] MEDS: Citalopram 20 MG TAB PO SCH (08:38)
[2018-07-19] MEDS: Amlodipine 10 MG TAB PO SCH (08:38)
[2018-07-19] MEDS: Loratadine 10 MG TAB PO SCH (08:38)
[2018-07-19] MEDS: Furosemide 40 MG TAB PO SCH ×2 (08:38→14:43)
[2018-07-19] MEDS: Gabapentin 100 MG CAP PO SCH ×3 (08:38→20:19)
[2018-07-19] MEDS: Polyethylene Glycol 3350 17 GM Packet PO SCH (08:39)
[2018-07-19] MEDS: Topiramate 25 MG TAB PO SCH ×2 (08:39→20:19)
[2018-07-19] MEDS: Enoxaparin Sodium 60 MG/0.6 ML SYRINGE SC SCH (08:39)
[2018-07-19] MEDS: Tamsulosin HCl 0.4 MG CAP PO SCH (08:39)
[2018-07-19] MEDS: Clopidogrel Bisulfate 75 MG TAB PO SCH (08:39)
[2018-07-19] MEDS: Meloxicam 15 MG TAB PO SCH (08:39)
[2018-07-19] MEDS: Aripiprazole 2 MG TAB PO SCH (20:19)
[2018-07-19] MEDS: Atorvastatin Calcium 10 MG TAB PO SCH (20:19)
[2018-07-20] MEDS: Polyethylene Glycol 3350 17 GM Packet PO SCH (07:38)
[2018-07-20] MEDS: Furosemide 40 MG TAB PO SCH ×2 (07:38→14:00)
[2018-07-20] MEDS: Enoxaparin Sodium 60 MG/0.6 ML SYRINGE SC SCH (07:38)
[2018-07-20] MEDS: Topiramate 25 MG TAB PO SCH ×2 (07:39→20:05)
[2018-07-20] MEDS: Amlodipine 10 MG TAB PO SCH (07:39)
[2018-07-20] MEDS: Meloxicam 15 MG TAB PO SCH (07:39)
[2018-07-20] MEDS: Citalopram 20 MG TAB PO SCH (07:39)
[2018-07-20] MEDS: Clopidogrel Bisulfate 75 MG TAB PO SCH (07:39)
[2018-07-20] MEDS: Loratadine 10 MG TAB PO SCH (07:39)
[2018-07-20] MEDS: Gabapentin 100 MG CAP PO SCH ×3 (07:40→20:05)
[2018-07-20] MEDS: Potassium Chloride 10 MEQ TAB PO SCH (07:40)
[2018-07-20] MEDS: Tamsulosin HCl 0.4 MG CAP PO SCH (07:40)
--- NOTE | 2018-07-20 10:05 | PDOC.FM ---
- Subjective Subjective: NAEO. Reports feeling well, no complaints per pt or nurse. - Objective MAR Reviewed: Yes Vital Signs & Weight: Vital Signs (12 hours) Temp Pulse Resp BP Pulse Ox 07/20/18 08:00 98.5 F 79 20 129/76 100 07/20/18 07:39 82 Weight Admit Weight 320.69 kg Weight 295.289 kg Most Recent Monitor Data Heart Rate from ECG 83 NIBP 168/84 NIBP BP-Mean 112 Respiration from ECG 17 SpO2 94 I&O: 07/19/18 07/20/18 07/21/18 06:59 06:59 06:59 Intake Total 1640 1720 360 Output Total 3550 4300 1400 Balance -7211 -9286 -4383 Result Diagrams: 07/15/18 06:30 07/15/18 06:30 Phys Exam - Physical Examination Constitutional: NAD obese body habitus HEENT: PERRLA, moist MMs trach in place no respiratory distress, even rise & fall of chest, distant breath sounds likely 2/2 body habitus Cardiovascular: RRR, no significant murmur Gastrointestinal: soft, non-tender Neurological: non-focal, moves all 4 limbs Psychiatric: normal affect, A&O x 3 Dx/Plan (1) Tracheostomy care Code(s): Z43.0 - ENCOUNTER FOR ATTENTION TO TRACHEOSTOMY Status: Chronic (2) Pneumonia Code(s): J18.9 - PNEUMONIA, UNSPECIFIED ORGANISM Status: Acute Qualifiers: Pneumonia type: due to unspecified organism Laterality: right Lung location: middle lobe of lung Qualified Code(s): J18.1 - Lobar pneumonia, unspecified organism (3) Chronic respiratory failure with hypoxia and hypercapnia Code(s): J96.11 - CHRONIC RESPIRATORY FAILURE WITH HYPOXIA; J96.12 - CHRONIC RESPIRATORY FAILURE WITH HYPERCAPNIA Status: Chronic (4) GERD (gastroesophageal reflux disease) Code(s): K21.9 - GASTRO-ESOPHAGEAL REFLUX DISEASE WITHOUT ESOPHAGITIS Status: Chronic (5) HTN (hypertension) Code(s): I10 - ESSENTIAL (PRIMARY) HYPERTENSION Status: Chronic Qualifiers: Hypertension type: essential hypertension Qualified Code(s): I10 - Essential (primary) hypertension (6) Morbid obesity Code(s): E66.01 - MORBID (SEVERE) OBESITY DUE TO EXCESS CALORIES Status: Chronic (7) Obesity hypoventilation syndrome Code(s): E66.2 - MORBID (SEVERE) OBESITY WITH ALVEOLAR HYPOVENTILATION Status : Chronic (8) Pickwickian syndrome Code(s): E66.2 - MORBID (SEVERE) OBESITY WITH ALVEOLAR HYPOVENTILATION Status : Chronic - Plan Plan: 07/20 - no changes to course - checked weight 07/17 665lbs - failed referrals to [facility], now trying [facility], so far highest weight limit was 571lbs - 1500 marsha diet, patient is on board with trying to lose weight while here #Social Discord - stable for d/c since 07/02 - unable to obtain proper placement, appreciate ZUHAIR sebastian - called insurance provider and initiated prior auth reference number: [id number] - was informed this can take 5-15 days to process, 07/08 - was caring for patient at home but now dealing with epilepsy and unable to care for patient at home thus needs placement # Diarrhea 07/10 - 3-4 stools per day - c diff neg 07/11 # Acute on chronic hypoxic Respiratory failure 2/2 Right Middle Lobe Pneumonia and Chronic Pickwickian- resolved - O2 as needed, continuos pulse ox - Due to trach initially covered for pseudomonas with Cefepime and Levaquin, s/ p 7 days of levaquin 07/01-07/07 - Procal negative - Blood cultures Coag negative staph 1/2 - Likely contaminant # HTN - increased amlodipine to 10mg 07/08 # Tracheitis- resolved -follows with Dr. Singh outpatient #Nausea/Vomiting - Zofran PRN # HFpEF - Echo on 04/06/18: EF 50-55%, mod dilated left atrium, no MR, mild TR and [place] - HH diet, fluid restriction, daily wts - Continue lasix # Morbid obesity - Would benefit from termite control technician placement into complex care facility however every facility has denied him - CM spoke with APS - consulted relations mgr for assistance with weight loss # Delusions - Continue home meds # GERD - Continue home meds Disposition: Stable, patient was denied at all available facilities. Addendum - Attending - Attending Attestation Date/Time: 07/20/18 2564 I personally evaluated the patient and discussed the management with Dr. Callahan. I agree with the History, Examination, Assessment and Plan documented above with any addition or exceptions noted below. The patient is doing well this morning. He denies complaints.
[2018-07-20] MEDS: Aripiprazole 2 MG TAB PO SCH (20:05)
[2018-07-20] MEDS: Atorvastatin Calcium 10 MG TAB PO SCH (20:05)
--- NOTE | 2018-07-21 06:46 | PDOC.FM ---
- Subjective Subjective: NAEO. Reports feeling well, no complaints per pt or nurse. Denies NVD, fever, chest pain, abdominal pain. - Objective Vital Signs & Weight: Vital Signs (12 hours) Temp Pulse Resp BP Pulse Ox 07/20/18 20:00 99 07/20/18 19:44 98.2 F 82 20 128/81 99 07/20/18 19:36 98.2 F 20 L 82 H 128/81 99 Weight Admit Weight 320.69 kg Weight 290.016 kg Most Recent Monitor Data Heart Rate from ECG 83 NIBP 168/84 NIBP BP-Mean 112 Respiration from ECG 17 SpO2 94 I&O: 07/19/18 07/20/18 07/21/18 06:59 06:59 06:59 Intake Total 1640 1720 1560 Output Total 3550 4300 4200 Balance -5326 -5993 -5659 Result Diagrams: 07/15/18 06:30 07/15/18 06:30 Phys Exam - Physical Examination Constitutional: NAD HEENT: PERRLA, moist MMs, sclera anicteric Neck: full ROM difficult to ascultate due to body habitus difficult to ascultate due to body habitus Gastrointestinal: soft Neurological: moves all 4 limbs Psychiatric: normal affect, A&O x 3 Skin: no rash, normal turgor, cap refill <2 seconds Dx/Plan (1) Tracheostomy care Code(s): Z43.0 - ENCOUNTER FOR ATTENTION TO TRACHEOSTOMY Status: Chronic (2) Pneumonia Code(s): J18.9 - PNEUMONIA, UNSPECIFIED ORGANISM Status: Acute Qualifiers: Pneumonia type: due to unspecified organism Laterality: right Lung location: middle lobe of lung Qualified Code(s): J18.1 - Lobar pneumonia, unspecified organism (3) CHF (congestive heart failure) Code(s): I50.9 - HEART FAILURE, UNSPECIFIED Status: Chronic (4) GERD (gastroesophageal reflux disease) Code(s): K21.9 - GASTRO-ESOPHAGEAL REFLUX DISEASE WITHOUT ESOPHAGITIS Status: Chronic (5) HTN (hypertension) Code(s): I10 - ESSENTIAL (PRIMARY) HYPERTENSION Status: Chronic Qualifiers: Hypertension type: essential hypertension Qualified Code(s): I10 - Essential (primary) hypertension (6) Morbid obesity Code(s): E66.01 - MORBID (SEVERE) OBESITY DUE TO EXCESS CALORIES Status: Chronic (7) Pickwickian syndrome Code(s): E66.2 - MORBID (SEVERE) OBESITY WITH ALVEOLAR HYPOVENTILATION Status : Chronic - Plan Plan: 07/21 - no changes to course - checked weight 07/17 665lbs - failed referrals to [facility], now trying [facility], so far highest weight limit was 571lbs - 1500 marsha diet, patient is on board with trying to lose weight while here Social Discord - stable for d/c since 07/02 - unable to obtain proper placement, appreciate ZUHAIR sebastian - called insurance provider and initiated prior auth reference number: [id number] - was informed this can take 5-15 days to process, 07/08 - was caring for patient at home but now dealing with epilepsy and unable to care for patient at home thus needs placement Diarrhea 07/10, resolved - 3-4 stools per day - c diff neg 07/11 Acute on chronic hypoxic Respiratory failure 2/ Right Middle Lobe Pneumonia and Chronic Pickwickian- resolved - O2 as needed, continuos pulse ox - Due to trach initially covered for pseudomonas with Cefepime and Levaquin, s/ p 7 days of levaquin 07/01-07/07 - Procal negative - Blood cultures Coag negative staph 04/16 - Likely contaminant HTN - increased amlodipine to 10mg 07/08 Tracheitis- resolved -follows with Dr. Singh outpatient Nausea/Vomiting, resolved - Zofran PRN HFpEF, present on admision - Echo on 04/06/18: EF 50-55%, mod dilated left atrium, no MR, mild TR and AR - HH diet, fluid restriction, daily wts - Continue lasix Morbid obesity - Would benefit from care home placement into complex care facility however every facility has denied him - CM spoke with APS - consulted associate school psychologist for assistance with weight loss Delusions - Continue home meds GERD - Continue home meds Disposition: Stable, patient was denied at all available facilities. Still continuing to work on placement. Addendum - Attending - Attending Attestation Date/Time: 07/21/18 5918 I personally evaluated the patient and discussed the management with Dr. Lizarraga. I agree with the History, Examination, Assessment and Plan documented above with any addition or exceptions noted below. The patient is using his resistance bands to exercise when we came in. He is doing well and is still waiting on placement.
[2018-07-21] MEDS: Enoxaparin Sodium 60 MG/0.6 ML SYRINGE SC SCH (07:52)
[2018-07-21] MEDS: Polyethylene Glycol 3350 17 GM Packet PO SCH (07:52)
[2018-07-21] MEDS: Citalopram 20 MG TAB PO SCH (07:53)
[2018-07-21] MEDS: Amlodipine 10 MG TAB PO SCH (07:53)
[2018-07-21] MEDS: Meloxicam 15 MG TAB PO SCH (07:53)
[2018-07-21] MEDS: Potassium Chloride 10 MEQ TAB PO SCH (07:53)
[2018-07-21] MEDS: Topiramate 25 MG TAB PO SCH ×2 (07:54→20:19)
[2018-07-21] MEDS: Clopidogrel Bisulfate 75 MG TAB PO SCH (07:54)
[2018-07-21] MEDS: Tamsulosin HCl 0.4 MG CAP PO SCH (07:54)
[2018-07-21] MEDS: Furosemide 40 MG TAB PO SCH ×2 (07:54→14:09)
[2018-07-21] MEDS: Loratadine 10 MG TAB PO SCH (07:54)
[2018-07-21] MEDS: Gabapentin 100 MG CAP PO SCH ×3 (07:54→20:19)
--- NOTE | 2018-07-21 08:43 | PRG ---
DATE OF SERVICE: 07/18/2018 TRANSITION OF CARE NOTE Please see Dr. Chaidez's transition of care note from 07/04, for summary prior to 07/04. SUBJECTIVE: In some, this is a 53-year-old morbidly obese male, who came in with a right lower lobe pneumonia, which was treated. He has had a tracheostomy for many years and has been at his baseline O2 requirement. He has been stable for discharge since 07/02. On 07/03/2018, his , who is his sole caregiver had multiple seizures. Ultimately and in some, she would not be able to take care of the patient at home and is his sole caregiver. The patient does not have correct insurance coverage to get him into a facility and so this is quite a dilemma. APS, hospital administration, and case management have all been working to find a place for him. Currently, [facility] and [facility] have denied. He seems not looking good. Last I heard we were looking into [facility] and [facility]. The maximum weight limit for any facility that has been found so far is 570. The patient's weight yesterday was 645 pounds. No real changes have been made to the patient's clinical course since the resolution of his pneumonia. We have him on a 1500 calorie diet. He is on board with trying to lose weight while here. PT has been working with him. He has been using some exercise bands. A prior authorization request was put into his insurance to help with long-term care that does really seem to have worked out. Case Management has been working extremely diligently to find a place for him. On a day-to-day basis occasionally, the patient complains of some abdominal pain, this usually resolves pretty quickly with simethicone. He did have a couple of episodes of diarrhea around 07/10. C. diff studies done at that time were negative. Ultimately, we are awaiting placement for this patient, which is made difficult by his insurance, trach status, and morbid obesity. Job ID: [id number] [facility]
[2018-07-21] MEDS: Atorvastatin Calcium 10 MG TAB PO SCH (20:19)
[2018-07-21] MEDS: Aripiprazole 2 MG TAB PO SCH (20:19)
--- NOTE | 2018-07-22 07:04 | PDOC.FM ---
- Subjective Subjective: No complaints or concerns. Patient has been using resistance bands. - Objective Vital Signs & Weight: Vital Signs (12 hours) Temp Pulse Resp BP Pulse Ox 07/22/18 02:30 95 07/21/18 20:00 98.5 F 79 20 131/76 95 Weight Admit Weight 320.69 kg Weight 290.016 kg Most Recent Monitor Data Heart Rate from ECG 83 NIBP 168/84 NIBP BP-Mean 112 Respiration from ECG 17 SpO2 94 I&O: 07/21/18 07/22/18 07/23/18 06:59 06:59 06:59 Intake Total 1560 970 Output Total 4200 3850 Balance -4030 -5890 Result Diagrams: 07/15/18 06:30 07/15/18 06:30 Phys Exam - Physical Examination Constitutional: NAD HEENT: moist MMs, sclera anicteric Neck: full ROM Respiratory: clear to auscultation bilateral difficult to ascultate due to body habitus Cardiovascular: RRR difficult to ascultate due to body habitus Gastrointestinal: soft Neurological: moves all 4 limbs Psychiatric: normal affect, A&O x 3 Skin: no rash, normal turgor, cap refill <2 seconds Dx/Plan (1) Tracheostomy care Code(s): Z43.0 - ENCOUNTER FOR ATTENTION TO TRACHEOSTOMY Status: Chronic (2) Pneumonia Code(s): J18.9 - PNEUMONIA, UNSPECIFIED ORGANISM Status: Acute Qualifiers: Pneumonia type: due to unspecified organism Laterality: right Lung location: middle lobe of lung Qualified Code(s): J18.1 - Lobar pneumonia, unspecified organism (3) CHF (congestive heart failure) Code(s): I50.9 - HEART FAILURE, UNSPECIFIED Status: Chronic (4) GERD (gastroesophageal reflux disease) Code(s): K21.9 - GASTRO-ESOPHAGEAL REFLUX DISEASE WITHOUT ESOPHAGITIS Status: Chronic (5) HTN (hypertension) Code(s): I10 - ESSENTIAL (PRIMARY) HYPERTENSION Status: Chronic Qualifiers: Hypertension type: essential hypertension Qualified Code(s): I10 - Essential (primary) hypertension (6) Morbid obesity Code(s): E66.01 - MORBID (SEVERE) OBESITY DUE TO EXCESS CALORIES Status: Chronic (7) Pickwickian syndrome Code(s): E66.2 - MORBID (SEVERE) OBESITY WITH ALVEOLAR HYPOVENTILATION Status : Chronic - Plan Plan: 07/22 - no changes to course - checked weight 07/17 665lbs - failed referrals to [facility], now trying [facility]/[place], so far highest weight limit was 571lbs - 1500 marsha diet, patient is on board with trying to lose weight while here Social Discord - stable for d/c since 07/02 - unable to obtain proper placement, appreciate ZUHAIR marquezs - called insurance provider and initiated prior auth reference number: [id number] - was informed this can take 5-15 days to process, 07/08 - was caring for patient at home but now dealing with epilepsy and unable to care for patient at home thus needs placement Diarrhea 07/10, resolved - 3-4 stools per day - c diff neg 07/11 Acute on chronic hypoxic Respiratory failure 2/2 Right Middle Lobe Pneumonia and Chronic Pickwickian- resolved - O2 as needed, continuos pulse ox - Due to trach initially covered for pseudomonas with Cefepime and Levaquin, s/ p 7 days of levaquin 07/01-07/07 - Procal negative - Blood cultures Coag negative staph 1/2 - Likely contaminant HTN - increased amlodipine to 10mg 07/08 Tracheitis- resolved -follows with Dr. Singh outpatient Nausea/Vomiting, resolved - Zofran PRN HFpEF, present on admision - Echo on 04/06/18: EF 50-55%, mod dilated left atrium, no MR, mild TR and MT - HH diet, fluid restriction, daily wts - Continue lasix Morbid obesity - Would benefit from care home placement into complex care facility however every facility has denied him - CM spoke with APS - consulted newborn photographer for assistance with weight loss Delusions - Continue home meds GERD - Continue home meds Disposition: Stable, patient was denied at all available facilities. Still continuing to work on placement. Addendum - Attending - Attending Attestation Date/Time: 07/22/18 1339 I personally evaluated the patient and discussed the management with Dr. Lizarraga. I agree with the History, Examination, Assessment and Plan documented above with any addition or exceptions noted below. The patient remains stable. He continues to lose weight. He is continuing to exercise and follow the diet.
[2018-07-22] MEDS: Furosemide 40 MG TAB PO SCH ×2 (08:00→14:00)
[2018-07-22] MEDS: Citalopram 20 MG TAB PO SCH (08:00)
[2018-07-22] MEDS: Amlodipine 10 MG TAB PO SCH (08:00)
[2018-07-22] MEDS: Potassium Chloride 10 MEQ TAB PO SCH (08:00)
[2018-07-22] MEDS: Topiramate 25 MG TAB PO SCH ×2 (08:00→19:34)
[2018-07-22] MEDS: Gabapentin 100 MG CAP PO SCH ×3 (08:00→19:33)
[2018-07-22] MEDS: Clopidogrel Bisulfate 75 MG TAB PO SCH (08:00)
[2018-07-22] MEDS: Loratadine 10 MG TAB PO SCH (08:00)
[2018-07-22] MEDS: Tamsulosin HCl 0.4 MG CAP PO SCH (08:00)
[2018-07-22] MEDS: Polyethylene Glycol 3350 17 GM Packet PO SCH (08:00)
[2018-07-22] MEDS: Meloxicam 15 MG TAB PO SCH (08:01)
[2018-07-22] MEDS: Multivit, Chewable SF 1 TAB PO SCH (08:27)
[2018-07-22] MEDS: Enoxaparin Sodium 60 MG/0.6 ML SYRINGE SC SCH (08:29)
[2018-07-22] MEDS: Atorvastatin Calcium 10 MG TAB PO SCH (19:33)
[2018-07-22] MEDS: Aripiprazole 2 MG TAB PO SCH (19:33)
--- NOTE | 2018-07-23 06:33 | PDOC.FM ---
- Subjective Subjective: NAEO. Patient resting in bed. Patient states he has been using his resistance bands. Feels positive about losing weight and continuing this regimen. No complaints or concerns. - Objective Vital Signs & Weight: Vital Signs (12 hours) Temp Pulse Resp BP Pulse Ox 07/22/18 22:19 92 L 07/22/18 20:00 98.9 F 83 20 134/80 92 L Weight Admit Weight 320.69 kg Weight 275.512 kg Most Recent Monitor Data Heart Rate from ECG 83 NIBP 168/84 NIBP BP-Mean 112 Respiration from ECG 17 SpO2 94 I&O: 07/21/18 07/22/18 07/23/18 06:59 06:59 06:59 Intake Total 1560 1210 720 Output Total 4200 4200 1120 Balance -2640 -2990 -400 Result Diagrams: 07/23/18 06:50 07/23/18 06:50 Phys Exam - Physical Examination Constitutional: NAD HEENT: PERRLA, moist MMs, sclera anicteric Neck: supple, full ROM Respiratory: clear to auscultation bilateral Cardiovascular: RRR, no significant murmur, no rub Gastrointestinal: soft, non-tender, no distention, positive bowel sounds Musculoskeletal: no edema Neurological: moves all 4 limbs Psychiatric: normal affect, A&O x 3 Skin: no rash, normal turgor, cap refill <2 seconds Dx/Plan (1) Tracheostomy care Code(s): Z43.0 - ENCOUNTER FOR ATTENTION TO TRACHEOSTOMY Status: Chronic (2) Pneumonia Code(s): J18.9 - PNEUMONIA, UNSPECIFIED ORGANISM Status: Acute Qualifiers: Pneumonia type: due to unspecified organism Laterality: right Lung location: middle lobe of lung Qualified Code(s): J18.1 - Lobar pneumonia, unspecified organism (3) CHF (congestive heart failure) Code(s): I50.9 - HEART FAILURE, UNSPECIFIED Status: Chronic (4) GERD (gastroesophageal reflux disease) Code(s): K21.9 - GASTRO-ESOPHAGEAL REFLUX DISEASE WITHOUT ESOPHAGITIS Status: Chronic (5) HTN (hypertension) Code(s): I10 - ESSENTIAL (PRIMARY) HYPERTENSION Status: Chronic Qualifiers: Hypertension type: essential hypertension Qualified Code(s): I10 - Essential (primary) hypertension (6) Morbid obesity Code(s): E66.01 - MORBID (SEVERE) OBESITY DUE TO EXCESS CALORIES Status: Chronic (7) Pickwickian syndrome Code(s): E66.2 - MORBID (SEVERE) OBESITY WITH ALVEOLAR HYPOVENTILATION Status : Chronic - Plan Plan: 07/23 - no changes to course - checked weight 07/22 605lbs - failed referrals to [facility], now trying [place], so far highest weight limit was 571lbs - 1500 marsha diet, patient is on board with trying to lose weight while here Social Discord - stable for d/c since 07/02 - unable to obtain proper placement, appreciate ZUHAIR sebastian - called insurance provider and initiated prior auth reference number: [id number] - was informed this can take 5-15 days to process, 07/08 - was caring for patient at home but now dealing with epilepsy and unable to care for patient at home thus needs placement Diarrhea 07/10, resolved - 3-4 stools per day - c diff neg 07/11 Acute on chronic hypoxic Respiratory failure 2/2 Right Middle Lobe Pneumonia and Chronic Pickwickian- resolved - O2 as needed, continuos pulse ox - Due to trach initially covered for pseudomonas with Cefepime and Levaquin, s/ p 7 days of levaquin 07/01-07/07 - Procal negative - Blood cultures Coag negative staph /2 - Likely contaminant HTN - increased amlodipine to 10mg 07/08 Tracheitis- resolved -follows with Dr. Singh outpatient Nausea/Vomiting, resolved - Zofran PRN HFpEF, present on admision - Echo on 04/06/18: EF 50-55%, mod dilated left atrium, no MR, mild TR and MN - HH diet, fluid restriction, daily wts - Continue lasix Morbid obesity - Would benefit from skill labor placement into complex care facility however every facility has denied him - CM spoke with APS - consulted territory development manager for assistance with weight loss Delusions - Continue home meds GERD - Continue home meds Disposition: Stable, patient was denied at all available facilities. Still continuing to work on placement. Addendum - Attending - Attending Attestation Date/Time: 07/23/18 0667 I personally evaluated the patient and discussed the management with Dr. Lizarraga I agree with the History, Examination, Assessment and Plan documented above with any addition or exceptions noted below. Note significant weight loss as inpatient. Dietary consulted for recommendation . If patient becam independantly ambulatory he could be considered for Bariatric surgery. REC continued PT and look into rehab at Nursing center
[2018-07-23 07:02] LABS: Hemoglobin 11.1 g/dL (14.0-18.0); Mean Corpuscular Hemoglobin 29.7 pg (27.0-31.0); Mean Corpuscular Volume 98.9 fL (78.0-98.0); Mean Platelet Volume 8.5 fL (7.4-10.4); Platelet Count 122 thou/uL (130-400); RBC Distribution Width 12.1 % (11.5-14.5); Red Blood Cell (RBC) Count 3.74 mill/uL (4.70-6.10); White Blood Cell (WBC) Count 4.7 thou/uL (4.8-10.8)
[2018-07-23 07:12] LABS: Anion Gap 14 mmol/L (10-20); BUN (Urea Nitrogen) 15 mg/dL (8.4-25.7); Calc. Creatinine Clearance 357 mL/min (70-130); Calcium 9.2 mg/dL (7.8-10.44); Carbon Dioxide 31 mmol/L (22-29); Chloride 98 mmol/L (98-107); Estimated GFR-MDRD Greater than 90; Glucose 82 mg/dL (70-105); Potassium 3.9 mmol/L (3.5-5.1); Sodium 139 mmol/L (136-145)
[2018-07-23] MEDS: Enoxaparin Sodium 60 MG/0.6 ML SYRINGE SC SCH (07:45)
[2018-07-23] MEDS: Polyethylene Glycol 3350 17 GM Packet PO SCH (07:45)
[2018-07-23] MEDS: Citalopram 20 MG TAB PO SCH (07:46)
[2018-07-23] MEDS: Multivit, Chewable SF 1 TAB PO SCH (07:46)
[2018-07-23] MEDS: Meloxicam 15 MG TAB PO SCH (07:46)
[2018-07-23] MEDS: Furosemide 40 MG TAB PO SCH ×2 (07:47→14:25)
[2018-07-23] MEDS: Topiramate 25 MG TAB PO SCH ×2 (07:47→19:35)
[2018-07-23] MEDS: Tamsulosin HCl 0.4 MG CAP PO SCH (07:47)
[2018-07-23] MEDS: Amlodipine 10 MG TAB PO SCH (07:47)
[2018-07-23] MEDS: Loratadine 10 MG TAB PO SCH (07:47)
[2018-07-23] MEDS: Clopidogrel Bisulfate 75 MG TAB PO SCH (07:47)
[2018-07-23] MEDS: Potassium Chloride 10 MEQ TAB PO SCH (07:48)
[2018-07-23] MEDS: Gabapentin 100 MG CAP PO SCH ×3 (07:48→19:34)
[2018-07-23 07:52] LABS: #Basophils 0.1 thou/uL (0.0-0.2); #Eosinphils 0.5 thou/uL (0.0-0.7); #Lymphocytes 1.9 thou/uL (1.20-3.40); #Monocytes 0.4 thou/uL (0.11-0.59); #Neutrophils 1.8 thou/uL (1.40-6.50); %Eosinophils 11.3 % (0.0-10.0); %Lymphocytes 40.1 % (21.0-51.0); %Monocytes 8.9 % (0.0-10.0); %Neutrophils 37.8 % (42.0-75.0); Band 1 % (5-11); Eosinophils 8 % (0-10); Lymphocytes 46 % (21-51); MDiff Complete? YES; Monocytes 6 % (0-10); Neutrophil 36 % (42-75); RBC Morphology Normal; Reactive Lymphocytes 2 % (0-10)
[2018-07-23] MEDS: Aripiprazole 2 MG TAB PO SCH (19:34)
[2018-07-23] MEDS: Atorvastatin Calcium 10 MG TAB PO SCH (19:34)
--- NOTE | 2018-07-24 06:56 | PDOC.FM ---
- Subjective Subjective: NAEO. Patient remains motivated and positive. He continues to work with resistance bands and do exercises. He has not been able to get up with PT just yet, but is working towards that. Patient did have concern about the calories he was taking. He did receive the wrong ensure, but this has been corrected. The chemic mangler was able to come by and explain the plan to the patient. No other complaints or concerns. - Objective Vital Signs & Weight: Vital Signs (12 hours) Temp Pulse Resp BP Pulse Ox 07/23/18 20:57 93 L 07/23/18 20:00 98.3 F 80 20 119/70 93 L Weight Admit Weight 320.69 kg Weight 274 kg Most Recent Monitor Data Heart Rate from ECG 83 NIBP 168/84 NIBP BP-Mean 112 Respiration from ECG 17 SpO2 94 I&O: 07/22/18 07/23/18 07/24/18 06:59 06:59 06:59 Intake Total 1210 1170 1320 Output Total 4200 1970 4600 Balance -7409 -362 -1988 Result Diagrams: 07/23/18 06:50 07/23/18 06:50 Phys Exam - Physical Examination Constitutional: NAD HEENT: PERRLA, moist MMs, sclera anicteric Neck: supple, full ROM Respiratory: clear to auscultation bilateral difficult due to body habitus Cardiovascular: RRR difficult to ascultate due to body habitus Gastrointestinal: soft Neurological: moves all 4 limbs Psychiatric: normal affect, A&O x 3 Skin: no rash, normal turgor, cap refill <2 seconds Dx/Plan (1) Tracheostomy care Code(s): Z43.0 - ENCOUNTER FOR ATTENTION TO TRACHEOSTOMY Status: Chronic (2) Pneumonia Code(s): J18.9 - PNEUMONIA, UNSPECIFIED ORGANISM Status: Acute Qualifiers: Pneumonia type: due to unspecified organism Laterality: right Lung location: middle lobe of lung Qualified Code(s): J18.1 - Lobar pneumonia, unspecified organism (3) CHF (congestive heart failure) Code(s): I50.9 - HEART FAILURE, UNSPECIFIED Status: Chronic (4) GERD (gastroesophageal reflux disease) Code(s): K21.9 - GASTRO-ESOPHAGEAL REFLUX DISEASE WITHOUT ESOPHAGITIS Status: Chronic (5) HTN (hypertension) Code(s): I10 - ESSENTIAL (PRIMARY) HYPERTENSION Status: Chronic Qualifiers: Hypertension type: essential hypertension Qualified Code(s): I10 - Essential (primary) hypertension (6) Morbid obesity Code(s): E66.01 - MORBID (SEVERE) OBESITY DUE TO EXCESS CALORIES Status: Chronic (7) Pickwickian syndrome Code(s): E66.2 - MORBID (SEVERE) OBESITY WITH ALVEOLAR HYPOVENTILATION Status : Chronic - Plan Plan: 07/24 - no changes to course - checked weight 07/22 605lbs - failed referrals to [facility], now trying [place], so far highest weight limit was 571lbs - 1500 marsha diet, patient is on board with trying to lose weight while here Social Discord - stable for d/c since 07/02 - unable to obtain proper placement, appreciate ZUHAIR sebastian - called insurance provider and initiated prior auth reference number: [id number] - was informed this can take 5-15 days to process, 07/08 - was caring for patient at home but now dealing with epilepsy and unable to care for patient at home thus needs placement Diarrhea 07/10, resolved - 3-4 stools per day - c diff neg 07/11 Acute on chronic hypoxic Respiratory failure 2/2 Right Middle Lobe Pneumonia and Chronic Pickwickian- resolved - O2 as needed, continuos pulse ox - Due to trach initially covered for pseudomonas with Cefepime and Levaquin, s/ p 7 days of levaquin 07/01-07/07 - Procal negative - Blood cultures Coag negative staph 04/16 - Likely contaminant HTN - increased amlodipine to 10mg 07/08 Tracheitis- resolved -follows with Dr. Singh outpatient Nausea/Vomiting, resolved - Zofran PRN HFpEF, present on admision - Echo on 04/06/18: EF 50-55%, mod dilated left atrium, no MR, mild TR and MN - HH diet, fluid restriction, daily wts - Continue lasix Morbid obesity - Would benefit from long term care social worker placement into complex care facility however every facility has denied him - CM spoke with APS - consulted radiology specialist for assistance with weight loss Delusions - Continue home meds GERD - Continue home meds Disposition: Stable, patient was denied at all available facilities. Still continuing to work on placement. Addendum - Attending - Attending Attestation Date/Time: 07/24/18 1395 I personally evaluated the patient and discussed the management with Dr. Lizarraga I agree with the History, Examination, Assessment and Plan documented above with any addition or exceptions noted below. Patient approaching NH weight criteria less 600 lbs he is motivated to continue PT weight loss has been successful in controlled Hospital environment.
[2018-07-24] MEDS: Enoxaparin Sodium 60 MG/0.6 ML SYRINGE SC SCH (08:31)
[2018-07-24] MEDS: Topiramate 25 MG TAB PO SCH ×2 (08:32→20:10)
[2018-07-24] MEDS: Clopidogrel Bisulfate 75 MG TAB PO SCH (08:32)
[2018-07-24] MEDS: Potassium Chloride 10 MEQ TAB PO SCH (08:32)
[2018-07-24] MEDS: Furosemide 40 MG TAB PO SCH ×2 (08:32→14:15)
[2018-07-24] MEDS: Amlodipine 10 MG TAB PO SCH (08:32)
[2018-07-24] MEDS: Loratadine 10 MG TAB PO SCH (08:32)
[2018-07-24] MEDS: Tamsulosin HCl 0.4 MG CAP PO SCH (08:32)
[2018-07-24] MEDS: Gabapentin 100 MG CAP PO SCH ×3 (08:32→20:09)
[2018-07-24] MEDS: Polyethylene Glycol 3350 17 GM Packet PO SCH (08:32)
[2018-07-24] MEDS: Multivit, Chewable SF 1 TAB PO SCH (08:32)
[2018-07-24] MEDS: Citalopram 20 MG TAB PO SCH (08:32)
[2018-07-24] MEDS: Meloxicam 15 MG TAB PO SCH (08:32)
[2018-07-24] MEDS: Atorvastatin Calcium 10 MG TAB PO SCH (20:09)
[2018-07-24] MEDS: Aripiprazole 2 MG TAB PO SCH (20:10)
--- NOTE | 2018-07-25 06:39 | PDOC.FM ---
- Subjective Subjective: NAEO. Patient continues to work with PT and does exercises daily. Patient is still motivated to lose weight. Patient continuing w/ 1500calorie and high protein shakes. He is concerned with weight gain over the last few days. - Objective MAR Reviewed: Yes Vital Signs & Weight: Vital Signs (12 hours) Temp Pulse Resp BP Pulse Ox 07/25/18 04:51 98.3 F 76 18 135/78 93 L 07/24/18 20:00 98 07/24/18 19:14 98.6 F 79 18 119/77 98 Weight Admit Weight 320.69 kg Weight 294.5 kg Most Recent Monitor Data Heart Rate from ECG 83 NIBP 168/84 NIBP BP-Mean 112 Respiration from ECG 17 SpO2 94 I&O: 07/23/18 07/24/18 07/25/18 06:59 06:59 06:59 Intake Total 1170 1320 1998 Output Total 1969 6512 9750 Balance -800 -3280 -651 Result Diagrams: 07/23/18 06:50 07/23/18 06:50 Phys Exam - Physical Examination Constitutional: NAD HEENT: PERRLA, moist MMs, sclera anicteric Neck: full ROM Respiratory: clear to auscultation bilateral difficult to auscultate due to body habitus Cardiovascular: RRR, no significant murmur, no rub difficult to auscultate due to body habitus Gastrointestinal: positive bowel sounds Musculoskeletal: pulses present Neurological: moves all 4 limbs Psychiatric: normal affect, A&O x 3 Skin: no rash, normal turgor, cap refill <2 seconds Dx/Plan (1) Tracheostomy care Code(s): Z43.0 - ENCOUNTER FOR ATTENTION TO TRACHEOSTOMY Status: Chronic (2) Pneumonia Code(s): J18.9 - PNEUMONIA, UNSPECIFIED ORGANISM Status: Acute Qualifiers: Pneumonia type: due to unspecified organism Laterality: right Lung location: middle lobe of lung Qualified Code(s): J18.1 - Lobar pneumonia, unspecified organism (3) CHF (congestive heart failure) Code(s): I50.9 - HEART FAILURE, UNSPECIFIED Status: Chronic (4) GERD (gastroesophageal reflux disease) Code(s): K21.9 - GASTRO-ESOPHAGEAL REFLUX DISEASE WITHOUT ESOPHAGITIS Status: Chronic (5) HTN (hypertension) Code(s): I10 - ESSENTIAL (PRIMARY) HYPERTENSION Status: Chronic Qualifiers: Hypertension type: essential hypertension Qualified Code(s): I10 - Essential (primary) hypertension (6) Morbid obesity Code(s): E66.01 - MORBID (SEVERE) OBESITY DUE TO EXCESS CALORIES Status: Chronic (7) Pickwickian syndrome Code(s): E66.2 - MORBID (SEVERE) OBESITY WITH ALVEOLAR HYPOVENTILATION Status : Chronic - Plan Plan: 07/25 - no changes to course - checked weight 07/22 605lbs, 07/25 649 lbs - failed referrals to [place], now trying [facility]/[place], so far highest weight limit was 571lbs - 1500 marsha diet, w/ high protein shakes, patient is on board with trying to lose weight while here; will stay in contact with lean manufacturing leader to monitor Social Discord - stable for d/c since 07/02 - unable to obtain proper placement, appreciate ZUHAIR sebastian - called insurance provider and initiated prior auth reference number: [id number] - was informed this can take 5-15 days to process, 07/08 - was caring for patient at home but now dealing with epilepsy and unable to care for patient at home thus needs placement Diarrhea 07/10, resolved - 3-4 stools per day - c diff neg 07/11 - immodium Acute on chronic hypoxic Respiratory failure 2/2 Right Middle Lobe Pneumonia and Chronic Pickwickian- resolved - O2 as needed, continuos pulse ox - Due to trach initially covered for pseudomonas with Cefepime and Levaquin, s/ p 7 days of levaquin 07/01-07/07 - Procal negative - Blood cultures Coag negative staph 1/2 - Likely contaminant HTN - increased amlodipine to 10mg 07/08 Tracheitis- resolved -follows with Dr. Singh outpatient Nausea/Vomiting, resolved - Zofran PRN HFpEF, present on admision - Echo on 04/06/18: EF 50-55%, mod dilated left atrium, no MR, mild TR and KS - HH diet, fluid restriction, daily wts - Continue lasix Morbid obesity - Would benefit from assisted placement into complex care facility however every facility has denied him - CM spoke with APS - consulted heating operators engineer for assistance with weight loss Delusions - Continue home meds GERD - Continue home meds Disposition: Stable, patient was denied at all available facilities. Still continuing to work on placement.
[2018-07-25] MEDS: Loratadine 10 MG TAB PO SCH (08:08)
[2018-07-25] MEDS: Potassium Chloride 10 MEQ TAB PO SCH (08:08)
[2018-07-25] MEDS: Furosemide 40 MG TAB PO SCH ×2 (08:08→14:56)
[2018-07-25] MEDS: Tamsulosin HCl 0.4 MG CAP PO SCH (08:08)
[2018-07-25] MEDS: Meloxicam 15 MG TAB PO SCH (08:08)
[2018-07-25] MEDS: Multivit, Chewable SF 1 TAB PO SCH (08:08)
[2018-07-25] MEDS: Clopidogrel Bisulfate 75 MG TAB PO SCH (08:09)
[2018-07-25] MEDS: Citalopram 20 MG TAB PO SCH (08:09)
[2018-07-25] MEDS: Amlodipine 10 MG TAB PO SCH (08:09)
[2018-07-25] MEDS: Topiramate 25 MG TAB PO SCH ×2 (08:09→20:10)
[2018-07-25] MEDS: Gabapentin 100 MG CAP PO SCH ×3 (08:09→20:10)
[2018-07-25] MEDS: Enoxaparin Sodium 60 MG/0.6 ML SYRINGE SC SCH (08:10)
[2018-07-25] MEDS: Polyethylene Glycol 3350 17 GM Packet PO SCH (08:15)
[2018-07-25] MEDS ORDERED: Saccharomyces boulardii 250 MG CAP PO SCH (09:15)
[2018-07-25] MEDS: Aripiprazole 2 MG TAB PO SCH (20:10)
[2018-07-25] MEDS: Atorvastatin Calcium 10 MG TAB PO SCH (20:10)
[2018-07-25] MEDS: Acetaminophen 325 MG TAB PO PRN (20:11)
--- NOTE | 2018-07-26 06:52 | PDOC.FM ---
- Subjective Subjective: NAEO. Patient is continuing to stick to his diet and exercise regimen. He is working with PT daily. COntinues to lose weight. Patient continues to be very motivated. - Objective MAR Reviewed: Yes Vital Signs & Weight: Vital Signs (12 hours) Temp Pulse Resp BP Pulse Ox 07/25/18 20:55 94 L 07/25/18 20:00 98.5 F 79 18 146/86 H 91 L Weight Admit Weight 320.69 kg Weight 262.63 kg Most Recent Monitor Data Heart Rate from ECG 83 NIBP 168/84 NIBP BP-Mean 112 Respiration from ECG 17 SpO2 94 I&O: 07/24/18 07/25/18 07/26/18 06:59 06:59 06:59 Intake Total 1320 1999 450 Output Total 4600 9880 675 Balance -3280 -651 -225 Result Diagrams: 07/23/18 06:50 07/23/18 06:50 Phys Exam - Physical Examination Constitutional: NAD HEENT: PERRLA, moist MMs, sclera anicteric Neck: supple, full ROM Respiratory: no wheezing, no rales, no rhonchi, clear to auscultation bilateral Cardiovascular: RRR Gastrointestinal: soft, non-tender, no distention, positive bowel sounds Neurological: moves all 4 limbs Psychiatric: normal affect, A&O x 3 Skin: no rash, normal turgor, cap refill <2 seconds Dx/Plan (1) Tracheostomy care Code(s): Z43.0 - ENCOUNTER FOR ATTENTION TO TRACHEOSTOMY Status: Chronic (2) Pneumonia Code(s): J18.9 - PNEUMONIA, UNSPECIFIED ORGANISM Status: Acute Qualifiers: Pneumonia type: due to unspecified organism Laterality: right Lung location: middle lobe of lung Qualified Code(s): J18.1 - Lobar pneumonia, unspecified organism (3) CHF (congestive heart failure) Code(s): I50.9 - HEART FAILURE, UNSPECIFIED Status: Chronic (4) GERD (gastroesophageal reflux disease) Code(s): K21.9 - GASTRO-ESOPHAGEAL REFLUX DISEASE WITHOUT ESOPHAGITIS Status: Chronic (5) HTN (hypertension) Code(s): I10 - ESSENTIAL (PRIMARY) HYPERTENSION Status: Chronic Qualifiers: Hypertension type: essential hypertension Qualified Code(s): I10 - Essential (primary) hypertension (6) Morbid obesity Code(s): E66.01 - MORBID (SEVERE) OBESITY DUE TO EXCESS CALORIES Status: Chronic (7) Pickwickian syndrome Code(s): E66.2 - MORBID (SEVERE) OBESITY WITH ALVEOLAR HYPOVENTILATION Status : Chronic - Plan Plan: 07/26 - no changes to course - checked weight 07/22 605lbs, 07/25 575 lbs - failed referrals to [facility]/[place], now trying [facility], so far highest weight limit was 571lbs - 1500 marsha diet, w/ high protein shakes, patient is on board with trying to lose weight while here; will stay in contact with supervisor payroll to monitor Social Discord - stable for d/c since 07/02 - unable to obtain proper placement, appreciate ZUHAIR sebastian - called insurance provider and initiated prior auth reference number: [id number] - was informed this can take 5-15 days to process, 07/08 - was caring for patient at home but now dealing with epilepsy and unable to care for patient at home thus needs placement Diarrhea 07/10, resolved - 3-4 stools per day - c diff neg 07/11 - immodium Acute on chronic hypoxic Respiratory failure 2/2 Right Middle Lobe Pneumonia and Chronic Pickwickian- resolved - O2 as needed, continuos pulse ox - Due to trach initially covered for pseudomonas with Cefepime and Levaquin, s/ p 7 days of levaquin 07/01-07/07 - Procal negative - Blood cultures Coag negative staph / - Likely contaminant HTN - increased amlodipine to 10mg 07/08 Tracheitis- resolved -follows with Dr. Singh outpatient Nausea/Vomiting, resolved - Zofran PRN HFpEF, present on admision - Echo on 04/06/18: EF 50-55%, mod dilated left atrium, no MR, mild TR and MT - HH diet, fluid restriction, daily wts - Continue lasix Morbid obesity - Would benefit from jail placement into complex care facility however every facility has denied him - CM spoke with APS - consulted scale mechanic for assistance with weight loss Delusions - Continue home meds GERD - Continue home meds Disposition: Stable, patient was denied at all available facilities. Still continuing to work on placement. Addendum - Attending - Attending Attestation Date/Time: 07/26/18 1008 I personally evaluated the patient and discussed the management with Dr. Lizarraga I agree with the History, Examination, Assessment and Plan documented above with any addition or exceptions noted below. Awaiting placement. Continue caloric restriction, exercise and weight loss.
[2018-07-26] MEDS: Amlodipine 10 MG TAB PO SCH (08:25)
[2018-07-26] MEDS: Saccharomyces boulardii 250 MG CAP PO SCH (08:25)
[2018-07-26] MEDS: Topiramate 25 MG TAB PO SCH ×2 (08:25→19:55)
[2018-07-26] MEDS: Potassium Chloride 10 MEQ TAB PO SCH (08:26)
[2018-07-26] MEDS: Tamsulosin HCl 0.4 MG CAP PO SCH (08:26)
[2018-07-26] MEDS: Citalopram 20 MG TAB PO SCH (08:26)
[2018-07-26] MEDS: Clopidogrel Bisulfate 75 MG TAB PO SCH (08:27)
[2018-07-26] MEDS: Gabapentin 100 MG CAP PO SCH ×3 (08:27→19:56)
[2018-07-26] MEDS: Loratadine 10 MG TAB PO SCH (08:27)
[2018-07-26] MEDS: Enoxaparin Sodium 60 MG/0.6 ML SYRINGE SC SCH (08:27)
[2018-07-26] MEDS: Furosemide 40 MG TAB PO SCH ×2 (08:27→14:48)
[2018-07-26] MEDS: Polyethylene Glycol 3350 17 GM Packet PO SCH (08:28)
[2018-07-26] MEDS: Meloxicam 15 MG TAB PO SCH (08:30)
[2018-07-26] MEDS: Multivit, Chewable SF 1 TAB PO SCH (08:30)
[2018-07-26] MEDS: Atorvastatin Calcium 10 MG TAB PO SCH (19:55)
[2018-07-26] MEDS: Aripiprazole 2 MG TAB PO SCH (19:56)
[2018-07-26] MEDS: Acetaminophen 325 MG TAB PO PRN (19:56)
--- NOTE | 2018-07-27 06:27 | PDOC.FM ---
- Subjective Subjective: NAEO. Patient resting in bed. States he feels well, has no concerns or issues. Continues to work with PT on different exercises. Has not yet sat up on the side of the bed or walked. - Objective MAR Reviewed: Yes Vital Signs & Weight: Vital Signs (12 hours) Temp Pulse Resp BP Pulse Ox 07/26/18 20:00 98.8 F 79 18 152/74 H 92 L Weight Admit Weight 320.69 kg Weight 263.991 kg Most Recent Monitor Data Heart Rate from ECG 83 NIBP 168/84 NIBP BP-Mean 112 Respiration from ECG 17 SpO2 94 I&O: 07/25/18 07/26/18 07/27/18 06:59 06:59 06:59 Intake Total 6305 072 1198 Output Total [phone] [facility]253 -847 -4097 Result Diagrams: 07/23/18 06:50 07/23/18 06:50 Phys Exam - Physical Examination Constitutional: NAD HEENT: PERRLA, moist MMs, sclera anicteric Neck: full ROM Respiratory: clear to auscultation bilateral Cardiovascular: RRR Gastrointestinal: soft, non-tender, positive bowel sounds Neurological: moves all 4 limbs Psychiatric: normal affect, A&O x 3 Skin: no rash, normal turgor, cap refill <2 seconds Dx/Plan (1) Tracheostomy care Code(s): Z43.0 - ENCOUNTER FOR ATTENTION TO TRACHEOSTOMY Status: Chronic (2) Pneumonia Code(s): J18.9 - PNEUMONIA, UNSPECIFIED ORGANISM Status: Acute Qualifiers: Pneumonia type: due to unspecified organism Laterality: right Lung location: middle lobe of lung Qualified Code(s): J18.1 - Lobar pneumonia, unspecified organism (3) CHF (congestive heart failure) Code(s): I50.9 - HEART FAILURE, UNSPECIFIED Status: Chronic (4) GERD (gastroesophageal reflux disease) Code(s): K21.9 - GASTRO-ESOPHAGEAL REFLUX DISEASE WITHOUT ESOPHAGITIS Status: Chronic (5) HTN (hypertension) Code(s): I10 - ESSENTIAL (PRIMARY) HYPERTENSION Status: Chronic Qualifiers: Hypertension type: essential hypertension Qualified Code(s): I10 - Essential (primary) hypertension (6) Morbid obesity Code(s): E66.01 - MORBID (SEVERE) OBESITY DUE TO EXCESS CALORIES Status: Chronic (7) Pickwickian syndrome Code(s): E66.2 - MORBID (SEVERE) OBESITY WITH ALVEOLAR HYPOVENTILATION Status : Chronic - Plan Plan: 07/27 - no changes to course - checked weight 07/22 605lbs, 07/25 575 lbs - failed referrals to [place], now trying [place], so far highest weight limit was 571lbs - 1500 marsha diet, w/ high protein shakes, patient is on board with trying to lose weight while here; will stay in contact with 3rd pressman to monitor Social Discord - stable for d/c since 07/02 - unable to obtain proper placement, appreciate ZUHAIR sebastian - called insurance provider and initiated prior auth reference number: [id number] - was informed this can take 5-15 days to process, 07/08 - was caring for patient at home but now dealing with epilepsy and unable to care for patient at home thus needs placement Diarrhea 07/10, resolved - 3-4 stools per day - c diff neg 07/11 - immodium, probiotics, and fiber added Acute on chronic hypoxic Respiratory failure 2/2 Right Middle Lobe Pneumonia and Chronic Pickwickian- resolved - O2 as needed, continuos pulse ox - Due to trach initially covered for pseudomonas with Cefepime and Levaquin, s/ p 7 days of levaquin 07/01-07/07 - Procal negative - Blood cultures Coag negative staph 1/2 - Likely contaminant HTN - increased amlodipine to 10mg 07/08 Tracheitis- resolved -follows with Dr. Singh outpatient Nausea/Vomiting, resolved - Zofran PRN HFpEF, present on admision - Echo on 04/06/18: EF 50-55%, mod dilated left atrium, no MR, mild TR and OH - HH diet, fluid restriction, daily wts - Continue lasix Morbid obesity - Would benefit from correction placement into complex care facility however every facility has denied him - CM spoke with APS - consulted sr. vendor management associate for assistance with weight loss Delusions - Continue home meds GERD - Continue home meds Disposition: Stable, patient was denied at all available facilities. Still continuing to work on placement. Now that patient's weight is < 600, facilities may be willing to accept. CM following. Addendum - Attending - Attending Attestation Date/Time: 07/27/18 6965 I personally evaluated the patient and discussed the management with Dr. Lizarraga I agree with the History, Examination, Assessment and Plan documented above with any addition or exceptions noted below. Stable for d/c once placement obtained.
[2018-07-27] MEDS: Loratadine 10 MG TAB PO SCH (08:12)
[2018-07-27] MEDS: Gabapentin 100 MG CAP PO SCH ×3 (08:12→19:55)
[2018-07-27] MEDS: Topiramate 25 MG TAB PO SCH ×2 (08:12→19:55)
[2018-07-27] MEDS: Saccharomyces boulardii 250 MG CAP PO SCH (08:13)
[2018-07-27] MEDS: Tamsulosin HCl 0.4 MG CAP PO SCH (08:13)
[2018-07-27] MEDS: Meloxicam 15 MG TAB PO SCH (08:13)
[2018-07-27] MEDS: Clopidogrel Bisulfate 75 MG TAB PO SCH (08:13)
[2018-07-27] MEDS: Multivit, Chewable SF 1 TAB PO SCH (08:13)
[2018-07-27] MEDS: Furosemide 40 MG TAB PO SCH ×2 (08:14→14:37)
[2018-07-27] MEDS: Citalopram 20 MG TAB PO SCH (08:14)
[2018-07-27] MEDS: Potassium Chloride 10 MEQ TAB PO SCH (08:15)
[2018-07-27] MEDS: Amlodipine 10 MG TAB PO SCH (08:15)
[2018-07-27] MEDS: Enoxaparin Sodium 60 MG/0.6 ML SYRINGE SC SCH (08:15)
[2018-07-27] MEDS: Polyethylene Glycol 3350 17 GM Packet PO SCH (08:16)
[2018-07-27] MEDS ORDERED: Simethicone Chewable 80 MG TAB PO PRN (08:42)
[2018-07-27] MEDS ORDERED: Calcium Polycarbophil 625 MG TAB PO SCH (09:00)
[2018-07-27] MEDS: Acetaminophen 325 MG TAB PO PRN (19:55)
[2018-07-27] MEDS: Atorvastatin Calcium 10 MG TAB PO SCH (19:55)
[2018-07-27] MEDS: Aripiprazole 2 MG TAB PO SCH (19:55)
--- NOTE | 2018-07-28 06:48 | PDOC.FM ---
- Subjective Subjective: NAEO. Patient resting in bed on exam. States he slept well overnight. No issues or complaints. Patient states he has been continuing to do his daily exercises and is doing well on his diet. - Objective MAR Reviewed: Yes Vital Signs & Weight: Vital Signs (12 hours) Temp Pulse Resp BP Pulse Ox 07/28/18 06:00 96 07/27/18 19:32 98.3 F 82 20 96/55 L 91 L Weight Admit Weight 320.69 kg Weight 263.991 kg Most Recent Monitor Data Heart Rate from ECG 83 NIBP 168/84 NIBP BP-Mean 112 Respiration from ECG 17 SpO2 94 I&O: 07/26/18 07/27/18 07/28/18 06:59 06:59 06:59 Intake Total 450 1800 1800 Output Total 675 3175 1950 Balance -225 -1375 -150 Result Diagrams: 07/23/18 06:50 07/23/18 06:50 Phys Exam - Physical Examination Constitutional: NAD HEENT: PERRLA, moist MMs, sclera anicteric Neck: supple, full ROM Respiratory: clear to auscultation bilateral Cardiovascular: RRR, no significant murmur, no rub Gastrointestinal: soft, non-tender, positive bowel sounds Neurological: moves all 4 limbs Psychiatric: normal affect, A&O x 3 Skin: no rash, normal turgor, cap refill <2 seconds Dx/Plan (1) Tracheostomy care Code(s): Z43.0 - ENCOUNTER FOR ATTENTION TO TRACHEOSTOMY Status: Chronic (2) Pneumonia Code(s): J18.9 - PNEUMONIA, UNSPECIFIED ORGANISM Status: Acute Qualifiers: Pneumonia type: due to unspecified organism Laterality: right Lung location: middle lobe of lung Qualified Code(s): J18.1 - Lobar pneumonia, unspecified organism (3) CHF (congestive heart failure) Code(s): I50.9 - HEART FAILURE, UNSPECIFIED Status: Chronic (4) GERD (gastroesophageal reflux disease) Code(s): K21.9 - GASTRO-ESOPHAGEAL REFLUX DISEASE WITHOUT ESOPHAGITIS Status: Chronic (5) HTN (hypertension) Code(s): I10 - ESSENTIAL (PRIMARY) HYPERTENSION Status: Chronic Qualifiers: Hypertension type: essential hypertension Qualified Code(s): I10 - Essential (primary) hypertension (6) Morbid obesity Code(s): E66.01 - MORBID (SEVERE) OBESITY DUE TO EXCESS CALORIES Status: Chronic (7) Pickwickian syndrome Code(s): E66.2 - MORBID (SEVERE) OBESITY WITH ALVEOLAR HYPOVENTILATION Status : Chronic - Plan Plan: 07/28 - no changes to course - checked weight 07/22 605lbs, 07/25 575 lbs - failed referrals to [place], now trying [place], so far highest weight limit was 571lbs - 1500 marsha diet, w/ high protein shakes, patient is on board with trying to lose weight while here; will stay in contact with [employer] certified network professional to monitor Social Discord - stable for d/c since 07/02 - unable to obtain proper placement, appreciate ZUHAIR sebastian - called insurance provider and initiated prior auth reference number: [id number] - was informed this can take 5-15 days to process, 07/08 - was caring for patient at home but now dealing with epilepsy and unable to care for patient at home thus needs placement Diarrhea 07/10, resolved - 3-4 stools per day - C diff neg 07/11 - Immodium, probiotics, and fiber added Acute on chronic hypoxic Respiratory failure 2/2 Right Middle Lobe Pneumonia and Chronic Pickwickian- resolved - O2 as needed, continuos pulse ox - Due to trach initially covered for pseudomonas with Cefepime and Levaquin, s/ p 7 days of levaquin 07/01-07/07 - Procal negative - Blood cultures Coag negative staph 04/16 - Likely contaminant HTN - increased amlodipine to 10mg 07/08 Tracheitis- resolved - follows with Dr. Singh outpatient Nausea/Vomiting, resolved - Zofran PRN HFpEF, present on admision - Echo on 04/06/18: EF 50-55%, mod dilated left atrium, no MR, mild TR and [place] - HH diet, fluid restriction, daily wts - Continue lasix Morbid obesity - Would benefit from group home placement into complex care facility however every facility has denied him - CM spoke with APS - consulted jig worker for assistance with weight loss Delusions - Continue home meds GERD - Continue home meds Disposition: Stable, patient was denied at all available facilities. Still continuing to work on placement. Now that patient's weight is < 600, facilities may be willing to accept. CM following. Addendum - Attending - Attending Attestation Date/Time: 07/28/18 1724 I personally evaluated the patient and discussed the management with Dr. Lizarraga. I agree with the History, Examination, Assessment and Plan documented above with any addition or exceptions noted below. Awaiting placement. Stable for d/c
[2018-07-28] MEDS: Gabapentin 100 MG CAP PO SCH ×3 (08:05→20:26)
[2018-07-28] MEDS: Loratadine 10 MG TAB PO SCH (08:06)
[2018-07-28] MEDS: Tamsulosin HCl 0.4 MG CAP PO SCH (08:06)
[2018-07-28] MEDS: Citrucel 500 MG TAB PO SCH (08:06)
[2018-07-28] MEDS: Potassium Chloride 10 MEQ TAB PO SCH (08:06)
[2018-07-28] MEDS: Furosemide 40 MG TAB PO SCH ×2 (08:06→14:47)
[2018-07-28] MEDS: Clopidogrel Bisulfate 75 MG TAB PO SCH (08:06)
[2018-07-28] MEDS: Citalopram 20 MG TAB PO SCH (08:06)
[2018-07-28] MEDS: Topiramate 25 MG TAB PO SCH ×2 (08:06→20:26)
[2018-07-28] MEDS: Saccharomyces boulardii 250 MG CAP PO SCH (08:07)
[2018-07-28] MEDS: Enoxaparin Sodium 40 MG/0.4 ML SYRINGE SC SCH (08:07)
[2018-07-28] MEDS: Meloxicam 15 MG TAB PO SCH (08:07)
[2018-07-28] MEDS: Amlodipine 10 MG TAB PO SCH (08:07)
[2018-07-28] MEDS: Polyethylene Glycol 3350 17 GM Packet PO SCH (08:08)
[2018-07-28] MEDS: Multivit, Chewable SF 1 TAB PO SCH (08:14)
[2018-07-28] MEDS: Atorvastatin Calcium 10 MG TAB PO SCH (20:26)
[2018-07-28] MEDS: Aripiprazole 2 MG TAB PO SCH (20:26)
--- NOTE | 2018-07-29 07:01 | PDOC.FM ---
- Subjective Subjective: NAEO. Patient resting in bed on exam this morning. - Objective MAR Reviewed: Yes Vital Signs & Weight: Vital Signs (12 hours) Temp Pulse Resp BP Pulse Ox 07/29/18 06:41 97 07/28/18 20:20 98.5 F 81 18 125/73 97 07/28/18 20:00 97 Weight Admit Weight 320.69 kg Weight 263.991 kg Most Recent Monitor Data Heart Rate from ECG 83 NIBP 168/84 NIBP BP-Mean 112 Respiration from ECG 17 SpO2 94 I&O: 07/27/18 07/28/18 07/29/18 06:59 06:59 06:59 Intake Total 1800 1800 2594 Output Total 3175 9912 5460 Balance -1394 -561 -8001 Result Diagrams: 07/29/18 08:40 07/29/18 08:40 Phys Exam - Physical Examination Constitutional: NAD HEENT: PERRLA, moist MMs, sclera anicteric Neck: supple, full ROM Respiratory: clear to auscultation bilateral Cardiovascular: RRR Gastrointestinal: soft Neurological: non-focal, moves all 4 limbs Psychiatric: normal affect, A&O x 3 Skin: no rash, normal turgor, cap refill <2 seconds Dx/Plan (1) Tracheostomy care Code(s): Z43.0 - ENCOUNTER FOR ATTENTION TO TRACHEOSTOMY Status: Chronic (2) Pneumonia Code(s): J18.9 - PNEUMONIA, UNSPECIFIED ORGANISM Status: Acute Qualifiers: Pneumonia type: due to unspecified organism Laterality: right Lung location: middle lobe of lung Qualified Code(s): J18.1 - Lobar pneumonia, unspecified organism (3) CHF (congestive heart failure) Code(s): I50.9 - HEART FAILURE, UNSPECIFIED Status: Chronic (4) GERD (gastroesophageal reflux disease) Code(s): K21.9 - GASTRO-ESOPHAGEAL REFLUX DISEASE WITHOUT ESOPHAGITIS Status: Chronic (5) HTN (hypertension) Code(s): I10 - ESSENTIAL (PRIMARY) HYPERTENSION Status: Chronic Qualifiers: Hypertension type: essential hypertension Qualified Code(s): I10 - Essential (primary) hypertension (6) Morbid obesity Code(s): E66.01 - MORBID (SEVERE) OBESITY DUE TO EXCESS CALORIES Status: Chronic (7) Pickwickian syndrome Code(s): E66.2 - MORBID (SEVERE) OBESITY WITH ALVEOLAR HYPOVENTILATION Status : Chronic - Plan Plan: 07/29 - no changes to course - checked weight 07/22 605lbs, 07/25 575 lbs - failed referrals to [place], now trying [place], so far highest weight limit was 571lbs - 1500 marsha diet, w/ high protein shakes, patient is on board with trying to lose weight while here; will stay in contact with quality assistant to monitor Social Discord - stable for d/c since 07/02 - unable to obtain proper placement, appreciate ZUHAIR sebastian - called insurance provider and initiated prior auth reference number: [id number] - was informed this can take 5-15 days to process, 07/08 - was caring for patient at home but now dealing with epilepsy and unable to care for patient at home thus needs placement Diarrhea 07/10, resolved - 3-4 stools per day - C diff neg 07/11 - Immodium, probiotics, and fiber added Acute on chronic hypoxic Respiratory failure 2/2 Right Middle Lobe Pneumonia and Chronic Pickwickian- resolved - O2 as needed, continuos pulse ox - Due to trach initially covered for pseudomonas with Cefepime and Levaquin, s/ p 7 days of levaquin 07/01-07/07 - Procal negative - Blood cultures Coag negative staph 1/2 - Likely contaminant HTN - increased amlodipine to 10mg 07/08 Tracheitis- resolved - follows with Dr. Singh outpatient Nausea/Vomiting, resolved - Zofran PRN HFpEF, present on admision - Echo on 04/06/18: EF 50-55%, mod dilated left atrium, no MR, mild TR and ID - HH diet, fluid restriction, daily wts - Continue lasix Morbid obesity - Would benefit from aix system administrator placement into complex care facility however every facility has denied him - CM spoke with APS - consulted drill hand for assistance with weight loss Delusions - Continue home meds GERD - Continue home meds Disposition: Stable, patient was denied at all available facilities. Still continuing to work on placement. Now that patient's weight is < 600, facilities may be willing to accept. CM following - states patient may be accepted to a facility by tomorrow. Addendum - Attending - Attending Attestation Date/Time: 07/29/18 2312 I personally evaluated the patient and discussed the management with Dr. Allison I agree with the History, Examination, Assessment and Plan documented above with any addition or exceptions noted below. Actively pursuing discharge options.
[2018-07-29] MEDS: Tamsulosin HCl 0.4 MG CAP PO SCH (08:39)
[2018-07-29] MEDS: Multivit, Chewable SF 1 TAB PO SCH (08:39)
[2018-07-29] MEDS: Gabapentin 100 MG CAP PO SCH ×3 (08:39→20:44)
[2018-07-29] MEDS: Loratadine 10 MG TAB PO SCH (08:39)
[2018-07-29] MEDS: Saccharomyces boulardii 250 MG CAP PO SCH (08:39)
[2018-07-29] MEDS: Amlodipine 10 MG TAB PO SCH (08:39)
[2018-07-29] MEDS: Citrucel 500 MG TAB PO SCH (08:39)
[2018-07-29] MEDS: Citalopram 20 MG TAB PO SCH (08:39)
[2018-07-29] MEDS: Potassium Chloride 10 MEQ TAB PO SCH (08:40)
[2018-07-29] MEDS: Clopidogrel Bisulfate 75 MG TAB PO SCH (08:40)
[2018-07-29] MEDS: Meloxicam 15 MG TAB PO SCH (08:40)
[2018-07-29] MEDS: Topiramate 25 MG TAB PO SCH ×2 (08:40→20:44)
[2018-07-29] MEDS: Polyethylene Glycol 3350 17 GM Packet PO SCH (08:40)
[2018-07-29] MEDS: Furosemide 40 MG TAB PO SCH ×2 (08:40→14:40)
[2018-07-29] MEDS: Enoxaparin Sodium 40 MG/0.4 ML SYRINGE SC SCH (08:40)
[2018-07-29 09:05] LABS: ALT (SGPT) 18 U/L (8-55); AST (SGOT) 21 U/L (5-34); Albumin 3.6 g/dL (3.5-5.0); Alkaline Phosphatase 70 U/L (40-150); Anion Gap 11 mmol/L (10-20); BUN (Urea Nitrogen) 19 mg/dL (8.4-25.7); Bilirubin, Total 0.6 mg/dL (0.2-1.2); Calc. Creatinine Clearance 408 mL/min (70-130); Calcium 8.9 mg/dL (7.8-10.44); Carbon Dioxide 30 mmol/L (22-29); Chloride 101 mmol/L (98-107); Estimated GFR-MDRD Greater than 90; Globulin 4.1 g/dL (2.4-3.5); Glucose 85 mg/dL (70-105); Potassium 4.2 mmol/L (3.5-5.1); Protein, Total 7.7 g/dL (6.0-8.3); Sodium 138 mmol/L (136-145)
[2018-07-29 09:15] LABS: #Eosinphils 0.6 thou/uL (0.0-0.7); #Monocytes 0.5 thou/uL (0.11-0.59); #Neutrophils 2.4 thou/uL (1.40-6.50); %Basophils 0.4 % (0.0-1.0); %Eosinophils 10.2 % (0.0-10.0); %Lymphocytes 36.8 % (21.0-51.0); %Neutrophils 43.6 % (42.0-75.0); Band 1 % (5-11); Eosinophils 13 % (0-10); Hemoglobin 11.7 g/dL (14.0-18.0); Lymphocytes 37 % (21-51); MDiff Complete? YES; Mean Corpuscular HGB CONC 29.9 g/dL (32.0-36.0); Mean Corpuscular Hemoglobin 28.7 pg (27.0-31.0); Mean Platelet Volume 9.3 fL (7.4-10.4); Monocytes 8 % (0-10); Neutrophil 37 % (42-75); Platelet Count 108 thou/uL (130-400); Platelet Morphology Comment Appears Decreased; Polychromasia SLIGHT = 2-3 cells (100X) (0-2/hpf); RBC Distribution Width 12.3 % (11.5-14.5); Reactive Lymphocytes 1 % (0-10); Red Blood Cell (RBC) Count 4.08 mill/uL (4.70-6.10); White Blood Cell (WBC) Count 5.4 thou/uL (4.8-10.8)
[2018-07-29] MEDS: Aripiprazole 2 MG TAB PO SCH (20:43)
[2018-07-29] MEDS: Atorvastatin Calcium 10 MG TAB PO SCH (20:43)
--- NOTE | 2018-07-30 06:32 | PDOC.FM ---
- Subjective Subjective: NAEO. Patient resting in bed on exam. Patient reports 4-5 episodes of diarrhea yesterday. Patient will stop protein shakes and will double protein on trays. - Objective MAR Reviewed: Yes Vital Signs & Weight: Vital Signs (12 hours) Temp Pulse Resp BP Pulse Ox 07/29/18 20:00 98.6 F 80 18 108/64 95 Weight Admit Weight 320.69 kg Weight 269.661 kg Most Recent Monitor Data Heart Rate from ECG 83 NIBP 168/84 NIBP BP-Mean 112 Respiration from ECG 17 SpO2 94 I&O: 07/28/18 07/29/18 07/30/18 06:59 06:59 06:59 Intake Total 1800 2594 1280 Output Total 1950 4760 2650 Balance -150 -3421 -4379 Result Diagrams: 07/29/18 08:40 07/29/18 08:40 Phys Exam - Physical Examination Constitutional: NAD HEENT: PERRLA, moist MMs, sclera anicteric Neck: supple, full ROM Respiratory: clear to auscultation bilateral Cardiovascular: RRR Gastrointestinal: soft, positive bowel sounds Neurological: non-focal, moves all 4 limbs Psychiatric: normal affect, A&O x 3 Skin: no rash, normal turgor, cap refill <2 seconds Dx/Plan (1) Tracheostomy care Code(s): Z43.0 - ENCOUNTER FOR ATTENTION TO TRACHEOSTOMY Status: Chronic (2) Pneumonia Code(s): J18.9 - PNEUMONIA, UNSPECIFIED ORGANISM Status: Acute Qualifiers: Pneumonia type: due to unspecified organism Laterality: right Lung location: middle lobe of lung Qualified Code(s): J18.1 - Lobar pneumonia, unspecified organism (3) CHF (congestive heart failure) Code(s): I50.9 - HEART FAILURE, UNSPECIFIED Status: Chronic (4) GERD (gastroesophageal reflux disease) Code(s): K21.9 - GASTRO-ESOPHAGEAL REFLUX DISEASE WITHOUT ESOPHAGITIS Status: Chronic (5) HTN (hypertension) Code(s): I10 - ESSENTIAL (PRIMARY) HYPERTENSION Status: Chronic Qualifiers: Hypertension type: essential hypertension Qualified Code(s): I10 - Essential (primary) hypertension (6) Morbid obesity Code(s): E66.01 - MORBID (SEVERE) OBESITY DUE TO EXCESS CALORIES Status: Chronic (7) Pickwickian syndrome Code(s): E66.2 - MORBID (SEVERE) OBESITY WITH ALVEOLAR HYPOVENTILATION Status : Chronic - Plan Plan: 07/30 - no changes to course - checked weight 07/22 605lbs, 07/25 575 lbs. 07/29 594lb - failed referrals to [place], now trying [place], so far highest weight limit was 571lbs - 1500 marsha diet, w/ high protein shakes, patient is on board with trying to lose weight while here; will stay in contact with clean in places operator to monitor Social Discord - stable for d/c since 07/02 - unable to obtain proper placement, appreciate ZUHAIR sebastian - called insurance provider and initiated prior auth reference number: [id number] - was informed this can take 5-15 days to process, 07/08 - was caring for patient at home but now dealing with epilepsy and unable to care for patient at home thus needs placement Diarrhea 07/10, resolved - 3-4 stools per day - C diff neg 07/11 - Immodium, probiotics, and fiber added. Patient switched from protein shakes, to more protein on tray to see if this relieves any diarrhea. Acute on chronic hypoxic Respiratory failure 2/2 Right Middle Lobe Pneumonia and Chronic Pickwickian- resolved - O2 as needed, continuos pulse ox - Due to trach initially covered for pseudomonas with Cefepime and Levaquin, s/ p 7 days of levaquin 07/01-07/07 - Procal negative - Blood cultures Coag negative staph 1/2 - Likely contaminant HTN - increased amlodipine to 10mg 07/08 Tracheitis- resolved - follows with Dr. Singh outpatient Nausea/Vomiting, resolved - Zofran PRN HFpEF, present on admision - Echo on 04/06/18: EF 50-55%, mod dilated left atrium, no MR, mild TR and [place] - HH diet, fluid restriction, daily wts - Continue lasix Morbid obesity - Would benefit from long-term placement into complex care facility however every facility has denied him - CM spoke with APS - consulted cmm programmer for assistance with weight loss Delusions - Continue home meds GERD - Continue home meds Disposition: Stable, patient was denied at all available facilities. Still continuing to work on placement. Now that patient's weight is < 600, facilities may be willing to accept. CM following - states patient will be reweighed Saturday with possibility of being placed then. Facility wants to make sure patient is < 600 lbs. Addendum - Attending - Attending Attestation Date/Time: 07/30/181820 I personally evaluated the patient and discussed the management with Dr. Lizarraga I agree with the History, Examination, Assessment and Plan documented above with any addition or exceptions noted below. Stable for discharge once placement established.
[2018-07-30] MEDS: Citalopram 20 MG TAB PO SCH (08:16)
[2018-07-30] MEDS: Tamsulosin HCl 0.4 MG CAP PO SCH (08:16)
[2018-07-30] MEDS: Saccharomyces boulardii 250 MG CAP PO SCH (08:16)
[2018-07-30] MEDS: Amlodipine 10 MG TAB PO SCH (08:17)
[2018-07-30] MEDS: Citrucel 500 MG TAB PO SCH (08:17)
[2018-07-30] MEDS: Meloxicam 15 MG TAB PO SCH (08:17)
[2018-07-30] MEDS: Furosemide 40 MG TAB PO SCH ×2 (08:17→14:28)
[2018-07-30] MEDS: Clopidogrel Bisulfate 75 MG TAB PO SCH (08:17)
[2018-07-30] MEDS: Multivit, Chewable SF 1 TAB PO SCH (08:17)
[2018-07-30] MEDS: Topiramate 25 MG TAB PO SCH ×2 (08:17→20:42)
[2018-07-30] MEDS: Loratadine 10 MG TAB PO SCH (08:17)
[2018-07-30] MEDS: Potassium Chloride 10 MEQ TAB PO SCH (08:17)
[2018-07-30] MEDS: Gabapentin 100 MG CAP PO SCH ×3 (08:17→20:42)
[2018-07-30] MEDS: Enoxaparin Sodium 40 MG/0.4 ML SYRINGE SC SCH (08:18)
[2018-07-30] MEDS: Polyethylene Glycol 3350 17 GM Packet PO SCH (08:18)
[2018-07-30] MEDS: Aripiprazole 2 MG TAB PO SCH (20:42)
[2018-07-30] MEDS: Atorvastatin Calcium 10 MG TAB PO SCH (20:42)
--- NOTE | 2018-07-31 06:38 | PDOC.FM ---
- Subjective Subjective: NAEO. Patient resting in bed. Continues to work with PT everyday. Patient states that he still had a few episodes of diarrhea yesterday despite no shakes. Patient remains positive about losing weight, exercising and diet. - Objective Vital Signs & Weight: Vital Signs (12 hours) Temp Pulse Resp BP Pulse Ox 07/30/18 20:00 98.5 F 74 20 109/63 98 Weight Admit Weight 320.69 kg Weight 269.661 kg Most Recent Monitor Data Heart Rate from ECG 83 NIBP 168/84 NIBP BP-Mean 112 Respiration from ECG 17 SpO2 94 I&O: 07/29/18 07/30/18 07/31/18 06:59 06:59 06:59 Intake Total 2594 1280 1600 Output Total 4760 2650 2250 Balance -2166 -1370 -650 Result Diagrams: 07/29/18 08:40 07/29/18 08:40 Phys Exam - Physical Examination Constitutional: NAD HEENT: PERRLA, moist MMs, sclera anicteric Neck: supple, full ROM Respiratory: clear to auscultation bilateral Cardiovascular: RRR Gastrointestinal: soft, positive bowel sounds Neurological: non-focal, moves all 4 limbs Psychiatric: normal affect, A&O x 3 Skin: no rash, normal turgor, cap refill <2 seconds Dx/Plan (1) Tracheostomy care Code(s): Z43.0 - ENCOUNTER FOR ATTENTION TO TRACHEOSTOMY Status: Chronic (2) Pneumonia Code(s): J18.9 - PNEUMONIA, UNSPECIFIED ORGANISM Status: Acute Qualifiers: Pneumonia type: due to unspecified organism Laterality: right Lung location: middle lobe of lung Qualified Code(s): J18.1 - Lobar pneumonia, unspecified organism (3) CHF (congestive heart failure) Code(s): I50.9 - HEART FAILURE, UNSPECIFIED Status: Chronic (4) GERD (gastroesophageal reflux disease) Code(s): K21.9 - GASTRO-ESOPHAGEAL REFLUX DISEASE WITHOUT ESOPHAGITIS Status: Chronic (5) HTN (hypertension) Code(s): I10 - ESSENTIAL (PRIMARY) HYPERTENSION Status: Chronic Qualifiers: Hypertension type: essential hypertension Qualified Code(s): I10 - Essential (primary) hypertension (6) Morbid obesity Code(s): E66.01 - MORBID (SEVERE) OBESITY DUE TO EXCESS CALORIES Status: Chronic (7) Pickwickian syndrome Code(s): E66.2 - MORBID (SEVERE) OBESITY WITH ALVEOLAR HYPOVENTILATION Status : Chronic - Plan Plan: 07/31 - no changes to course - checked weight 07/22 605lbs, 07/25 575 lbs. 07/29 594lb - failed referrals to [place], now trying [place], so far highest weight limit was 571lbs - 1500 marsha diet, w/ high protein shakes, patient is on board with trying to lose weight while here; will stay in contact with long term acute care registered nurse to monitor Social Discord - stable for d/c since 07/02 - unable to obtain proper placement, appreciate ZUHAIR sebastian - called insurance provider and initiated prior auth reference number: [id number] - was informed this can take 5-15 days to process, 07/08 - was caring for patient at home but now dealing with epilepsy and unable to care for patient at home thus needs placement Diarrhea 07/10, resolved - 3-4 stools per day - C diff neg 07/11 - Immodium, probiotics, and fiber added. Patient switched from protein shakes, to more protein on tray to see if this relieves any diarrhea. Acute on chronic hypoxic Respiratory failure 2/2 Right Middle Lobe Pneumonia and Chronic Pickwickian- resolved - O2 as needed, continuos pulse ox - Due to trach initially covered for pseudomonas with Cefepime and Levaquin, s/ p 7 days of levaquin 07/01-07/07 - Procal negative - Blood cultures Coag negative staph 1/2 - Likely contaminant HTN - increased amlodipine to 10mg 07/08 Tracheitis- resolved - follows with Dr. Singh outpatient Nausea/Vomiting, resolved - Zofran PRN HFpEF, present on admision - Echo on 04/06/18: EF 50-55%, mod dilated left atrium, no MR, mild TR and OK - HH diet, fluid restriction, daily wts - Continue lasix Morbid obesity - Would benefit from group home placement into complex care facility however every facility has denied him - CM spoke with APS - consulted manufacturing controls engineer for assistance with weight loss Delusions - Continue home meds GERD - Continue home meds Disposition: Stable. Still continuing to work on official placement. CM following - states patient will be reweighed Saturday with possibility of being placed then. Facility wants to make sure patient is < 600 lbs. Addendum - Attending - Attending Attestation Date/Time: 07/31/18 7249 I personally evaluated the patient and discussed the management with Dr. Lizarraga. I agree with the History, Examination, Assessment and Plan documented above with any addition or exceptions noted below.
[2018-07-31] MEDS: Amlodipine 10 MG TAB PO SCH (09:20)
[2018-07-31] MEDS: Loratadine 10 MG TAB PO SCH (09:20)
[2018-07-31] MEDS: Tamsulosin HCl 0.4 MG CAP PO SCH (09:20)
[2018-07-31] MEDS: Furosemide 40 MG TAB PO SCH ×2 (09:20→15:18)
[2018-07-31] MEDS: Topiramate 25 MG TAB PO SCH ×2 (09:20→20:22)
[2018-07-31] MEDS: Meloxicam 15 MG TAB PO SCH (09:21)
[2018-07-31] MEDS: Citrucel 500 MG TAB PO SCH (09:21)
[2018-07-31] MEDS: Clopidogrel Bisulfate 75 MG TAB PO SCH (09:21)
[2018-07-31] MEDS: Gabapentin 100 MG CAP PO SCH ×3 (09:21→20:22)
[2018-07-31] MEDS: Citalopram 20 MG TAB PO SCH (09:21)
[2018-07-31] MEDS: Potassium Chloride 10 MEQ TAB PO SCH (09:21)
[2018-07-31] MEDS: Enoxaparin Sodium 40 MG/0.4 ML SYRINGE SC SCH (09:21)
[2018-07-31] MEDS: Saccharomyces boulardii 250 MG CAP PO SCH (09:21)
[2018-07-31] MEDS: Multivit, Chewable SF 1 TAB PO SCH (09:21)
[2018-07-31] MEDS: Polyethylene Glycol 3350 17 GM Packet PO SCH (09:22)
[2018-07-31] MEDS: Aripiprazole 2 MG TAB PO SCH (20:22)
[2018-07-31] MEDS: Atorvastatin Calcium 10 MG TAB PO SCH (20:22)
--- NOTE | 2018-08-01 07:10 | PDOC.FM ---
- Subjective Subjective: NAEO. Patient reports doing well this morning. He states he feels well this morning. Diet is going well. Exercises have continued. Patient is excited about the potential to be going to a facility. - Objective MAR Reviewed: Yes Vital Signs & Weight: Vital Signs (12 hours) Temp Pulse Resp BP Pulse Ox 08/01/18 02:35 96 07/31/18 20:58 98.5 F 76 16 119/72 93 L 07/31/18 20:00 93 L Weight Admit Weight 320.69 kg Weight 269.661 kg Most Recent Monitor Data Heart Rate from ECG 83 NIBP 168/84 NIBP BP-Mean 112 Respiration from ECG 17 SpO2 94 I&O: 07/31/18 08/01/18 08/02/18 06:59 06:59 06:59 Intake Total 1600 1440 Output Total 2250 2275 Balance -650 -835 Result Diagrams: 07/29/18 08:40 07/29/18 08:40 Phys Exam - Physical Examination Constitutional: NAD HEENT: PERRLA, moist MMs, sclera anicteric Neck: supple, full ROM Respiratory: clear to auscultation bilateral Cardiovascular: RRR Gastrointestinal: soft, positive bowel sounds Neurological: non-focal, moves all 4 limbs Psychiatric: normal affect, A&O x 3 Skin: no rash, normal turgor, cap refill <2 seconds Dx/Plan (1) Tracheostomy care Code(s): Z43.0 - ENCOUNTER FOR ATTENTION TO TRACHEOSTOMY Status: Chronic (2) Pneumonia Code(s): J18.9 - PNEUMONIA, UNSPECIFIED ORGANISM Status: Acute Qualifiers: Pneumonia type: due to unspecified organism Laterality: right Lung location: middle lobe of lung Qualified Code(s): J18.1 - Lobar pneumonia, unspecified organism (3) CHF (congestive heart failure) Code(s): I50.9 - HEART FAILURE, UNSPECIFIED Status: Chronic (4) GERD (gastroesophageal reflux disease) Code(s): K21.9 - GASTRO-ESOPHAGEAL REFLUX DISEASE WITHOUT ESOPHAGITIS Status: Chronic (5) HTN (hypertension) Code(s): I10 - ESSENTIAL (PRIMARY) HYPERTENSION Status: Chronic Qualifiers: Hypertension type: essential hypertension Qualified Code(s): I10 - Essential (primary) hypertension (6) Morbid obesity Code(s): E66.01 - MORBID (SEVERE) OBESITY DUE TO EXCESS CALORIES Status: Chronic (7) Pickwickian syndrome Code(s): E66.2 - MORBID (SEVERE) OBESITY WITH ALVEOLAR HYPOVENTILATION Status : Chronic - Plan Plan: 08/01 - no changes to course - checked weight 07/22 605lbs, 07/25 575 lbs. 07/29 594lb - plan is to check weight 08/01 with possible acceptance at facility if < 600 - failed referrals to [place]/[facility], now trying [place]/[facility], so far highest weight limit was 571lbs - 1500 marsha diet, w/ high protein shakes, patient is on board with trying to lose weight while here; will stay in contact with cardiac cath tech to monitor Social Discord - stable for d/c since 07/02 - unable to obtain proper placement, appreciate ZUHAIR sebastian - called insurance provider and initiated prior auth reference number: [id number] - was informed this can take 5-15 days to process, 07/08 - was caring for patient at home but now dealing with epilepsy and unable to care for patient at home thus needs placement Diarrhea 07/10, resolved - 3-4 stools per day - C diff neg 07/11 - Immodium, probiotics, and fiber added. Patient switched from protein shakes, to more protein on tray to see if this relieves any diarrhea. Acute on chronic hypoxic Respiratory failure 2/2 Right Middle Lobe Pneumonia and Chronic Pickwickian- resolved - O2 as needed, continuos pulse ox - Due to trach initially covered for pseudomonas with Cefepime and Levaquin, s/ p 7 days of levaquin 07/01-07/07 - Procal negative - Blood cultures Coag negative staph 1/2 - Likely contaminant HTN - increased amlodipine to 10mg 07/08 Tracheitis- resolved - follows with Dr. Singh outpatient Nausea/Vomiting, resolved - Zofran PRN HFpEF, present on admision - Echo on 04/06/18: EF 50-55%, mod dilated left atrium, no MR, mild TR and [place] - HH diet, fluid restriction, daily wts - Continue lasix Morbid obesity - Would benefit from parts counterman placement into complex care facility however every facility has denied him - CM spoke with APS - consulted warp doffer for assistance with weight loss Delusions - Continue home meds GERD - Continue home meds Disposition: Stable. Still continuing to work on official placement. CM following - states patient will be reweighed Saturday with possibility of being placed then. Facility wants to make sure patient is < 600 lbs. Addendum - Attending - Attending Attestation Date/Time: 08/01/18 0156 I personally evaluated the patient and discussed the management with Dr. Lizarraga. I agree with the History, Examination, Assessment and Plan documented above with any addition or exceptions noted below. Continue exercise and diet with goal to get <590 so he can be placed.
[2018-08-01] MEDS: Enoxaparin Sodium 40 MG/0.4 ML SYRINGE SC SCH (08:50)
[2018-08-01] MEDS: Meloxicam 15 MG TAB PO SCH (08:50)
[2018-08-01] MEDS: Gabapentin 100 MG CAP PO SCH ×3 (08:50→20:24)
[2018-08-01] MEDS: Citrucel 500 MG TAB PO SCH (08:50)
[2018-08-01] MEDS: Clopidogrel Bisulfate 75 MG TAB PO SCH (08:51)
[2018-08-01] MEDS: Potassium Chloride 10 MEQ TAB PO SCH (08:51)
[2018-08-01] MEDS: Furosemide 40 MG TAB PO SCH ×2 (08:51→14:55)
[2018-08-01] MEDS: Amlodipine 10 MG TAB PO SCH (08:51)
[2018-08-01] MEDS: Saccharomyces boulardii 250 MG CAP PO SCH (08:51)
[2018-08-01] MEDS: Topiramate 25 MG TAB PO SCH ×2 (08:51→20:24)
[2018-08-01] MEDS: Loratadine 10 MG TAB PO SCH (08:51)
[2018-08-01] MEDS: Citalopram 20 MG TAB PO SCH (08:51)
[2018-08-01] MEDS: Multivit, Chewable SF 1 TAB PO SCH (08:51)
[2018-08-01] MEDS: Tamsulosin HCl 0.4 MG CAP PO SCH (08:52)
[2018-08-01] MEDS: Polyethylene Glycol 3350 17 GM Packet PO SCH (08:52)
--- NOTE | 2018-08-01 15:56 | PDOC.EVN ---
Event Note - Event Note Event Note: TRANSITION OF CARE NOTE This is a 53 yo AA M with a PMH of Pickwickian, chronic respiratory failure, and HFpEF, who initially presented to the ED with SOB and leg edema that started 2 weeks prior. The patient reports the SOB started worsening the prior 2 -3 days and the leg swelling worse over 2 weeks. Patient with trach collar in place and is followed by Dr. Singh outpatient. The patient denied any fever, chills, cough, congestion, sore throat, or rhinorrhea. Endorsed nausea with no vomiting. Reported increased in frothy sputum. Denied diarrhea. Patient reported poor compliance with medications. He reported oversleeping and not taking medications appropriately. CXR in the ED positive for a right middle lobe pneumonia. Patient was given ceftriaxone, morphine, zofran. Patient was admitted for acute on chronic hypoxic respiratory failure 2/2 Right middle lobe PNA. He was started on cefepime and levaqin and continued on levaquin alone from 07/01/18-07/07/18. Blood cultures Coag negative staph 1/2 - Likely contaminant. Patient remained vitally stable throughout his stay thus far. No DVT on US of LE. Patient has complained of diarrhea over the last week, negative C diff. Will continue to monitor. Patient has been clinically stable for discharge since 07/02/18. Patient is morbidly obese and was initially > 700lbs. Patient has been followed closely by dietetics, PT and OT. He has lost > 100 lbs and was most recently weight on 08/01/18 and found to be 599lbs. Case management was consulted for discharge planning. There has been great difficulty in placing this patient in a facility due to his morbid obesity. His family is no longer able to take care of him. There is a facility in [facility] that is willing to accept patient, but he must be <590lbs. We will continue to work towards this goal. He is currently on a 1500kcal restriction, fluid restriction and we are monitoring salt intake.
[2018-08-01] MEDS: Aripiprazole 2 MG TAB PO SCH (20:24)
[2018-08-01] MEDS: Atorvastatin Calcium 10 MG TAB PO SCH (20:24)
--- NOTE | 2018-08-02 05:29 | PDOC.FM ---
- Subjective Subjective: NAEO. Patient has no concerns. No problems breathing. Resting well. - Objective MAR Reviewed: Yes Vital Signs & Weight: Vital Signs (12 hours) Temp Pulse Resp BP Pulse Ox 08/01/18 21:10 98.5 F 69 16 117/69 97 Weight Admit Weight 320.69 kg Weight 271.929 kg Most Recent Monitor Data Heart Rate from ECG 83 NIBP 168/84 NIBP BP-Mean 112 Respiration from ECG 17 SpO2 94 I&O: 07/31/18 08/01/18 08/02/18 06:59 06:59 06:59 Intake Total 1600 1440 720 Output Total 2250 2275 Balance -650 -833 720 Result Diagrams: 07/29/18 08:40 07/29/18 08:40 Phys Exam - Physical Examination Constitutional: NAD HEENT: PERRLA, moist MMs, sclera anicteric trach collar in place Neck: full ROM no respiratory distress Cardiovascular: RRR Neurological: non-focal, moves all 4 limbs Psychiatric: normal affect, A&O x 3 Skin: no rash, normal turgor, cap refill <2 seconds Dx/Plan (1) Tracheostomy care Code(s): Z43.0 - ENCOUNTER FOR ATTENTION TO TRACHEOSTOMY Status: Chronic (2) Pneumonia Code(s): J18.9 - PNEUMONIA, UNSPECIFIED ORGANISM Status: Acute Qualifiers: Pneumonia type: due to unspecified organism Laterality: right Lung location: middle lobe of lung Qualified Code(s): J18.1 - Lobar pneumonia, unspecified organism (3) Chronic respiratory failure with hypoxia and hypercapnia Code(s): J96.11 - CHRONIC RESPIRATORY FAILURE WITH HYPOXIA; J96.12 - CHRONIC RESPIRATORY FAILURE WITH HYPERCAPNIA Status: Chronic (4) GERD (gastroesophageal reflux disease) Code(s): K21.9 - GASTRO-ESOPHAGEAL REFLUX DISEASE WITHOUT ESOPHAGITIS Status: Chronic (5) HTN (hypertension) Code(s): I10 - ESSENTIAL (PRIMARY) HYPERTENSION Status: Chronic Qualifiers: Hypertension type: essential hypertension Qualified Code(s): I10 - Essential (primary) hypertension (6) Morbid obesity Code(s): E66.01 - MORBID (SEVERE) OBESITY DUE TO EXCESS CALORIES Status: Chronic (7) Obesity hypoventilation syndrome Code(s): E66.2 - MORBID (SEVERE) OBESITY WITH ALVEOLAR HYPOVENTILATION Status : Chronic (8) Pickwickian syndrome Code(s): E66.2 - MORBID (SEVERE) OBESITY WITH ALVEOLAR HYPOVENTILATION Status : Chronic - Plan Plan: 08/02 - no changes to course - checked weight 07/22 605lbs, 07/25 575 lbs. 07/29 594lb - plan is to check weight 08/02 with possible acceptance at [facility] if < 590lb - failed referrals to [place], now trying [place], so far highest weight limit was 571lbs - 1500 marsha diet, w/ high protein shakes, patient is on board with trying to lose weight while here; will stay in contact with community sports coordinator to monitor Social Discord - stable for d/c since 07/02 - unable to obtain proper placement, appreciate ZUHAIR sebastian - called insurance provider and initiated prior auth reference number: [id number] - was informed this can take 5-15 days to process, 07/08 - was caring for patient at home but now dealing with epilepsy and unable to care for patient at home thus needs placement Diarrhea 07/10, resolved - 3-4 stools per day - C diff neg 07/11 - Immodium, probiotics, and fiber added. Patient switched from protein shakes, to more protein on tray to see if this relieves any diarrhea. Acute on chronic hypoxic Respiratory failure 2/2 Right Middle Lobe Pneumonia and Chronic Pickwickian- resolved - O2 as needed, continuos pulse ox - Due to trach initially covered for pseudomonas with Cefepime and Levaquin, s/ p 7 days of levaquin 07/01-07/07 - Procal negative - Blood cultures Coag negative staph 1/2 - Likely contaminant HTN - increased amlodipine to 10mg 07/08 Tracheitis- resolved - follows with Dr. Singh outpatient Nausea/Vomiting, resolved - Zofran PRN HFpEF, present on admision - Echo on 04/06/18: EF 50-55%, mod dilated left atrium, no MR, mild TR and [place] - HH diet, fluid restriction, daily wts - Continue lasix Morbid obesity - Would benefit from jail placement into complex care facility however every facility has denied him - CM spoke with APS - consulted band head saw operator for assistance with weight loss Delusions - Continue home meds GERD - Continue home meds Disposition: Stable. Still continuing to work on official placement at [place] facility if patient can achieve weight of <590lb
[2018-08-02] MEDS: Clopidogrel Bisulfate 75 MG TAB PO SCH (08:11)
[2018-08-02] MEDS: Gabapentin 100 MG CAP PO SCH ×3 (08:11→21:40)
[2018-08-02] MEDS: Saccharomyces boulardii 250 MG CAP PO SCH (08:11)
[2018-08-02] MEDS: Tamsulosin HCl 0.4 MG CAP PO SCH (08:11)
[2018-08-02] MEDS: Furosemide 40 MG TAB PO SCH ×2 (08:11→15:56)
[2018-08-02] MEDS: Potassium Chloride 10 MEQ TAB PO SCH (08:12)
[2018-08-02] MEDS: Meloxicam 15 MG TAB PO SCH (08:12)
[2018-08-02] MEDS: Amlodipine 10 MG TAB PO SCH (08:12)
[2018-08-02] MEDS: Topiramate 25 MG TAB PO SCH ×2 (08:12→21:40)
[2018-08-02] MEDS: Citalopram 20 MG TAB PO SCH (08:12)
[2018-08-02] MEDS: Loratadine 10 MG TAB PO SCH (08:12)
[2018-08-02] MEDS: Citrucel 500 MG TAB PO SCH (08:13)
[2018-08-02] MEDS: Enoxaparin Sodium 40 MG/0.4 ML SYRINGE SC SCH (08:13)
[2018-08-02] MEDS: Multivit, Chewable SF 1 TAB PO SCH (08:13)
[2018-08-02] MEDS: Polyethylene Glycol 3350 17 GM Packet PO SCH (08:15)
--- NOTE | 2018-08-02 11:52 | PRG ---
DATE OF SERVICE: 08/02/2018 Mr. Samson is a very unfortunate, morbidly obese black man. Recently, admitted with pneumonia, now ready for discharge. Unfortunately, he has nowhere to go. He has no care at home and is unable to take care of even most of his basic needs. We are awaiting input from Case Management as far as placement. From a Medical standpoint, he is stable as he can be and is back to his baseline. Job ID: [id number]
[2018-08-02] MEDS: Atorvastatin Calcium 10 MG TAB PO SCH (21:40)
[2018-08-02] MEDS: Aripiprazole 2 MG TAB PO SCH (21:40)
--- NOTE | 2018-08-03 07:42 | PDOC.FM ---
- Subjective Subjective: NAEO. Pt reports doing well, no complaints or concerns. No problems w/ breathing. - Objective MAR Reviewed: Yes Vital Signs & Weight: Vital Signs (12 hours) Temp Pulse Resp BP Pulse Ox 08/03/18 06:56 96 08/02/18 20:00 98.3 F 74 20 107/61 96 08/02/18 19:42 96 Weight Admit Weight 320.69 kg Weight 271.929 kg Most Recent Monitor Data Heart Rate from ECG 83 NIBP 168/84 NIBP BP-Mean 112 Respiration from ECG 17 SpO2 94 I&O: 08/02/18 08/03/18 08/04/18 06:59 06:59 06:59 Intake Total 1420 1720 Output Total 500 1625 Balance 920 95 Result Diagrams: 07/29/18 08:40 07/29/18 08:40 Phys Exam - Physical Examination Constitutional: NAD trach collar in place Respiratory: no wheezing, clear to auscultation bilateral no respiratory distress Cardiovascular: RRR, no significant murmur Neurological: non-focal, moves all 4 limbs Psychiatric: normal affect, A&O x 3 Dx/Plan (1) Tracheostomy care Code(s): Z43.0 - ENCOUNTER FOR ATTENTION TO TRACHEOSTOMY Status: Chronic (2) Pneumonia Code(s): J18.9 - PNEUMONIA, UNSPECIFIED ORGANISM Status: Resolved Qualifiers: Pneumonia type: due to unspecified organism Laterality: right Lung location: middle lobe of lung Qualified Code(s): J18.1 - Lobar pneumonia, unspecified organism (3) Chronic respiratory failure with hypoxia and hypercapnia Code(s): J96.11 - CHRONIC RESPIRATORY FAILURE WITH HYPOXIA; J96.12 - CHRONIC RESPIRATORY FAILURE WITH HYPERCAPNIA Status: Chronic (4) GERD (gastroesophageal reflux disease) Code(s): K21.9 - GASTRO-ESOPHAGEAL REFLUX DISEASE WITHOUT ESOPHAGITIS Status: Chronic (5) HTN (hypertension) Code(s): I10 - ESSENTIAL (PRIMARY) HYPERTENSION Status: Chronic Qualifiers: Hypertension type: essential hypertension Qualified Code(s): I10 - Essential (primary) hypertension (6) Morbid obesity Code(s): E66.01 - MORBID (SEVERE) OBESITY DUE TO EXCESS CALORIES Status: Chronic (7) Obesity hypoventilation syndrome Code(s): E66.2 - MORBID (SEVERE) OBESITY WITH ALVEOLAR HYPOVENTILATION Status : Chronic (8) Pickwickian syndrome Code(s): E66.2 - MORBID (SEVERE) OBESITY WITH ALVEOLAR HYPOVENTILATION Status : Chronic - Plan Plan: 08/03 - no changes to course - checked weight 07/22 605lbs, 07/25 575 lbs. 07/29 594lb - plan is to check weight 08/09 with possible acceptance at [facility] if < 580lb - failed referrals to [place], now trying [place], so far highest weight limit was 571lbs - 1500 marsha diet, w/ high protein shakes, patient is on board with trying to lose weight while here; will stay in contact with database administrator to monitor Social Discord - stable for d/c since 07/02 - unable to obtain proper placement, alysha sebastian - called insurance provider and initiated prior auth reference number: [id number] - was informed this can take 5-15 days to process, 07/08 - was caring for patient at home but now dealing with epilepsy and unable to care for patient at home thus needs placement Diarrhea 07/10, resolved - 3-4 stools per day - C diff neg 07/11 - Immodium, probiotics, and fiber added. Patient switched from protein shakes, to more protein on tray to see if this relieves any diarrhea. Acute on chronic hypoxic Respiratory failure 2/2 Right Middle Lobe Pneumonia and Chronic Pickwickian- resolved - O2 as needed, continuos pulse ox - Due to trach initially covered for pseudomonas with Cefepime and Levaquin, s/ p 7 days of levaquin 07/01-07/07 - Procal negative - Blood cultures Coag negative staph 1/2 - Likely contaminant HTN - increased amlodipine to 10mg 07/08 Tracheitis- resolved - follows with Dr. Singh outpatient Nausea/Vomiting, resolved - Zofran PRN HFpEF, present on admision - Echo on 04/06/18: EF 50-55%, mod dilated left atrium, no MR, mild TR and [place] - HH diet, fluid restriction, daily wts - Continue lasix Morbid obesity - Would benefit from care home placement into complex care facility however every facility has denied him - CM spoke with APS - consulted bandoleer packer for assistance with weight loss Delusions - Continue home meds GERD - Continue home meds Disposition: Stable. Still continuing to work on official placement at [facility] facility if patient can achieve weight of <580lb
[2018-08-03] MEDS: Citrucel 500 MG TAB PO SCH (08:45)
[2018-08-03] MEDS: Citalopram 20 MG TAB PO SCH (08:45)
[2018-08-03] MEDS: Multivit, Chewable SF 1 TAB PO SCH (08:45)
[2018-08-03] MEDS: Potassium Chloride 10 MEQ TAB PO SCH (08:45)
[2018-08-03] MEDS: Saccharomyces boulardii 250 MG CAP PO SCH (08:45)
[2018-08-03] MEDS: Furosemide 40 MG TAB PO SCH ×2 (08:45→13:20)
[2018-08-03] MEDS: Meloxicam 15 MG TAB PO SCH (08:45)
[2018-08-03] MEDS: Gabapentin 100 MG CAP PO SCH ×3 (08:45→20:54)
[2018-08-03] MEDS: Loratadine 10 MG TAB PO SCH (08:45)
[2018-08-03] MEDS: Amlodipine 10 MG TAB PO SCH (08:45)
[2018-08-03] MEDS: Clopidogrel Bisulfate 75 MG TAB PO SCH (08:46)
[2018-08-03] MEDS: Tamsulosin HCl 0.4 MG CAP PO SCH (08:46)
[2018-08-03] MEDS: Topiramate 25 MG TAB PO SCH ×2 (08:46→20:54)
[2018-08-03] MEDS: Polyethylene Glycol 3350 17 GM Packet PO SCH (08:46)
[2018-08-03] MEDS: Enoxaparin Sodium 40 MG/0.4 ML SYRINGE SC SCH (08:46)
--- NOTE | 2018-08-03 12:09 | PRG ---
DATE OF SERVICE: 08/03/2018 SUBJECTIVE: Mr. Samson is sitting up in bed, watching television, in no distress. We are still awaiting a placement, which may take some time. Job ID: [id number]
[2018-08-03] MEDS: Aripiprazole 2 MG TAB PO SCH (20:54)
[2018-08-03] MEDS: Atorvastatin Calcium 10 MG TAB PO SCH (20:54)
--- NOTE | 2018-08-04 06:53 | PDOC.FM ---
- Subjective Subjective: Pt doing well overnight, no complaints. Resting well. - Objective MAR Reviewed: Yes Vital Signs & Weight: Vital Signs (12 hours) Temp Pulse Resp BP Pulse Ox 08/03/18 19:43 96 08/03/18 19:41 98.6 F 73 18 118/75 96 Weight Admit Weight 320.69 kg Weight 271.929 kg Most Recent Monitor Data Heart Rate from ECG 83 NIBP 168/84 NIBP BP-Mean 112 Respiration from ECG 17 SpO2 94 I&O: 08/02/18 08/03/18 08/04/18 06:59 06:59 06:59 Intake Total 1420 1720 1350 Output Total 500 1625 2200 Balance 920 95 -850 Result Diagrams: 07/29/18 08:40 07/29/18 08:40 Phys Exam - Physical Examination Constitutional: NAD morbidly obese HEENT: moist MMs, sclera anicteric trach collar inplace Respiratory: no wheezing, clear to auscultation bilateral no resp distress Cardiovascular: RRR, no significant murmur Gastrointestinal: soft Neurological: non-focal, moves all 4 limbs Dx/Plan (1) Tracheostomy care Code(s): Z43.0 - ENCOUNTER FOR ATTENTION TO TRACHEOSTOMY Status: Chronic (2) Pneumonia Code(s): J18.9 - PNEUMONIA, UNSPECIFIED ORGANISM Status: Resolved Qualifiers: Pneumonia type: due to unspecified organism Laterality: right Lung location: middle lobe of lung Qualified Code(s): J18.1 - Lobar pneumonia, unspecified organism (3) Chronic respiratory failure with hypoxia and hypercapnia Code(s): J96.11 - CHRONIC RESPIRATORY FAILURE WITH HYPOXIA; J96.12 - CHRONIC RESPIRATORY FAILURE WITH HYPERCAPNIA Status: Chronic (4) GERD (gastroesophageal reflux disease) Code(s): K21.9 - GASTRO-ESOPHAGEAL REFLUX DISEASE WITHOUT ESOPHAGITIS Status: Chronic (5) HTN (hypertension) Code(s): I10 - ESSENTIAL (PRIMARY) HYPERTENSION Status: Chronic Qualifiers: Hypertension type: essential hypertension Qualified Code(s): I10 - Essential (primary) hypertension (6) Morbid obesity Code(s): E66.01 - MORBID (SEVERE) OBESITY DUE TO EXCESS CALORIES Status: Chronic (7) Obesity hypoventilation syndrome Code(s): E66.2 - MORBID (SEVERE) OBESITY WITH ALVEOLAR HYPOVENTILATION Status : Chronic (8) Pickwickian syndrome Code(s): E66.2 - MORBID (SEVERE) OBESITY WITH ALVEOLAR HYPOVENTILATION Status : Chronic - Plan Plan: 08/04 - no changes to course - checked weight 07/22 605lbs, 07/25 575 lbs. 07/29 594lb - plan is to check weight 08/08 with possible acceptance at [facility] if < 580lb - failed referrals to [place], now trying [place], so far highest weight limit was 571lbs - 1500 marsha diet, w/ high protein shakes, patient is on board with trying to lose weight while here; will stay in contact with sprinkler repair technician to monitor Social Discord - stable for d/c since 07/02 - unable to obtain proper placement, appreciate ZUHAIR sebastian - called insurance provider and initiated prior auth reference number: [id number] - was informed this can take 5-15 days to process, 07/08 - was caring for patient at home but now dealing with epilepsy and unable to care for patient at home thus needs placement Diarrhea 07/10, resolved - 3-4 stools per day - C diff neg 07/11 - Immodium, probiotics, and fiber added. Patient switched from protein shakes, to more protein on tray to see if this relieves any diarrhea. Acute on chronic hypoxic Respiratory failure 2/2 Right Middle Lobe Pneumonia and Chronic Pickwickian- resolved - O2 as needed, continuos pulse ox - Due to trach initially covered for pseudomonas with Cefepime and Levaquin, s/ p 7 days of levaquin 07/01-07/07 - Procal negative - Blood cultures Coag negative staph 1/2 - Likely contaminant HTN - increased amlodipine to 10mg 07/08 Tracheitis- resolved - follows with Dr. Singh outpatient Nausea/Vomiting, resolved - Zofran PRN HFpEF, present on admision - Echo on 04/06/18: EF 50-55%, mod dilated left atrium, no MR, mild TR and [place] - HH diet, fluid restriction, daily wts - Continue lasix Morbid obesity - Would benefit from terminal gauger placement into [facility] care facility however every facility has denied him - CM spoke with APS - consulted wire walker for assistance with weight loss Delusions - Continue home meds GERD - Continue home meds Disposition: Stable. Still continuing to work on official placement at [place] facility if patient can achieve weight of <580lb
[2018-08-04] MEDS: Citrucel 500 MG TAB PO SCH (07:59)
[2018-08-04] MEDS: Multivit, Chewable SF 1 TAB PO SCH (07:59)
[2018-08-04] MEDS: Meloxicam 15 MG TAB PO SCH (07:59)
[2018-08-04] MEDS: Clopidogrel Bisulfate 75 MG TAB PO SCH (08:00)
[2018-08-04] MEDS: Furosemide 40 MG TAB PO SCH ×2 (08:01→16:05)
[2018-08-04] MEDS: Topiramate 25 MG TAB PO SCH ×2 (08:01→22:04)
[2018-08-04] MEDS: Saccharomyces boulardii 250 MG CAP PO SCH (08:02)
[2018-08-04] MEDS: Amlodipine 10 MG TAB PO SCH (08:02)
[2018-08-04] MEDS: Citalopram 20 MG TAB PO SCH (08:03)
[2018-08-04] MEDS: Potassium Chloride 10 MEQ TAB PO SCH (08:03)
[2018-08-04] MEDS: Tamsulosin HCl 0.4 MG CAP PO SCH (08:03)
[2018-08-04] MEDS: Enoxaparin Sodium 40 MG/0.4 ML SYRINGE SC SCH (08:04)
[2018-08-04] MEDS: Loratadine 10 MG TAB PO SCH (08:04)
[2018-08-04] MEDS: Polyethylene Glycol 3350 17 GM Packet PO SCH (08:06)
[2018-08-04] MEDS: Gabapentin 100 MG CAP PO SCH ×3 (08:08→22:05)
--- NOTE | 2018-08-04 14:28 | PRG ---
DATE OF SERVICE: 08/04/2018 Mr. Samson is clinically stable with no changes. We are still awaiting placement. Job ID: [id number]
[2018-08-04] MEDS: Atorvastatin Calcium 10 MG TAB PO SCH (22:04)
[2018-08-04] MEDS: Aripiprazole 2 MG TAB PO SCH (22:05)
--- NOTE | 2018-08-05 07:22 | PDOC.FM ---
- Subjective Subjective: NAEO. Patient says doing well, no complaints or concerns. No problems breathing. - Objective Vital Signs & Weight: Vital Signs (12 hours) Temp Pulse Resp BP Pulse Ox 08/04/18 19:41 95 08/04/18 19:37 98.8 F 66 18 126/72 95 Weight Admit Weight 320.69 kg Weight 271.929 kg Most Recent Monitor Data Heart Rate from ECG 83 NIBP 168/84 NIBP BP-Mean 112 Respiration from ECG 17 SpO2 94 I&O: 08/04/18 08/05/18 08/06/18 06:59 06:59 06:59 Intake Total 1350 1350 Output Total 2200 1000 Balance -850 350 Result Diagrams: 07/29/18 08:40 07/29/18 08:40 Phys Exam - Physical Examination Constitutional: NAD obese, trach collar in place HEENT: PERRLA, moist MMs, oral pharynx no lesions Respiratory: clear to auscultation bilateral no resp. distress Cardiovascular: RRR, no significant murmur Musculoskeletal: no edema Neurological: non-focal, moves all 4 limbs Psychiatric: normal affect, A&O x 3 Skin: cap refill <2 seconds Dx/Plan (1) Tracheostomy care Code(s): Z43.0 - ENCOUNTER FOR ATTENTION TO TRACHEOSTOMY Status: Chronic (2) Pneumonia Code(s): J18.9 - PNEUMONIA, UNSPECIFIED ORGANISM Status: Resolved Qualifiers: Pneumonia type: due to unspecified organism Laterality: right Lung location: middle lobe of lung Qualified Code(s): J18.1 - Lobar pneumonia, unspecified organism (3) Chronic respiratory failure with hypoxia and hypercapnia Code(s): J96.11 - CHRONIC RESPIRATORY FAILURE WITH HYPOXIA; J96.12 - CHRONIC RESPIRATORY FAILURE WITH HYPERCAPNIA Status: Chronic (4) GERD (gastroesophageal reflux disease) Code(s): K21.9 - GASTRO-ESOPHAGEAL REFLUX DISEASE WITHOUT ESOPHAGITIS Status: Chronic (5) HTN (hypertension) Code(s): I10 - ESSENTIAL (PRIMARY) HYPERTENSION Status: Chronic Qualifiers: Hypertension type: essential hypertension Qualified Code(s): I10 - Essential (primary) hypertension (6) Morbid obesity Code(s): E66.01 - MORBID (SEVERE) OBESITY DUE TO EXCESS CALORIES Status: Chronic (7) Obesity hypoventilation syndrome Code(s): E66.2 - MORBID (SEVERE) OBESITY WITH ALVEOLAR HYPOVENTILATION Status : Chronic (8) Pickwickian syndrome Code(s): E66.2 - MORBID (SEVERE) OBESITY WITH ALVEOLAR HYPOVENTILATION Status : Chronic - Plan Plan: 08/05 - no changes to course - checked weight 07/22 605lbs, 07/25 575 lbs. 07/29 594lb - plan is to check weight 08/08 with possible acceptance at [facility] if < 580lb - failed referrals to [place], now trying [place], so far highest weight limit was 571lbs - 1500 marsha diet, w/ high protein shakes, patient is on board with trying to lose weight while here; will stay in contact with delivery person to monitor Social Discord - stable for d/c since 07/02 - unable to obtain proper placement, appreciate ZUHAIR sebastian - called insurance provider and initiated prior auth reference number: [id number] - was informed this can take 5-15 days to process, 07/08 - was caring for patient at home but now dealing with epilepsy and unable to care for patient at home thus needs placement Diarrhea 07/10, resolved - 3-4 stools per day - C diff neg 07/11 - Immodium, probiotics, and fiber added. Patient switched from protein shakes, to more protein on tray to see if this relieves any diarrhea. Acute on chronic hypoxic Respiratory failure 2/2 Right Middle Lobe Pneumonia and Chronic Pickwickian- resolved - O2 as needed, continuos pulse ox - Due to trach initially covered for pseudomonas with Cefepime and Levaquin, s/ p 7 days of levaquin 07/01-07/07 - Procal negative - Blood cultures Coag negative staph 1/2 - Likely contaminant HTN - increased amlodipine to 10mg 07/08 Tracheitis- resolved - follows with Dr. Singh outpatient Nausea/Vomiting, resolved - Zofran PRN HFpEF, present on admision - Echo on 04/06/18: EF 50-55%, mod dilated left atrium, no MR, mild TR and [place] - HH diet, fluid restriction, daily wts - Continue lasix Morbid obesity - Would benefit from termination clerk placement into complex care facility however every facility has denied him - CM spoke with APS - consulted room service associate for assistance with weight loss Delusions - Continue home meds GERD - Continue home meds Disposition: Stable. Still continuing to work on official placement at [facility] if patient can achieve weight of <580lb
[2018-08-05] MEDS: Citrucel 500 MG TAB PO SCH (07:23)
[2018-08-05] MEDS: Polyethylene Glycol 3350 17 GM Packet PO SCH (07:24)
[2018-08-05] MEDS: Multivit, Chewable SF 1 TAB PO SCH (07:49)
[2018-08-05] MEDS: Meloxicam 15 MG TAB PO SCH (07:49)
[2018-08-05] MEDS: Gabapentin 100 MG CAP PO SCH ×3 (07:50→20:07)
[2018-08-05] MEDS: Citalopram 20 MG TAB PO SCH (07:50)
[2018-08-05] MEDS: Potassium Chloride 10 MEQ TAB PO SCH (07:51)
[2018-08-05] MEDS: Furosemide 40 MG TAB PO SCH ×2 (07:51→14:42)
[2018-08-05] MEDS: Saccharomyces boulardii 250 MG CAP PO SCH (07:51)
[2018-08-05] MEDS: Clopidogrel Bisulfate 75 MG TAB PO SCH (07:51)
[2018-08-05] MEDS: Tamsulosin HCl 0.4 MG CAP PO SCH (07:52)
[2018-08-05] MEDS: Amlodipine 10 MG TAB PO SCH (07:52)
[2018-08-05] MEDS: Loratadine 10 MG TAB PO SCH (07:52)
[2018-08-05] MEDS: Topiramate 25 MG TAB PO SCH ×2 (07:52→20:07)
[2018-08-05] MEDS: Enoxaparin Sodium 40 MG/0.4 ML SYRINGE SC SCH (07:53)
--- NOTE | 2018-08-05 15:19 | PRG ---
DATE OF SERVICE: 08/05/2018 Mr. Samson is having no new issues. He is quite cheerful, alert, in no distress. We will await a weight check to determine placement. Job ID: [id number]
[2018-08-05] MEDS: Aripiprazole 2 MG TAB PO SCH (20:07)
[2018-08-05] MEDS: Atorvastatin Calcium 10 MG TAB PO SCH (20:07)
--- NOTE | 2018-08-06 06:44 | PDOC.FM ---
- Subjective Subjective: Resting well, no acute events overnight. No complaints or concerns. - Objective MAR Reviewed: Yes Vital Signs & Weight: Vital Signs (12 hours) Temp Pulse Resp BP Pulse Ox 08/05/18 20:31 98.5 F 75 19 122/73 98 Weight Admit Weight 320.69 kg Weight 267.438 kg Most Recent Monitor Data Heart Rate from ECG 83 NIBP 168/84 NIBP BP-Mean 112 Respiration from ECG 17 SpO2 94 I&O: 08/04/18 08/05/18 08/06/18 06:59 06:59 06:59 Intake Total 1350 1350 1100 Output Total 2200 1000 1330 Balance -850 350 -230 Result Diagrams: 07/29/18 08:40 07/29/18 08:40 Phys Exam - Physical Examination Constitutional: NAD obese HEENT: PERRLA, moist MMs Respiratory: no wheezing, clear to auscultation bilateral Cardiovascular: RRR, no significant murmur Gastrointestinal: soft, non-tender Neurological: non-focal, moves all 4 limbs Psychiatric: normal affect, A&O x 3 Dx/Plan (1) Tracheostomy care Code(s): Z43.0 - ENCOUNTER FOR ATTENTION TO TRACHEOSTOMY Status: Chronic (2) Pneumonia Code(s): J18.9 - PNEUMONIA, UNSPECIFIED ORGANISM Status: Resolved Qualifiers: Pneumonia type: due to unspecified organism Laterality: right Lung location: middle lobe of lung Qualified Code(s): J18.1 - Lobar pneumonia, unspecified organism (3) Chronic respiratory failure with hypoxia and hypercapnia Code(s): J96.11 - CHRONIC RESPIRATORY FAILURE WITH HYPOXIA; J96.12 - CHRONIC RESPIRATORY FAILURE WITH HYPERCAPNIA Status: Chronic (4) GERD (gastroesophageal reflux disease) Code(s): K21.9 - GASTRO-ESOPHAGEAL REFLUX DISEASE WITHOUT ESOPHAGITIS Status: Chronic (5) HTN (hypertension) Code(s): I10 - ESSENTIAL (PRIMARY) HYPERTENSION Status: Chronic Qualifiers: Hypertension type: essential hypertension Qualified Code(s): I10 - Essential (primary) hypertension (6) Morbid obesity Code(s): E66.01 - MORBID (SEVERE) OBESITY DUE TO EXCESS CALORIES Status: Chronic (7) Obesity hypoventilation syndrome Code(s): E66.2 - MORBID (SEVERE) OBESITY WITH ALVEOLAR HYPOVENTILATION Status : Chronic (8) Pickwickian syndrome Code(s): E66.2 - MORBID (SEVERE) OBESITY WITH ALVEOLAR HYPOVENTILATION Status : Chronic - Plan Plan: 08/06 - no changes to course - checked weight 07/22 605lbs, 07/25 575 lbs. 07/29 594lb -reweigh on was 588lb , needs to be <580lb - failed referrals to [place], now trying [place], so far highest weight limit was 571lbs - 1500 marsha diet, w/ high protein shakes, patient is on board with trying to lose weight while here; will stay in contact with wafer production worker to monitor Social Discord - stable for d/c since 07/02 - unable to obtain proper placement, appreciate ZUHAIR sebastian - called insurance provider and initiated prior auth reference number: [id number] - was informed this can take 5-15 days to process, 07/08 - was caring for patient at home but now dealing with epilepsy and unable to care for patient at home thus needs placement Diarrhea 07/10, resolved - 3-4 stools per day - C diff neg 07/11 - Immodium, probiotics, and fiber added. Patient switched from protein shakes, to more protein on tray to see if this relieves any diarrhea. Acute on chronic hypoxic Respiratory failure 2/2 Right Middle Lobe Pneumonia and Chronic Pickwickian- resolved - O2 as needed, continuos pulse ox - Due to trach initially covered for pseudomonas with Cefepime and Levaquin, s/ p 7 days of levaquin 07/01-07/07 - Procal negative - Blood cultures Coag negative staph 1/2 - Likely contaminant HTN - increased amlodipine to 10mg 07/08 Tracheitis- resolved - follows with Dr. Singh outpatient Nausea/Vomiting, resolved - Zofran PRN HFpEF, present on admision - Echo on 04/06/18: EF 50-55%, mod dilated left atrium, no MR, mild TR and [place] - HH diet, fluid restriction, daily wts - Continue lasix Morbid obesity - Would benefit from alf placement into complex care facility however every facility has denied him - CM spoke with APS - consulted facepiece line supervisor for assistance with weight loss Delusions - Continue home meds GERD - Continue home meds Disposition: Stable. Still continuing to work on official placement at [facility] facility if patient can achieve weight of <580lb
[2018-08-06] MEDS: Loratadine 10 MG TAB PO SCH (07:54)
[2018-08-06] MEDS: Clopidogrel Bisulfate 75 MG TAB PO SCH (07:54)
[2018-08-06] MEDS: Gabapentin 100 MG CAP PO SCH ×3 (07:54→19:50)
[2018-08-06] MEDS: Amlodipine 10 MG TAB PO SCH (07:54)
[2018-08-06] MEDS: Topiramate 25 MG TAB PO SCH ×2 (07:54→19:50)
[2018-08-06] MEDS: Meloxicam 15 MG TAB PO SCH (07:54)
[2018-08-06] MEDS: Furosemide 40 MG TAB PO SCH ×2 (07:54→14:07)
[2018-08-06] MEDS: Enoxaparin Sodium 40 MG/0.4 ML SYRINGE SC SCH (07:55)
[2018-08-06] MEDS: Multivit, Chewable SF 1 TAB PO SCH (07:55)
[2018-08-06] MEDS: Citalopram 20 MG TAB PO SCH (07:55)
[2018-08-06] MEDS: Tamsulosin HCl 0.4 MG CAP PO SCH (07:55)
[2018-08-06] MEDS: Citrucel 500 MG TAB PO SCH (07:55)
[2018-08-06] MEDS: Potassium Chloride 10 MEQ TAB PO SCH (07:55)
[2018-08-06] MEDS: Saccharomyces boulardii 250 MG CAP PO SCH (07:55)
[2018-08-06] MEDS: Polyethylene Glycol 3350 17 GM Packet PO SCH (07:56)
--- NOTE | 2018-08-06 12:23 | PRG ---
DATE OF SERVICE: 08/06/2018 Mr. Samson continues to look and feel fine. We are still waiting on weight loss and placement. No new issues. Job ID: [id number]
[2018-08-06] MEDS: Aripiprazole 2 MG TAB PO SCH (19:50)
[2018-08-06] MEDS: Atorvastatin Calcium 10 MG TAB PO SCH (19:50)
--- NOTE | 2018-08-07 06:34 | PDOC.FM ---
- Subjective Subjective: NAEO. Patient resting, doing well he states. No complaints. Ready to go. - Objective Vital Signs & Weight: Vital Signs (12 hours) Temp Pulse Resp BP Pulse Ox 08/06/18 20:00 96 08/06/18 19:00 98.3 F 73 18 123/83 96 Weight Admit Weight 320.69 kg Weight 267.438 kg Most Recent Monitor Data Heart Rate from ECG 83 NIBP 168/84 NIBP BP-Mean 112 Respiration from ECG 17 SpO2 94 I&O: 08/05/18 08/06/18 08/07/18 06:59 06:59 06:59 Intake Total 1350 1100 1340 Output Total 1000 1330 1350 Balance 350 -230 -10 Result Diagrams: 07/29/18 08:40 07/29/18 08:40 Phys Exam - Physical Examination Constitutional: NAD obese HEENT: PERRLA, moist MMs Respiratory: no wheezing, clear to auscultation bilateral Cardiovascular: RRR, no significant murmur Gastrointestinal: soft, non-tender Neurological: non-focal Psychiatric: normal affect, A&O x 3 Skin: cap refill <2 seconds Dx/Plan (1) Tracheostomy care Code(s): Z43.0 - ENCOUNTER FOR ATTENTION TO TRACHEOSTOMY Status: Chronic (2) Pneumonia Code(s): J18.9 - PNEUMONIA, UNSPECIFIED ORGANISM Status: Resolved Qualifiers: Pneumonia type: due to unspecified organism Laterality: right Lung location: middle lobe of lung Qualified Code(s): J18.1 - Lobar pneumonia, unspecified organism (3) Chronic respiratory failure with hypoxia and hypercapnia Code(s): J96.11 - CHRONIC RESPIRATORY FAILURE WITH HYPOXIA; J96.12 - CHRONIC RESPIRATORY FAILURE WITH HYPERCAPNIA Status: Chronic (4) GERD (gastroesophageal reflux disease) Code(s): K21.9 - GASTRO-ESOPHAGEAL REFLUX DISEASE WITHOUT ESOPHAGITIS Status: Chronic (5) HTN (hypertension) Code(s): I10 - ESSENTIAL (PRIMARY) HYPERTENSION Status: Chronic Qualifiers: Hypertension type: essential hypertension Qualified Code(s): I10 - Essential (primary) hypertension (6) Morbid obesity Code(s): E66.01 - MORBID (SEVERE) OBESITY DUE TO EXCESS CALORIES Status: Chronic (7) Obesity hypoventilation syndrome Code(s): E66.2 - MORBID (SEVERE) OBESITY WITH ALVEOLAR HYPOVENTILATION Status : Chronic (8) Pickwickian syndrome Code(s): E66.2 - MORBID (SEVERE) OBESITY WITH ALVEOLAR HYPOVENTILATION Status : Chronic - Plan Plan: 08/07 - no changes to course - checked weight 07/22 605lbs, 07/25 575 lbs. 07/29 594lb -reweigh on was 589lb , needs to be <580lb - failed referrals to [place], now trying [place], so far highest weight limit was 571lbs - 1500 marsha diet, w/ high protein shakes, patient is on board with trying to lose weight while here; will stay in contact with air operations manager to monitor Social Discord - stable for d/c since 07/02 - unable to obtain proper placement, appreciate ZUHAIR sebastian - called insurance provider and initiated prior auth reference number: [id number] - was informed this can take 5-15 days to process, 07/08 - was caring for patient at home but now dealing with epilepsy and unable to care for patient at home thus needs placement Diarrhea 07/10, resolved - 3-4 stools per day - C diff neg 07/11 - Immodium, probiotics, and fiber added. Patient switched from protein shakes, to more protein on tray to see if this relieves any diarrhea. Acute on chronic hypoxic Respiratory failure 2/2 Right Middle Lobe Pneumonia and Chronic Pickwickian- resolved - O2 as needed, continuos pulse ox - Due to trach initially covered for pseudomonas with Cefepime and Levaquin, s/ p 7 days of levaquin 07/01-07/07 - Procal negative - Blood cultures Coag negative staph 1/2 - Likely contaminant HTN - increased amlodipine to 10mg 07/08 Tracheitis- resolved - follows with Dr. Singh outpatient Nausea/Vomiting, resolved - Zofran PRN HFpEF, present on admision - Echo on 04/06/18: EF 50-55%, mod dilated left atrium, no MR, mild TR and [place] - HH diet, fluid restriction, daily wts - Continue lasix Morbid obesity - Would benefit from petroleum terminal plant operator placement into complex care facility however every facility has denied him - CM spoke with APS - consulted pai gow manager for assistance with weight loss Delusions - Continue home meds GERD - Continue home meds Disposition: Stable. Still continuing to work on official placement at [facility] if patient can achieve weight of <580lb
[2018-08-07] MEDS: Furosemide 40 MG TAB PO SCH ×2 (08:00→14:04)
[2018-08-07] MEDS: Citalopram 20 MG TAB PO SCH (08:00)
[2018-08-07] MEDS: Meloxicam 15 MG TAB PO SCH (08:00)
[2018-08-07] MEDS: Topiramate 25 MG TAB PO SCH ×2 (08:00→20:30)
[2018-08-07] MEDS: Clopidogrel Bisulfate 75 MG TAB PO SCH (08:00)
[2018-08-07] MEDS: Gabapentin 100 MG CAP PO SCH ×3 (08:00→20:30)
[2018-08-07] MEDS: Potassium Chloride 10 MEQ TAB PO SCH (08:00)
[2018-08-07] MEDS: Saccharomyces boulardii 250 MG CAP PO SCH (08:00)
[2018-08-07] MEDS: Multivit, Chewable SF 1 TAB PO SCH (08:00)
[2018-08-07] MEDS: Enoxaparin Sodium 40 MG/0.4 ML SYRINGE SC SCH (08:00)
[2018-08-07] MEDS: Tamsulosin HCl 0.4 MG CAP PO SCH (08:00)
[2018-08-07] MEDS: Loratadine 10 MG TAB PO SCH (08:00)
[2018-08-07] MEDS: Amlodipine 10 MG TAB PO SCH (08:01)
[2018-08-07] MEDS: Polyethylene Glycol 3350 17 GM Packet PO SCH (08:01)
[2018-08-07] MEDS: Citrucel 500 MG TAB PO SCH (08:01)
[2018-08-07 11:38] VITALS: BMI 92.3
--- NOTE | 2018-08-07 14:03 | PRG ---
DATE OF SERVICE: 08/07/2018 Mr. Samson is sitting in bed quietly in no distress. He will be weighed today with further plans depending on his weight. Job ID: [id number]
[2018-08-07] MEDS: Aripiprazole 2 MG TAB PO SCH (20:30)
[2018-08-07] MEDS: Atorvastatin Calcium 10 MG TAB PO SCH (20:30)
--- NOTE | 2018-08-08 06:34 | PDOC.FM ---
- Subjective Subjective: NAEO. No complaints or concerns. Doing well. Excited to go. - Objective Vital Signs & Weight: Vital Signs (12 hours) Temp Pulse Resp BP Pulse Ox 08/07/18 20:25 98.3 F 71 16 99/61 96 Weight Admit Weight 320.69 kg Weight 263.651 kg Most Recent Monitor Data Heart Rate from ECG 83 NIBP 168/84 NIBP BP-Mean 112 Respiration from ECG 17 SpO2 94 I&O: 08/06/18 08/07/18 08/08/18 06:59 06:59 06:59 Intake Total 1100 1340 1460 Output Total 1330 1350 3100 Balance - Result Diagrams: 07/29/18 08:40 07/29/18 08:40 Phys Exam - Physical Examination Constitutional: NAD HEENT: PERRLA, moist MMs Respiratory: no wheezing, clear to auscultation bilateral Cardiovascular: RRR, no significant murmur Gastrointestinal: soft, non-tender Musculoskeletal: no edema, pulses present Neurological: non-focal, moves all 4 limbs Psychiatric: normal affect, A&O x 3 Dx/Plan (1) Tracheostomy care Code(s): Z43.0 - ENCOUNTER FOR ATTENTION TO TRACHEOSTOMY Status: Chronic (2) Pneumonia Code(s): J18.9 - PNEUMONIA, UNSPECIFIED ORGANISM Status: Resolved Qualifiers: Pneumonia type: due to unspecified organism Laterality: right Lung location: middle lobe of lung Qualified Code(s): J18.1 - Lobar pneumonia, unspecified organism (3) Chronic respiratory failure with hypoxia and hypercapnia Code(s): J96.11 - CHRONIC RESPIRATORY FAILURE WITH HYPOXIA; J96.12 - CHRONIC RESPIRATORY FAILURE WITH HYPERCAPNIA Status: Chronic (4) GERD (gastroesophageal reflux disease) Code(s): K21.9 - GASTRO-ESOPHAGEAL REFLUX DISEASE WITHOUT ESOPHAGITIS Status: Chronic (5) HTN (hypertension) Code(s): I10 - ESSENTIAL (PRIMARY) HYPERTENSION Status: Chronic Qualifiers: Hypertension type: essential hypertension Qualified Code(s): I10 - Essential (primary) hypertension (6) Morbid obesity Code(s): E66.01 - MORBID (SEVERE) OBESITY DUE TO EXCESS CALORIES Status: Chronic (7) Obesity hypoventilation syndrome Code(s): E66.2 - MORBID (SEVERE) OBESITY WITH ALVEOLAR HYPOVENTILATION Status : Chronic (8) Pickwickian syndrome Code(s): E66.2 - MORBID (SEVERE) OBESITY WITH ALVEOLAR HYPOVENTILATION Status : Chronic - Plan Plan: 08/08 - no changes to course - checked weight 07/22 605lbs, 07/25 575 lbs. 07/29 594lb -reweigh on was 589lb , 08/07 was 579lb! goal met, will discuss placement acceptance. - failed referrals to [place], now trying [place], so far highest weight limit was 571lbs - 1500 marsha diet, w/ high protein shakes, patient is on board with trying to lose weight while here; will stay in contact with touch up carver to monitor Social Discord - stable for d/c since 07/02 - unable to obtain proper placement, appreciate ZUHAIR sebastian - called insurance provider and initiated prior auth reference number: [id number] - was informed this can take 5-15 days to process, 07/08 - was caring for patient at home but now dealing with epilepsy and unable to care for patient at home thus needs placement Diarrhea 07/10, resolved - 3-4 stools per day - C diff neg 07/11 - Immodium, probiotics, and fiber added. Patient switched from protein shakes, to more protein on tray to see if this relieves any diarrhea. Acute on chronic hypoxic Respiratory failure 2/2 Right Middle Lobe Pneumonia and Chronic Pickwickian- resolved - O2 as needed, continuos pulse ox - Due to trach initially covered for pseudomonas with Cefepime and Levaquin, s/ p 7 days of levaquin 07/01-07/07 - Procal negative - Blood cultures Coag negative staph 1/2 - Likely contaminant HTN - increased amlodipine to 10mg 07/08 Tracheitis- resolved - follows with Dr. Singh outpatient Nausea/Vomiting, resolved - Zofran PRN HFpEF, present on admision - Echo on 04/06/18: EF 50-55%, mod dilated left atrium, no MR, mild TR and [place] - HH diet, fluid restriction, daily wts - Continue lasix Morbid obesity - Would benefit from adjunct faculty for medical terminology placement into complex care facility however every facility has denied him - CM spoke with APS - consulted warehouse selector for assistance with weight loss Delusions - Continue home meds GERD - Continue home meds Disposition: Patient <580lb, will discuss placement acceptance today.
[2018-08-08] MEDS: Gabapentin 100 MG CAP PO SCH ×3 (08:23→19:55)
[2018-08-08] MEDS: Meloxicam 15 MG TAB PO SCH (08:23)
[2018-08-08] MEDS: Potassium Chloride 10 MEQ TAB PO SCH (08:23)
[2018-08-08] MEDS: Citrucel 500 MG TAB PO SCH (08:23)
[2018-08-08] MEDS: Furosemide 40 MG TAB PO SCH ×2 (08:23→14:07)
[2018-08-08] MEDS: Saccharomyces boulardii 250 MG CAP PO SCH (08:23)
[2018-08-08] MEDS: Citalopram 20 MG TAB PO SCH (08:23)
[2018-08-08] MEDS: Loratadine 10 MG TAB PO SCH (08:23)
[2018-08-08] MEDS: Tamsulosin HCl 0.4 MG CAP PO SCH (08:23)
[2018-08-08] MEDS: Amlodipine 10 MG TAB PO SCH (08:23)
[2018-08-08] MEDS: Topiramate 25 MG TAB PO SCH ×2 (08:23→19:57)
[2018-08-08] MEDS: Multivit, Chewable SF 1 TAB PO SCH (08:23)
[2018-08-08] MEDS: Clopidogrel Bisulfate 75 MG TAB PO SCH (08:23)
[2018-08-08] MEDS: Enoxaparin Sodium 40 MG/0.4 ML SYRINGE SC SCH (08:24)
[2018-08-08] MEDS: Polyethylene Glycol 3350 17 GM Packet PO SCH (08:24)
--- NOTE | 2018-08-08 13:07 | PRG ---
DATE OF SERVICE: 08/08/2018 Mr. Samson is down to 581 pounds. He is pleasant, cooperative, in no distress. We will await this 1 pound weight loss for placement. Job ID: [id number]
--- NOTE | 2018-08-08 17:22 | PDOC.EVN ---
Event Note - Event Note Event Note: Transition of care note for 08/02-08/08. Mr. Samson has been medically stable this whole week. Still pending placement based on the fact he can weight < 580lb. Most recent weight was 08/08 in which he was 581lb. He is doing well working with physical therapy and adhering to his diet. I expect he can get to goal weight in a week or two given his progress.
[2018-08-08] MEDS: Atorvastatin Calcium 10 MG TAB PO SCH (19:55)
[2018-08-08] MEDS: Aripiprazole 2 MG TAB PO SCH (19:55)
--- NOTE | 2018-08-09 06:28 | PDOC.FM ---
- Subjective Subjective: No complaints overnight. Reports he is doing well. Denies SOB, CP, nausea, or vomiting. - Objective MAR Reviewed: Yes Vital Signs & Weight: Vital Signs (12 hours) Temp Pulse Resp BP Pulse Ox 08/08/18 22:20 93 L 08/08/18 19:54 98.9 F 76 19 125/80 93 L Weight Admit Weight 320.69 kg Weight 263.651 kg Most Recent Monitor Data Heart Rate from ECG 83 NIBP 168/84 NIBP BP-Mean 112 Respiration from ECG 17 SpO2 94 I&O: 08/07/18 08/08/18 08/09/18 06:59 06:59 06:59 Intake Total 1340 1460 1677 Output Total 1350 3100 750 Balance -10 -4564 927 Result Diagrams: 07/29/18 08:40 07/29/18 08:40 Phys Exam - Physical Examination Constitutional: NAD HEENT: moist MMs Neck: no JVD, full ROM Respiratory: no wheezing, clear to auscultation bilateral Cardiovascular: RRR, no significant murmur, no rub Gastrointestinal: soft, non-tender, no distention, positive bowel sounds Musculoskeletal: pulses present, edema present (1+ pitting edema) Obvious skin rolls Neurological: non-focal, moves all 4 limbs Psychiatric: normal affect, A&O x 3 Skin: cap refill <2 seconds Dx/Plan (1) Bronchitis Code(s): J40 - BRONCHITIS, NOT SPECIFIED ACUTE OR CHRONIC Status: Chronic (2) CHF (congestive heart failure) Code(s): I50.9 - HEART FAILURE, UNSPECIFIED Status: Chronic (3) HTN (hypertension) Code(s): I10 - ESSENTIAL (PRIMARY) HYPERTENSION Status: Chronic Qualifiers: Hypertension type: essential hypertension Qualified Code(s): I10 - Essential (primary) hypertension (4) Morbid obesity Code(s): E66.01 - MORBID (SEVERE) OBESITY DUE TO EXCESS CALORIES Status: Chronic (5) Obesity hypoventilation syndrome Code(s): E66.2 - MORBID (SEVERE) OBESITY WITH ALVEOLAR HYPOVENTILATION Status : Chronic (6) Pickwickian syndrome Code(s): E66.2 - MORBID (SEVERE) OBESITY WITH ALVEOLAR HYPOVENTILATION Status : Chronic - Plan Plan: This is a 53 yo male with a pmh of HTN, HFpEF, morbid obesity, GERD 08/09 - no changes to course - checked weight 07/22 605lbs, 07/25 575 lbs. 07/29 594lb -reweigh on 08/06 was 589lb , 08/07 was 579lb, 08/08 581.25 lbs goal met, will discuss placement acceptance. - failed referrals to [place], now trying [place], so far highest weight limit was 571lbs - 1500 marsha diet, w/ high protein shakes, patient is on board with trying to lose weight while here; will stay in contact with atmospheric chemist to monitor Social Discord - stable for d/c since 07/02 - unable to obtain proper placement, appreciate ZUHAIR sebastian - called insurance provider and initiated prior auth reference number: [id number] - was informed this can take 5-15 days to process, 07/08 - was caring for patient at home but now dealing with epilepsy and unable to care for patient at home thus needs placement Diarrhea 07/10, resolved - 3-4 stools per day - C diff neg 07/11 - Immodium, probiotics, and fiber added. Patient switched from protein shakes, to more protein on tray to see if this relieves any diarrhea. Acute on chronic hypoxic Respiratory failure 2/2 Right Middle Lobe Pneumonia and Chronic Pickwickian- resolved - O2 as needed, continuos pulse ox - Due to trach initially covered for pseudomonas with Cefepime and Levaquin, s/ p 7 days of levaquin 07/01-07/07 - Procal negative - Blood cultures Coag negative staph 1/2 - Likely contaminant HTN - increased amlodipine to 10mg 07/08 Tracheitis- resolved - follows with Dr. Singh outpatient Nausea/Vomiting, resolved - Zofran PRN HFpEF, present on admision - Echo on 04/06/18: EF 50-55%, mod dilated left atrium, no MR, mild TR and [place] - HH diet, fluid restriction, daily wts - Continue lasix Morbid obesity - [facility] benefit [facility] into complex care facility however every facility has denied him - CM spoke with APS - consulted automotive accessory installer for assistance with weight loss Delusions - Continue home meds GERD - Continue home meds Disposition: Patient <580lb, will discuss placement acceptance today. Addendum - Attending - Attending Attestation Date/Time: 08/09/18 5620 I personally evaluated the patient and discussed the management with Dr. Gomez I agree with the History, Examination, Assessment and Plan documented above with any addition or exceptions noted below. Patient with continued positive attitude he concerned about caloric intake and continued weight loss to reach goal encourage increased activity as tolerated.
[2018-08-09] MEDS: Furosemide 40 MG TAB PO SCH ×2 (07:38→15:14)
[2018-08-09] MEDS: Loratadine 10 MG TAB PO SCH (07:38)
[2018-08-09] MEDS: Polyethylene Glycol 3350 17 GM Packet PO SCH (07:38)
[2018-08-09] MEDS: Amlodipine 10 MG TAB PO SCH (07:38)
[2018-08-09] MEDS: Meloxicam 15 MG TAB PO SCH (07:38)
[2018-08-09] MEDS: Saccharomyces boulardii 250 MG CAP PO SCH (07:38)
[2018-08-09] MEDS: Topiramate 25 MG TAB PO SCH ×2 (07:39→20:34)
[2018-08-09] MEDS: Gabapentin 100 MG CAP PO SCH ×3 (07:39→20:34)
[2018-08-09] MEDS: Potassium Chloride 10 MEQ TAB PO SCH (07:39)
[2018-08-09] MEDS: Citrucel 500 MG TAB PO SCH (07:39)
[2018-08-09] MEDS: Clopidogrel Bisulfate 75 MG TAB PO SCH (07:39)
[2018-08-09] MEDS: Multivit, Chewable SF 1 TAB PO SCH (07:39)
[2018-08-09] MEDS: Tamsulosin HCl 0.4 MG CAP PO SCH (07:39)
[2018-08-09] MEDS: Citalopram 20 MG TAB PO SCH (07:39)
[2018-08-09] MEDS: Enoxaparin Sodium 40 MG/0.4 ML SYRINGE SC SCH (07:40)
[2018-08-09] MEDS: Aripiprazole 2 MG TAB PO SCH (20:34)
[2018-08-09] MEDS: Atorvastatin Calcium 10 MG TAB PO SCH (20:34)
--- NOTE | 2018-08-10 06:30 | PDOC.FM ---
- Subjective Subjective: No complaints overnight. Denies SOB, CP, nausea, or vomiting. - Objective MAR Reviewed: Yes Vital Signs & Weight: Vital Signs (12 hours) Temp Pulse Resp BP Pulse Ox 08/09/18 20:00 98.5 F 75 20 124/77 92 L 08/09/18 19:55 98 Weight Admit Weight 320.69 kg Weight 263.651 kg Most Recent Monitor Data Heart Rate from ECG 83 NIBP 168/84 NIBP BP-Mean 112 Respiration from ECG 17 SpO2 94 I&O: 08/08/18 08/09/18 08/10/18 06:59 06:59 06:59 Intake Total 1460 2627 2009 Output Total 3100 2400 2430 Balance -1640 227 -420 Result Diagrams: 07/29/18 08:40 07/29/18 08:40 Phys Exam - Physical Examination Constitutional: NAD HEENT: moist MMs Neck: no JVD, full ROM Respiratory: no wheezing, clear to auscultation bilateral Cardiovascular: RRR, no significant murmur Gastrointestinal: soft, non-tender, no distention, positive bowel sounds Musculoskeletal: pulses present, edema present Neurological: normal sensation, moves all 4 limbs Psychiatric: normal affect, A&O x 3 Skin: cap refill <2 seconds Dx/Plan (1) Bronchitis Code(s): J40 - BRONCHITIS, NOT SPECIFIED ACUTE OR CHRONIC Status: Chronic (2) CHF (congestive heart failure) Code(s): I50.9 - HEART FAILURE, UNSPECIFIED Status: Chronic (3) HTN (hypertension) Code(s): I10 - ESSENTIAL (PRIMARY) HYPERTENSION Status: Chronic Qualifiers: Hypertension type: essential hypertension Qualified Code(s): I10 - Essential (primary) hypertension (4) Morbid obesity Code(s): E66.01 - MORBID (SEVERE) OBESITY DUE TO EXCESS CALORIES Status: Chronic (5) Obesity hypoventilation syndrome Code(s): E66.2 - MORBID (SEVERE) OBESITY WITH ALVEOLAR HYPOVENTILATION Status : Chronic (6) Pickwickian syndrome Code(s): E66.2 - MORBID (SEVERE) OBESITY WITH ALVEOLAR HYPOVENTILATION Status : Chronic - Plan Plan: This is a 53 yo male with a pmh of HTN, HFpEF, morbid obesity, GERD 08/10 - no changes to course - checked weight 07/22 605lbs, 07/25 575 lbs. 4/16 594lb -reweigh on 08/06 was 589lb , 08/07 was 579lb, 08/08 581.25 lbs goal met, will discuss placement acceptance. - failed referrals to [facility], now trying [facility], so far highest weight limit was 571lbs - 1500 marsha diet, w/ high protein shakes, patient is on board with trying to lose weight while here; will stay in contact with family service caseworker to monitor Social Discord - stable for d/c since 07/02 - unable to obtain proper placement, appreciate [facility] - called insurance provider and initiated prior auth reference number: [id number] - was informed this can take 5-15 days to process, 07/08 - was caring for patient at home but now dealing with epilepsy and unable to care for patient at home thus needs placement Diarrhea 07/10, resolved - 3-4 stools per day - C diff neg 07/11 - Immodium, probiotics, and fiber added. Patient switched from protein shakes, to more protein on tray to see if this relieves any diarrhea. Acute on chronic hypoxic Respiratory failure 2/2 Right Middle Lobe Pneumonia and Chronic Pickwickian- resolved - O2 as needed, continuos pulse ox - Due to trach initially covered for pseudomonas with Cefepime and Levaquin, s/ p 7 days of levaquin 07/01-07/07 - Procal negative - Blood cultures Coag negative staph 1/2 - Likely contaminant HTN - increased amlodipine to 10mg 07/08 Tracheitis- resolved - follows with Dr. Singh outpatient Nausea/Vomiting, resolved - Zofran PRN HFpEF, present on admision - Echo on 04/06/18: EF 50-55%, mod dilated left atrium, no MR, mild TR and NH - HH diet, fluid restriction, daily wts - Continue lasix Morbid obesity - Would benefit from senior living placement into complex care facility however every facility has denied him - CM spoke with APS - consulted cold rolling machine setter for assistance with weight loss Delusions - Continue home meds GERD - Continue home meds Addendum - Attending - Attending Attestation Date/Time: 08/10/18 1200 I personally evaluated the patient and discussed the management with Dr. Gomez I agree with the History, Examination, Assessment and Plan documented above..
[2018-08-10] MEDS: Multivit, Chewable SF 1 TAB PO SCH (08:12)
[2018-08-10] MEDS: Loratadine 10 MG TAB PO SCH (08:12)
[2018-08-10] MEDS: Meloxicam 15 MG TAB PO SCH (08:12)
[2018-08-10] MEDS: Saccharomyces boulardii 250 MG CAP PO SCH (08:12)
[2018-08-10] MEDS: Tamsulosin HCl 0.4 MG CAP PO SCH (08:12)
[2018-08-10] MEDS: Clopidogrel Bisulfate 75 MG TAB PO SCH (08:12)
[2018-08-10] MEDS: Furosemide 40 MG TAB PO SCH ×2 (08:13→13:51)
[2018-08-10] MEDS: Topiramate 25 MG TAB PO SCH ×2 (08:13→20:26)
[2018-08-10] MEDS: Potassium Chloride 10 MEQ TAB PO SCH (08:13)
[2018-08-10] MEDS: Citalopram 20 MG TAB PO SCH (08:13)
[2018-08-10] MEDS: Gabapentin 100 MG CAP PO SCH ×3 (08:13→20:26)
[2018-08-10] MEDS: Amlodipine 10 MG TAB PO SCH (08:13)
[2018-08-10] MEDS: Polyethylene Glycol 3350 17 GM Packet PO SCH (08:14)
[2018-08-10] MEDS: Enoxaparin Sodium 40 MG/0.4 ML SYRINGE SC SCH (08:14)
[2018-08-10] MEDS: Citrucel 500 MG TAB PO SCH (08:14)
[2018-08-10] MEDS: Aripiprazole 2 MG TAB PO SCH (20:26)
[2018-08-10] MEDS: Atorvastatin Calcium 10 MG TAB PO SCH (20:26)
--- NOTE | 2018-08-11 05:40 | PDOC.FM ---
- Subjective Subjective: NAEO. Patient states he is doing well. Excited to go to assisted living. No complaints or concerns. - Objective MAR Reviewed: Yes Vital Signs & Weight: Vital Signs (12 hours) Temp Pulse Resp BP Pulse Ox 08/10/18 20:00 99.0 F 76 16 128/78 92 L Weight Admit Weight 320.69 kg Weight 263.651 kg Most Recent Monitor Data Heart Rate from ECG 83 NIBP 168/84 NIBP BP-Mean 112 Respiration from ECG 17 SpO2 94 I&O: 08/09/18 08/10/18 08/11/18 06:59 06:59 06:59 Intake Total 2622009 Output Total 2400 2430 1200 Balance 227 -420 -100 Result Diagrams: 07/29/18 08:40 07/29/18 08:40 Phys Exam - Physical Examination Constitutional: NAD obese body habitus HEENT: moist MMs, sclera anicteric Neck: supple Respiratory: no wheezing, clear to auscultation bilateral Cardiovascular: RRR, no significant murmur Musculoskeletal: no edema Neurological: non-focal, moves all 4 limbs Psychiatric: normal affect, A&O x 3 Dx/Plan (1) Tracheostomy care Code(s): Z43.0 - ENCOUNTER FOR ATTENTION TO TRACHEOSTOMY Status: Chronic (2) Chronic respiratory failure with hypoxia and hypercapnia Code(s): J96.11 - CHRONIC RESPIRATORY FAILURE WITH HYPOXIA; J96.12 - CHRONIC RESPIRATORY FAILURE WITH HYPERCAPNIA Status: Chronic (3) GERD (gastroesophageal reflux disease) Code(s): K21.9 - GASTRO-ESOPHAGEAL REFLUX DISEASE WITHOUT ESOPHAGITIS Status: Chronic (4) HTN (hypertension) Code(s): I10 - ESSENTIAL (PRIMARY) HYPERTENSION Status: Chronic Qualifiers: Hypertension type: essential hypertension Qualified Code(s): I10 - Essential (primary) hypertension (5) Morbid obesity Code(s): E66.01 - MORBID (SEVERE) OBESITY DUE TO EXCESS CALORIES Status: Chronic (6) Obesity hypoventilation syndrome Code(s): E66.2 - MORBID (SEVERE) OBESITY WITH ALVEOLAR HYPOVENTILATION Status : Chronic (7) Pickwickian syndrome Code(s): E66.2 - MORBID (SEVERE) OBESITY WITH ALVEOLAR HYPOVENTILATION Status : Chronic - Plan Plan: This is a 53 yo male with a pmh of HTN, HFpEF, morbid obesity, GERD 08/11 - no changes to course - checked weight 07/22 605lbs, 07/25 575 lbs. 07/29 594lb -reweigh on 08/06 was 589lb , 08/07 was 579lb, 08/08 581.25, pending re-weigh this week - failed referrals to [facility], now trying [facility], so far highest weight limit was 571lbs - 1500 marsha diet, w/ high protein shakes, patient is on board with trying to lose weight while here; will stay in contact with human capital manager to monitor Social Discord - stable for d/c since 07/02 - unable to obtain proper placement, appreciate [facility] sebastian - called insurance provider and initiated prior auth reference number: [id number] - was informed this can take 5-15 days to process, 07/08 - was caring for patient at home but now dealing with epilepsy and unable to care for patient at home thus needs placement Diarrhea 07/10, resolved - 3-4 stools per day - C diff neg 07/11 - Immodium, probiotics, and fiber added. Patient switched from protein shakes, to more protein on tray to see if this relieves any diarrhea. Acute on chronic hypoxic Respiratory failure 2/2 Right Middle Lobe Pneumonia and Chronic Pickwickian- resolved - O2 as needed, continuos pulse ox - Due to trach initially covered for pseudomonas with Cefepime and Levaquin, s/ p 7 days of levaquin 07/01-07/07 - Procal negative - Blood cultures Coag negative staph 1/2 - Likely contaminant HTN - increased amlodipine to 10mg 07/08 Tracheitis- resolved - follows with Dr. Singh outpatient Nausea/Vomiting, resolved - Zofran PRN HFpEF, present on admision - Echo on 04/06/18: EF 50-55%, mod dilated left atrium, no MR, mild TR and NC - HH diet, fluid restriction, daily wts - Continue lasix Morbid obesity - Would benefit from halfway placement into complex care facility however every facility has denied him - CM spoke with APS - consulted preparation supervisor freezing for assistance with weight loss Delusions - Continue home meds GERD - Continue home meds Addendum - Attending - Attending Attestation Date/Time: 08/11/18 1700 I personally evaluated the patient and discussed the management with Dr. Callahan. I agree with the History, Examination, Assessment and Plan documented above with any addition or exceptions noted below. The patient is doing very well. He weight has decreased and we think he will be accepted at a facility later today or tomorrow morning. Will complete discharge orders.
[2018-08-11] MEDS: Meloxicam 15 MG TAB PO SCH (07:49)
[2018-08-11] MEDS: Citrucel 500 MG TAB PO SCH (07:49)
[2018-08-11] MEDS: Multivit, Chewable SF 1 TAB PO SCH (07:49)
[2018-08-11] MEDS: Enoxaparin Sodium 40 MG/0.4 ML SYRINGE SC SCH (07:49)
[2018-08-11] MEDS: Gabapentin 100 MG CAP PO SCH ×3 (07:50→20:42)
[2018-08-11] MEDS: Furosemide 40 MG TAB PO SCH ×2 (07:50→14:30)
[2018-08-11] MEDS: Saccharomyces boulardii 250 MG CAP PO SCH (07:50)
[2018-08-11] MEDS: Potassium Chloride 10 MEQ TAB PO SCH (07:50)
[2018-08-11] MEDS: Clopidogrel Bisulfate 75 MG TAB PO SCH (07:50)
[2018-08-11] MEDS: Topiramate 25 MG TAB PO SCH ×2 (07:50→20:42)
[2018-08-11] MEDS: Citalopram 20 MG TAB PO SCH (07:50)
[2018-08-11] MEDS: Loratadine 10 MG TAB PO SCH (07:50)
[2018-08-11] MEDS: Polyethylene Glycol 3350 17 GM Packet PO SCH (07:51)
[2018-08-11] MEDS: Amlodipine 10 MG TAB PO SCH (07:51)
[2018-08-11] MEDS: Tamsulosin HCl 0.4 MG CAP PO SCH (08:11)
[2018-08-11] MEDS: Aripiprazole 2 MG TAB PO SCH (20:42)
[2018-08-11] MEDS: Atorvastatin Calcium 10 MG TAB PO SCH (20:42)
--- NOTE | 2018-08-12 07:31 | PDOC.FM ---
- Subjective Subjective: NAEO. Patient doing well, no complaints. Excited to go to SNF. - Objective MAR Reviewed: Yes Vital Signs & Weight: Vital Signs (12 hours) Temp Pulse Resp BP Pulse Ox 08/11/18 19:39 97.9 F 77 18 102/55 L 96 Weight Admit Weight 320.69 kg Weight 263.084 kg Most Recent Monitor Data Heart Rate from ECG 83 NIBP 168/84 NIBP BP-Mean 112 Respiration from ECG 17 SpO2 94 I&O: 08/11/18 08/12/18 08/13/18 06:59 06:59 06:59 Intake Total 1500 1160 Output Total 2700 1750 Balance -1200 -590 Result Diagrams: 07/29/18 08:40 07/29/18 08:40 Phys Exam - Physical Examination Constitutional: NAD HEENT: moist MMs, sclera anicteric trach collar in place Respiratory: no wheezing, clear to auscultation bilateral Cardiovascular: RRR, no significant murmur Gastrointestinal: soft, non-tender Neurological: non-focal Psychiatric: normal affect, A&O x 3 Skin: cap refill <2 seconds Dx/Plan (1) Tracheostomy care Code(s): Z43.0 - ENCOUNTER FOR ATTENTION TO TRACHEOSTOMY Status: Chronic (2) Chronic respiratory failure with hypoxia and hypercapnia Code(s): J96.11 - CHRONIC RESPIRATORY FAILURE WITH HYPOXIA; J96.12 - CHRONIC RESPIRATORY FAILURE WITH HYPERCAPNIA Status: Chronic (3) GERD (gastroesophageal reflux disease) Code(s): K21.9 - GASTRO-ESOPHAGEAL REFLUX DISEASE WITHOUT ESOPHAGITIS Status: Chronic (4) HTN (hypertension) Code(s): I10 - ESSENTIAL (PRIMARY) HYPERTENSION Status: Chronic Qualifiers: Hypertension type: essential hypertension Qualified Code(s): I10 - Essential (primary) hypertension (5) Morbid obesity Code(s): E66.01 - MORBID (SEVERE) OBESITY DUE TO EXCESS CALORIES Status: Chronic (6) Obesity hypoventilation syndrome Code(s): E66.2 - MORBID (SEVERE) OBESITY WITH ALVEOLAR HYPOVENTILATION Status : Chronic (7) Pickwickian syndrome Code(s): E66.2 - MORBID (SEVERE) OBESITY WITH ALVEOLAR HYPOVENTILATION Status : Chronic - Plan Plan: This is a 53 yo male with a pmh of HTN, HFpEF, morbid obesity, GERD 08/12 - no changes to course - checked weight 07/22 605lbs, 07/25 575 lbs. 07/29 594lb -reweigh on 08/06 was 589lb , 08/07 was 579lb, 08/08 581.25, patient accepted, pending transfer - failed referrals to [facility], now trying [facility], so far highest weight limit was 571lbs - 1500 marsha diet, w/ high protein shakes, patient is on board with trying to lose weight while here; will stay in contact with agricultural equipment mechanic to monitor Social Discord - stable for d/c since 07/02 - unable to obtain proper placement, appreciate [facility]UHA[facility] sebastian - called insurance provider and initiated prior auth reference number: [id number] - was informed this can take 5-15 days to process, 07/08 - was caring for patient at home but now dealing with epilepsy and unable to care for patient at home thus needs placement Diarrhea 07/10, resolved - 3-4 stools per day - C diff neg 07/11 - Immodium, probiotics, and fiber added. Patient switched from protein shakes, to more protein on tray to see if this relieves any diarrhea. Acute on chronic hypoxic Respiratory failure 2/2 Right Middle Lobe Pneumonia and Chronic Pickwickian- resolved - O2 as needed, continuos pulse ox - Due to trach initially covered for pseudomonas with Cefepime and Levaquin, s/ p 7 days of levaquin 07/01-07/07 - Procal negative - Blood cultures Coag negative staph 1/2 - Likely contaminant HTN - increased amlodipine to 10mg 07/08 Tracheitis- resolved - follows with Dr. Singh outpatient Nausea/Vomiting, resolved - Zofran PRN HFpEF, present on admision - Echo on 04/06/18: EF 50-55%, mod dilated left atrium, no MR, mild TR and [place] - HH diet, fluid restriction, daily wts - Continue lasix Morbid obesity - Would benefit from correction placement into complex care facility however every facility has denied him - CM spoke with APS - consulted risk and insurance manager for assistance with weight loss Delusions - Continue home meds GERD - Continue home meds Addendum - Attending - Attending Attestation Date/Time: 08/12/18 2102 I personally evaluated the patient and discussed the management with Dr. Callahan. I agree with the History, Examination, Assessment and Plan documented above with any addition or exceptions noted below. The patient was seen while being moved to a stretcher on his way out to his new facility. He was very thankful for his care over these past weeks.
[2018-08-12 07:45] VITALS: BP 129/74; TEMP 98.1
[2018-08-12] MEDS: Meloxicam 15 MG TAB PO SCH (08:29)
[2018-08-12] MEDS: Tamsulosin HCl 0.4 MG CAP PO SCH (08:29)
[2018-08-12] MEDS: Potassium Chloride 10 MEQ TAB PO SCH (08:29)
[2018-08-12] MEDS: Gabapentin 100 MG CAP PO SCH (08:29)
[2018-08-12] MEDS: Loratadine 10 MG TAB PO SCH (08:29)
[2018-08-12] MEDS: Multivit, Chewable SF 1 TAB PO SCH (08:29)
[2018-08-12] MEDS: Saccharomyces boulardii 250 MG CAP PO SCH (08:29)
[2018-08-12] MEDS: Citrucel 500 MG TAB PO SCH (08:30)
[2018-08-12] MEDS: Citalopram 20 MG TAB PO SCH (08:30)
[2018-08-12] MEDS: Amlodipine 10 MG TAB PO SCH (08:30)
[2018-08-12] MEDS: Clopidogrel Bisulfate 75 MG TAB PO SCH (08:31)
[2018-08-12] MEDS: Enoxaparin Sodium 40 MG/0.4 ML SYRINGE SC SCH (08:31)
[2018-08-12] MEDS: Topiramate 25 MG TAB PO SCH (08:31)
[2018-08-12] MEDS: Polyethylene Glycol 3350 17 GM Packet PO SCH (08:33)
[2018-08-12] MEDS: Furosemide 40 MG TAB PO SCH (08:33)
--- NOTE | 2018-08-13 08:47 | DIS ---
DATE OF ADMISSION: 07/01/2018 DATE OF DISCHARGE: 08/12/2018 Please refer to transition of care note for prior care up until 08/08/2018. RESIDENT: Sara Callahan, PGY-1. DISCHARGE ATTENDING: Fay Quick MD. CONSULTS: No new consults since 08/08. PROCEDURES: No new procedures since 08/08. PRIMARY DIAGNOSES: 1. Chronic respiratory failure with hypoxia and hypercapnia. 2. Tracheostomy care. 3. Gastroesophageal reflux disease. 4. Hypertension. 5. Morbid obesity. 6. Obesity hypoventilation syndrome. 7. Pickwickian syndrome. 8. Pneumonia, resolved. DISCHARGE MEDICATIONS: 1. Simethicone 80 mg p.o. 2. Florastor. 3. Multivitamin. 4. Loperamide. 5. Norvasc 10 mg p.o. daily. 6. Citrucel 500 mg p.o. daily. 7. Tylenol. 8. Senokot. 9. Abilify 2 mg p.o. at bedtime. 10. MiraLAX. 11. Nystatin powder. 12. Albuterol 2.5 mg neb q.6 p.r.n. for short of breath or wheezing. 13. Lasix 40 mg p.o. b.i.d. 14. Celexa 40 mg p.o. daily. 15. Meloxicam 15 mg p.o. daily. 16. Flomax 0.4 mg p.o. daily. 17. Nexium 40 mg p.o. q.a.m. with meals. 18. Topamax 25 mg p.o. b.i.d. 19. Potassium chloride 10 mEq p.o. daily. 20. Gabapentin 100 mg p.o. t.i.d. 21. Zyrtec 10 mg p.o. daily. 22. Simvastatin 20 mg p.o. at bedtime. 23. Plavix 75 mg p.o. daily. 24. Amlodipine 5 mg p.o. daily. HISTORY OF PRESENT ILLNESS/HOSPITAL COURSE: Please refer to transition of care note on 08/08 and 08/01 in order for hospital course up until 08/08/2018. From 08/08/2018 to 08/12/2018, the patient was stable, had been working on losing weight in order to be able to less than 580 pounds so that the custodial facility in [place] would accept him. On 08/11/2018, the patient was reweighed. He still was about 581 pounds. However, nursing facility said that they would go ahead and accepted him. Plans were made for transport. The patient was ready to go and in stable condition at the time of discharge. He will be going to [facility] in [place], [place]. DISPOSITION: Stable. DISCHARGE INSTRUCTIONS: 1. Location: [facility]. 2. Diet: Heart healthy, calorie restricted diet, fluid-restricted diet less than 1200 to 1500, and diabetic diet. 3. Activity: As tolerated. Please continue working with Physical Therapy with the goal to eventually ambulate independently. 4. Followup: Please follow up with PCP, Dr. Espinosa, at [facility] in 7 to 10 days. 5. Please follow up with bariatric surgeon for continued assessment of eventual gastric sleeve. Job ID: [id number]
== END 2018-08-12 10:41 | DRG 193 ==
LOC: ERS 20:47 → IMCU/EMU 23:47 → OBSVTOIN 07-01 11:02 → T4-A 07-09 08:32
PROVIDERS: ADMIT Emergency Medicine; ATTEND Emergency Medicine
DX: J18.1 Lobar pneumonia, unspecified organism (principal); J96.22 Acute and chronic respiratory failure with hypercapnia; J96.21 Acute and chronic respiratory failure with hypoxia; E66.2 Morbid (severe) obesity with alveolar hypoventilation; Z68.45 Body mass index [BMI] 70 or greater, adult; I50.32 Chronic diastolic (congestive) heart failure; Z74.2 Need for assistance at home and no other household member able to render care; I11.0 Hypertensive heart disease with heart failure; K21.9 Gastro-esophageal reflux disease without esophagitis; R13.10 Dysphagia, unspecified; J04.10 Acute tracheitis without obstruction; Z43.0 Encounter for attention to tracheostomy; R19.7 Diarrhea, unspecified; F22 Delusional disorders; D64.9 Anemia, unspecified; Z91.14 Patient's other noncompliance with medication regimen
CPT/HCPCS: 36415; 36416; 71045; 80048; 80053; 81003; 81015; 82040; 83690; 83880; 84145; 84484; 85025; 85027; 87040; 87149; 87324; 87449; 93005; 94640; 94760; 96374; 96375; J0692; J0696; J1650; J1956; J2270; J2405; J7050